=== PATIENT | male | born 1950 | race Caucasian/White ===

== ENCOUNTER 2022-04-13 16:01 | Inpatient (IN) | payer OTHER ==
--- NOTE | 2022-04-13 10:07 | R.PREADM ---
PRE-ADMISSION SCREENING FORM SCREENING DATE AND TIME 04/13/2022 08:30 (CDT) ANTICIPATED REHAB ADMISSION DATE 04/13/2022 REFERRING FACILITY [facility] REFERRAL DATE AND TIME 04/11/2022 16:53 (CDT) REFERRAL OFFICE PHONE REFERRAL ROOM# [id number] ACUTE ADMIT DATE 04/09/2022 Previous Rehabilitation(s): No. 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 Canelo Garcia MR# [id number] NAME JAXON REEVES ADDRESS [address] PHONE [facility] [address] DATE OF 1950 AGE 72 SSN# [id number] GENDER male MARITAL STATUS AD[facility] PRE-HOSPITAL LIVING SETTING 01 - Home (private home/apt. board/care, assisted living, [facility], transitional living) HOME TYPE AND DETAILS Type of home: single family house # of levels in the residence: 1 # of steps within the residence: 0 # of steps to enter the residence: 0 PRE-HOSPITAL LIVING WITH Family/Relatives FAMILY SUPPORT Yes PHONE PRIMARY FAMILY CONTACT ON ADM.? no IS PRIMARY FAMILY CONTACT AUTH. REP.? no PHONE 1ST CONTACT ON ADM. no IS 1ST CONTACT AUTH. REP.? no PHONE 2ND CONTACT ON ADM.? no PATIENT EMPLOYMENT STATUS Retired (for age) PATIENT EMPLOYER No Employer PAYOR INFORMATION: 1ST PAYOR NAME MEDICARE 1ST PAYOR PHONE INJURY/ILLNESS DUE TO ACCIDENT? No ANOTHER CONSTITUTION PARTY RESPONSIBLE? No PRIMARY REHAB/ACUTE DIAGNOSIS: FREQUENT FALLS AND WEAKNESS ONSET DATE 04/09/2022 REHAB IMPAIRMENT CATEGORY (LEONEL): 20 Miscellaneous (Misc) does NOT meet 60% rule PRIMARY DIAGNOSIS-RELATED SURGERIES: N/A COMORBID REHAB/ACUTE DIAGNOSES: - Non-Tiered Unspecified dementia without behavioral disturbance (F03.90) Essential (primary) hypertension (I10) Atherosclerotic heart disease of [place] coronary artery without angina pectoris (I25.10) Hyperlipidemia, unspecified (E78.5) Muscle weakness (generalized) (M62.81) INTERVENTIONS: - Hypertension Blood pressure will be regularly assessed and medications administered as per physician recommendatio ns. - Weakness Daily therapy services to enhance patient's functional strength and abilities. - Hyperlipidemia Administer medications as per MD - CAD Administer Medication as indicated by physician. Vitals will be regularly monitored and symptoms managed. - Dementia Medications administered as indicated by physician. Proper monitoring of patient to ensure safety. RISK FOR COMPLICATIONS: - Falls Patient will be evaluated for Fall Precautions and will be placed on Fall Precautions as indicated pe r protocol. - Cardiac monitoring heart rate/signs and symptoms for cardiac distress. Previous heart attack. medication management by physician - Weakness Nursing and therapy will help to get patient stronger Strengthening exercises to be performed - Skin Breakdown Nursing will assess skin daily using assessment tool and will place on Skin Breakdown Precautions as Indicated per protocol - UTI Monitor for frequency, burning, discomfort, or incontinence - Pain Clinical staff will assess patient's pain level every shift per protocol to monitor for pain manageme nt effectiveness Educate patient on pain management strategies - DVT Administer anti-coagulants as indicated by physician and monitor for effectiveness. Mobility training and regular exercise SUMMARY OF ACUTE HOSPITALIZATION: Pt. is a 72 yo Right-handed male. On 04/09/2022 he was admitted to [facility] with diagnosis FREQUENT FALLS AND WEAKNESS. His impairment category is Debility 16 - Debility (16). Pre-morbidly, Pt. was independent/mod-I in Locomotion, Safety Awareness, Social Cognition, Balance, a nd Transfers Control; and he had good Sphincter Control, Self-Care, Communication, and Endurance. Currently, he has deficits of Locomotion, Safety Awareness, Social Cognition, Balance, Transfers Cont rol, Sphincter Control, Self-Care, and Endurance. Pt. is now referred to [facility] for acute in-patient rehabilitation in order to maximize patient's functional independence in activities of daily living, strength, ROM, and mobi lity. Patient has realistic goal of being discharged at assistance level 7-Ind to reside at Home with Fami ly/Relatives. PAST MEDICAL HISTORY CAD DEMENTIA HTN HLD Repeated falls (R29.6) Muscle weakness (generalized) (M62.81) pulmonary congestion [place] Pacemaker PAST SURGICAL HISTORY: PACEMAKER MEDICATION ALLERGIES: No Known Drug Allergies (NKDA) ENVIRONMENTAL ALLERGIES: - Substance Allergies None Known - Other Allergies None Known CODE STATUS: Full code WEIGHT/HEIGHT/BMI: WEIGHT 220 lbs HEIGHT 6' 0" BMI 29.8 DIET: - Diet Type Regular - Diet - Solid Texture Regular - Diet - Liquid Texture Regular - Tube Feed N/A SKIN DIAGRAM: on Other; extent - small; stage - NS(Not Stageable). Treatment - . REVIEW OF SYSTEMS: - Gen Alert and awake Lying in bed No apparent distress Oriented to: person, time, and place - Vital Signs Temperature: 98.0 F SBP/DBP: 160/96 Pulse: 76 Resp: 19 Vital signs stable, afebrile - CVS RRR VITAL SIGNS Temperature: 98.0 F SBP/DBP: 160/96 Pulse: 76 Resp: 19 Vital signs stable, afebrile MEDICATIONS/TREATMENT: Other- See attached MAR (Medication Administration Record). CURRENT SPHINCTER CONTROL: Pre-hospital bladder status: unspecified # of bladder accidents in the last 7 days prior to screenin Pre-hospital bowel status: unspecified # of bowel accidents in the last 7 days prior to screenin Last Bowel Movement Date: 04/11/2022 CURRENT LOCOMOTION STATUS: distance walked 60 feet DETAILED CURRENT FUNCTIONAL STATUS: - Bladder accident frequency: 7-Ind - No accidents in the past 7 days - Bowel accident frequency: 7-Ind - No accidents in the past 7 days - Walking score based on distance walked: 0(N/A) score based on distance walked: 2(50-149ft) - Wheelchair score based on distance traveled: 0(N/A) QI SCORES: - Self-Care A. Eating 03-Partial/moderate assistance B. Oral hygiene 03-Partial/moderate assistance C. Toileting hygiene 03-Partial/moderate assistance E. Shower/bathe self 03-Partial/moderate assistance F. Upper body dressing 03-Partial/moderate assistance G. Lower body dressing 03-Partial/moderate assistance H. Putting on/taking off footwear 88-Not attempted due to medical condition or safety concerns - Mobility A. Roll left and right 06-Independent B. Sit to lying 03-Partial/moderate assistance C. Lying to sitting on side of bed 03-Partial/moderate assistance D. Sit to stand 03-Partial/moderate assistance E. Chair/zag-af-tcpvr transfer 03-Partial/moderate assistance F. Toilet transfer 03-Partial/moderate assistance G. Car transfer 88-Not attempted due to medical condition or safety concerns I. Walk 10 feet 03-Partial/moderate assistance J. Walk 50 feet with two turns 03-Partial/moderate assistance K. Walk 150 feet 88-Not attempted due to medical condition or safety concerns L. Walking 10 feet on uneven surfaces 88-Not attempted due to medical condition or safety concerns M. 1 step (curb) 88-Not attempted due to medical condition or safety concerns N. 4 steps 88-Not attempted due to medical condition or safety concerns O. 12 steps 88-Not attempted due to medical condition or safety concerns P. Picking up object 88-Not attempted due to medical condition or safety concerns R. Wheel 50 feet with two turns 88-Not attempted due to medical condition or safety concerns S. Wheel 150 feet 88-Not attempted due to medical condition or safety concerns - Bladder and Bowel Bladder continence Bowel continence - Endurance Fair - Balance Fair - Safety Awareness Fair CURRENT FUNC. DEFICITS: Self-Care, Endurance, Balance, Safety Awareness, and Mobility CURRENT / PREVIOUS ASSISTIVE DEVICES: Rolling Walker HISTORY OF FALLS. HAS THE PATIENT HAD TWO OR MORE FALLS IN THE PAST YEAR OR ANY FALL WITH INJURY IN T HE PAST YEAR?: Yes PRIOR SURGERY. DID THE PATIENT HAVE MAJOR SURGERY DURING THE 100 DAYS PRIOR TO ADMISSION?: No THERAPY NOTES FROM ACUTE CARE: Attached. SPECIAL NEEDS: - Safety Concerns Skin breakdown precautions needed due to skin breakdown risk PRECAUTIONS: - Fall Precaution SAFTY AND FALL PATIENT NEEDS ACTIVE AND ONGOING THERAPEUTIC INTERVENTION OF MULTIPLE THERAPY DISCIPLINES, INCLUDING: - Dietary and Nutrition Adequate Nutrition. Nutritional Education. Nutritional Supplements. Evaluate and Treat. - Occupational Therapy Cognitive Retraining. Patient needs Occupational Therapy for a daily minimum of 1.5 hours at least 5 out of 7 days, to improve Activities of Daily Living, including: Eating, Grooming, Bathing, Dressing, Toileting, Toilet Transfers, Community Reintegration, Higher functional activities, Adaptive Equipme nt, Splinting, Household Tasks, and Other activities as determined. Visual Perceptual Training. Evalu ate and Treat. Safety Awareness. Patient/Family Education. Household Tasks. ADL Training. - Speech Therapy Cognitive Training. Expressive Language Skills. Memory Strategies. Patient needs Speech Therapy for a daily minimum of 1.5 hours at least 5 out of 7 days, to improve: Swallowing, Cognition, Language Ski lls, and Compensatory Strategies. Receptive Language Skills. Speech Intelligibility Training. - Physical Therapy Patient needs Physical Therapy for a daily minimum of 1.5 hours at least 5 out of 7 days, to improve: Mobility, Strengthening, Transfers, Stretching, ROM, Endurance, Ability to manage stairs, Gait, and Balance. Balance Training. Gait Training. Safety Awareness. Transfer Training. Evaluate and Treat. Pa tient/Family Education. LE Strengthening. Mobility Training. PATIENT NEEDS CLOSE MEDICAL SUPERVISION BY A REHABILITATION PHYSICIAN FOR: Coordination of Treatment Team Wound Care Medical and Co-Morbidity Management Pain Management DVT Management Bowel and Bladder Management PATIENT REQUIRES 24X7 REHAB NURSING FOR MEDICAL AND FUNCTIONAL MGT. OF THE FOLLOWING DEFICITS: Disease Management Medication Management Patient requires 24x7 Rehabilitation Nursing for: Pain Issues, Identifying and preventing risk factor s, Monitoring and reporting current medical conditions, Assisting with ambulation and transfer, Ernesto ting with all ADL-s, Teaching patients about disease process and medications, Family teaching, Provid ing safe environment, Bowel and Bladder Issues, Skin Integrity, and Medication Management Patient/Family Education Providing Safe Environment Skin Integrity PATIENT REQUIRES INTENSIVE, COORDINATED INTERDISCIPLINARY APPROACH TO REHAB: Arranging Home Equipment/Services Discharge Planning Family Intervention/Training Patient needs Dietary and Nutrition Services for: Adequate Nutrition, Nutritional Supplements, and Nu tritional Education Patient needs Criminal Justice Department Chair and/or Case Management for: Discharge Planning, Arranging Home Equipmen t or Services, and Family Interventions Criminal Justice Department Chair/Case Management PATIENT REHAB POTENTIAL: Jules REEVES is able and expected to receive 3 hours of individualized therapy daily on at least 5 of every 7 days Jules REEVES's prognosis for significant practical improvement within a reasonable period of time tere ears Good Expected level of measurable improvement will be of a practical value to Jules REEVES's functional ca pacity or adaptations to impairments Has a viable Discharge Plan Medically appropriate; condition is sufficiently stable to participate in intensive rehab program DISCHARGE PLAN: - Estimated Length of Stay (days) 13. - Consensus on plan Discharge plan has been discussed with primary caregiver. Patient/Family is in agreement with the amisha n. Primary caregiver is in agreement with the plan. - Patient/Family Goals Return home independently. - Planned Living Setting Upon Discharge Home, to live with Family/Relatives. Transitional Living. RECOMMENDED CARE LEVEL: IRF RECOMMENDATION DETAILS: Recommended Admission to Comprehensive Rehabilitation Program to Increase Functional [place] PHYSICIANS REVIEW AND ADMISSION DETERMINATION Admit - Based on my review of the Pre-Admission Screening results, in my medical judgment and experie nce, I concur with the findings and recommend admission to [facility], as this patient requires an IRF level of care. SIGNATURE PANEL: Electrical Electronics Technician - [electronically] signed by Dennys Robbins on 04/12/2022 at 12:08 (CDT) Electrical Electronics Technician - [electronically] signed by Germán Russo PT on 04/13/2022 at 08:59 (CDT) Physician Reviewer - [electronically] signed by Dr. Canelo Garcia on 04/13/2022 at 10:07 (CDT)
--- OUTSIDE RECORDS SUMMARY | 2022-04-13 17:11 | XMS REPORT | Continuity of Care Document ---
:1950 Author Organization [facility] t Address [address] [place] [address] Care Team Providers Name Role Phone [id number] Attending Clinician Unavailable AHMED Attending Clinician Unavailable TRACIE Attending Clinician Unavailable Radha Attending Clinician Unavailable Jody Carr Attending Clinician Unavailable Rashmi Swann Attending Clinician Unavailable CAMACHO Attending Clinician Unavailable [id number] Admitting Clinician Unavailable AHMED Admitting Clinician Unavailable TRACIE Admitting Clinician Unavailable Physician, Primary or Family Admitting Clinician Unavailabl e UNDEFINED Admitting Clinician Unavailable Jody Carr Admitting Clinician Unavailable Thang Trivedi Admitting Clinician Unavailable Payers Payer Name Policy Type Policy Number Effective Date Expiration Date S nay MEDICARE A B [id number] 2017 00:00:00 CDC REVIEW [id number] 2020 00:00:00 [facility]AP EMERGENCY [id number] 2016 2016 ADMIT 00:00:00 00:00:00 Problems This patient has no known problems. Allergies, Adverse Reactions, Alerts Allergy Allergy Status Severity Reaction(s) Onset Inactive Treating Comm ents Source Name Type Date Date Clinician No Known DA Active U 2020-0 [facility] 6[facility]05 Clear s 00:00: Alexis [address] [place] [address] No Known DA Active U 2020-0 [facility] 5-15 Phillip s 00:00: [address] No Known DA Active U 2020-0 [facility] 5-15 Phillip s 00:00: [address] No Known DA Active U 2018-1 [facility] 0-23 Clear s 00:00: [address] No Known DA Active U 2012-0 [facility]ie 4-18 [place] s 00:00: [address] NO KNOWN Allergy Active [facility] ALLERGIE S Medications This patient has no known medications. Vital Signs Vital Name Observation Time Observation Value Comments Source HEIGHT 2020-05-23 00:00:00 180.3 cm WEIGHT 2020-05-23 00:00:00 92.2 kg HEIGHT 2020-05-03 00:00:00 180.3 cm WEIGHT 2020-05-03 00:00:00 95.573 kg HEIGHT 2020-05-23 00:00:00 180.3 cm WEIGHT 2020-05-23 00:00:00 92.2 kg HEIGHT 2020-05-03 00:00:00 180.3 cm WEIGHT 2020-05-03 00:00:00 95.573 kg Procedures Procedure Date / Time Performed Performing Clinician Tamara march [id number] 2020-01-20 00:00:[address] [facility] [id number] 2020-01-20 00:00:[address] [facility] [id number] 2020-01-20 00:00:[address] [facility] [id number] 2020-01-16 00:00:00 KUMSA.02 [facility] [id number] 2020-01-16 00:00:00 KUMSA.02 [facility] [id number] 2019-12-10 00:00:00 [facility] [id number] 2019-12-10 00:00:00 [facility] [id number] 2019-12-10 00:00:00 [facility] [id number] 2019-12-10 00:00:00 [facility] Encounters Start End Encounter Admission Attending Care Care Encounter Source Date/Time Date/Time Type Type Clinicians Facility Department ID 2021-11-21 Outpatient 3 [id number] ENCPL REF [id number] ENCPL 09:58:04 0609 2021-11-21 Outpatient 3 [id number] ENCSL REF [id number] ENCSL 09:29:15 [id number] 2021-11-21 Outpatient 3 [id number] ENCSL REF [id number] ENCSL 09:28:58 [id number] 2021-07-31 Inpatient ER ZACH HUGHES Cardiology [id number] [facility] 01:26:42 MARIE 2021-07-30 Outpatient TRACIE, [facility] Surgery [id number] [facility] 23:53:12 MOHAMMAD 2020-05-03 Inpatient ER GISSELLE [facility] Internal [id number] [facility] 15:52:00 MARIE Med 2020-03-30 Inpatient HCAPM KRISTINA [id number] [facility] 20:31:00 [facility] 2020-03-09 Inpatient Loyalka, [facility] DAYS [id number] [facility] 11:00:00 Ibrahima [id number] [facility] 2020-01-16 Inpatient UR Bruno, HCAPM INTE [id number] [facility] 08:10:00 Flavio [id number] [facility] [place] 2019-12-08 Inpatient Omer Swannn HCAWU KRISTINA [id number] [facility] 22:48:00 [id number] [facility] 2020-04-04 2020-04-04 Outpatient CAMACHO, NATALEE HCAPM LABO [id number] [facility] 20:28:00 20:28:00 [facility] [place] 2020-04-04 2020-04-04 Outpatient CAMACHO, NATALEE HCAPM LABO [id number] [facility] 20:28:00 20:28:00 [facility] [place] 2020-03-30 2020-03-30 Outpatient Bruno, HCACL OUTD [id number] [facility] 23:24:00 23:24:00 Flavio [facility] 2020-03-08 2020-03-08 Outpatient Loyalka, HCACL OUTD [id number] [facility] 11:55:00 11:55:00 Ibrahima [id number] [facility] 2020-03-08 2020-03-08 Outpatient Loyalka, HCAPM LABO [id number] [facility] 11:18:00 11:18:00 Ibrahima [id number] [facility] [place] 2020-01-17 2020-01-17 Outpatient Carr, [facility]AC[facility] OUTD [id number] [facility] 00:05:00 00:05:00 [facility] [id number] [facility] Results Test Description Test Time Test Comments Results Result Comments Source POCT-GLUCOSE METER 2020-05-30 16:39:00 Test Item Value Reference Range Interpretation Comme nts POC-GLUCOSE METER (BEAKER) 101 mg/dL 70-110 : TESTED AT [facility] [address] [facility] (test code = 1538) [facility] X, [address]: Carousel Attendant/Techni jennifer ID = [id number] for OLU BAUTISTA POCT-GLUCOSE [id number] 11:47:00 Test Item Value Reference Range Interpretation Comments POC-GLUCOSE METER 114 mg/dL 70-110 H : TESTED A T [facility] 6720 (BEAKER) (test code = [facility] Thang [facility], 1538) [address]: Carousel Attendant/Techni jennifer ID = [id number] for DELORES SOTOA POCT-GLUCOSE [id number] 07:21:00 Test Item Value Reference Range Interpretation Comments POC-GLUCOSE METER 126 mg/dL 70-110 H : [facility] (test code = [facility] Thang [facility], 1538) [address]: Carousel Attendant/Techni jennifer ID = [id number] for SERA NTER, HIWITHA CBC W/PLT COUNT & AUTO [id number] 05:44:00 Test Item Value Reference Range Interpretation Comments WHITE BLOOD CELL COUNT (BEAKER) 8.1 K/ L 3.5-10.5 (test code = 775) RED BLOOD CELL COUNT (BEAKER) 3.87 M/ L 4.63-6.08 L (test code = 761) HEMOGLOBIN (BEAKER) (test code = 10.4 GM/DL 13.7-17.5 L 410) HEMATOCRIT (BEAKER) (test code = 32.8 % 40.1-51.0 L 411) MEAN CORPUSCULAR VOLUME (BEAKER) 84.8 fL 79.0-92.2 (test code = 753) MEAN CORPUSCULAR HEMOGLOBIN 26.9 pg 25.7-32.2 (BEAKER) (test code = 751) MEAN CORPUSCULAR HEMOGLOBIN CONC 31.7 GM/DL 32.3-36.5 L (BEAKER) (test code = 752) RED CELL DISTRIBUTION WIDTH 16.4 % 11.6-14.4 H (BEAKER) (test code = 412) PLATELET COUNT (BEAKER) (test 157 K/CU MM 150-450 code = 756) MEAN PLATELET VOLUME (BEAKER) 11.8 fL 9.4-12.4 (test code = 754) NUCLEATED RED BLOOD CELLS 0 /100 WBC 0-0 (BEAKER) (test code = 413) NEUTROPHILS RELATIVE PERCENT 61 % (BEAKER) (test code = 429) LYMPHOCYTES RELATIVE PERCENT 23 % (BEAKER) (test code = 430) MONOCYTES RELATIVE PERCENT 9 % (BEAKER) (test code = 431) EOSINOPHILS RELATIVE PERCENT 6 % (BEAKER) (test code = 432) BASOPHILS RELATIVE PERCENT 1 % (BEAKER) (test code = 437) NEUTROPHILS ABSOLUTE COUNT 4.96 K/ L 1.78-5.38 (BEAKER) (test code = 670) LYMPHOCYTES ABSOLUTE COUNT 1.90 K/ L 1.32-3.57 (BEAKER) (test code = 414) MONOCYTES ABSOLUTE COUNT (BEAKER) 0.71 K/ L 0.30-0.82 (test code = 415) EOSINOPHILS ABSOLUTE COUNT 0.45 K/ L 0.04-0.54 (BEAKER) (test code = 416) BASOPHILS ABSOLUTE COUNT (BEAKER) 0.07 K/ L 0.01-0.08 (test code = 417) IMMATURE GRANULOCYTES-RELATIVE 0 % 0-1 PERCENT (BEAKER) (test code = 2801) POCT-GLUCOSE [id number] 21:31:00 Test Item Value Reference Range Interpretation Comments POC-GLUCOSE METER 125 mg/dL 70-110 H : TESTED A T [facility] 6720 (BEAKER) (test code = [facility], 153) [address]: Carousel Attendant/Techni jennifer ID = [id number] for Nika sandoval Margarita POCT-GLUCOSE [id number] 16:20:00 Test Item Value Reference Range Interpretation Comments POC-GLUCOSE METER 114 mg/dL 70-110 H : TESTED A T [facility] 6720 (BEAKER) (test code = [facility], 153) 00182: Carousel Attendant/Techni jennifer ID = [id number] for TOM COVARRUBIAS JOHANNA POCT-GLUCOSE [id number] 11:59:00 Test Item Value Reference Range Interpretation Comments POC-GLUCOSE METER 117 mg/dL 70-110 H : TESTED A T [facility] 6720 (BEAKER) (test code = [facility]UN[facility] Desir [facility], 1538) 335[address]: Carousel Attendant/Techni jennifer ID = [id number] for TOM COVARRUBIAS POCT-GLUCOSE [id number] 08:03:00 Test Item Value Reference Range Interpretation Comments POC-GLUCOSE METER 122 mg/dL 70-110 H : TESTED A T [facility] 6720 (BEAKER) (test code = [facility] Desir [facility], 1538) [address]: Carousel Attendant/Techni jennifer ID = [id number] for TOM COVARRUBIAS CBC W/PLT COUNT & AUTO [id number] 05:21:00 Test Item Value Reference Range Interpretation Comments WHITE BLOOD CELL COUNT (BEAKER) 8.4 K/ L 3.5-10.5 (test code = 775) RED BLOOD CELL COUNT (BEAKER) 3.75 M/ L 4.63-6.08 L (test code = 761) HEMOGLOBIN (BEAKER) (test code = 10.2 GM/DL 13.7-17.5 L 410) HEMATOCRIT (BEAKER) (test code = 32.1 % 40.1-51.0 L 411) MEAN CORPUSCULAR VOLUME (BEAKER) 85.6 fL 79.0-92.2 (test code = 753) MEAN CORPUSCULAR HEMOGLOBIN 27.2 pg 25.7-32.2 (BEAKER) (test code = 751) MEAN CORPUSCULAR HEMOGLOBIN CONC 31.8 GM/DL 32.3-36.5 L (BEAKER) (test code = 752) RED CELL DISTRIBUTION WIDTH 16.2 % 11.6-14.4 H (BEAKER) (test code = 412) PLATELET COUNT (BEAKER) (test 141 K/CU MM 150-450 L code = 756) MEAN PLATELET VOLUME (BEAKER) 11.6 fL 9.4-12.4 (test code = 754) NUCLEATED RED BLOOD CELLS 0 /100 WBC 0-0 (BEAKER) (test code = 413) NEUTROPHILS RELATIVE PERCENT 61 % (BEAKER) (test code = 429) LYMPHOCYTES RELATIVE PERCENT 23 % (BEAKER) (test code = 430) MONOCYTES RELATIVE PERCENT 9 % (BEAKER) (test code = 431) EOSINOPHILS RELATIVE PERCENT 6 % (BEAKER) (test code = 432) BASOPHILS RELATIVE PERCENT 1 % (BEAKER) (test code = 437) NEUTROPHILS ABSOLUTE COUNT 5.13 K/ L 1.78-5.38 (BEAKER) (test code = 670) LYMPHOCYTES ABSOLUTE COUNT 1.89 K/ L 1.32-3.57 (BEAKER) (test code = 414) MONOCYTES ABSOLUTE COUNT (BEAKER) 0.73 K/ L 0.30-0.82 (test code = 415) EOSINOPHILS ABSOLUTE COUNT 0.52 K/ L 0.04-0.54 (BEAKER) (test code = 416) BASOPHILS ABSOLUTE COUNT (BEAKER) 0.07 K/ L 0.01-0.08 (test code = 417) IMMATURE GRANULOCYTES-RELATIVE 0 % 0-1 PERCENT (BEAKER) (test code = 2801) POCT-GLUCOSE [id number] 21:25:00 Test Item Value Reference Range Interpretation Comments POC-GLUCOSE METER 120 mg/dL 70-110 H : TESTED A T [facility] 6720 (BEAKER) (test code = [facility], 1538) 46[address]: Carousel Attendant/Techni jennifer ID = [id number] for Margarita Chan POCT-GLUCOSE [id number] 16:54:00 Test Item Value Reference Range Interpretation Comments POC-GLUCOSE METER 116 mg/dL 70-110 H : TESTED A T [facility] 6720 (BEAKER) (test code = [facility], 1538) 16520: Carousel Attendant/Techni jennifer ID = [id number] for TOM COVARRUBIAS POCT-GLUCOSE [id number] 12:20:00 Test Item Value Reference Range Interpretation Comments POC-GLUCOSE METER 126 mg/dL 70-110 H : TESTED A T [facility] 6720 (BEAKER) (test code = [facility], 1538) 855[address]: Carousel Attendant/Techni jennifer ID = [id number] for TOM COVARRUBIAS [id number] 08:22:00 Test Item Value Reference Range Interpretation Comments MAGNESIUM (BEAKER) (test code = 1.6 mg/dL 1.6-2.6 627) Carousel Attendant ID - PIAYA LPOCT-GLUCOSE [id number] 08:21:00 Test Item Value Reference Range Interpretation Comments POC-GLUCOSE METER 138 mg/dL 70-110 H : TESTED A T [facility] 6720 (BEAKER) (test code = [place] Desir [place], 1538) 76[address]: Carousel Attendant/Techni jennifer ID = [id number] for TOM COVARRUBIAS CBC W/PLT COUNT & AUTO [id number] 06:58:00 Test Item Value Reference Range Interpretation Comments WHITE BLOOD CELL COUNT (BEAKER) 7.1 K/ L 3.5-10.5 (test code = 775) RED BLOOD CELL COUNT (BEAKER) 3.80 M/ L 4.63-6.08 L (test code = 761) HEMOGLOBIN (BEAKER) (test code = 10.4 GM/DL 13.7-17.5 L 410) HEMATOCRIT (BEAKER) (test code = 31.9 % 40.1-51.0 L 411) MEAN CORPUSCULAR VOLUME (BEAKER) 83.9 fL 79.0-92.2 (test code = 753) MEAN CORPUSCULAR HEMOGLOBIN 27.4 pg 25.7-32.2 (BEAKER) (test code = 751) MEAN CORPUSCULAR HEMOGLOBIN CONC 32.6 GM/DL 32.3-36.5 (BEAKER) (test code = 752) RED CELL DISTRIBUTION WIDTH 16.1 % 11.6-14.4 H (BEAKER) (test code = 412) PLATELET COUNT (BEAKER) (test 139 K/CU MM 150-450 L code = 756) MEAN PLATELET VOLUME (BEAKER) 11.0 fL 9.4-12.4 (test code = 754) NUCLEATED RED BLOOD CELLS 0 /100 WBC 0-0 (BEAKER) (test code = 413) NEUTROPHILS RELATIVE PERCENT 62 % (BEAKER) (test code = 429) LYMPHOCYTES RELATIVE PERCENT 20 % (BEAKER) (test code = 430) MONOCYTES RELATIVE PERCENT 10 % (BEAKER) (test code = 431) EOSINOPHILS RELATIVE PERCENT 7 % (BEAKER) (test code = 432) BASOPHILS RELATIVE PERCENT 1 % (BEAKER) (test code = 437) NEUTROPHILS ABSOLUTE COUNT 4.39 K/ L 1.78-5.38 (BEAKER) (test code = 670) LYMPHOCYTES ABSOLUTE COUNT 1.39 K/ L 1.32-3.57 (BEAKER) (test code = 414) MONOCYTES ABSOLUTE COUNT (BEAKER) 0.72 K/ L 0.30-0.82 (test code = 415) EOSINOPHILS ABSOLUTE COUNT 0.47 K/ L 0.04-0.54 (BEAKER) (test code = 416) BASOPHILS ABSOLUTE COUNT (BEAKER) 0.05 K/ L 0.01-0.08 (test code = 417) IMMATURE GRANULOCYTES-RELATIVE 0 % 0-1 PERCENT (BEAKER) (test code = 2801) POCT-GLUCOSE [id number] 21:38:00 Test Item Value Reference Range Interpretation Comments POC-GLUCOSE METER 126 mg/dL 70-110 H : TESTED A T [facility] 6720 (BEAKER) (test code = [facility], 1538) 94622: Carousel Attendant/Techni jennifer ID = [id number] for JUAREZ DELA CRUZ SE POCT-GLUCOSE [id number] 16:46:00 Test Item Value Reference Range Interpretation Comments POC-GLUCOSE METER 100 mg/dL 70-110 : TESTED A T [facility] 6720 (BEAKER) (test code = [facility], 1538) 25517: Carousel Attendant/Techni jennifer ID = [id number] for JUAN ALBERTO DEL ANGEL POCT-GLUCOSE [id number] 12:05:00 Test Item Value Reference Range Interpretation Comments POC-GLUCOSE METER 139 mg/dL 70-110 H : TESTED A T [facility] 6720 (BEAKER) (test code = [facility], 1538) 66285: Carousel Attendant/Techni jennifer ID = [id number] for JUAN ALBERTO DEL ANGEL POCT-GLUCOSE [id number] 08:11:00 Test Item Value Reference Range Interpretation Comments POC-GLUCOSE METER 122 mg/dL 70-110 H : TESTED A T [facility] 6720 (BEAKER) (test code = [facility], 1538) 97420: Carousel Attendant/Techni jennifer ID = [id number] for JUAN ALBERTO DEL ANGEL CBC W/PLT COUNT & AUTO [id number] 04:44:00 Test Item Value Reference Range Interpretation Comments WHITE BLOOD CELL COUNT (BEAKER) 7.5 K/ L 3.5-10.5 (test code = 775) RED BLOOD CELL COUNT (BEAKER) 3.84 M/ L 4.63-6.08 L (test code = 761) HEMOGLOBIN (BEAKER) (test code = 10.4 GM/DL 13.7-17.5 L 410) HEMATOCRIT (BEAKER) (test code = 32.8 % 40.1-51.0 L 411) MEAN CORPUSCULAR VOLUME (BEAKER) 85.4 fL 79.0-92.2 (test code = 753) MEAN CORPUSCULAR HEMOGLOBIN 27.1 pg 25.7-32.2 (BEAKER) (test code = 751) MEAN CORPUSCULAR HEMOGLOBIN CONC 31.7 GM/DL 32.3-36.5 L (BEAKER) (test code = 752) RED CELL DISTRIBUTION WIDTH 15.9 % 11.6-14.4 H (BEAKER) (test code = 412) PLATELET COUNT (BEAKER) (test 129 K/CU MM 150-450 L code = 756) MEAN PLATELET VOLUME (BEAKER) 11.2 fL 9.4-12.4 (test code = 754) NUCLEATED RED BLOOD CELLS 0 /100 WBC 0-0 (BEAKER) (test code = 413) NEUTROPHILS RELATIVE PERCENT 65 % (BEAKER) (test code = 429) LYMPHOCYTES RELATIVE PERCENT 19 % (BEAKER) (test code = 430) MONOCYTES RELATIVE PERCENT 9 % (BEAKER) (test code = 431) EOSINOPHILS RELATIVE PERCENT 6 % (BEAKER) (test code = 432) BASOPHILS RELATIVE PERCENT 1 % (BEAKER) (test code = 437) NEUTROPHILS ABSOLUTE COUNT 4.85 K/ L 1.78-5.38 (BEAKER) (test code = 670) LYMPHOCYTES ABSOLUTE COUNT 1.39 K/ L 1.32-3.57 (BEAKER) (test code = 414) MONOCYTES ABSOLUTE COUNT (BEAKER) 0.66 K/ L 0.30-0.82 (test code = 415) EOSINOPHILS ABSOLUTE COUNT 0.48 K/ L 0.04-0.54 (BEAKER) (test code = 416) BASOPHILS ABSOLUTE COUNT (BEAKER) 0.05 K/ L 0.01-0.08 (test code = 417) IMMATURE GRANULOCYTES-RELATIVE 0 % 0-1 PERCENT (BEAKER) (test code = 2801) POCT-GLUCOSE [id number] 21:30:00 Test Item Value Reference Range Interpretation Comments POC-GLUCOSE METER 116 mg/dL 70-110 H : TESTED A T [facility] 6720 (BEAKER) (test code = [facility], 1538) 20267: Carousel Attendant/Techni jennifer ID = [id number] for JUAREZ DELA CRUZ SE POCT-GLUCOSE [id number] 16:44:00 Test Item Value Reference Range Interpretation Comments POC-GLUCOSE METER 93 mg/dL 70-110 : TESTED A T [facility] 6720 (BEAKER) (test code = [facility], 1538) 36391: Carousel Attendant/Techni jennifer ID = [id number] for DANUTA JACQUES POCT-GLUCOSE [id number] 11:28:00 Test Item Value Reference Range Interpretation Comments POC-GLUCOSE METER 166 mg/dL 70-110 H : TESTED A T [facility] 6720 (BEAKER) (test code = [facility], 1538) 16011: Carousel Attendant/Techni jennifer ID = [id number] for DANUTA DEL ROSARIO BASIC METABOLIC [id number] 07:30:00 Test Item Value Reference Range Interpretation Comments SODIUM (BEAKER) 136 meq/L 136-145 (test code = 381) POTASSIUM (BEAKER) 4.6 meq/L 3.5-5.1 (test code = 379) CHLORIDE (BEAKER) 109 meq/L 98-107 H (test code = 382) CO2 (BEAKER) (test 23 meq/L 22-29 code = 355) BLOOD UREA NITROGEN 33 mg/dL 7-21 H (BEAKER) (test code = 354) CREATININE (BEAKER) 1.46 mg/dL 0.57-1.25 H (test code = 358) GLUCOSE RANDOM 126 mg/dL 70-105 H (BEAKER) (test code = 652) CALCIUM (BEAKER) 8.2 mg/dL 8.4-10.2 L (test code = 697) EGFR (BEAKER) (test 48 mL/min/1.73 ESTIMA SURI GFR IS code = 1092) sq m NOT ACCURATE CREATININE CLEARANCE IN PREDICTING GLOMERULAR FILTRATION RATE . ESTIMATED GFR I S NOT APPLICABLE FOR DIALYSIS PATIEN TS. Carousel Attendant ID - EDASIPOCT-GLUCOSE [id number] 07:25:00 Test Item Value Reference Range Interpretation Comments POC-GLUCOSE METER 139 mg/dL 70-110 H : TESTED A T [facility] 6720 (BEAKER) (test code = ED[place]UN[place], 1538) 24843: Carousel Attendant/Techni jennifer ID = [id number] for DANUTA DEL ROSARIO CBC W/PLT COUNT & AUTO [id number] 06:43:00 Test Item Value Reference Range Interpretation Comments WHITE BLOOD CELL COUNT (BEAKER) 6.4 K/ L 3.5-10.5 (test code = 775) RED BLOOD CELL COUNT (BEAKER) 3.76 M/ L 4.63-6.08 L (test code = 761) HEMOGLOBIN (BEAKER) (test code = 10.4 GM/DL 13.7-17.5 L 410) HEMATOCRIT (BEAKER) (test code = 32.2 % 40.1-51.0 L 411) MEAN CORPUSCULAR VOLUME (BEAKER) 85.6 fL 79.0-92.2 (test code = 753) MEAN CORPUSCULAR HEMOGLOBIN 27.7 pg 25.7-32.2 (BEAKER) (test code = 751) MEAN CORPUSCULAR HEMOGLOBIN CONC 32.3 GM/DL 32.3-36.5 (BEAKER) (test code = 752) RED CELL DISTRIBUTION WIDTH 15.9 % 11.6-14.4 H (BEAKER) (test code = 412) PLATELET COUNT (BEAKER) (test 128 K/CU MM 150-450 L code = 756) MEAN PLATELET VOLUME (BEAKER) 11.7 fL 9.4-12.4 (test code = 754) NUCLEATED RED BLOOD CELLS 0 /100 WBC 0-0 (BEAKER) (test code = 413) NEUTROPHILS RELATIVE PERCENT 62 % (BEAKER) (test code = 429) LYMPHOCYTES RELATIVE PERCENT 21 % (BEAKER) (test code = 430) MONOCYTES RELATIVE PERCENT 9 % (BEAKER) (test code = 431) EOSINOPHILS RELATIVE PERCENT 7 % (BEAKER) (test code = 432) BASOPHILS RELATIVE PERCENT 1 % (BEAKER) (test code = 437) NEUTROPHILS ABSOLUTE COUNT 3.95 K/ L 1.78-5.38 (BEAKER) (test code = 670) LYMPHOCYTES ABSOLUTE COUNT 1.34 K/ L 1.32-3.57 (BEAKER) (test code = 414) MONOCYTES ABSOLUTE COUNT (BEAKER) 0.56 K/ L 0.30-0.82 (test code = 415) EOSINOPHILS ABSOLUTE COUNT 0.46 K/ L 0.04-0.54 (BEAKER) (test code = 416) BASOPHILS ABSOLUTE COUNT (BEAKER) 0.06 K/ L 0.01-0.08 (test code = 417) IMMATURE GRANULOCYTES-RELATIVE 1 % 0-1 PERCENT (BEAKER) (test code = 2801) POCT-GLUCOSE [id number] 21:30:00 Test Item Value Reference Range Interpretation Comments POC-GLUCOSE METER 142 mg/dL 70-110 H : TESTED A T [facility] 6720 (BEAKER) (test code = [facility] R [facility], 1538) 50642: Carousel Attendant/Techni jennifer ID = [id number] for Dorothy Nugent POCT-GLUCOSE [id number] 17:08:00 Test Item Value Reference Range Interpretation Comments POC-GLUCOSE METER 117 mg/dL 70-110 H : TESTED A T [facility] 6720 (BEAKER) (test code = [facility], 1538) 51621: Carousel Attendant/Techni jennifer ID = [id number] for ASHLEY THOMPSON SARS-COV2/RT-PCR ([facility])2020-05-25 14:48:00 Test Item Value Reference Range Interpretation Comments SARS-COV2/RT-PCR (test Negative Not Detected, Negative, code = 9827562) See external report for linked test SARS-COV-2 PERFORMING LAB [facility] (test code = 9583425) Negative result for this test determines that SARS-CoV-2 RNA was not present in the specimen above the Limit of Detection (LOD). However, Negative results do not preclude SARS-CoV-2 infection and should not be used as the sole basis for treatment or patient management decisions. Negative results mustbe combined with clinical observations, patient history, and epidemiological information. A false negative result may occur if a specimen is improperly collected, transported or handled. A false negative result should be considered if patient's recent exposures or clinical presentation indicate that COVID-19 (SARS-CoV-2) is likely and diagnostic tests for other causes of illness are negative. Re-testing should be considered in cases of suspected false negatives.The limit of detection for this assay is 800 copies/mL.This SARS CoV-2 test is a real-time RT-PCR test intended for the qualitative detection of nucleic acid from SARS-CoV-2 in a nasopharyngeal swab specimen collected from individuals susp ected of COVID-19 by their healthcare provider.This test has not been Food and Drug Administration (FDA) cleared or approved. This is a modified version of an approved Emergency Use Authorization (EUA) and is in the process of review by the FDA. Once authorized by the FDA, the issued EUA will be effective until the declaration that circumstances exist justifying the authorization of the emergency use of in vitro diagnostic tests for detection and/or diagnosis of COVID-19 is terminated under Section 564(b)(2) of the Act or the EUA is revoked under Section 564(g) of the Act.Fact Sheet for Healthcare Providers:https://www.[employer]/sites/default/files/product/documents/Fact_Shee h_ZC_Dgjkhwthl_Zpjb_TJGN-QiS-2.pdfFact Sheet for Healthcare Patients:https://www.[employer]/sites/default/files/product/ documents/Afnm_Ckple_Tllrqzxt_Gdvk_ZLPX-YwQ-8.pdfPerforming Laboratory:[facility] [facility].[place], [place] [id number] METER 2020-05-25 11:55:00 Test Item Value Reference Range Interpretation Comments POC-GLUCOSE METER 147 mg/dL 70-110 H : TESTED A T [facility] 6720 (BEAKER) (test code = [facility], 1538) [id number]: Carousel Attendant/Techni jennifer ID = [id number] for SEBASTIAN SALAZAR THOMASNDJannette POCT-GLUCOSE [id number] 07:59:00 Test Item Value Reference Range Interpretation Comments POC-GLUCOSE METER 149 mg/dL 70-110 H : TESTED A T [facility] 6720 (BEAKER) (test code = [facility], 1538) [id number]: Carousel Attendant/Techni jennifer ID = [id number] for SEBASTIAN MANZOA THOMASNDY BASIC METABOLIC [id number] 04:53:00 Test Item Value Reference Range Interpretation Comments SODIUM (BEAKER) 139 meq/L 136-145 (test code = 381) POTASSIUM (BEAKER) 3.5 meq/L 3.5-5.1 (test code = 379) CHLORIDE (BEAKER) 115 meq/L 98-107 H (test code = 382) CO2 (BEAKER) (test 18 meq/L 22-29 L code = 355) BLOOD UREA NITROGEN 55 mg/dL 7-21 H (BEAKER) (test code = 354) CREATININE (BEAKER) 2.02 mg/dL 0.57-1.25 H (test code = 358) GLUCOSE RANDOM 110 mg/dL 70-105 H (BEAKER) (test code = 652) CALCIUM (BEAKER) 6.4 mg/dL 8.4-10.2 L (test code = 697) EGFR (BEAKER) (test 33 mL/min/1.73 ESTIMA SURI GFR IS code = 1092) sq m NOT ACCURATE CREATININE CLEARANCE IN PREDICTING GLOMERULAR FILTRATION RATE . ESTIMATED GFR I S NOT APPLICABLE FOR DIALYSIS PATIEN TS. Carousel Attendant ID - EDASICBC W/PLT COUNT & AUTO [id number] 04:29:00 Test Item Value Reference Range Interpretation Comments WHITE BLOOD CELL COUNT 7.7 K/ L 3.5-10.5 (BEAKER) (test code = 775) RED BLOOD CELL COUNT 3.09 M/ L 4.63-6.08 L (BEAKER) (test code = 761) HEMOGLOBIN (BEAKER) 8.6 GM/DL 13.7-17.5 L Discorda nt HGB (test code = 410) result com pared to previous result ; clinical correl ation required. HEMATOCRIT (BEAKER) 26.5 % 40.1-51.0 L (test code = 411) MEAN CORPUSCULAR 85.8 fL 79.0-92.2 VOLUME (BEAKER) (test code = 753) MEAN CORPUSCULAR 27.8 pg 25.7-32.2 HEMOGLOBIN (BEAKER) (test code = 751) MEAN CORPUSCULAR 32.5 GM/DL 32.3-36.5 HEMOGLOBIN CONC (BEAKER) (test code = 752) RED CELL DISTRIBUTION 15.8 % 11.6-14.4 H WIDTH (BEAKER) (test code = 412) PLATELET COUNT 104 K/CU MM 150-450 L (BEAKER) (test code = 756) MEAN PLATELET VOLUME 11.4 fL 9.4-12.4 (BEAKER) (test code = 754) NUCLEATED RED BLOOD 0 /100 WBC 0-0 CELLS (BEAKER) (test code = 413) NEUTROPHILS RELATIVE 69 % PERCENT (BEAKER) (test code = 429) LYMPHOCYTES RELATIVE 18 % PERCENT (BEAKER) (test code = 430) MONOCYTES RELATIVE 9 % PERCENT (BEAKER) (test code = 431) EOSINOPHILS RELATIVE 4 % PERCENT (BEAKER) (test code = 432) BASOPHILS RELATIVE 1 % PERCENT (BEAKER) (test code = 437) NEUTROPHILS ABSOLUTE 5.24 K/ L 1.78-5.38 COUNT (BEAKER) (test code = 670) LYMPHOCYTES ABSOLUTE 1.37 K/ L 1.32-3.57 COUNT (BEAKER) (test code = 414) MONOCYTES ABSOLUTE 0.69 K/ L 0.30-0.82 COUNT (BEAKER) (test code = 415) EOSINOPHILS ABSOLUTE 0.28 K/ L 0.04-0.54 COUNT (BEAKER) (test code = 416) BASOPHILS ABSOLUTE 0.04 K/ L 0.01-0.08 COUNT (BEAKER) (test code = 417) IMMATURE 0 % 0-1 GRANULOCYTES-RELATIVE PERCENT (BEAKER) (test code = 2801) POCT-GLUCOSE [id number] 21:17:00 Test Item Value Reference Range Interpretation Comments POC-GLUCOSE METER 137 mg/dL 70-110 H : TESTED A T [facility] 6720 (BEAKER) (test code = [facility], 153) [id number]: Carousel Attendant/Techni jennifer ID = [id number] for ROSALEE FINE POCT-GLUCOSE [id number] 16:47:00 Test Item Value Reference Range Interpretation Comments POC-GLUCOSE METER 174 mg/dL 70-110 H : TESTED A T [facility] 6720 (BEAKER) (test code = [facility], 153) [id number]: Carousel Attendant/Techni jennifer ID = [id number] for TOM COVARRUBIAS CORTISOL,60 [id number] 16:46:00 Test Item Value Reference Range Interpretation Comments CORTISOL BASELINE NETWORKED 19.0 mcg/dL (BEAKER) (test code = 2057) CORTISOL 30 MINUTE NETWORKED 18.6 mcg/dL (BEAKER) (test code = 2308) CORTISOL, 60 MINUTE (BEAKER) 16.7 ug/dL (test code = 1805) ACTH STIMULATION TEST INTERPRETATION GUIDELINES(Synonyms: Cortrosyn Test, Cosyntropin or Corticotropin Stimulation Test)Adenocorticotropic hormone (ACTH)is a tropic hormone, made in the pituitary gland, which travels trhough the bloodstream and stimulates the cortex of the adrenal glands to release cortisol. Cortisol is a primary hormone, which aids the body's metabolism of fats, carbohydrates, and protein as well as sodium and potassium regulation.ACTH Stimulation Test: Exogenous administrationof biologically active ACTH stimulates the secretion of cortisol from the adrenal gland. This test is used to evaluate adrenal function by measuring cortisol levels at baseline and at 30 and 60 minutesafter the administration of 250 micrograms of cosyntropin (Cortrosyn). Patients who have received exogenous corticosteroids immediately prior to performing the ACTH Stimulation Test will often have elevated baseline cortisol levels, which may lead to erroneous interpretation of test results. The notable exception is with dexamethasone.Normal Response: An increase in cortisol after stimulation by ACTHis normal. Post-stimulation cortisol concentration should be greater than 20 mcg/dL or the rate of rise from baseline cortisol should be greater than or equal to 9 mcg/dL.Patients with sepsis or septicshock: According to a study by Radhika et al (BEN 2000,283(8):1038-45), the ACTH Stimulation Test provides important prognostic information. This study defined 3 groups of patients with sepsis or septic shock: 1. Good Survival: Low basal cortisol (<or=34 mcg/dL) and high ACTH response (>9mcg/dL) 2. Intermediate Survival: Low basal cortisol (<34 mcg/dL) and low response to ACTH (&l t;or=9 mcg/dL) OR High basal cortisol (>34 mcg/dL) or high ACTH response (>9 mcg/dL) 3.Poor Survival: High basal cortisol (>34 mcg/dL) and low ACTH response (<or=9 mcg/dL).Treatment of patients with relative adrenal dysfunction may be indicated based on test results and the clinical condition of the patient. Additional information, including treatment recommendations, is available in critically ill patients, approved by the Pharmacy, Nutrition, and Therapeutics Committee on 10/04/2004 and available through the Pharmacy Policy and Procedure Section on The Source.Carousel Attendant ID - NTPDraw baseline cortisol level just prior to cosyntropin administration.Administer cosyntropin 1 mcg/mL via slow IV push over a period of 2 minutes. Flush the line after the dose to ensure the entire dose is delivered.Draw serum cortisol level 30 minutes after cosyntropin administration.Draw serum cortisol level 60 minutes after cosyntropin administration.TROPONIN [id number] 16:14:00 Test Item Value Reference Range Interpretation Comments TROPONIN I (BEAKER) (test code = 0.02 ng/mL 0.00-0.03 397) Troponin I (TnI) levels must be interpreted in the context of the presenting symptoms and the clinical findings. Elevated TnI levels indicate myocardial damage, but are not specific for ischemic heart disease. Elevated TnI levels are seen in patients with other cardiac conditions (including myocarditis and congestive heart failure), and slight TnI elevations occur in patients with other conditions, including sepsis, renal failure, acidosis, acute neurological disease, and persistent tachyarrhythmia.Carousel Attendant ID - NTPCORTISOL,30 MIN 2020-05-24 13:43:00 Test Item Value Reference Range Interpretation Comments CORTISOL BASELINE NETWORKED 19.0 mcg/dL (BEAKER) (test code = 2307) CORTISOL, 30 MINUTE (BEAKER) 18.6 ug/dL (test code = 1804) ACTH STIMULATION TEST INTERPRETATION GUIDELINES(Synonyms: Cortrosyn Test, Cosyntropin or Corticotropin Stimulation Test)Adenocorticotropic hormone (ACTH)is a tropic hormone, made in the pituitary gland, which travels trhough the bloodstream and stimulates the cortex of the adrenal glands to release cortisol. Cortisol is a primary hormone, which aids the body's metabolism of fats, carbohydrates, and protein as well as sodium and potassium regulation.ACTH Stimulation Test: Exogenous administrationof biologically active ACTH stimulates the secretion of cortisol from the adrenal gland. This test is used to evaluate adrenal function by measuring cortisol levels at baseline and at 30 and 60 minutesafter the administration of 250 micrograms of cosyntropin (Cortrosyn). Patients who have received exogenous corticosteroids immediately prior to performing the ACTH Stimulation Test will often have elevated baseline cortisol levels, which may lead to erroneous interpretation of test results. The notable exception is with dexamethasone.Normal Response: An increase in cortisol after stimulation by ACTHis normal. Post-stimulation cortisol concentration should be greater than 20 mcg/dL or the rate of rise from baseline cortisol should be greater than or equal to 9 mcg/dL.Patients with sepsis or septicshock: According to a study by Radhika et al (BEN 2000,283(8):6486-45), the ACTH Stimulation Test provides important prognostic information. This study defined 3 groups of patients with sepsis or septic shock: 1. Good Survival: Low basal cortisol (<or=34 mcg/dL) and high ACTH response (>9mcg/dL) 2. Intermediate Survival: Low basal cortisol (<34 mcg/dL) and low response to ACTH (&l t;or=9 mcg/dL) OR High basal cortisol (>34 mcg/dL) or high ACTH response (>9 mcg/dL) 3.Poor Survival: High basal cortisol (>34 mcg/dL) and low ACTH response (<or=9 mcg/dL).Treatment of patients with relative adrenal dysfunction may be indicated based on test results and the clinical condition of the patient. Additional information, including treatment recommendations, is available in critically ill patients, approved by the Pharmacy, Nutrition, and Therapeutics Committee on 10/04/2004 and available through the Pharmacy Policy and Procedure Section on The Source.Carousel Attendant ID - NTPDraw baseline cortisol level just prior to cosyntropin administration.Administer cosyntropin 1 mcg/mL via slow IV push over a period of 2 minutes. Flush the line after the dose to ensure the entire dose is delivered.Draw serum cortisol level 30 minutes after cosyntropin administration.Draw serum cortisol level 60 minutes after cosyntropin administration.POCT-GLUCOSE [id number] 11:57:00 Test Item Value Reference Range Interpretation Comments POC-GLUCOSE METER 149 mg/dL 70-110 H : TESTED A T [facility] 6720 (BEAKER) (test code = [facility], 1538) [id number]: Carousel Attendant/Techni jennifer ID = [id number] for TOM COVARRUBIAS RAD, CHEST, 1 VIEW, NON [id number] 08:32:00Reason for exam:->ppm failureShould this be performed at the bedside?->YesFINAL REPORT CLINICAL HISTORY: ppm failure TECHNIQUE: 1 view of the chest. CO MPARISON: 05/11/2020 IMPRESSION: There are no focal infiltrates or effusions. The cardiomediastinal silhouette is magnified by technique with sternotomy wires and a pacemaker. Signed: Shelley Cook MDReport Verified Date/Time: 05/24/2020 08:32:38 Reading Location: [facility] Radiology Reading Room POCT- GLUCOSE [id number] 08:12:00 Test Item Value Reference Range Interpretation Comments POC-GLUCOSE METER 158 mg/dL 70-110 H : TESTED A T [facility] 6720 (BEAKER) (test code = EDMUND Desir [facility], 1538) [id number]: Carousel Attendant/Techni jennifer ID = [id number] for TOM COVARRUBIAS CORTISOL,[id number] 07:40:00 Test Item Value Reference Range Interpretation Comments CORTISOL, BASELINE (BEAKER) (test 19.0 ug/dL code = 1803) ACTH STIMULATION TEST INTERPRETATION GUIDELINES(Synonyms: Cortrosyn Test, Cosyntropin or Corticotropin Stimulation Test)Adenocorticotropic hormone (ACTH)is a tropic hormone, made in the pituitary gland, which travels trhough the bloodstream and stimulates the cortex of the adrenal glands to release cortisol. Cortisol is a primary hormone, which aids the body's metabolism of fats, carbohydrates, and protein as well as sodium and potassium regulation.ACTH Stimulation Test: Exogenous administrationof biologically active ACTH stimulates the secretion of cortisol from the adrenal gland. This test is used to evaluate adrenal function by measuring cortisol levels at baseline and at 30 and 60 minutesafter the administration of 250 micrograms of cosyntropin (Cortrosyn). Patients who have received exogenous corticosteroids immediately prior to performing the ACTH Stimulation Test will often have elevated baseline cortisol levels, which may lead to erroneous interpretation of test results. The notable exception is with dexamethasone.Normal Response: An increase in cortisol after stimulation by ACTHis normal. Post-stimulation cortisol concentration should be greater than 20 mcg/dL or the rate of rise from baseline cortisol should be greater than or equal to 9 mcg/dL.Patients with sepsis or septicshock: According to a study by Radhika et al (BEN 2000,283(8):1038-45), the ACTH Stimulation Test provides important prognostic information. This study defined 3 groups of patients with sepsis or septic shock: 1. Good Survival: Low basal cortisol (<or=34 mcg/dL) and high ACTH response (>9mcg/dL) 2. Intermediate Survival: Low basal cortisol (<34 mcg/dL) and low response to ACTH (&l t;or=9 mcg/dL) OR High basal cortisol (>34 mcg/dL) or high ACTH response (>9 mcg/dL) 3.Poor Survival: High basal cortisol (>34 mcg/dL) and low ACTH response (<or=9 mcg/dL).Treatment of patients with relative adrenal dysfunction may be indicated based on test results and the clinical condition of the patient. Additional information, including treatment recommendations, is available in critically ill patients, approved by the Pharmacy, Nutrition, and Therapeutics Committee on 10/04/2004 and available through the Pharmacy Policy and Procedure Section on The Source.Carousel Attendant ID - NTPDraw baseline cortisol level just prior to cosyntropin administration.Administer cosyntropin 1 mcg/mL via slow IV push over a period of 2 minutes. Flush the line after the dose to ensure the entire dose is delivered.Draw serum cortisol level 30 minutes after cosyntropin administration.Draw serum cortisol level 60 minutes after cosyntropin administration.TROPONIN [id number] 07:04:00 Test Item Value Reference Range Interpretation Comments TROPONIN I (BEAKER) (test code = 0.03 ng/mL 0.00-0.03 397) Troponin I (TnI) levels must be interpreted in the context of the presenting symptoms and the clinical findings. Elevated TnI levels indicate myocardial damage, but are not specific for ischemic heart disease. Elevated TnI levels are seen in patients with other cardiac conditions (including myocarditis and congestive heart failure), and slight TnI elevations occur in patients with other conditions, including sepsis, renal failure, acidosis, acute neurological disease, and persistent tachyarrhythmia.Carousel Attendant ID - NTPLACTIC ACID, VENOUS 2020-05-24 06:41:00 Test Item Value Reference Range Interpretation Comments LACTATE BLOOD VENOUS (2) (BEAKER) 0.93 mmol/L 0.50-2.20 (test code = 2872) Carousel Attendant ID - NTPBASIC METABOLIC [id number] 04:46:00 Test Item Value Reference Range Interpretation Comments SODIUM (BEAKER) 134 meq/L 136-145 L (test code = 381) POTASSIUM (BEAKER) 4.6 meq/L 3.5-5.1 (test code = 379) CHLORIDE (BEAKER) 100 meq/L 98-107 (test code = 382) CO2 (BEAKER) (test 26 meq/L 22-29 code = 355) BLOOD UREA NITROGEN 74 mg/dL 7-21 H (BEAKER) (test code = 354) CREATININE (BEAKER) 3.27 mg/dL 0.57-1.25 H (test code = 358) GLUCOSE RANDOM 155 mg/dL 70-105 H (BEAKER) (test code = 652) CALCIUM (BEAKER) 9.2 mg/dL 8.4-10.2 (test code = 697) EGFR (BEAKER) (test 19 mL/min/1.73 ESTIMA SURI GFR IS code = 1092) sq m NOT ACCURATE CREATININE CLEARANCE IN PREDICTING GLOMERULAR FILTRATION RATE . ESTIMATED GFR I S NOT APPLICABLE FOR DIALYSIS PATIEN TS. Carousel Attendant ID - EDASITROPONIN [id number] 04:45:00 Test Item Value Reference Range Interpretation Comments TROPONIN I (BEAKER) (test code = 0.03 ng/mL 0.00-0.03 397) Troponin I (TnI) levels must be interpreted in the context of the presenting symptoms and the clinical findings. Elevated TnI levels indicate myocardial damage, but are not specific for ischemic heart disease. Elevated TnI levels are seen in patients with other cardiac conditions (including myocarditis and congestive heart failure), and slight TnI elevations occur in patients with other conditions, including sepsis, renal failure, acidosis, acute neurological disease, and persistent tachyarrhythmia.Carousel Attendant ID - EDASICBC W/PLT COUNT & AUTO [id number] 04:22:00 Test Item Value Reference Range Interpretation Comments WHITE BLOOD CELL COUNT (BEAKER) 10.2 K/ L 3.5-10.5 (test code = 775) RED BLOOD CELL COUNT (BEAKER) 4.25 M/ L 4.63-6.08 L (test code = 761) HEMOGLOBIN (BEAKER) (test code = 11.8 GM/DL 13.7-17.5 L 410) HEMATOCRIT (BEAKER) (test code = 36.1 % 40.1-51.0 L 411) MEAN CORPUSCULAR VOLUME (BEAKER) 84.9 fL 79.0-92.2 (test code = 753) MEAN CORPUSCULAR HEMOGLOBIN 27.8 pg 25.7-32.2 (BEAKER) (test code = 751) MEAN CORPUSCULAR HEMOGLOBIN CONC 32.7 GM/DL 32.3-36.5 (BEAKER) (test code = 752) RED CELL DISTRIBUTION WIDTH 15.6 % 11.6-14.4 H (BEAKER) (test code = 412) PLATELET COUNT (BEAKER) (test 163 K/CU MM 150-450 code = 756) MEAN PLATELET VOLUME (BEAKER) 11.0 fL 9.4-12.4 (test code = 754) NUCLEATED RED BLOOD CELLS 0 /100 WBC 0-0 (BEAKER) (test code = 413) NEUTROPHILS RELATIVE PERCENT 69 % (BEAKER) (test code = 429) LYMPHOCYTES RELATIVE PERCENT 19 % (BEAKER) (test code = 430) MONOCYTES RELATIVE PERCENT 9 % (BEAKER) (test code = 431) EOSINOPHILS RELATIVE PERCENT 2 % (BEAKER) (test code = 432) BASOPHILS RELATIVE PERCENT 1 % (BEAKER) (test code = 437) NEUTROPHILS ABSOLUTE COUNT 7.05 K/ L 1.78-5.38 H (BEAKER) (test code = 670) LYMPHOCYTES ABSOLUTE COUNT 1.92 K/ L 1.32-3.57 (BEAKER) (test code = 414) MONOCYTES ABSOLUTE COUNT (BEAKER) 0.92 K/ L 0.30-0.82 H (test code = 415) EOSINOPHILS ABSOLUTE COUNT 0.20 K/ L 0.04-0.54 (BEAKER) (test code = 416) BASOPHILS ABSOLUTE COUNT (BEAKER) 0.08 K/ L 0.01-0.08 (test code = 417) IMMATURE GRANULOCYTES-RELATIVE 0 % 0-1 PERCENT (BEAKER) (test code = 2801) TSH/FREE T4 IF [id number] 02:24:00 Test Item Value Reference Range Interpretation Comments THYROID STIMULATING HORMONE 4.138 uIU/mL 0.350-4.940 (BEAKER) (test code = 772) Carousel Attendant ID - BSTROPONIN [id number] 00:52:00 Test Item Value Reference Range Interpretation Comments TROPONIN I (BEAKER) (test code = 0.03 ng/mL 0.00-0.03 397) Troponin I (TnI) levels must be interpreted in the context of the presenting symptoms and the clinical findings. Elevated TnI levels indicate myocardial damage, but are not specific for ischemic heart disease. Elevated TnI levels are seen in patients with other cardiac conditions (including myocarditis and congestive heart failure), and slight TnI elevations occur in patients with other conditions, including sepsis, renal failure, acidosis, acute neurological disease, and persistent tachyarrhythmia.Carousel Attendant ID - BSPOCT-GLUCOSE METER 2020-05-23 21:42:00 Test Item Value Reference Range Interpretation Comments POC-GLUCOSE METER 190 mg/dL 70-110 H : TESTED A T [facility] 6720 (BEAKER) (test code = EDMUND Desir [facility], 1538) [address]: Carousel Attendant/Techni jennifer ID = [id number] for ROSALEE FINE [id number] 20:47:00 Test Item Value Reference Range Interpretation Comments MAGNESIUM (BEAKER) 2.3 mg/dL 1.6-2.6 Specimen markedly (test code = 627) hemolyzed Carousel Attendant ID - BSHEMOGLOBIN [id number] 20:13:00 Test Item Value Reference Range Interpretation Comments HEMOGLOBIN A1C (BEAKER) (test code = 7.8 % 4.3-6.1 H 368) COMPREHENSIVE METABOLIC [id number] 19:48:00 Test Item Value Reference Range Interpretation Comments TOTAL PROTEIN 8.4 gm/dL 6.0-8.3 H Specimen katey dly (BEAKER) (test code = hemoly zed 770) ALBUMIN (BEAKER) 3.8 g/dL 3.5-5.0 Specimen ma rkedly (test code = 1145) hemolyzed ALKALINE PHOSPHATASE 91 U/L 40-150 (BEAKER) (test code = 346) BILIRUBIN TOTAL 0.5 mg/dL 0.2-1.2 Specimen mar kedly (BEAKER) (test code = hemoly zed 377) SODIUM (BEAKER) (test 133 meq/L 136-145 L code = 381) POTASSIUM (BEAKER) 5.8 meq/L 3.5-5.1 H Specimen markedly (test code = 379) hemolyzed CHLORIDE (BEAKER) 101 meq/L 98-107 (test code = 382) CO2 (BEAKER) (test 22 meq/L 22-29 code = 355) BLOOD UREA NITROGEN 63 mg/dL 7-21 H (BEAKER) (test code = 354) CREATININE (BEAKER) 2.32 mg/dL 0.57-1.25 H Specimen markedly (test code = 358) hemolyzed GLUCOSE RANDOM 147 mg/dL 70-105 H (BEAKER) (test code = 652) CALCIUM (BEAKER) 9.0 mg/dL 8.4-10.2 (test code = 697) AST (SGOT) (BEAKER) 25 U/L 5-34 Specimen markedly (test code = 353) hemolyzed ALT (SGPT) (BEAKER) 14 U/L 6-55 Specimen markedly (test code = 347) hemolyzed EGFR (BEAKER) (test 28 mL/min/1.73 ESTIMA SURI GFR IS code = 1092) sq m NOT ACCURATE CREATININE CLEARANCE IN PREDICTING GLOMERULAR FILTRATION RATE . ESTIMATED GFR I S NOT APPLICABLE FOR DIALYSIS PATIEN TS. Carousel Attendant ID - BSCBC W/PLT COUNT & AUTO [id number] 18:29:00 Test Item Value Reference Range Interpretation Comments WHITE BLOOD CELL COUNT (BEAKER) 8.2 K/ L 3.5-10.5 (test code = 775) RED BLOOD CELL COUNT (BEAKER) 4.39 M/ L 4.63-6.08 L (test code = 761) HEMOGLOBIN (BEAKER) (test code = 12.1 GM/DL 13.7-17.5 L 410) HEMATOCRIT (BEAKER) (test code = 37.1 % 40.1-51.0 L 411) MEAN CORPUSCULAR VOLUME (BEAKER) 84.5 fL 79.0-92.2 (test code = 753) MEAN CORPUSCULAR HEMOGLOBIN 27.6 pg 25.7-32.2 (BEAKER) (test code = 751) MEAN CORPUSCULAR HEMOGLOBIN CONC 32.6 GM/DL 32.3-36.5 (BEAKER) (test code = 752) RED CELL DISTRIBUTION WIDTH 15.8 % 11.6-14.4 H (BEAKER) (test code = 412) PLATELET COUNT (BEAKER) (test 158 K/CU MM 150-450 code = 756) MEAN PLATELET VOLUME (BEAKER) 11.6 fL 9.4-12.4 (test code = 754) NUCLEATED RED BLOOD CELLS 0 /100 WBC 0-0 (BEAKER) (test code = 413) NEUTROPHILS RELATIVE PERCENT 71 % (BEAKER) (test code = 429) LYMPHOCYTES RELATIVE PERCENT 19 % (BEAKER) (test code = 430) MONOCYTES RELATIVE PERCENT 8 % (BEAKER) (test code = 431) EOSINOPHILS RELATIVE PERCENT 1 % (BEAKER) (test code = 432) BASOPHILS RELATIVE PERCENT 1 % (BEAKER) (test code = 437) NEUTROPHILS ABSOLUTE COUNT 5.79 K/ L 1.78-5.38 H (BEAKER) (test code = 670) LYMPHOCYTES ABSOLUTE COUNT 1.53 K/ L 1.32-3.57 (BEAKER) (test code = 414) MONOCYTES ABSOLUTE COUNT (BEAKER) 0.64 K/ L 0.30-0.82 (test code = 415) EOSINOPHILS ABSOLUTE COUNT 0.10 K/ L 0.04-0.54 (BEAKER) (test code = 416) BASOPHILS ABSOLUTE COUNT (BEAKER) 0.06 K/ L 0.01-0.08 (test code = 417) IMMATURE GRANULOCYTES-RELATIVE 0 % 0-1 PERCENT (BEAKER) (test code = 2801) CORTISOL,60 [id number] 12:36:00 Test Item Value Reference Range Interpretation Comments CORTISOL BASELINE NETWORKED 18.6 mcg/dL (BEAKER) (test code = 2307) CORTISOL 30 MINUTE NETWORKED 19.7 mcg/dL (BEAKER) (test code = 2308) CORTISOL, 60 MINUTE (BEAKER) 16.6 ug/dL (test code = 1805) ACTH STIMULATION TEST INTERPRETATION GUIDELINES(Synonyms: Cortrosyn Test, Cosyntropin or Corticotropin Stimulation Test)Adenocorticotropic hormone (ACTH)is a tropic hormone, made in the pituitary gland, which travels trhough the bloodstream and stimulates the cortex of the adrenal glands to release cortisol. Cortisol is a primary hormone, which aids the body's metabolism of fats, carbohydrates, and protein as well as sodium and potassium regulation.ACTH Stimulation Test: Exogenous administrationof biologically active ACTH stimulates the secretion of cortisol from the adrenal gland. This test is used to evaluate adrenal function by measuring cortisol levels at baseline and at 30 and 60 minutesafter the administration of 250 micrograms of cosyntropin (Cortrosyn). Patients who have received exogenous corticosteroids immediately prior to performing the ACTH Stimulation Test will often have elevated baseline cortisol levels, which may lead to erroneous interpretation of test results. The notable exception is with dexamethasone.Normal Response: An increase in cortisol after stimulation by ACTHis normal. Post-stimulation cortisol concentration should be greater than 20 mcg/dL or the rate of rise from baseline cortisol should be greater than or equal to 9 mcg/dL.Patients with sepsis or septicshock: According to a study by Radhika et al (BEN 2000,283(8):1038-45), the ACTH Stimulation Test provides important prognostic information. This study defined 3 groups of patients with sepsis or septic shock: 1. Good Survival: Low basal cortisol (<or=34 mcg/dL) and high ACTH response (>9mcg/dL) 2. Intermediate Survival: Low basal cortisol (<34 mcg/dL) and low response to ACTH (&l t;or=9 mcg/dL) OR High basal cortisol (>34 mcg/dL) or high ACTH response (>9 mcg/dL) 3.Poor Survival: High basal cortisol (>34 mcg/dL) and low ACTH response (<or=9 mcg/dL).Treatment of patients with relative adrenal dysfunction may be indicated based on test results and the clinical condition of the patient. Additional information, including treatment recommendations, is available in critically ill patients, approved by the Pharmacy, Nutrition, and Therapeutics Committee on 10/04/2004 and available through the Pharmacy Policy and Procedure Section on [employer].Carousel Attendant ID - CINDI CDraw baseline cortisol level just prior to cosyntropin administration.Administer cosyntropin 1mcg/mL via slow IV push over a period of 2 minutes. Flush the line after the dose to ensure the entire dose is delivered.Draw serum cortisol level 30 minutes after cosyntropin administration.Draw serum cortisol level 60 minutes after cosyntropin administration.CORTISOL,30 [id number] 11:41:00 Test Item Value Reference Range Interpretation Comments CORTISOL BASELINE NETWORKED 18.6 mcg/dL (BEAKER) (test code = 2307) CORTISOL, 30 MINUTE (BEAKER) 19.7 ug/dL (test code = 1804) ACTH STIMULATION TEST INTERPRETATION GUIDELINES(Synonyms: Cortrosyn Test, Cosyntropin or Corticotropin Stimulation Test)Adenocorticotropic hormone (ACTH)is a tropic hormone, made in the pituitary gland, which travels trhough the bloodstream and stimulates the cortex of the adrenal glands to release cortisol. Cortisol is a primary hormone, which aids the body's metabolism of fats, carbohydrates, and protein as well as sodium and potassium regulation.ACTH Stimulation Test: Exogenous administrationof biologically active ACTH stimulates the secretion of cortisol from the adrenal gland. This test is used to evaluate adrenal function by measuring cortisol levels at baseline and at 30 and 60 minutesafter the administration of 250 micrograms of cosyntropin (Cortrosyn). Patients who have received exogenous corticosteroids immediately prior to performing the ACTH Stimulation Test will often have elevated baseline cortisol levels, which may lead to erroneous interpretation of test results. The notable exception is with dexamethasone.Normal Response: An increase in cortisol after stimulation by ACTHis normal. Post-stimulation cortisol concentration should be greater than 20 mcg/dL or the rate of rise from baseline cortisol should be greater than or equal to 9 mcg/dL.Patients with sepsis or septicshock: According to a study by Radhika et al (BEN 2000,283(8):1038-45), the ACTH Stimulation Test provides important prognostic information. This study defined 3 groups of patients with sepsis or septic shock: 1. Good Survival: Low basal cortisol (<or=34 mcg/dL) and high ACTH response (>9mcg/dL) 2. Intermediate Survival: Low basal cortisol (<34 mcg/dL) and low response to ACTH (&l t;or=9 mcg/dL) OR High basal cortisol (>34 mcg/dL) or high ACTH response (>9 mcg/dL) 3.Poor Survival: High basal cortisol (>34 mcg/dL) and low ACTH response (<or=9 mcg/dL).Treatment of patients with relative adrenal dysfunction may be indicated based on test results and the clinical condition of the patient. Additional information, including treatment recommendations, is available in critically ill patients, approved by the Pharmacy, Nutrition, and Therapeutics Committee on 10/04/2004 and available through the Pharmacy Policy and Procedure Section on The Source.Carousel Attendant ID - CINDI CDraw baseline cortisol level just prior to cosyntropin administration.Administer cosyntropin 1mcg/mL via slow IV push over a period of 2 minutes. Flush the line after the dose to ensure the entire dose is delivered.Draw serum cortisol level 30 minutes after cosyntropin administration.Draw serum cortisol level 60 minutes after cosyntropin administration.CORTISOL,[id number] 11:25:00 Test Item Value Reference Range Interpretation Comments CORTISOL, BASELINE (MARGARETH) (test 18.6 ug/dL code = 1803) ACTH STIMULATION TEST INTERPRETATION GUIDELINES(Synonyms: Cortrosyn Test, Cosyntropin or Corticotropin Stimulation Test)Adenocorticotropic hormone (ACTH)is a tropic hormone, made in the pituitary gland, which travels trhough the bloodstream and stimulates the cortex of the adrenal glands to release cortisol. Cortisol is a primary hormone, which aids the body's metabolism of fats, carbohydrates, and protein as well as sodium and potassium regulation.ACTH Stimulation Test: Exogenous administrationof biologically active ACTH stimulates the secretion of cortisol from the adrenal gland. This test is used to evaluate adrenal function by measuring cortisol levels at baseline and at 30 and 60 minutesafter the administration of 250 micrograms of cosyntropin (Cortrosyn). Patients who have received exogenous corticosteroids immediately prior to performing the ACTH Stimulation Test will often have elevated baseline cortisol levels, which may lead to erroneous interpretation of test results. The notable exception is with dexamethasone.Normal Response: An increase in cortisol after stimulation by ACTHis normal. Post-stimulation cortisol concentration should be greater than 20 mcg/dL or the rate of rise from baseline cortisol should be greater than or equal to 9 mcg/dL.Patients with sepsis or septicshock: According to a study by Radhika et al (BEN 2000,283(8):0808-45), the ACTH Stimulation Test provides important prognostic information. This study defined 3 groups of patients with sepsis or septic shock: 1. Good Survival: Low basal cortisol (<or=34 mcg/dL) and high ACTH response (>9mcg/dL) 2. Intermediate Survival: Low basal cortisol (<34 mcg/dL) and low response to ACTH (&l t;or=9 mcg/dL) OR High basal cortisol (>34 mcg/dL) or high ACTH response (>9 mcg/dL) 3.Poor Survival: High basal cortisol (>34 mcg/dL) and low ACTH response (<or=9 mcg/dL).Treatment of patients with relative adrenal dysfunction may be indicated based on test results and the clinical condition of the patient. Additional information, including treatment recommendations, is available in critically ill patients, approved by the Pharmacy, Nutrition, and Therapeutics Committee on 10/04/2004 and available through the Pharmacy Policy and Procedure Section on The Source.Carousel Attendant ID - CINDI CDraw baseline cortisol level just prior to cosyntropin administration.Administer cosyntropin 1mcg/mL via slow IV push over a period of 2 minutes. Flush the line after the dose to ensure the entire dose is delivered.Draw serum cortisol level 30 minutes after cosyntropin administration.Draw serum cortisol level 60 minutes after cosyntropin administration.POCT-GLUCOSE [id number] 08:47:00 Test Item Value Reference Range Interpretation Comments POC-GLUCOSE METER 155 mg/dL 70-110 H : Notified RN/MD: TESTED ([employer]) (test code AT [facility] [address] [facility]) [facility], [address]: Carousel Attendant/Techni jennifer ID = [id number] for RICCO ORDAZ POCT-GLUCOSE [id number] 21:32:00 Test Item Value Reference Range Interpretation Comments POC-GLUCOSE METER 140 mg/dL 70-110 H : [facility] (test code = JAYNAAZ R [facility], 1538) [address]: Carousel Attendant/Techni jennifer ID = [id number] for PH RASHMI HERNANDEZ POCT-GLUCOSE [id number] 16:31:00 Test Item Value Reference Range Interpretation Comments POC-GLUCOSE METER 156 mg/dL 70-110 H : [facility] ([employer]) (test code = [facility] R [facility], 1538) [address]: Carousel Attendant/Techni jennifer ID = [id number] for SURAJ TORRES SARS-COV2/RT-PCR ([facility])2020-05-11 14:26:00 Test Item Value Reference Range Interpretation Comments SARS-COV2/RT-PCR (test code = Negative Not Detected, Negative [id number]) SARS-COV-2 PERFORMING LAB [facility] (test code = 5585739) Negative result for this test determines that SARS-CoV-2 RNA was not present in the specimen above the Limit of Detection (LOD). However, Negative results do not preclude SARS-CoV-2 infection and should not be used as the sole basis for treatment or patient management decisions. Negative results mustbe combined with clinical observations, patient history, and epidemiological information. A false negative result may occur if a specimen is improperly collected, transported or handled. A false negative result should be considered if patient's recent exposures or clinical presentation indicate that COVID-19 (SARS-CoV-2) is likely and diagnostic tests for other causes of illness are negative. Re-testing should be considered in cases of suspected false negatives.The limit of detection for this assay is 800 copies/mL.This SARS CoV-2 test is a real-time RT-PCR test intended for the qualitative detection of nucleic acid from SARS-CoV-2 in a nasopharyngeal swab specimen collected from individuals susp ected of COVID-19 by their healthcare provider.This test has not been Food and Drug Administration (FDA) cleared or approved. This is a modified version of an approved Emergency Use Authorization (EUA) and is in the process of review by the FDA. Once authorized by the FDA, the issued EUA will be effective until the declaration that circumstances exist justifying the authorization of the emergency use of in vitro diagnostic tests for detection and/or diagnosis of COVID-19 is terminated under Section 564(b)(2) of the Act or the EUA is revoked under Section 564(g) of the Act.Fact Sheet for Healthcare Providers:https://www.[employer].MaPS/sites/default/files/product/documents/Fact_Shee b_KN_Pnabnksyi_Dmqh_DAAK-UbV-6.pdfFact Sheet for Healthcare Patients:https://www.[employer].MaPS/sites/default/files/product/ documents/Ccmy_Tlxtn_Fxjqnqjg_Lvzc_MNFD-WlV-0.pdfPerforming Laboratory:[facility], [place] [address]CFSJ-YCVUEGK METER 2020-05-11 11:31:00 Test Item Value Reference Range Interpretation Comments POC-GLUCOSE METER 153 mg/dL 70-110 H : TESTED Shana Santiago [facility] 67[address] (BEJOSEPH) (test code = [place], 1538) [address]: Carousel Attendant/Techni jennifer ID = [id number] for TI NDALL, CRYSTAL RAD, CHEST, 1 VIEW, NON [id number] 07:42:00Reason for exam:->Post device placementShould this be performed at the bedside?->YesFINAL REPORT CLINICAL HISTORY: Post device placement TECHNIQUE: 1 view of the chest. COMPARISON: 05/10/2020 IMPRESSION: There is no pneumothorax. Mild prominence of the pulmonary vasculature and lung markings is unchanged. Subpulmonic pleural effusions cannot be excluded. The cardiomediastinal silhouette is magnified by technique with sternotomy wires and a pacemaker. Signed: Shelley Cook MDReport Verified Date/Time: 05/11/2020 07:42:36 Reading Location: [facility] Radiology Reading Room POCT-GLUCOSE [id number] 07:19:00 Test Item Value Reference Range Interpretation Comments POC-GLUCOSE METER 151 mg/dL 70-110 H : TESTED A T [facility] 6720 (BEAKER) (test code = EDMUND Desir [facility], 1538) [address]: Carousel Attendant/Techni jennifer ID = [id number] for RAÚL HOYT BASIC METABOLIC [id number] 06:56:00 Test Item Value Reference Range Interpretation Comments SODIUM (BEAKER) 134 meq/L 136-145 L (test code = 381) POTASSIUM (BEAKER) 4.4 meq/L 3.5-5.1 (test code = 379) CHLORIDE (BEAKER) 103 meq/L 98-107 (test code = 382) CO2 (BEAKER) (test 22 meq/L 22-29 code = 355) BLOOD UREA NITROGEN 32 mg/dL 7-21 H (BEAKER) (test code = 354) CREATININE (BEAKER) 1.65 mg/dL 0.57-1.25 H (test code = 358) GLUCOSE RANDOM 149 mg/dL 70-105 H (BEAKER) (test code = 652) CALCIUM (BEAKER) 8.8 mg/dL 8.4-10.2 (test code = 697) EGFR (BEAKER) (test 42 mL/min/1.73 ESTIMA SURI GFR IS code = 1092) sq m NOT ACCURATE CREATININE CLEARANCE IN PREDICTING GLOMERULAR FILTRATION RATE . ESTIMATED GFR I S NOT APPLICABLE FOR DIALYSIS PATIEN TS. Carousel Attendant ID - KRISTIE WCBC W/PLT COUNT & AUTO [id number] 06:41:00 Test Item Value Reference Range Interpretation Comments WHITE BLOOD CELL COUNT (BEAKER) 8.5 K/ L 3.5-10.5 (test code = 775) RED BLOOD CELL COUNT (BEAKER) 4.02 M/ L 4.63-6.08 L (test code = 761) HEMOGLOBIN (BEAKER) (test code = 11.1 GM/DL 13.7-17.5 L 410) HEMATOCRIT (BEAKER) (test code = 34.5 % 40.1-51.0 L 411) MEAN CORPUSCULAR VOLUME (BEAKER) 85.8 fL 79.0-92.2 (test code = 753) MEAN CORPUSCULAR HEMOGLOBIN 27.6 pg 25.7-32.2 (BEAKER) (test code = 751) MEAN CORPUSCULAR HEMOGLOBIN CONC 32.2 GM/DL 32.3-36.5 L (BEAKER) (test code = 752) RED CELL DISTRIBUTION WIDTH 15.3 % 11.6-14.4 H (BEAKER) (test code = 412) PLATELET COUNT (BEAKER) (test 179 K/CU MM 150-450 code = 756) MEAN PLATELET VOLUME (BEAKER) 10.2 fL 9.4-12.4 (test code = 754) NUCLEATED RED BLOOD CELLS 0 /100 WBC 0-0 (BEAKER) (test code = 413) NEUTROPHILS RELATIVE PERCENT 66 % (BEAKER) (test code = 429) LYMPHOCYTES RELATIVE PERCENT 17 % (BEAKER) (test code = 430) MONOCYTES RELATIVE PERCENT 10 % (BEAKER) (test code = 431) EOSINOPHILS RELATIVE PERCENT 5 % (BEAKER) (test code = 432) BASOPHILS RELATIVE PERCENT 1 % (BEAKER) (test code = 437) NEUTROPHILS ABSOLUTE COUNT 5.63 K/ L 1.78-5.38 H (BEAKER) (test code = 670) LYMPHOCYTES ABSOLUTE COUNT 1.47 K/ L 1.32-3.57 (BEAKER) (test code = 414) MONOCYTES ABSOLUTE COUNT (BEAKER) 0.84 K/ L 0.30-0.82 H (test code = 415) EOSINOPHILS ABSOLUTE COUNT 0.45 K/ L 0.04-0.54 (BEAKER) (test code = 416) BASOPHILS ABSOLUTE COUNT (BEAKER) 0.06 K/ L 0.01-0.08 (test code = 417) IMMATURE GRANULOCYTES-RELATIVE 1 % 0-1 PERCENT (BEAKER) (test code = 2801) POCT-GLUCOSE [id number] 22:22:00 Test Item Value Reference Range Interpretation Comments POC-GLUCOSE METER 92 mg/dL 70-110 : TESTED A T [facility] 6720 (BEAKER) (test code = [facility], 1538) [address]: Carousel Attendant/Techni jennifer ID = [id number] for KELTON METCALF POCT-GLUCOSE [id number] 16:58:00 Test Item Value Reference Range Interpretation Comments POC-GLUCOSE METER 169 mg/dL 70-110 H : TESTED A T [facility] 6720 (BEAKER) (test code = [facility], 1538) [address]: Carousel Attendant/Techni jennifer ID = [id number] for HAYDEN WADE RAD, CHEST, 1 VIEW, NON [id number] 14:23:00Reason for exam:->post device placementShould this be performed at the bedside?->YesFINAL REPORT CLINICAL HISTORY: post device placement TECHNIQUE: 1 view of the chest. COMPARISON: None IMPRESSION: There is a left chest wall pacemaker. There is no pneumothorax.There is prominence of the pulmonary vasculature. There is blunting of the left costophrenic angle. The cardiomediastinal silhouette is magnified by technique with sternotomy wires. Signed: Shelley Cook MDReport Verified Date/Time: 05/10/2020 14:23:53 Reading Location: [facility] Radiology Reading Room POCT-GLUCOSE [id number] 10:06:00 Test Item Value Reference Range Interpretation Comments POC-GLUCOSE METER 177 mg/dL 70-110 H : TESTED A T [facility] 67[address] (BEAKER) (test code = [facility], 1538) [address]: Carousel Attendant/Techni jennifer ID = [id number] for HAYDEN WADE CBC W/PLT COUNT & AUTO [id number] 07:29:00 Test Item Value Reference Range Interpretation Comments WHITE BLOOD CELL COUNT (BEAKER) 8.4 K/ L 3.5-10.5 (test code = 775) RED BLOOD CELL COUNT (BEAKER) 4.05 M/ L 4.63-6.08 L (test code = 761) HEMOGLOBIN (BEAKER) (test code = 10.8 GM/DL 13.7-17.5 L 410) HEMATOCRIT (BEAKER) (test code = 34.8 % 40.1-51.0 L 411) MEAN CORPUSCULAR VOLUME (BEAKER) 85.9 fL 79.0-92.2 (test code = 753) MEAN CORPUSCULAR HEMOGLOBIN 26.7 pg 25.7-32.2 (BEAKER) (test code = 751) MEAN CORPUSCULAR HEMOGLOBIN CONC 31.0 GM/DL 32.3-36.5 L (BEAKER) (test code = 752) RED CELL DISTRIBUTION WIDTH 15.2 % 11.6-14.4 H (BEAKER) (test code = 412) PLATELET COUNT (BEAKER) (test 172 K/CU MM 150-450 code = 756) MEAN PLATELET VOLUME (BEAKER) 10.6 fL 9.4-12.4 (test code = 754) NEUTROPHILS RELATIVE PERCENT 63 % (BEAKER) (test code = 429) LYMPHOCYTES RELATIVE PERCENT 19 % (BEAKER) (test code = 430) MONOCYTES RELATIVE PERCENT 11 % (BEAKER) (test code = 431) EOSINOPHILS RELATIVE PERCENT 6 % (BEAKER) (test code = 432) BASOPHILS RELATIVE PERCENT 1 % (BEAKER) (test code = 437) NEUTROPHILS ABSOLUTE COUNT 5.32 K/ L 1.78-5.38 (BEAKER) (test code = 670) LYMPHOCYTES ABSOLUTE COUNT 1.63 K/ L 1.32-3.57 (BEAKER) (test code = 414) MONOCYTES ABSOLUTE COUNT (BEAKER) 0.90 K/ L 0.30-0.82 H (test code = 415) EOSINOPHILS ABSOLUTE COUNT 0.46 K/ L 0.04-0.54 (BEAKER) (test code = 416) BASOPHILS ABSOLUTE COUNT (BEAKER) 0.06 K/ L 0.01-0.08 (test code = 417) IMMATURE GRANULOCYTES-RELATIVE 1 % 0-1 PERCENT (BEAKER) (test code = 2801) BASIC METABOLIC [id number] 05:34:00 Test Item Value Reference Range Interpretation Comments SODIUM (BEAKER) 134 meq/L 136-145 L (test code = 381) POTASSIUM (BEAKER) 4.5 meq/L 3.5-5.1 (test code = 379) CHLORIDE (BEAKER) 102 meq/L 98-107 (test code = 382) CO2 (BEAKER) (test 22 meq/L 22-29 code = 355) BLOOD UREA NITROGEN 30 mg/dL 7-21 H (BEAKER) (test code = 354) CREATININE (BEAKER) 1.74 mg/dL 0.57-1.25 H (test code = 358) GLUCOSE RANDOM 136 mg/dL 70-105 H (BEAKER) (test code = 652) CALCIUM (BEAKER) 9.3 mg/dL 8.4-10.2 (test code = 697) EGFR (BEAKER) (test 39 mL/min/1.73 ESTIMA SURI GFR IS code = 1092) sq m NOT ACCURATE CREATININE CLEARANCE IN PREDICTING GLOMERULAR FILTRATION RATE . ESTIMATED GFR I S NOT APPLICABLE FOR DIALYSIS PATIEN TS. Carousel Attendant ID - PIAYA LPROTHROMBIN [id number] 05:26:00 Test Item Value Reference Range Interpretation Comments PROTIME (BEAKER) (test code = 13.0 seconds 11.9-14.2 759) INR (BEAKER) (test code = 370) 1.0 <=5.9 Effective 03/23/2019: PT Reference Range ChangeNew: 11.9-14.2 Previous: 11.7- 14.7RECOMMENDED COUMADIN/WARFARIN INR THERAPY RANGESSTANDARD DOSE: 2.0-3.0 Includes: PROPHYLAXIS for venous thrombosis, systemic embolization; TREATMENT for venous thrombosis and/or pulmonary embolus.HIGH RISK: Target INR is2.5-3.5 for patients wiht mechanical heart valves.Within 24 hours, if on Coumadin SARS-COV2/RT-PCR ([facility])2020-05-09 23:30:00 Test Item Value Reference Range Interpretation Comments SARS-COV2/RT-PCR (test Not Detected Not Detected, Negative code = 6847071) SARS-COV-2 PERFORMING LAB [facility] (test code = 3180915) Negative results do not preclude SARS-CoV-2 infection and should not be used as the sole basis for patient management decisions. Negative results must be combined with clinical observations, patient history, and epidemiological information. A false negative result may occur if a specimen is improperly collected, transported or handled.The limit of detection for this assay is 250 copies/mL.This SARS CoV-2 test is a rapid, real-time RT-PCR test intended for the qualitative detection of nucleic acid from SARS-CoV-2 in a nasopharyngeal swab specimen collected from individuals suspected of COVID-19 by their healthcare provider.This test has not been Food and Drug Administration (FDA) cleared or approved and has been authorized by FDA under an Emergency Use Authorization (EUA). This EUA will be effective until the declaration that circumstances exist justifying the authorization of the emergency use of in vitro diagnostic tests for detection and/or diagnosis of COVID-19 is terminated under Section 564(b)(2) of the Act or the EUA is revoked under Section 564(g) of the Act.Fact Sheet for Healthcare Pro viders:https://www.[employer]/Documents/Xpert%20Xpress%20SARS%20CoV-2/Fact%20Sh eets/3023802%94XTRU-IUL-1%20HEALTHCARE%20PROVIDERS%20FACT%20SHEET.pdfFact Sheet for Healthcare Patients:https://www.[employer]/Documents/Xpert%20Xpress%20SARS%20CoV-2/Fact%20Sheets/3023801%20SARS-COV -2%20PATIENT%20FACT%20SHEET.pdfPerforming Laboratory:[facility], [place] [address]UYNN-BSEWWKS [id number] 22:21:00 Test Item Value Reference Range Interpretation Comments POC-GLUCOSE METER 119 mg/dL 70-110 H : [facility] ([place]) (test code = [place], 1538) [address]: Carousel Attendant/Techni jennifer ID = [id number] for MAICO LIRA POCT-GLUCOSE [id number] 16:25:00 Test Item Value Reference Range Interpretation Comments POC-GLUCOSE METER 99 mg/dL 70-110 : TESTED A T [facility] 6720 (BEAKER) (test code = [facility], 153) [address]: Carousel Attendant/Techni jennifer ID = [id number] for HAYDEN MCCLOUD POCT-GLUCOSE [id number] 11:31:00 Test Item Value Reference Range Interpretation Comments POC-GLUCOSE METER 179 mg/dL 70-110 H : TESTED A T [facility] 6720 (BEAKER) (test code = [facility], 1538) [address]: Carousel Attendant/Techni jennifer ID = [id number] for CR AMY SARKAR BEAN A POCT-GLUCOSE [id number] 07:30:00 Test Item Value Reference Range Interpretation Comments POC-GLUCOSE METER 142 mg/dL 70-110 H : Notified RN/MD: (AKER) (test code = TESTED AT [facility] 67[address] 1538) [facility], [address]: Carousel Attendant/Techni jennifer ID = [id number] for LUIS CARDONA BASIC METABOLIC [id number] 05:39:00 Test Item Value Reference Range Interpretation Comments SODIUM (BEAKER) 135 meq/L 136-145 L (test code = 381) POTASSIUM (BEAKER) 4.7 meq/L 3.5-5.1 (test code = 379) CHLORIDE (BEAKER) 104 meq/L 98-107 (test code = 382) CO2 (BEAKER) (test 24 meq/L 22-29 code = 355) BLOOD UREA NITROGEN 30 mg/dL 7-21 H (BEAKER) (test code = 354) CREATININE (BEAKER) 1.71 mg/dL 0.57-1.25 H (test code = 358) GLUCOSE RANDOM 141 mg/dL 70-105 H (BEAKER) (test code = 652) CALCIUM (BEAKER) 9.2 mg/dL 8.4-10.2 (test code = 697) EGFR (BEAKER) (test 40 mL/min/1.73 ESTIMA SURI GFR IS code = 1092) sq m NOT ACCURATE CREATININE CLEARANCE IN PREDICTING GLOMERULAR FILTRATION RATE . ESTIMATED GFR I S NOT APPLICABLE FOR DIALYSIS PATIEN TS. Carousel Attendant ID - PIAYA LCBC W/PLT COUNT & AUTO [id number] 05:06:00 Test Item Value Reference Range Interpretation Comments WHITE BLOOD CELL COUNT (BEAKER) 7.9 K/ L 3.5-10.5 (test code = 775) RED BLOOD CELL COUNT (BEAKER) 4.28 M/ L 4.63-6.08 L (test code = 761) HEMOGLOBIN (BEAKER) (test code = 11.4 GM/DL 13.7-17.5 L 410) HEMATOCRIT (BEAKER) (test code = 36.9 % 40.1-51.0 L 411) MEAN CORPUSCULAR VOLUME (BEAKER) 86.2 fL 79.0-92.2 (test code = 753) MEAN CORPUSCULAR HEMOGLOBIN 26.6 pg 25.7-32.2 (BEAKER) (test code = 751) MEAN CORPUSCULAR HEMOGLOBIN CONC 30.9 GM/DL 32.3-36.5 L (BEAKER) (test code = 752) RED CELL DISTRIBUTION WIDTH 15.1 % 11.6-14.4 H (BEAKER) (test code = 412) PLATELET COUNT (BEAKER) (test 191 K/CU MM 150-450 code = 756) MEAN PLATELET VOLUME (BEAKER) 10.7 fL 9.4-12.4 (test code = 754) NUCLEATED RED BLOOD CELLS 0 /100 WBC 0-0 (BEAKER) (test code = 413) NEUTROPHILS RELATIVE PERCENT 65 % (BEAKER) (test code = 429) LYMPHOCYTES RELATIVE PERCENT 19 % (BEAKER) (test code = 430) MONOCYTES RELATIVE PERCENT 10 % (BEAKER) (test code = 431) EOSINOPHILS RELATIVE PERCENT 5 % (BEAKER) (test code = 432) BASOPHILS RELATIVE PERCENT 1 % (BEAKER) (test code = 437) NEUTROPHILS ABSOLUTE COUNT 5.15 K/ L 1.78-5.38 (BEAKER) (test code = 670) LYMPHOCYTES ABSOLUTE COUNT 1.53 K/ L 1.32-3.57 (BEAKER) (test code = 414) MONOCYTES ABSOLUTE COUNT (BEAKER) 0.75 K/ L 0.30-0.82 (test code = 415) EOSINOPHILS ABSOLUTE COUNT 0.40 K/ L 0.04-0.54 (BEAKER) (test code = 416) BASOPHILS ABSOLUTE COUNT (BEAKER) 0.06 K/ L 0.01-0.08 (test code = 417) IMMATURE GRANULOCYTES-RELATIVE 1 % 0-1 PERCENT (BEAKER) (test code = 2801) POCT-GLUCOSE [id number] 22:46:00 Test Item Value Reference Range Interpretation Comments POC-GLUCOSE METER 150 mg/dL 70-110 H : TESTED A T [facility] 6720 (BEAKER) (test code = [facility], 1538) [address]: Carousel Attendant/Techni jennifer ID = [id number] for MOHIT DURHAM POCT-GLUCOSE [id number] 17:46:00 Test Item Value Reference Range Interpretation Comments POC-GLUCOSE METER 132 mg/dL 70-110 H : TESTED A T [facility] 6720 (BEAKER) (test code = [facility], 1538) [address]: Carousel Attendant/Techni jennifer ID = [id number] for NATALEE LAM POCT-GLUCOSE [id number] 12:05:00 Test Item Value Reference Range Interpretation Comments POC-GLUCOSE METER 147 mg/dL 70-110 H : TESTED A T [facility] 6720 (BEAKER) (test code [facility], = 1538) [address]: Carousel Attendant/Techni jennifer ID = [id number] for ALTHEA BOWSER POCT-GLUCOSE [id number] 07:41:00 Test Item Value Reference Range Interpretation Comments POC-GLUCOSE METER 171 mg/dL 70-110 H : TESTED A T [facility] 6720 (BEAKER) (test code [facility], = 1538) [address]: Carousel Attendant/Techni jennifer ID = [id number] for ALTHEA BOWSER [id number] 05:58:00 Test Item Value Reference Range Interpretation Comments MAGNESIUM (BEAKER) (test code = 2.1 mg/dL 1.6-2.6 627) Carousel Attendant ID - KRISTIE WBASIC METABOLIC [id number] 05:58:00 Test Item Value Reference Range Interpretation Comments SODIUM (BEAKER) 138 meq/L 136-145 (test code = 381) POTASSIUM (BEAKER) 4.7 meq/L 3.5-5.1 (test code = 379) CHLORIDE (BEAKER) 103 meq/L 98-107 (test code = 382) CO2 (BEAKER) (test 28 meq/L 22-29 code = 355) BLOOD UREA NITROGEN 33 mg/dL 7-21 H (BEAKER) (test code = 354) CREATININE (BEAKER) 1.75 mg/dL 0.57-1.25 H (test code = 358) GLUCOSE RANDOM 158 mg/dL 70-105 H (BEAKER) (test code = 652) CALCIUM (BEAKER) 9.1 mg/dL 8.4-10.2 (test code = 697) EGFR (BEAKER) (test 39 mL/min/1.73 ESTIMA SURI GFR IS code = 1092) sq m NOT ACCURATE CREATININE CLEARANCE IN PREDICTING GLOMERULAR FILTRATION RATE . ESTIMATED GFR I S NOT APPLICABLE FOR DIALYSIS PATIEN TS. Carousel Attendant ID - KRISTIE WCBC W/PLT COUNT & AUTO [id number] 05:38:00 Test Item Value Reference Range Interpretation Comments WHITE BLOOD CELL COUNT (BEAKER) 8.8 K/ L 3.5-10.5 (test code = 775) RED BLOOD CELL COUNT (BEAKER) 4.10 M/ L 4.63-6.08 L (test code = 761) HEMOGLOBIN (BEAKER) (test code = 11.0 GM/DL 13.7-17.5 L 410) HEMATOCRIT (BEAKER) (test code = 35.0 % 40.1-51.0 L 411) MEAN CORPUSCULAR VOLUME (BEAKER) 85.4 fL 79.0-92.2 (test code = 753) MEAN CORPUSCULAR HEMOGLOBIN 26.8 pg 25.7-32.2 (BEAKER) (test code = 751) MEAN CORPUSCULAR HEMOGLOBIN CONC 31.4 GM/DL 32.3-36.5 L (BEAKER) (test code = 752) RED CELL DISTRIBUTION WIDTH 15.2 % 11.6-14.4 H (BEAKER) (test code = 412) PLATELET COUNT (BEAKER) (test 192 K/CU MM 150-450 code = 756) MEAN PLATELET VOLUME (BEAKER) 10.6 fL 9.4-12.4 (test code = 754) NUCLEATED RED BLOOD CELLS 0 /100 WBC 0-0 (BEAKER) (test code = 413) NEUTROPHILS RELATIVE PERCENT 69 % (BEAKER) (test code = 429) LYMPHOCYTES RELATIVE PERCENT 17 % (BEAKER) (test code = 430) MONOCYTES RELATIVE PERCENT 9 % (BEAKER) (test code = 431) EOSINOPHILS RELATIVE PERCENT 5 % (BEAKER) (test code = 432) BASOPHILS RELATIVE PERCENT 1 % (BEAKER) (test code = 437) NEUTROPHILS ABSOLUTE COUNT 6.03 K/ L 1.78-5.38 H (BEAKER) (test code = 670) LYMPHOCYTES ABSOLUTE COUNT 1.46 K/ L 1.32-3.57 (BEAKER) (test code = 414) MONOCYTES ABSOLUTE COUNT (BEAKER) 0.76 K/ L 0.30-0.82 (test code = 415) EOSINOPHILS ABSOLUTE COUNT 0.40 K/ L 0.04-0.54 (BEAKER) (test code = 416) BASOPHILS ABSOLUTE COUNT (BEAKER) 0.05 K/ L 0.01-0.08 (test code = 417) IMMATURE GRANULOCYTES-RELATIVE 1 % 0-1 PERCENT (BEAKER) (test code = 2801) POCT-GLUCOSE [id number] 21:49:00 Test Item Value Reference Range Interpretation Comments POC-GLUCOSE METER 171 mg/dL 70-110 H : TESTED A T [facility] [address] ([place]) (test code = [facility], 153) [address]: Carousel Attendant/Techni jennifer ID = [id number] for ALISON GREER C. DIFFICILE GDH [id number] 18:54:00 Test Item Value Reference Range Interpretation Comments CDT TOXIN (test code Negative Negative = [id number]) CDT GDH ANTIGEN (test Negative Negative No ind ication of code = [id number]) Clostridi um difficile infection and n o colonization. Discontinue ent josette isolation and t herapy. Testing performed by Alere Rapid Cassette Assay. For GDH, published sensitivity of the assay is 98.7% compared to cytotoxicity testing. For Toxin AB, published sensitivity is 87.8% and specificity 99.4% compared to cytotoxicity testing.Verification of kit performance was done by the [facility] Microbiology Lab prior to clinical use.POCT-GLUCOSE [id number] 15:10:00 Test Item Value Reference Range Interpretation Comments POC-GLUCOSE METER 139 mg/dL 70-110 H : [facility] ([place] (test code = [facility], 153) [address]: Carousel Attendant/Techni jennifer ID = [id number] for PO RTILLO, NATALEE [id number] 13:41:00 Test Item Value Reference Range Interpretation Comments ACTIVATED CLOTTING TIME 230 sec : 74 -137 seconds, (BEAKER) (test code = Baseli ne: TESTED AT 441) [facility] [address] [place], [address]: Carousel Attendant/Techni jennifer ID = [id number] for RIAZ MATIAS POCT-GLUCOSE [id number] 07:32:00 Test Item Value Reference Range Interpretation Comments POC-GLUCOSE METER 156 mg/dL 70-110 H : TESTED A T [facility] [address] (BEAKER) (test code = [place]UN[place] R [place], 1538) [address]: Carousel Attendant/Techni jennifer ID = [id number] for OLU SOTO BASIC METABOLIC [id number] 06:47:00 Test Item Value Reference Range Interpretation Comments SODIUM (BEAKER) 133 meq/L 136-145 L (test code = 381) POTASSIUM (BEAKER) 4.4 meq/L 3.5-5.1 (test code = 379) CHLORIDE (BEAKER) 98 meq/L 98-107 (test code = 382) CO2 (BEAKER) (test 26 meq/L 22-29 code = 355) BLOOD UREA NITROGEN 40 mg/dL 7-21 H (BEAKER) (test code = 354) CREATININE (BEAKER) 1.97 mg/dL 0.57-1.25 H (test code = 358) GLUCOSE RANDOM 151 mg/dL 70-105 H (BEAKER) (test code = 652) CALCIUM (BEAKER) 8.9 mg/dL 8.4-10.2 (test code = 697) EGFR (BEAKER) (test 34 mL/min/1.73 ESTIMA SURI GFR IS code = 1092) sq m NOT ACCURATE CREATININE CLEARANCE IN PREDICTING GLOMERULAR FILTRATION RATE . ESTIMATED GFR I S NOT APPLICABLE FOR DIALYSIS PATIEN TS. Carousel Attendant ID - PIAYA LCBC W/PLT COUNT & AUTO [id number] 05:44:00 Test Item Value Reference Range Interpretation Comments WHITE BLOOD CELL COUNT (BEAKER) 10.2 K/ L 3.5-10.5 (test code = 775) RED BLOOD CELL COUNT (BEAKER) 4.44 M/ L 4.63-6.08 L (test code = 761) HEMOGLOBIN (BEAKER) (test code = 11.7 GM/DL 13.7-17.5 L 410) HEMATOCRIT (BEAKER) (test code = 37.2 % 40.1-51.0 L 411) MEAN CORPUSCULAR VOLUME (BEAKER) 83.8 fL 79.0-92.2 (test code = 753) MEAN CORPUSCULAR HEMOGLOBIN 26.4 pg 25.7-32.2 (BEAKER) (test code = 751) MEAN CORPUSCULAR HEMOGLOBIN CONC 31.5 GM/DL 32.3-36.5 L (BEAKER) (test code = 752) RED CELL DISTRIBUTION WIDTH 14.9 % 11.6-14.4 H (BEAKER) (test code = 412) PLATELET COUNT (BEAKER) (test 182 K/CU MM 150-450 code = 756) MEAN PLATELET VOLUME (BEAKER) 10.2 fL 9.4-12.4 (test code = 754) NUCLEATED RED BLOOD CELLS 0 /100 WBC 0-0 (BEAKER) (test code = 413) NEUTROPHILS RELATIVE PERCENT 69 % (BEAKER) (test code = 429) LYMPHOCYTES RELATIVE PERCENT 19 % (BEAKER) (test code = 430) MONOCYTES RELATIVE PERCENT 7 % (BEAKER) (test code = 431) EOSINOPHILS RELATIVE PERCENT 4 % (BEAKER) (test code = 432) BASOPHILS RELATIVE PERCENT 0 % (BEAKER) (test code = 437) NEUTROPHILS ABSOLUTE COUNT 7.05 K/ L 1.78-5.38 H (BEAKER) (test code = 670) LYMPHOCYTES ABSOLUTE COUNT 1.92 K/ L 1.32-3.57 (BEAKER) (test code = 414) MONOCYTES ABSOLUTE COUNT (BEAKER) 0.73 K/ L 0.30-0.82 (test code = 415) EOSINOPHILS ABSOLUTE COUNT 0.40 K/ L 0.04-0.54 (BEAKER) (test code = 416) BASOPHILS ABSOLUTE COUNT (BEAKER) 0.04 K/ L 0.01-0.08 (test code = 417) IMMATURE GRANULOCYTES-RELATIVE 1 % 0-1 PERCENT (BEAKER) (test code = 2801) POCT-GLUCOSE [id number] 21:21:00 Test Item Value Reference Range Interpretation Comments POC-GLUCOSE METER 137 mg/dL 70-110 H : TESTED A T [facility] 67[address] (BEAKER) (test code = [place], 1538) [address]: Carousel Attendant/Techni jennifer ID = [id number] for YECENIA HAINES POCT-GLUCOSE [id number] 17:01:00 Test Item Value Reference Range Interpretation Comments POC-GLUCOSE METER 141 mg/dL 70-110 H : TESTED A T [facility] 6720 (BEAKER) (test code = [facility], 1538) [address]: Carousel Attendant/Techni jennifer ID = [id number] for CHAVEZ OWEN POCT-GLUCOSE [id number] 12:10:00 Test Item Value Reference Range Interpretation Comments POC-GLUCOSE METER 189 mg/dL 70-110 H : TESTED A T [facility] 6720 (BEAKER) (test code = [facility], 1538) [address]: Carousel Attendant/Techni jennifer ID = [id number] for CHAVEZ OWEN POCT-GLUCOSE [id number] 07:47:00 Test Item Value Reference Range Interpretation Comments POC-GLUCOSE METER 159 mg/dL 70-110 H : TESTED A T [facility] 6720 (BEAKER) (test code = [facility], 1538) [address]: Carousel Attendant/Techni jennifer ID = [id number] for [place] CHAVEZ SHINE BASIC METABOLIC [id number] 06:57:00 Test Item Value Reference Range Interpretation Comments SODIUM (BEAKER) 136 meq/L 136-145 (test code = 381) POTASSIUM (BEAKER) 4.1 meq/L 3.5-5.1 (test code = 379) CHLORIDE (BEAKER) 99 meq/L 98-107 (test code = 382) CO2 (BEAKER) (test 26 meq/L 22-29 code = 355) BLOOD UREA NITROGEN 33 mg/dL 7-21 H (BEAKER) (test code = 354) CREATININE (BEAKER) 1.97 mg/dL 0.57-1.25 H (test code = 358) GLUCOSE RANDOM 166 mg/dL 70-105 H (BEAKER) (test code = 652) CALCIUM (BEAKER) 8.7 mg/dL 8.4-10.2 (test code = 697) EGFR (BEAKER) (test 34 mL/min/1.73 ESTIMA SURI GFR IS code = 1092) sq m NOT ACCURATE CREATININE CLEARANCE IN PREDICTING GLOMERULAR FILTRATION RATE . ESTIMATED GFR I S NOT APPLICABLE FOR DIALYSIS PATIEN TS. Carousel Attendant ID - PIAYA LCBC W/PLT COUNT & AUTO [id number] 06:27:00 Test Item Value Reference Range Interpretation Comments WHITE BLOOD CELL COUNT (BEAKER) 10.6 K/ L 3.5-10.5 H (test code = 775) RED BLOOD CELL COUNT (BEAKER) 4.32 M/ L 4.63-6.08 L (test code = 761) HEMOGLOBIN (BEAKER) (test code = 11.5 GM/DL 13.7-17.5 L 410) HEMATOCRIT (BEAKER) (test code = 36.7 % 40.1-51.0 L 411) MEAN CORPUSCULAR VOLUME (BEAKER) 85.0 fL 79.0-92.2 (test code = 753) MEAN CORPUSCULAR HEMOGLOBIN 26.6 pg 25.7-32.2 (BEAKER) (test code = 751) MEAN CORPUSCULAR HEMOGLOBIN CONC 31.3 GM/DL 32.3-36.5 L (BEAKER) (test code = 752) RED CELL DISTRIBUTION WIDTH 14.8 % 11.6-14.4 H (BEAKER) (test code = 412) PLATELET COUNT (BEAKER) (test 182 K/CU MM 150-450 code = 756) MEAN PLATELET VOLUME (BEAKER) 10.8 fL 9.4-12.4 (test code = 754) NUCLEATED RED BLOOD CELLS 0 /100 WBC 0-0 (BEAKER) (test code = 413) NEUTROPHILS RELATIVE PERCENT 67 % (BEAKER) (test code = 429) LYMPHOCYTES RELATIVE PERCENT 20 % (BEAKER) (test code = 430) MONOCYTES RELATIVE PERCENT 8 % (BEAKER) (test code = 431) EOSINOPHILS RELATIVE PERCENT 4 % (BEAKER) (test code = 432) BASOPHILS RELATIVE PERCENT 1 % (BEAKER) (test code = 437) NEUTROPHILS ABSOLUTE COUNT 7.08 K/ L 1.78-5.38 H (BEAKER) (test code = 670) LYMPHOCYTES ABSOLUTE COUNT 2.16 K/ L 1.32-3.57 (BEAKER) (test code = 414) MONOCYTES ABSOLUTE COUNT (BEAKER) 0.88 K/ L 0.30-0.82 H (test code = 415) EOSINOPHILS ABSOLUTE COUNT 0.40 K/ L 0.04-0.54 (BEAKER) (test code = 416) BASOPHILS ABSOLUTE COUNT (BEAKER) 0.05 K/ L 0.01-0.08 (test code = 417) IMMATURE GRANULOCYTES-RELATIVE 0 % 0-1 PERCENT (BEAKER) (test code = 2801) POCT-GLUCOSE [id number] 22:05:00 Test Item Value Reference Range Interpretation Comments POC-GLUCOSE METER 95 mg/dL 70-110 : TESTED A T [facility] 6720 ([employer]ER) (test code = EDMUND Desir [facility], 1538) [address]: Carousel Attendant/Techni jennifer ID = [id number] for YECENIA MCGOVERN POCT-GLUCOSE [id number] 17:09:00 Test Item Value Reference Range Interpretation Comments POC-GLUCOSE METER 204 mg/dL 70-110 H : TESTED A T [facility] [address] ([place]) (test code = EDMUND Desir [facility], 1538) [address]16[address]: Carousel Attendant/Techni jennifer ID = [id number] for ASHLEY THOMPSON PET/CT, CARDIAC PERF REST AND [id number] 13:35:00Reason for exam:->CAD FINAL REPORT PROCEDURE: MYOCARDIAL PERFUSION PET IMAGING (Rest/Stress)CPT CODE: 27233 INDICATION: CAD CARDIOVASCULAR PROFILE:Symptoms: NoneCAD History: CAD, DE, CABG, atrial fibrillationRisk Factors: Diabetes mellitus, hypertension, CVABMI: 29.4Medications: Aspirin, atorvastatin, Coreg, Plavix, lisinopril, nitroglycerin SL STRESS PROTOCOL:Pharmacologic stress was achieved with a 10-second intravenous infusion of regadenoson 0.4 mg. IMAGING PROTOCOL:Limited low-dose CT imaging was performed for attenuation correction. 40 mCi of Rb-82 chloride was injected intravenously at rest, and PET images were obtained. Then, 40 mCi of Rb-82 chloride was injected intravenously at peak stre ss, and PET images were obtained. REST FINDINGS:HR: 55 /minBP: 152/70 mmHgPrelim. EKG: Sinus bradycardia, first-degree AV block.Perfusion: Normal.Wall Motion: Global hypokinesis with paradoxical septalmotion (LVEF 33%).LV Volume: Mildly enlarged.RV Volume: Normal. STRESS FINDINGS:HR: 60 /min (39% of MPHR)BP: 123/60 mmHgPrelim. EKG: No ischemic changes.Symptoms: Dyspnea (treatment not required).Perfusion: Decreased anteroseptal, anterior and inferolateral wall intensity.Wall Motion: Global hypokinesis with paradoxical septal motion (LVEF 37%).LV Volume: Unchanged from rest. IMPRESSION:1. Abnormal study.2. Abnormal myocardial perfusion. There is a there is a moderate size. Moderate intensity, anteroseptal, anterior and inferolateral reversible perfusion defects.3. Abnormal global LV function, which does not deteriorate with stress.4. Normal extracardiac tracer distribution.5. There is no prior study for comparison. Signed: Janet Martinez MDReport Verified Date/Time: 05/05/2020 13:35:13 POCT- GLUCOSE [id number] 11:26:00 Test Item Value Reference Range Interpretation Comments POC-GLUCOSE METER 134 mg/dL 70-110 H : TESTED A T [facility] 6720 (BEAKER) (test code = [facility], 1538) [address]: Carousel Attendant/Techni jennifer ID = [id number] for ASHLEY THOMPSON POCT-GLUCOSE [id number] 08:04:00 Test Item Value Reference Range Interpretation Comments POC-GLUCOSE METER 161 mg/dL 70-110 H : TESTED A T [facility] 6720 (BEAKER) (test code = [facility], 1538) [address]: Carousel Attendant/Techni jennifer ID = [id number] for ASHLEY THOMPSON BASIC METABOLIC [id number] 07:53:00 Test Item Value Reference Range Interpretation Comments SODIUM (BEAKER) 137 meq/L 136-145 (test code = 381) POTASSIUM (BEAKER) 4.0 meq/L 3.5-5.1 (test code = 379) CHLORIDE (BEAKER) 101 meq/L 98-107 (test code = 382) CO2 (BEAKER) (test 27 meq/L 22-29 code = 355) BLOOD UREA NITROGEN 23 mg/dL 7-21 H (BEAKER) (test code = 354) CREATININE (BEAKER) 1.26 mg/dL 0.57-1.25 H (test code = 358) GLUCOSE RANDOM 171 mg/dL 70-105 H (BEAKER) (test code = 652) CALCIUM (BEAKER) 8.6 mg/dL 8.4-10.2 (test code = 697) EGFR (BEAKER) (test 57 mL/min/1.73 ESTIMA SURI GFR IS code = 1092) sq m NOT ACCURATE CREATININE CLEARANCE IN PREDICTING GLOMERULAR FILTRATION RATE . ESTIMATED GFR I S NOT APPLICABLE FOR DIALYSIS PATIEN TS. Carousel Attendant ID - PIAYA LCBC W/PLT COUNT & AUTO [id number] 06:15:00 Test Item Value Reference Range Interpretation Comments WHITE BLOOD CELL COUNT (BEAKER) 7.8 K/ L 3.5-10.5 (test code = 775) RED BLOOD CELL COUNT (BEAKER) 4.49 M/ L 4.63-6.08 L (test code = 761) HEMOGLOBIN (BEAKER) (test code = 11.8 GM/DL 13.7-17.5 L 410) HEMATOCRIT (BEAKER) (test code = 37.9 % 40.1-51.0 L 411) MEAN CORPUSCULAR VOLUME (BEAKER) 84.4 fL 79.0-92.2 (test code = 753) MEAN CORPUSCULAR HEMOGLOBIN 26.3 pg 25.7-32.2 (BEAKER) (test code = 751) MEAN CORPUSCULAR HEMOGLOBIN CONC 31.1 GM/DL 32.3-36.5 L (BEAKER) (test code = 752) RED CELL DISTRIBUTION WIDTH 14.6 % 11.6-14.4 H (BEAKER) (test code = 412) PLATELET COUNT (BEAKER) (test 185 K/CU MM 150-450 code = 756) MEAN PLATELET VOLUME (BEAKER) 10.4 fL 9.4-12.4 (test code = 754) NUCLEATED RED BLOOD CELLS 0 /100 WBC 0-0 (BEAKER) (test code = 413) NEUTROPHILS RELATIVE PERCENT 66 % (BEAKER) (test code = 429) LYMPHOCYTES RELATIVE PERCENT 19 % (BEAKER) (test code = 430) MONOCYTES RELATIVE PERCENT 9 % (BEAKER) (test code = 431) EOSINOPHILS RELATIVE PERCENT 5 % (BEAKER) (test code = 432) BASOPHILS RELATIVE PERCENT 1 % (BEAKER) (test code = 437) NEUTROPHILS ABSOLUTE COUNT 5.11 K/ L 1.78-5.38 (BEAKER) (test code = 670) LYMPHOCYTES ABSOLUTE COUNT 1.50 K/ L 1.32-3.57 (BEAKER) (test code = 414) MONOCYTES ABSOLUTE COUNT (BEAKER) 0.66 K/ L 0.30-0.82 (test code = 415) EOSINOPHILS ABSOLUTE COUNT 0.41 K/ L 0.04-0.54 (BEAKER) (test code = 416) BASOPHILS ABSOLUTE COUNT (BEAKER) 0.04 K/ L 0.01-0.08 (test code = 417) IMMATURE GRANULOCYTES-RELATIVE 0 % 0-1 PERCENT (BEAKER) (test code = 2801) SARS-COV2/RT-PCR ([facility])2020-05-05 00:46:00 Test Item Value Reference Range Interpretation Comments SARS-COV2/RT-PCR (test code = Negative Not Detected, Negative [id number]) SARS-COV-2 PERFORMING LAB [facility] (test code = 3794826) Negative result for this test determines that SARS-CoV-2 RNA was not present in the specimen above the Limit of Detection (LOD). However, Negative results do not preclude SARS-CoV-2 infection and should not be used as the sole basis for treatment or patient management decisions. Negative results mustbe combined with clinical observations, patient history, and epidemiological information. A false negative result may occur if a specimen is improperly collected, transported or handled. A false negative result should be considered if patient's recent exposures or clinical presentation indicate that COVID-19 (SARS-CoV-2) is likely and diagnostic tests for other causes of illness are negative. Re-testing should be considered in cases of suspected false negatives.The limit of detection for this assay is 800 copies/mL.This SARS CoV-2 test is a real-time RT-PCR test intended for the qualitative detection of nucleic acid from SARS-CoV-2 in a nasopharyngeal swab specimen collected from individuals susp ected of COVID-19 by their healthcare provider.This test has not been Food and Drug Administration (FDA) cleared or approved. This is a modified version of an approved Emergency Use Authorization (EUA) and is in the process of review by the FDA. Once authorized by the FDA, the issued EUA will be effective until the declaration that circumstances exist justifying the authorization of the emergency use of in vitro diagnostic tests for detection and/or diagnosis of COVID-19 is terminated under Section 564(b)(2) of the Act or the EUA is revoked under Section 564(g) of the Act.Fact Sheet for Healthcare Providers:https://www.[employer]/sites/default/files/product/documents/Fact_Shee z_CD_Zzusnnwwv_Mlnd_GWAA-AcV-9.pdfFact Sheet for Healthcare Patients:https://www.[employer]/sites/default/files/product/ documents/Jxow_Jinkz_Mrbkbxwc_Otec_YYHO-OdR-5.pdfPerforming Laboratory:[facility] [facility], [place] [address]SWZU-BCMNOAN METER 2020-05-04 21:24:00 Test Item Value Reference Range Interpretation Comments POC-GLUCOSE METER 120 mg/dL 70-110 H : TESTED A T [facility] 6720 (BEAKER) (test code = [facility], 1538) [address]: Carousel Attendant/Techni jennifer ID = [id number] for GO NZALES III, KIARRA POCT-GLUCOSE [id number] 17:16:00 Test Item Value Reference Range Interpretation Comments POC-GLUCOSE METER 124 mg/dL 70-110 H : TESTED A T [facility] 6720 (BEAKER) (test code = [facility], 1538) [address]: Carousel Attendant/Techni jennifer ID = [id number] for Ok ephraim, Ana POCT-GLUCOSE [id number] 12:07:00 Test Item Value Reference Range Interpretation Comments POC-GLUCOSE METER 113 mg/dL 70-110 H : TESTED A T [facility] 6720 (BEAKER) (test code = [facility], 1538) [address]: Carousel Attendant/Techni jennifer ID = [id number] for HU NTER, HIWITHA LIPID [id number] 10:34:00 Test Item Value Reference Range Interpretation Comments TRIGLYCERIDES (BEAKER) 119 mg/dL Speci men slightly (test code = 540) hemolyzed CHOLESTEROL (BEAKER) 104 mg/dL Specime n slightly (test code = 631) hemolyzed HDL CHOLESTEROL (BEAKER) 39 mg/dL (test code = 976) LDL CHOLESTEROL 41 mg/dL CALCULATED ([facility]) (test code = 633) Triglyceride Reference Range: Low Risk <150 Borderline 150-199 High Risk 200-499 Very High Risk >=500Cholesterol Reference Range: Low Risk <200 Borderline 200-239 High Risk >240HDL Cholesterol Reference Range: Low Risk >=60 High Risk <40LDL Cholesterol Reference Range: Optimal <100 Near Optimal 100-129 Borderline 130-159 High 160-189 Very High >=190 Carousel Attendant ID - NTPPOCT-GLUCOSE [id number] 07:28:00 Test Item Value Reference Range Interpretation Comments POC-GLUCOSE METER 183 mg/dL 70-110 H : TESTED A T [facility] [address] ([employer]) (test code = [place], 1538) [address]: Carousel Attendant/Techni jennifer ID = [id number] for OLU SOTO TROPONIN [id number] 07:10:00 Test Item Value Reference Range Interpretation Comments TROPONIN I ([place]) (test code = 0.02 ng/mL 0.00-0.03 397) Troponin I (TnI) levels must be interpreted in the context of the presenting symptoms and the clinical findings. Elevated TnI levels indicate myocardial damage, but are not specific for ischemic heart disease. Elevated TnI levels are seen in patients with other cardiac conditions (including myocarditis and congestive heart failure), and slight TnI elevations occur in patients with other conditions, including sepsis, renal failure, acidosis, acute neurological disease, and persistent tachyarrhythmia.Carousel Attendant ID - [id number] 06:04:00 Test Item Value Reference Range Interpretation Comments MAGNESIUM ([place]) (test code = 1.9 mg/dL 1.6-2.6 627) Carousel Attendant ID - BSTROPONIN [id number] 01:32:00 Test Item Value Reference Range Interpretation Comments TROPONIN I ([place]) (test code = 0.04 ng/mL 0.00-0.03 H 397) Troponin I (TnI) levels must be interpreted in the context of the presenting symptoms and the clinical findings. Elevated TnI levels indicate myocardial damage, but are not specific for ischemic heart disease. Elevated TnI levels are seen in patients with other cardiac conditions (including myocarditis and congestive heart failure), and slight TnI elevations occur in patients with other conditions, including sepsis, renal failure, acidosis, acute neurological disease, and persistent tachyarrhythmia.Carousel Attendant ID - BSBASIC METABOLIC PANEL 2020-05-04 01:30:00 Test Item Value Reference Range Interpretation Comments SODIUM (BEAKER) 137 meq/L 136-145 (test code = 381) POTASSIUM (BEAKER) 3.3 meq/L 3.5-5.1 L (test code = 379) CHLORIDE (BEAKER) 100 meq/L 98-107 (test code = 382) CO2 (BEAKER) (test 29 meq/L 22-29 code = 355) BLOOD UREA NITROGEN 21 mg/dL 7-21 (BEAKER) (test code = 354) CREATININE (BEAKER) 1.20 mg/dL 0.57-1.25 (test code = 358) GLUCOSE RANDOM 161 mg/dL 70-105 H (BEAKER) (test code = 652) CALCIUM (BEAKER) 8.5 mg/dL 8.4-10.2 (test code = 697) EGFR (BEAKER) (test 60 mL/min/1.73 ESTIMA SURI GFR IS code = 1092) sq m NOT ACCURATE CREATININE CLEARANCE IN PREDICTING GLOMERULAR FILTRATION RATE . ESTIMATED GFR I S NOT APPLICABLE FOR DIALYSIS PATIEN TS. Carousel Attendant ID - BSCBC W/PLT COUNT & AUTO [id number] 01:07:00 Test Item Value Reference Range Interpretation Comments WHITE BLOOD CELL COUNT (BEAKER) 7.8 K/ L 3.5-10.5 (test code = 775) RED BLOOD CELL COUNT (BEAKER) 4.03 M/ L 4.63-6.08 L (test code = 761) HEMOGLOBIN (BEAKER) (test code = 11.1 GM/DL 13.7-17.5 L 410) HEMATOCRIT (BEAKER) (test code = 34.3 % 40.1-51.0 L 411) MEAN CORPUSCULAR VOLUME (BEAKER) 85.1 fL 79.0-92.2 (test code = 753) MEAN CORPUSCULAR HEMOGLOBIN 27.5 pg 25.7-32.2 (BEAKER) (test code = 751) MEAN CORPUSCULAR HEMOGLOBIN CONC 32.4 GM/DL 32.3-36.5 (BEAKER) (test code = 752) RED CELL DISTRIBUTION WIDTH 14.6 % 11.6-14.4 H (BEAKER) (test code = 412) PLATELET COUNT (BEAKER) (test 163 K/CU MM 150-450 code = 756) MEAN PLATELET VOLUME (BEAKER) 10.5 fL 9.4-12.4 (test code = 754) NUCLEATED RED BLOOD CELLS 0 /100 WBC 0-0 (BEAKER) (test code = 413) NEUTROPHILS RELATIVE PERCENT 63 % (BEAKER) (test code = 429) LYMPHOCYTES RELATIVE PERCENT 24 % (BEAKER) (test code = 430) MONOCYTES RELATIVE PERCENT 8 % (BEAKER) (test code = 431) EOSINOPHILS RELATIVE PERCENT 5 % (BEAKER) (test code = 432) BASOPHILS RELATIVE PERCENT 1 % (BEAKER) (test code = 437) NEUTROPHILS ABSOLUTE COUNT 4.86 K/ L 1.78-5.38 (BEAKER) (test code = 670) LYMPHOCYTES ABSOLUTE COUNT 1.86 K/ L 1.32-3.57 (BEAKER) (test code = 414) MONOCYTES ABSOLUTE COUNT (BEAKER) 0.61 K/ L 0.30-0.82 (test code = 415) EOSINOPHILS ABSOLUTE COUNT 0.39 K/ L 0.04-0.54 (BEAKER) (test code = 416) BASOPHILS ABSOLUTE COUNT (BEAKER) 0.04 K/ L 0.01-0.08 (test code = 417) IMMATURE GRANULOCYTES-RELATIVE 0 % 0-1 PERCENT (BEAKER) (test code = 2801) POCT-GLUCOSE [id number] 21:21:00 Test Item Value Reference Range Interpretation Comments POC-GLUCOSE METER 190 mg/dL 70-110 H : TESTED A T [facility] 6720 (BEAKER) (test code = [place]UND [place]IP [place], 1538) [id number]: Carousel Attendant/Techni jennifer ID = [id number] for JUAREZ DELA CRUZ SE HEMOGLOBIN [id number] 18:33:00 Test Item Value Reference Range Interpretation Comments HEMOGLOBIN A1C (BEAKER) (test code = 7.8 % 4.3-6.1 H 368) TROPONIN [id number] 18:17:00 Test Item Value Reference Range Interpretation Comments TROPONIN I (BEAKER) (test code = 0.02 ng/mL 0.00-0.03 397) Troponin I (TnI) levels must be interpreted in the context of the presenting symptoms and the clinical findings. Elevated TnI levels indicate myocardial damage, but are not specific for ischemic heart disease. Elevated TnI levels are seen in patients with other cardiac conditions (including myocarditis and congestive heart failure), and slight TnI elevations occur in patients with other conditions, including sepsis, renal failure, acidosis, acute neurological disease, and persistent tachyarrhythmia.Carousel Attendant ID - BSPOCT-GLUCOSE METER 2020-05-03 16:57:00 Test Item Value Reference Range Interpretation Comments POC-GLUCOSE METER 169 mg/dL 70-110 H : TESTED A T [facility] 6720 (BEAKER) (test code = EDMUND [place]ILLIP [place], 1538) [id number]: Carousel Attendant/Techni jennifer ID = [id number] for HU NTER, HIWITHA UA RFLX MICR CULT IF [id number] 20:49:00 Test Item Value Reference Range Interpretation Comments UA COLOR (test code = YELLOW discript YEL/STRAW COLU) UA APPEARANCE (test code CLEAR discript CLEAR = APPU) UA GLUCOSE DIPSTICK (test NEGATIVE mg/dL NEG code = DGLUU) UA BILIRUBIN DIPSTICK NEGATIVE mg/dL NEG (test code = BILU) UA KETONE DIPSTICK (test NEGATIVE mg/dL NEG code = KETU) UA SPECIFIC GRAVITY (test 1.015 SG 1.005-1.030 code = SGU) UA BLOOD DIPSTICK (test NEGATIVE mg/DL NEG code = MARK) UA PH DIPSTICK (test code 6.0 pH UNITS 5.0-7.0 = SABRINA) UA PROTEIN DIPSTICK (test TRACE mg/dL NEG A code = PROU) UA UROBILINIOGEN DIPSTICK 0.2 mg/dL <2.0 (test code = URO) UA NITRITE DIPSTICK (test NEGATIVE SCREEN NEG code = NERI) UA LEUKOCYTE ESTERASE NEGATIVE Leuk/mcL NEGATIVE DIPSTICK (test code = LEUU) UA WBC (test code = WBCU) 0-1 #WBC/HPF 0-3 UA RBC (test code = RBCU) 0-1 #RBC/HPF 0-3 UA BACTERIA (test code = NONE SEEN /HPF NONE-TRACE BACU) UA SQUAMOUS CELLS (test NONE SEEN /HPF NONE code = SQU) UA HYALINE CAST (test 0-2 #/LPF 0-3 code = HYALU) UA MUCUS (test code = TRACE /LPF NONE SEEN MUCU) UA CULTURE NEEDED? (test NO, WBC<10 Criteria Culture CHK code = UACULT) UA RFLX MICR CULT IF [id number] 20:43:00 Test Item Value Reference Range Interpretation Comments UA COLOR (test code = COLU) YELLOW discript YEL/STRAW UA APPEARANCE (test code = CLEAR discript CLEAR APPU) UA GLUCOSE DIPSTICK (test NEGATIVE mg/dL NEG code = DGLUU) UA BILIRUBIN DIPSTICK (test NEGATIVE mg/dL NEG code = BILU) UA KETONE DIPSTICK (test NEGATIVE mg/dL NEG code = KETU) UA SPECIFIC GRAVITY (test 1.015 SG 1.005-1.030 code = SGU) UA BLOOD DIPSTICK (test NEGATIVE mg/DL NEG code = MARK) UA PH DIPSTICK (test code = 6.0 pH UNITS 5.0-7.0 SABRINA) UA PROTEIN DIPSTICK (test TRACE mg/dL NEG A code = PROU) UA UROBILINIOGEN DIPSTICK 0.2 mg/dL <2.0 (test code = URO) UA NITRITE DIPSTICK (test NEGATIVE SCREEN NEG code = NERI) UA LEUKOCYTE ESTERASE NEGATIVE Leuk/mcL NEGATIVE DIPSTICK (test code = LEUU) UA CULTURE NEEDED? (test Criteria Culture CHK code = UACULT) GLUCOSE BEDSIDE [id number] 15:38:00 Test Item Value Reference Range Interpretation Comments GLUCOSE BEDSIDE TESTING (test code 179 mg/dL 70-110 H = GLUBED) GLUCOSE BEDSIDE [id number] 11:23:00 Test Item Value Reference Range Interpretation Comments GLUCOSE BEDSIDE TESTING (test code 186 mg/dL 70-110 H = GLUBED) GLUCOSE BEDSIDE [id number] 07:25:00 Test Item Value Reference Range Interpretation Comments GLUCOSE BEDSIDE TESTING (test code 166 mg/dL 70-110 H = GLUBED) BASIC METABOLIC [id number] 07:20:00 Test Item Value Reference Range Interpretation Comments SODIUM (test code = NA) 135 mmol/L 134-147 N POTASSIUM (test code = 4.0 mmol/L 3.4-5.0 N K) CHLORIDE (test code = 97 mmol/L 100-108 L CL) CARBON DIOXIDE (test 33 mmol/L 21-32 H code = CO2) ANION GAP (test code = 5.0 GAP calc 4.0-15.0 N GAP) GLUCOSE (test code = 182 MG/DL 70-110 H GLU) BLOOD UREA NITROGEN 29 MG/DL 7-18 H (test code = BUN) GLOMERULAR FILTRATION >=60 max estimate >60 RATE (test code = GFR) estGFR CREATININE (test code = 1.2 MG/DL 0.8-1.3 N CREAT) CALCIUM (test code = CA) 8.6 MG/DL 8.5-10.1 N CBC W/AUTO [id number] 07:09:00 Test Item Value Reference Range Interpretation Comments WHITE BLOOD CELL (test code = 9.2 K/mm3 3.5-11.0 N WBC) RED BLOOD CELL (test code = 4.51 M/mm3 4.70-6.10 L RBC) HEMOGLOBIN (test code = HGB) 11.9 G/DL 12.3-15.9 L HEMATOCRIT (test code = HCT) 38.2 % 35.8-46.7 N MEAN CELL VOLUME (test code = 84.7 Fl 86.3-98.9 L MCV) MEAN CELL HGB (test code = MCH) 26.4 pg 28.9-34.4 L MEAN CELL HGB CONCETRATION 31.2 G/DL 32.1-34.5 L (test code = MCHC) RED CELL DISTRIBUTION WIDTH 15.0 SD 11.5-14.5 H (test code = RDW) PLATELET COUNT (test code = 206 K/mm3 150-450 N PLT) MEAN PLATELET VOLUME (test code 10.60 fL 7.0-9.6 H = MPV) NEUTROPHIL % (test code = NT%) 66.8 % 40-76 N LYMPHOCYTE % (test code = LY%) 18.1 % 20.5-51.1 L MONOCYTE % (test code = MO%) 8.5 % 1.7-9.3 N EOSINOPHIL % (test code = EO%) 5.4 % 0.0-6.0 N BASOPHIL % (test code = BA%) 0.8 % 0.0-2.0 N NUCLEATED RBC % (test code = 0.0 /100WBC% 0.0-1.0 N NRBC%) NEUTROPHIL # (test code = NT#) 6.1 K/mm3 1.8-7.6 N IMMATURE GRANULOCYTE # (test 0.04 x10 3/uL 0.00-0.03 H code = IG#) LYMPHOCYTE # (test code = LY#) 1.7 K/mm3 0.6-3.0 N MONOCYTE # (test code = MO#) 0.8 K/mm3 0.2-1.5 N EOSINOPHIL # (test code = EO#) 0.5 K/mm3 0.0-0.4 H BASOPHIL # (test code = BA#) 0.1 K/mm3 0.0-0.2 N NUCLEATED RBC # (test code = 0.0 K/mm3 0.00-0.01 N NRBC#) MANUAL DIFF REQUIRED (test code NO DIFF/SCN CRITERIA = MDIFF) GLUCOSE BEDSIDE [id number] 20:27:00 Test Item Value Reference Range Interpretation Comments GLUCOSE BEDSIDE TESTING (test code 223 mg/dL 70-110 H = GLUBED) GLUCOSE BEDSIDE [id number] 15:30:00 Test Item Value Reference Range Interpretation Comments GLUCOSE BEDSIDE TESTING (test code 215 mg/dL 70-110 H = GLUBED) GLUCOSE BEDSIDE [id number] 11:54:00 Test Item Value Reference Range Interpretation Comments GLUCOSE BEDSIDE TESTING (test code 178 mg/dL 70-110 H = GLUBED) GLUCOSE BEDSIDE [id number] 07:22:00 Test Item Value Reference Range Interpretation Comments GLUCOSE BEDSIDE TESTING (test code 179 mg/dL 70-110 H = GLUBED) BASIC METABOLIC [id number] 04:56:00 Test Item Value Reference Range Interpretation Comments SODIUM (test code = NA) 136 mmol/L 134-147 N POTASSIUM (test code = 3.7 mmol/L 3.4-5.0 N K) CHLORIDE (test code = 101 mmol/L 100-108 N CL) CARBON DIOXIDE (test 30 mmol/L 21-32 N code = CO2) ANION GAP (test code = 5.0 GAP calc 4.0-15.0 N GAP) GLUCOSE (test code = 185 MG/DL 70-110 H GLU) BLOOD UREA NITROGEN 22 MG/DL 7-18 H (test code = BUN) GLOMERULAR FILTRATION >=60 max estimate >60 RATE (test code = GFR) estGFR CREATININE (test code = 1.1 MG/DL 0.8-1.3 N CREAT) CALCIUM (test code = CA) 8.2 MG/DL 8.5-10.1 L CBC W/AUTO [id number] 04:47:00 Test Item Value Reference Range Interpretation Comments WHITE BLOOD CELL (test code = 9.2 K/mm3 3.5-11.0 N WBC) RED BLOOD CELL (test code = 4.17 M/mm3 4.70-6.10 L RBC) HEMOGLOBIN (test code = HGB) 11.4 G/DL 12.3-15.9 L HEMATOCRIT (test code = HCT) 36.5 % 35.8-46.7 N MEAN CELL VOLUME (test code = 87.5 Fl 86.3-98.9 N MCV) MEAN CELL HGB (test code = MCH) 27.3 pg 28.9-34.4 L MEAN CELL HGB CONCETRATION 31.2 G/DL 32.1-34.5 L (test code = MCHC) RED CELL DISTRIBUTION WIDTH 14.9 SD 11.5-14.5 H (test code = RDW) PLATELET COUNT (test code = 187 K/mm3 150-450 N PLT) MEAN PLATELET VOLUME (test code 10.90 fL 7.0-9.6 H = MPV) NEUTROPHIL % (test code = NT%) 68.7 % 40-76 N LYMPHOCYTE % (test code = LY%) 18.0 % 20.5-51.1 L MONOCYTE % (test code = MO%) 7.5 % 1.7-9.3 N EOSINOPHIL % (test code = EO%) 4.8 % 0.0-6.0 N BASOPHIL % (test code = BA%) 0.7 % 0.0-2.0 N NUCLEATED RBC % (test code = 0.0 /100WBC% 0.0-1.0 N NRBC%) NEUTROPHIL # (test code = NT#) 6.3 K/mm3 1.8-7.6 N IMMATURE GRANULOCYTE # (test 0.03 x10 3/uL 0.00-0.03 N code = IG#) LYMPHOCYTE # (test code = LY#) 1.7 K/mm3 0.6-3.0 N MONOCYTE # (test code = MO#) 0.7 K/mm3 0.2-1.5 N EOSINOPHIL # (test code = EO#) 0.4 K/mm3 0.0-0.4 N BASOPHIL # (test code = BA#) 0.1 K/mm3 0.0-0.2 N NUCLEATED RBC # (test code = 0.0 K/mm3 0.00-0.01 N NRBC#) MANUAL DIFF REQUIRED (test code NO DIFF/SCN CRITERIA = MDIFF) GLUCOSE BEDSIDE [id number] 21:16:00 Test Item Value Reference Range Interpretation Comments GLUCOSE BEDSIDE TESTING (test code 206 mg/dL 70-110 H = GLUBED) GLUCOSE BEDSIDE [id number] 17:02:00 Test Item Value Reference Range Interpretation Comments GLUCOSE BEDSIDE TESTING (test code 166 mg/dL 70-110 H = GLUBED) GLUCOSE BEDSIDE [id number] 12:05:00 Test Item Value Reference Range Interpretation Comments GLUCOSE BEDSIDE TESTING (test code 160 mg/dL 70-110 H = GLUBED) GLUCOSE BEDSIDE [id number] 08:09:00 Test Item Value Reference Range Interpretation Comments GLUCOSE BEDSIDE TESTING (test code 182 mg/dL 70-110 H = GLUBED) BASIC METABOLIC [id number] 06:40:00 Test Item Value Reference Range Interpretation Comments SODIUM (test code = NA) 139 mmol/L 134-147 N POTASSIUM (test code = 3.7 mmol/L 3.4-5.0 N K) CHLORIDE (test code = 104 mmol/L 100-108 N CL) CARBON DIOXIDE (test 30 mmol/L 21-32 N code = CO2) ANION GAP (test code = 5.0 GAP calc 4.0-15.0 N GAP) GLUCOSE (test code = 187 MG/DL 70-110 H GLU) BLOOD UREA NITROGEN 22 MG/DL 7-18 H (test code = BUN) GLOMERULAR FILTRATION >=60 max estimate >60 RATE (test code = GFR) estGFR CREATININE (test code = 1.1 MG/DL 0.8-1.3 N CREAT) CALCIUM (test code = CA) 7.7 MG/DL 8.5-10.1 L CBC W/AUTO [id number] 06:24:00 Test Item Value Reference Range Interpretation Comments WHITE BLOOD CELL (test code = 8.3 K/mm3 3.5-11.0 N WBC) RED BLOOD CELL (test code = 3.93 M/mm3 4.70-6.10 L RBC) HEMOGLOBIN (test code = HGB) 10.5 G/DL 12.3-15.9 L HEMATOCRIT (test code = HCT) 33.8 % 35.8-46.7 L MEAN CELL VOLUME (test code = 86.0 Fl 86.3-98.9 L MCV) MEAN CELL HGB (test code = MCH) 26.7 pg 28.9-34.4 L MEAN CELL HGB CONCETRATION 31.1 G/DL 32.1-34.5 L (test code = MCHC) RED CELL DISTRIBUTION WIDTH 15.0 SD 11.5-14.5 H (test code = RDW) PLATELET COUNT (test code = 161 K/mm3 150-450 N PLT) MEAN PLATELET VOLUME (test code 10.40 fL 7.0-9.6 H = MPV) NEUTROPHIL % (test code = NT%) 69.0 % 40-76 N LYMPHOCYTE % (test code = LY%) 16.3 % 20.5-51.1 L MONOCYTE % (test code = MO%) 9.0 % 1.7-9.3 N EOSINOPHIL % (test code = EO%) 4.6 % 0.0-6.0 N BASOPHIL % (test code = BA%) 0.7 % 0.0-2.0 N NUCLEATED RBC % (test code = 0.0 /100WBC% 0.0-1.0 N NRBC%) NEUTROPHIL # (test code = NT#) 5.7 K/mm3 1.8-7.6 N IMMATURE GRANULOCYTE # (test 0.03 x10 3/uL 0.00-0.03 N code = IG#) LYMPHOCYTE # (test code = LY#) 1.4 K/mm3 0.6-3.0 N MONOCYTE # (test code = MO#) 0.8 K/mm3 0.2-1.5 N EOSINOPHIL # (test code = EO#) 0.4 K/mm3 0.0-0.4 N BASOPHIL # (test code = BA#) 0.1 K/mm3 0.0-0.2 N NUCLEATED RBC # (test code = 0.0 K/mm3 0.00-0.01 N NRBC#) MANUAL DIFF REQUIRED (test code NO DIFF/SCN CRITERIA = MDIFF) GLUCOSE BEDSIDE [id number] 20:50:00 Test Item Value Reference Range Interpretation Comments GLUCOSE BEDSIDE TESTING (test code 191 mg/dL 70-110 H = GLUBED) GLUCOSE BEDSIDE [id number] 17:23:00 Test Item Value Reference Range Interpretation Comments GLUCOSE BEDSIDE TESTING (test code 151 mg/dL 70-110 H = GLUBED) GLUCOSE BEDSIDE [id number] 12:02:00 Test Item Value Reference Range Interpretation Comments GLUCOSE BEDSIDE TESTING (test code 160 mg/dL 70-110 H = GLUBED) GLUCOSE BEDSIDE [id number] 08:09:00 Test Item Value Reference Range Interpretation Comments GLUCOSE BEDSIDE TESTING (test code 160 mg/dL 70-110 H = GLUBED) GLYCOSYLATED HEMOGLOBIN [id number] 07:15:00 Test Item Value Reference Range Interpretation Comments GLYCOSYLATED HEMOGLOBIN (HA1C) 7.4 % A1C 0.0-5.7 H (test code = GLYHGB) ESTIMATED AVERAGE GLUCOSE (test 166 MG/DLest code = EAG) COMPREHENSIVE METABOLIC [id number] 07:06:00 Test Item Value Reference Range Interpretation Comments SODIUM (test code = NA) 140 mmol/L 134-147 N POTASSIUM (test code = 3.2 mmol/L 3.4-5.0 L K) CHLORIDE (test code = 103 mmol/L 100-108 N CL) CARBON DIOXIDE (test 31 mmol/L 21-32 N code = CO2) ANION GAP (test code = 6.0 GAP calc 4.0-15.0 N GAP) GLUCOSE (test code = 154 MG/DL 70-110 H GLU) BLOOD UREA NITROGEN 12 MG/DL 7-18 N (test code = BUN) GLOMERULAR FILTRATION >=60 max estimate >60 RATE (test code = GFR) estGFR CREATININE (test code = 1.1 MG/DL 0.8-1.3 N CREAT) TOTAL PROTEIN (test code 6.8 G/DL 6.4-8.2 N = PROT) ALBUMIN (test code = 2.8 G/DL 3.4-5.0 L ALB) GLOBULIN (test code = 4.0 GM/dL GLOB) ALBUMIN/GLOBULIN RATIO 0.7 RATIO 1.2-2.2 L (test code = A/G) CALCIUM (test code = CA) 8.0 MG/DL 8.5-10.1 L BILIRUBIN TOTAL (test 0.60 MG/DL 0.2-1.2 N code = BILT) SGOT/AST (test code = 13 Unit/L 15-37 L AST) SGPT/ALT (test code = 30 Unit/L 12-78 N ALT) ALKALINE PHOSPHATASE 119 Unit/L 50-136 N TOTAL (test code = ALKP) LIPID PROFILE (CORONARY RISK)[id number] 07:06:00 Test Item Value Reference Range Interpretation Comments TRIGLYCERIDES (test code = TRIG) 83 MG/DL 0-150 N CHOLESTEROL (test code = CHOL) 83 MG/DL 133-200 L CHOLESTEROL/HDL RATIO (test code = 2.59 RATIO >0 CHOLHDL) HDL CHOLESTEROL (test code = HDL) 32 MG/DL 40-59 L NON-HDL CHOLESTEROL (test code = 51 mg/dL <130 NHDL) LIPOPROTEIN LDL (test code = LDL) 42 MG/DL 0-129 N LDL/HDL (test code = LDL/HDL) 1.31 Ratio 1.48-3.22 Avg L [id number] 07:06:00 Test Item Value Reference Range Interpretation Comments PHOSPHOROUS (test code = PHOS) 3.2 MG/DL 2.5-4.9 N [id number] 07:06:00 Test Item Value Reference Range Interpretation Comments MAGNESIUM (test code = MAG) 1.9 MG/DL 1.8-2.4 N NT PRO-BRAIN NATRIURETIC [id number] 07:06:00 Test Item Value Reference Range Interpretation Comments NT PRO-BRAIN NATRIURETIC PEPTI 5271 PG/ML 0-100 H (test code = PROBNP) CBC W/AUTO [id number] 07:01:00 Test Item Value Reference Range Interpretation Comments WHITE BLOOD CELL (test code = 8.0 K/mm3 3.5-11.0 N WBC) RED BLOOD CELL (test code = 4.08 M/mm3 4.70-6.10 L RBC) HEMOGLOBIN (test code = HGB) 11.0 G/DL 12.3-15.9 L HEMATOCRIT (test code = HCT) 34.9 % 35.8-46.7 L MEAN CELL VOLUME (test code = 85.5 Fl 86.3-98.9 L MCV) MEAN CELL HGB (test code = MCH) 27.0 pg 28.9-34.4 L MEAN CELL HGB CONCETRATION 31.5 G/DL 32.1-34.5 L (test code = MCHC) RED CELL DISTRIBUTION WIDTH 15.0 SD 11.5-14.5 H (test code = RDW) PLATELET COUNT (test code = 169 K/mm3 150-450 N PLT) MEAN PLATELET VOLUME (test code 10.80 fL 7.0-9.6 H = MPV) NEUTROPHIL % (test code = NT%) 75.0 % 40-76 N LYMPHOCYTE % (test code = LY%) 14.6 % 20.5-51.1 L MONOCYTE % (test code = MO%) 7.0 % 1.7-9.3 N EOSINOPHIL % (test code = EO%) 2.4 % 0.0-6.0 N BASOPHIL % (test code = BA%) 0.6 % 0.0-2.0 N NUCLEATED RBC % (test code = 0.0 /100WBC% 0.0-1.0 N NRBC%) NEUTROPHIL # (test code = NT#) 6.0 K/mm3 1.8-7.6 N IMMATURE GRANULOCYTE # (test 0.03 x10 3/uL 0.00-0.03 N code = IG#) LYMPHOCYTE # (test code = LY#) 1.2 K/mm3 0.6-3.0 N MONOCYTE # (test code = MO#) 0.6 K/mm3 0.2-1.5 N EOSINOPHIL # (test code = EO#) 0.2 K/mm3 0.0-0.4 N BASOPHIL # (test code = BA#) 0.1 K/mm3 0.0-0.2 N NUCLEATED RBC # (test code = 0.0 K/mm3 0.00-0.01 N NRBC#) MANUAL DIFF REQUIRED (test code NO DIFF/SCN CRITERIA = MDIFF) [id number] 02:10:00 Test Item Value Reference Range Interpretation Comments TROPONIN-I (test 0.020 NG/ML 0.000-0.045 N Negative: < /= 0.045 code = TROPI) Positive: >/= 0.046 Correlation wit h serial results, other cardiac markers, and cl inical findings is nec essary to determine the c linical significance of this result. Quantit ative results using d ifferent methodologies s hould not be compared to one another as nume rical results may jatin yby method. Completed by Nursing: [id number] 22:50:00 Test Item Value Reference Range Interpretation Comments TROPONIN-I (test 0.017 NG/ML 0.000-0.045 N Negative: < /= 0.045 code = TROPI) Positive: >/= 0.046 Correlation wit h serial results, other cardiac markers, and cl inical findings is nec essary to determine the c linical significance of this result. Quantit ative results using d ifferent methodologies s hould not be compared to one another as nume rical results may jatin yby method. Completed by Nursing: [id number] 11:26:00 Test Item Value Reference Range Interpretation Comments GLUBED (test code = GLUBED) 191 MG/DL 70-105 H [id number] 08:00:00 Test Item Value Reference Range Interpretation Comments GLUBED (test code = GLUBED) 186 MG/DL 70-105 H BASIC METABOLIC [id number] 07:31:00 Test Item Value Reference Range Interpretation Comments SODIUM (test code 138 MMOL/L 136-143 N = NA) POTASSIUM (test 4.0 MMOL/L 3.5-5.1 N code = K) CHLORIDE (test 100 MMOL/L 98-107 N code = CL) CARBON DIOXIDE 27 mmol/L 24-31 N (test code = CO2) GLUCOSE (test code 179 mg/dL 70-104 H = GLU) BLOOD UREA 16.2 MG/DL 7.0-21.0 N NITROGEN (test code = BUN) GLOMERULAR >=60 max >60 The estimated FILTRATION RATE estimate glomerular (test code = GFR) filtration rate is computed usingpatient ra ce, age (>18), sex, and serum creatinin e. If anyof the neede d data elements a re missing the Laboratory torrey ot compute an estimation of t he glomerular filtration rate . CREATININE (test 0.9 mg/dL 0.8-1.5 N code = CREAT) CALCIUM (test code 8.7 mg/dL 8.8-10.2 L = CA) LIPID PROFILE (CORONARY RISK)2020-03-10 07:31:00 Test Item Value Reference Range Interpretation Comments TRIGLYCERIDES (test 137 mg/dL 35-160 N code = TRIG) CHOLESTEROL (test code 140 mg/dL 0-200 N = CHOL) HDL CHOLESTEROL (test 32 mg/dL 35-55 L code = HDL) LIPOPROTEIN LDL (test 81 MG/DL 0-99 N INTERP RETATIVE code = LDLC) DATA:LDL Choles terol: Reference RangesOptimal: <100 mg/dLNear Optim al: 100 -129 mg/dLBorde rline High: 130 - 15 9 mg/dLHigh: 160 - 189 mg/dLVery High: = or > 190 mg/dL CORONARY RISK FACTOR 4.38 (test code = RISK) CHOL/HDL RISK MALE: 1/2 AVG 3.43 FEMALE: 1/2 AV G 3.27 AVG 4.97 AVG 4.44 2X AVG 9.55 2X AVG 7.05 3X AVG 23.39 3X AVG 11.04~~~~~~~~~~ ~~~~~~~ ~~~~~~~~~~~~~~~ ~~~~~~~ ~~~~~~~~~~~~~~~ ~~~~~~N ational Cholest shaye Education (NCEP ) Guidelines:~~~~ ~~~~~~~ ~~~~~~~~~~~~~~~ ~~~~~~~ ~~~~~~~~~~~~~~~ ~~~~~~~ ~~~~~ HDL Cholesterol<4 0mg/dL: HDL Cholesterol (Major risk factor for CHD)>60mg/dL: H DL Cholesterol (Ne gative risk factor for CHD)40-59mg/dL: Borderline Risk L DL Cholesterol<1 00mg/dL : Desirable LDL -C [id number] 0-159mg /dL: Borderline High Risk LDL-C [id number] 0-189mg /dL: High risk LDL-C concentration H DL-LDL Cholesterol is affected by a n umber of factors such as smoking, age an d sex.~~~~~~~~~~~ ~~~~~~~ ~~~~~~~~~~~~~~~ ~~~~~~~ ~~~~~~~~~~~~~~~ ~~~~~ CBC W/AUTO [id number] 07:03:00 Test Item Value Reference Range Interpretation Comments WHITE BLOOD CELL (test code = 7.0 x10 3/uL 4.8-10.8 N WBC) RED BLOOD CELL (test code = 4.17 x10 6/uL 4.70-6.10 L RBC) HEMOGLOBIN (test code = HGB) 11.2 g/dL 14.5-20 L HEMATOCRIT (test code = HCT) 35.3 % 42.0-52.0 L MEAN CELL VOLUME (test code = 84.7 fL 80.0-94.0 N MCV) MEAN CELL HGB (test code = MCH) 26.9 pg 27-31 L MEAN CELL HGB CONCENTRATION 31.7 G/DL 33-36.5 L (test code = MCHC) RED CELL DISTRIBUTION WIDTH 15.1 % 12.9-16.9 N (test code = RDW) PLATELET COUNT (test code = 163 150-440 N PLT) MEAN PLATELET VOLUME (test code 11.2 fL 8.9-12.4 N = MPV) NEUTROPHIL % (test code = NT%) 66.0 % 42.2-75.2 N LYMPHOCYTE % (test code = LY%) 22.9 % 20.5-51.1 N MONOCYTE % (test code = MO%) 7.4 % 1.7-9.3 N EOSINOPHIL % (test code = EO%) 2.7 % 0.0-7.0 N BASOPHIL % (test code = BA%) 0.6 % 0-2.5 N NEUTROPHIL # (test code = NT#) 4.60 x10 3/uL 1.80-7.70 N LYMPHOCYTE # (test code = LY#) 1.60 x10 3/uL 1.00-4.80 N MONOCYTE # (test code = MO#) 0.52 x10 3/uL 0.00-0.80 N EOSINOPHIL # (test code = EO#) 0.19 x10 3/uL 0.00-0.45 N BASOPHIL # (test code = BA#) 0.04 x10 3/uL 0.0-0.20 N [id number] 20:44:00 Test Item Value Reference Range Interpretation Comments GLUBED (test code = GLUBED) 155 MG/DL 70-105 H COAGULATION TIME [id number] 16:55:00 Test Item Value Reference Range Interpretation Comments COAGULATION TIME ACTIVATED (test 285 SECONDS 74-137 H code = ACT) COAGULATION TIME [id number] 16:41:00 Test Item Value Reference Range Interpretation Comments COAGULATION TIME ACTIVATED (test 268 SECONDS 74-137 H code = ACT) COAGULATION TIME [id number] 16:27:00 Test Item Value Reference Range Interpretation Comments COAGULATION TIME ACTIVATED (test 241 SECONDS 74-137 H code = ACT) [id number] 15:17:00 Test Item Value Reference Range Interpretation Comments GLUBED (test code = GLUBED) 157 MG/DL 70-105 H PROTHROMBIN [id number] 15:14:00 Test Item Value Reference Range Interpretation Comments PROTHROMBIN TIME 11.0 SECONDS 10.3-12.9 N PATIENT (test code = PTP) INTERNATIONAL 0.97 INR UNIT 0.9-1.11 N The INR is us eful only NORMAL RATIO (test for monit oring code = INR) anticoagulant therapy.It may be unreliable in t he initial phase o f antigoagulation and in unstable patien ts. Indication for Anticoagulation Recommend ed INR 1. Prevention o f venous thomboembolism 2.0-3.0in high -risk patients; treat ment of venousthrombosi s and pulmonary embol ism aftera course o f heparin; preven tion of systemicembolis m in a variety of cond itions, including atria l fibrillation an d prothetic tissu e heart valves, 2. Pros thetic mechanical hear t valves; 2.5-3.5recurren t systemic emboli sm. THROMBOPLASTIN TIME [id number] 15:14:00 Test Item Value Reference Range Interpretation Comments THROMBOPLASTIN TIME 29.6 SECONDS 26.0-35.9 N INTERPRE TATIVE PARTIAL (test code = : erapeutic PTT) range: Unfractionated heparin:47 - 71 seconds Argatroban:1.5 to 3 times the basel ine PTT BASIC METABOLIC [id number] 14:52:00 Test Item Value Reference Range Interpretation Comments SODIUM (test code 141 MMOL/L 136-143 N = NA) POTASSIUM (test 4.0 MMOL/L 3.5-5.1 N code = K) CHLORIDE (test 102 MMOL/L 98-107 N code = CL) CARBON DIOXIDE 25 mmol/L 24-31 N (test code = CO2) GLUCOSE (test code 158 mg/dL 70-104 H = GLU) BLOOD UREA 14.9 MG/DL 7.0-21.0 N NITROGEN (test code = BUN) GLOMERULAR >=60 max >60 The estimated FILTRATION RATE estimate glomerular (test code = GFR) filtration rate is computed usingpatient ra ce, age (>18), sex, and serum creatinin e. If anyof the neede d data elements a re missing the Laboratory torrey ot compute an estimation of t he glomerular filtration rate . CREATININE (test 0.7 mg/dL 0.8-1.5 L code = CREAT) CALCIUM (test code 8.7 mg/dL 8.8-10.2 L = CA) [id number] 14:52:00 Test Item Value Reference Range Interpretation Comments MAGNESIUM (test code = MAG) 1.7 mg/dL 1.4-2.6 N CBC W/AUTO [id number] 14:16:00 Test Item Value Reference Range Interpretation Comments WHITE BLOOD CELL (test code = 8.8 x10 3/uL 4.8-10.8 N WBC) RED BLOOD CELL (test code = 4.37 x10 6/uL 4.70-6.10 L RBC) HEMOGLOBIN (test code = HGB) 11.7 g/dL 14.5-20 L HEMATOCRIT (test code = HCT) 36.6 % 42.0-52.0 L MEAN CELL VOLUME (test code = 83.8 fL 80.0-94.0 N MCV) MEAN CELL HGB (test code = MCH) 26.8 pg 27-31 L MEAN CELL HGB CONCENTRATION 32.0 G/DL 33-36.5 L (test code = MCHC) RED CELL DISTRIBUTION WIDTH 15.1 % 12.9-16.9 N (test code = RDW) PLATELET COUNT (test code = 189 150-440 N PLT) MEAN PLATELET VOLUME (test code 10.1 fL 8.9-12.4 N = MPV) NEUTROPHIL % (test code = NT%) 66.4 % 42.2-75.2 N LYMPHOCYTE % (test code = LY%) 22.8 % 20.5-51.1 N MONOCYTE % (test code = MO%) 6.5 % 1.7-9.3 N EOSINOPHIL % (test code = EO%) 3.3 % 0.0-7.0 N BASOPHIL % (test code = BA%) 0.7 % 0-2.5 N NEUTROPHIL # (test code = NT#) 5.84 x10 3/uL 1.80-7.70 N LYMPHOCYTE # (test code = LY#) 2.00 x10 3/uL 1.00-4.80 N MONOCYTE # (test code = MO#) 0.57 x10 3/uL 0.00-0.80 N EOSINOPHIL # (test code = EO#) 0.29 x10 3/uL 0.00-0.45 N BASOPHIL # (test code = BA#) 0.06 x10 3/uL 0.0-0.20 N CLOTTED RECOLLECTCoronavirus 2018 nCoV [id number] 15:52:00 Test Item Value Reference Range Interpretation Comments Coronavirus 2019 nCoV Bedside (test Negative Negative code = COVNONPUIBED) Coronavirus 2019 nCoV [id number] 15:51:00 Test Item Value Reference Range Interpretation Comments Coronavirus 2019 nCoV Bedside (test Negative Negative code = COVNONPUIBED) GLUCOSE BEDSIDE [id number] 16:28:00 Test Item Value Reference Range Interpretation Comments GLUCOSE BEDSIDE TESTING (test code 192 mg/dL 70-110 H = GLUBED) GLYCOSYLATED HEMOGLOBIN [id number] 14:50:00 Test Item Value Reference Range Interpretation Comments GLYCOSYLATED HEMOGLOBIN (HA1C) 9.6 % A1C 0.0-5.7 H (test code = GLYHGB) ESTIMATED AVERAGE GLUCOSE (test 229 MG/DLest code = EAG) GLUCOSE BEDSIDE [id number] 11:23:00 Test Item Value Reference Range Interpretation Comments GLUCOSE BEDSIDE TESTING (test code 240 mg/dL 70-110 H = GLUBED) GLUCOSE BEDSIDE [id number] 09:12:00 Test Item Value Reference Range Interpretation Comments GLUCOSE BEDSIDE TESTING (test code 199 mg/dL 70-110 H = GLUBED) BASIC METABOLIC [id number] 05:14:00 Test Item Value Reference Range Interpretation Comments SODIUM (test code = NA) 137 mmol/L 134-147 N POTASSIUM (test code = K) 3.3 mmol/L 3.4-5.0 L CHLORIDE (test code = CL) 98 mmol/L 100-108 L CARBON DIOXIDE (test code = CO2) 31 mmol/L 21-32 N ANION GAP (test code = GAP) 8.0 GAP calc 4.0-15.0 N GLUCOSE (test code = GLU) 179 MG/DL 70-110 H BLOOD UREA NITROGEN (test code = 52 MG/DL 7-18 H BUN) GLOMERULAR FILTRATION RATE (test 54 estGFR >60 L code = GFR) CREATININE (test code = CREAT) 1.4 MG/DL 0.8-1.3 H CALCIUM (test code = CA) 8.9 MG/DL 8.5-10.1 N GLUCOSE BEDSIDE [id number] 19:44:00 Test Item Value Reference Range Interpretation Comments GLUCOSE BEDSIDE TESTING (test code 190 mg/dL 70-110 H = GLUBED) GLUCOSE BEDSIDE [id number] 16:39:00 Test Item Value Reference Range Interpretation Comments GLUCOSE BEDSIDE TESTING (test code 214 mg/dL 70-110 H = GLUBED) GLUCOSE BEDSIDE [id number] 12:05:00 Test Item Value Reference Range Interpretation Comments GLUCOSE BEDSIDE TESTING (test code 221 mg/dL 70-110 H = GLUBED) GLUCOSE BEDSIDE [id number] 07:26:00 Test Item Value Reference Range Interpretation Comments GLUCOSE BEDSIDE TESTING (test code 199 mg/dL 70-110 H = GLUBED) GLUCOSE BEDSIDE [id number] 19:43:00 Test Item Value Reference Range Interpretation Comments GLUCOSE BEDSIDE TESTING (test code 212 mg/dL 70-110 H = GLUBED) GLUCOSE BEDSIDE [id number] 16:29:00 Test Item Value Reference Range Interpretation Comments GLUCOSE BEDSIDE TESTING (test code 239 mg/dL 70-110 H = GLUBED) GLUCOSE BEDSIDE [id number] 16:19:00 Test Item Value Reference Range Interpretation Comments GLUCOSE BEDSIDE TESTING (test code 247 mg/dL 70-110 H = GLUBED) GLUCOSE BEDSIDE [id number] 08:09:00 Test Item Value Reference Range Interpretation Comments GLUCOSE BEDSIDE TESTING (test code 195 mg/dL 70-110 H = GLUBED) GLUCOSE BEDSIDE [id number] 21:29:00 Test Item Value Reference Range Interpretation Comments GLUCOSE BEDSIDE TESTING (test code 176 mg/dL 70-110 H = GLUBED) - XR CHEST 1 [id number] 04:43:00 Name: JAXON REEVES [facility] : 1950 Age/S: 69 / M [address] Unit #: [id number] Loc: [place] [id number] Phys: Maikel Cadena MD Acct: [id number] Dis Date: Status: ADM IN PHONE #: [phone] Exam Date: 01/22/2020454 FAX #: Reason: pulm edema EXAMS: CPT: [id number] XR CHEST 1 V 25191 Fluoro Time: DAP (Gy m2): Air Kerma (mGy): EXAMINATION: - XR CHEST 1 V LOCATION: 1 INDICATION/CLINICAL HISTORY: pulm edema COMPARISON: 01/19/2020 TECHNIQUE: Frontal view of the chest. FINDINGS: Stable enlargement of cardiac silhouette. Coronary stents are noted. Mild pulmonary venous congestion appearsdecreased. Pulmonary edema appears decreased. Unchanged left basilar pleural parenchymal opacity. No appreciable pneumothorax. No worsening pleural effusion. IMPRESSION: 1. Decreased pulmonary vascular congestion and pulmonary edema. 2. Persistent left basilar pleural-parenchymal opacity. at 0443 Reported and signed by: Mera Lucas M.D. CC: Flavio Carr MD; Maikel Cadena MD PAGE 1 Signed Report Name: JAXON REEVES [place] : 1950 Age/S: 69 / M [address] [address] Unit #: [id number] Loc: [place] [address] Phys: Maikel Cadena MD Acct: [id number] Dis Date: Status: ADM IN PHONE #: [phone] Exam Date: 01/22/20208 FAX #: Reason: pulm edema EXAMS: CPT: [id number] XR CHEST 1 V 15934 Fluoro Time: DAP (Gy m2): Air Kerma (mGy): <Continued> Technologist: Shanna Hurd, RT(R)(CT) Trnscb Date/Time: 01/22/2020 (0443) [email or web address] Orig Print D/T: S: 01/22/2020 (0456) PAGE 2 Signed ReportBASIC METABOLIC [id number] 05:20:00 Test Item Value Reference Range Interpretation Comments SODIUM (test code = NA) 140 mmol/L 134-147 N POTASSIUM (test code = K) 3.1 mmol/L 3.4-5.0 L CHLORIDE (test code = CL) 98 mmol/L 100-108 L CARBON DIOXIDE (test code = CO2) 37 mmol/L 21-32 H ANION GAP (test code = GAP) 5.0 GAP calc 4.0-15.0 N GLUCOSE (test code = GLU) 153 MG/DL 70-110 H BLOOD UREA NITROGEN (test code = 24 MG/DL 7-18 H BUN) GLOMERULAR FILTRATION RATE (test 59 estGFR >60 L code = GFR) CREATININE (test code = CREAT) 1.3 MG/DL 0.8-1.3 N CALCIUM (test code = CA) 8.9 MG/DL 8.5-10.1 N CBC W/AUTO [id number] 05:10:00 Test Item Value Reference Range Interpretation Comments WHITE BLOOD CELL (test code = 6.7 K/mm3 3.5-11.0 N WBC) RED BLOOD CELL (test code = RBC) 4.57 M/mm3 4.70-6.10 L HEMOGLOBIN (test code = HGB) 11.7 G/DL 12.3-15.9 L HEMATOCRIT (test code = HCT) 39.2 % 35.8-46.7 N MEAN CELL VOLUME (test code = 85.8 Fl 86.3-98.9 L MCV) MEAN CELL HGB (test code = MCH) 25.6 pg 28.9-34.4 L MEAN CELL HGB CONCETRATION (test 29.8 G/DL 32.1-34.5 L code = MCHC) RED CELL DISTRIBUTION WIDTH (test 15.8 SD 11.5-14.5 H code = RDW) PLATELET COUNT (test code = PLT) 215.0 K/mm3 150-450 N MEAN PLATELET VOLUME (test code = 9.80 fL 7.0-9.6 H MPV) NEUTROPHIL % (test code = NT%) 61.7 % 40-76 N LYMPHOCYTE % (test code = LY%) 22.2 % 20.5-51.1 N MONOCYTE % (test code = MO%) 9.4 % 1.7-9.3 H EOSINOPHIL % (test code = EO%) 6.1 % 0.0-6.0 H BASOPHIL % (test code = BA%) 0.6 % 0.0-2.0 N NEUTROPHIL # (test code = NT#) 4.15 K/mm3 1.8-7.6 N LYMPHOCYTE # (test code = LY#) 1.5 K/mm3 0.6-3.0 N MONOCYTE # (test code = MO#) 0.6 K/mm3 0.2-1.5 N EOSINOPHIL # (test code = EO#) 0.4 K/mm3 0.0-0.4 N BASOPHIL # (test code = BA#) 0.0 K/mm3 0.0-0.2 N MANUAL DIFF REQUIRED (test code = NO DIFF/SCN CRITERIA MDIFF) BASIC METABOLIC [id number] 23:05:00 Test Item Value Reference Range Interpretation Comments SODIUM (test code = NA) 139 mmol/L 134-147 N POTASSIUM (test code = 3.4 mmol/L 3.4-5.0 N K) CHLORIDE (test code = 97 mmol/L 100-108 L CL) CARBON DIOXIDE (test 36 mmol/L 21-32 H code = CO2) ANION GAP (test code = 6.0 GAP calc 4.0-15.0 N GAP) GLUCOSE (test code = 166 MG/DL 70-110 H GLU) BLOOD UREA NITROGEN 23 MG/DL 7-18 H (test code = BUN) GLOMERULAR FILTRATION >=60 max estimate >60 RATE (test code = GFR) estGFR CREATININE (test code = 1.2 MG/DL 0.8-1.3 N CREAT) CALCIUM (test code = CA) 9.0 MG/DL 8.5-10.1 N [id number] 23:05:00 Test Item Value Reference Range Interpretation Comments PHOSPHOROUS (test code = PHOS) 3.5 MG/DL 2.5-4.9 N [id number] 23:05:00 Test Item Value Reference Range Interpretation Comments MAGNESIUM (test code = MAG) 2.1 MG/DL 1.8-2.4 N CBC W/AUTO [id number] 13:37:00 Test Item Value Reference Range Interpretation Comments WHITE BLOOD CELL (test code = 8.1 K/mm3 3.5-11.0 N WBC) RED BLOOD CELL (test code = RBC) 4.35 M/mm3 4.70-6.10 L HEMOGLOBIN (test code = HGB) 11.3 G/DL 12.3-15.9 L HEMATOCRIT (test code = HCT) 37.0 % 35.8-46.7 N MEAN CELL VOLUME (test code = 85.1 Fl 86.3-98.9 L MCV) MEAN CELL HGB (test code = MCH) 26.0 pg 28.9-34.4 L MEAN CELL HGB CONCETRATION (test 30.5 G/DL 32.1-34.5 L code = MCHC) RED CELL DISTRIBUTION WIDTH (test 15.8 SD 11.5-14.5 H code = RDW) PLATELET COUNT (test code = PLT) 205.0 K/mm3 150-450 N MEAN PLATELET VOLUME (test code = 10.00 fL 7.0-9.6 H MPV) NEUTROPHIL % (test code = NT%) 66.6 % 40-76 LYMPHOCYTE % (test code = LY%) 19.8 % 20.5-51.1 L MONOCYTE % (test code = MO%) 7.5 % 1.7-9.3 N EOSINOPHIL % (test code = EO%) 5.7 % 0.0-6.0 N BASOPHIL % (test code = BA%) 0.4 % 0.0-2.0 N NEUTROPHIL # (test code = NT#) 5.37 K/mm3 1.8-7.6 N LYMPHOCYTE # (test code = LY#) 1.6 K/mm3 0.6-3.0 N MONOCYTE # (test code = MO#) 0.6 K/mm3 0.2-1.5 N EOSINOPHIL # (test code = EO#) 0.5 K/mm3 0.0-0.4 H BASOPHIL # (test code = BA#) 0.0 K/mm3 0.0-0.2 N MANUAL DIFF REQUIRED (test code = NO DIFF/SCN CRITERIA MDIFF) BASIC METABOLIC [id number] 13:14:00 Test Item Value Reference Range Interpretation Comments SODIUM (test code = NA) 139 mmol/L 134-147 N POTASSIUM (test code = 3.4 mmol/L 3.4-5.0 N K) CHLORIDE (test code = 100 mmol/L 100-108 N CL) CARBON DIOXIDE (test 36 mmol/L 21-32 H code = CO2) ANION GAP (test code = 3.0 GAP calc 4.0-15.0 L GAP) GLUCOSE (test code = 174 MG/DL 70-110 H GLU) BLOOD UREA NITROGEN 23 MG/DL 7-18 H (test code = BUN) GLOMERULAR FILTRATION >=60 max estimate >60 RATE (test code = GFR) estGFR CREATININE (test code = 1.0 MG/DL 0.8-1.3 N CREAT) CALCIUM (test code = CA) 8.8 MG/DL 8.5-10.1 N THROMBOPLASTIN TIME [id number] 15:20:00 Test Item Value Reference Range Interpretation Comments THROMBOPLASTIN TIME PARTIAL 55.6 SECONDS 26-35 H (test code = PTT) THROMBOPLASTIN TIME [id number] 09:36:00 Test Item Value Reference Range Interpretation Comments THROMBOPLASTIN TIME PARTIAL 44.1 SECONDS 26-35 H (test code = PTT) - XR CHEST 1 [id number] 06:40:00 Name: JAXON REEVES [place] : 1950 Age/S: 69 / M [address] [address] Unit #: [id number] Loc: [place] [address] Phys: Heather Carvalho MD Acct: [id number] Dis Date: Status: ADM IN PHONE #: [phone] Exam Date: 01/19/2020622 FAX #: Reason: chf, intubated EXAMS: CPT: [id number] XR CHEST 1 V 29419 Fluoro Time: DAP (Gy m2): Air Kerma (mGy): Exam: Chest portable erect Location: H 12 History: chf, intubated Comparison: 01/18/2020 Findings: Endotracheal and nasogastric tubes have since been removed. No change has occurred in the aeration of the lungs, when allowing for differences in technique or patient positioning. The heart size is unchanged. The mediastinal silhouette is unremarkable. The bony thorax is intact. Impression: Stable chest/no change. Opal ctronically Signed by Evaristo Wilcox on 01/19/2020 at 0640 Reported and signed by: Margarito Wilcox M.D. CC: Heather Carvalho MD; Flavio Carr MD PAGE 1 Signed Report Name: JAXON REEVES [place] : 1950 Age/S: 69 / M [address] [address] Unit #: [id number] Loc: [place] [address] Phys: Heather Carvalho MD Acct: [id number] Dis Date: Status: ADM IN PHONE #: [phone] Exam Date: 01/19/2020 06 FAX #:Reason: chf, intubated EXAMS: CPT: [id number] XR CHEST 1 V 13235 Fluoro Time: DAP (Gy m2): Air Kerma (mGy): <Continued> Technologist: Brian Dick RT(R) Trnscb Date/Time: 01/19/2020 (639) [email or web address] Orig Print D/T: S: 01/19/2020 (642) PAGE 2 Signed ReportBASIC METABOLIC [id number] 03:38:00 Test Item Value Reference Range Interpretation Comments SODIUM (test code = NA) 139 mmol/L 134-147 N POTASSIUM (test code = 3.2 mmol/L 3.4-5.0 L K) CHLORIDE (test code = 102 mmol/L 100-108 N CL) CARBON DIOXIDE (test 30 mmol/L 21-32 N code = CO2) ANION GAP (test code = 7.0 GAP calc 4.0-15.0 N GAP) GLUCOSE (test code = 194 MG/DL 70-110 H GLU) BLOOD UREA NITROGEN 19 MG/DL 7-18 H (test code = BUN) GLOMERULAR FILTRATION >=60 max estimate >60 RATE (test code = GFR) estGFR CREATININE (test code = 1.1 MG/DL 0.8-1.3 N CREAT) CALCIUM (test code = CA) 8.3 MG/DL 8.5-10.1 L CBC W/AUTO [id number] 03:33:00 Test Item Value Reference Range Interpretation Comments WHITE BLOOD CELL (test code = 10.4 K/mm3 3.5-11.0 N WBC) RED BLOOD CELL (test code = RBC) 4.23 M/mm3 4.70-6.10 L HEMOGLOBIN (test code = HGB) 11.2 G/DL 12.3-15.9 L HEMATOCRIT (test code = HCT) 35.6 % 35.8-46.7 L MEAN CELL VOLUME (test code = 84.2 Fl 86.3-98.9 L MCV) MEAN CELL HGB (test code = MCH) 26.5 pg 28.9-34.4 L MEAN CELL HGB CONCETRATION (test 31.5 G/DL 32.1-34.5 L code = MCHC) RED CELL DISTRIBUTION WIDTH (test 16.5 SD 11.5-14.5 H code = RDW) PLATELET COUNT (test code = PLT) 182.0 K/mm3 150-450 N MEAN PLATELET VOLUME (test code = 10.80 fL 7.0-9.6 H MPV) NEUTROPHIL % (test code = NT%) 75.4 % 40-76 N LYMPHOCYTE % (test code = LY%) 14.9 % 20.5-51.1 L MONOCYTE % (test code = MO%) 6.3 % 1.7-9.3 N EOSINOPHIL % (test code = EO%) 3.0 % 0.0-6.0 N BASOPHIL % (test code = BA%) 0.4 % 0.0-2.0 N NEUTROPHIL # (test code = NT#) 7.87 K/mm3 1.8-7.6 H LYMPHOCYTE # (test code = LY#) 1.6 K/mm3 0.6-3.0 N MONOCYTE # (test code = MO#) 0.7 K/mm3 0.2-1.5 N EOSINOPHIL # (test code = EO#) 0.3 K/mm3 0.0-0.4 N BASOPHIL # (test code = BA#) 0.0 K/mm3 0.0-0.2 N MANUAL DIFF REQUIRED (test code = NO DIFF/SCN CRITERIA MDIFF) THROMBOPLASTIN TIME [id number] 03:33:00 Test Item Value Reference Range Interpretation Comments THROMBOPLASTIN TIME PARTIAL 48.0 SECONDS 26-35 H (test code = PTT) BASIC METABOLIC [id number] 23:13:00 Test Item Value Reference Range Interpretation Comments SODIUM (test code = NA) 140 mmol/L 134-147 N POTASSIUM (test code = 3.2 mmol/L 3.4-5.0 L K) CHLORIDE (test code = 102 mmol/L 100-108 N CL) CARBON DIOXIDE (test 28 mmol/L 21-32 N code = CO2) ANION GAP (test code = 10.0 GAP calc 4.0-15.0 N GAP) GLUCOSE (test code = 158 MG/DL 70-110 H GLU) BLOOD UREA NITROGEN 20 MG/DL 7-18 H (test code = BUN) GLOMERULAR FILTRATION >=60 max estimate >60 RATE (test code = GFR) estGFR CREATININE (test code = 1.2 MG/DL 0.8-1.3 N CREAT) CALCIUM (test code = CA) 8.4 MG/DL 8.5-10.1 L [id number] 23:13:00 Test Item Value Reference Range Interpretation Comments MAGNESIUM (test code = MAG) 1.8 MG/DL 1.8-2.4 N THROMBOPLASTIN TIME [id number] 21:21:00 Test Item Value Reference Range Interpretation Comments THROMBOPLASTIN TIME PARTIAL 54.8 SECONDS 26-35 H (test code = PTT) ARTERIAL BLOOD [id number] 16:04:00 Test Item Value Reference Range Interpretation Comments ARTERIAL BLOOD GAS PH 7.52 pH units 7.35-7.45 H (test code = PHA) ARTERIAL BLOOD GAS PCO2 39 mmHg 35-45 N (test code = PCO2A) ARTERIAL BLOOD GAS PO2 150 mmHg 80-100 H (test code = PO2A) BICARBONATE TOTAL HCO3 31.1 mmol/L 22.0-26.0 H (test code = HCO3) BASE EXCESS (test code = 7.8 mmol/L -3.0-3.0 H FRIDA) ABG O2 SATURATION (test 99 % 90-100 N code = SATA) FIO2 (test code = FIO2A) 60 % e 21-100 N ABG VENT MODE (test code = BiPAP Descript Vent Mode MODEA) ABG PEEP (test code = 5.0 cm H20 0.0-99.9 PEEPA) ABG SITE (test code = Left Radial ARTKIT DESCRIPTION SITEA) THROMBOPLASTIN TIME [id number] 14:24:00 Test Item Value Reference Range Interpretation Comments THROMBOPLASTIN TIME PARTIAL 65.6 SECONDS 26-35 H (test code = PTT) ARTERIAL BLOOD [id number] 12:40:00 Test Item Value Reference Range Interpretation Comments ARTERIAL BLOOD GAS PH 7.54 pH units 7.35-7.45 H (test code = PHA) ARTERIAL BLOOD GAS PCO2 31 mmHg 35-45 L (test code = PCO2A) ARTERIAL BLOOD GAS PO2 112 mmHg 80-100 H (test code = PO2A) BICARBONATE TOTAL HCO3 25.5 mmol/L 22.0-26.0 N (test code = HCO3) BASE EXCESS (test code = 3.8 mmol/L -3.0-3.0 H FRIDA) ABG O2 SATURATION (test 99 % 90-100 N code = SATA) FIO2 (test code = FIO2A) 40 % e 21-100 N ABG VENT MODE (test code = A/C Descript Vent Mode MODEA) ABG TIDAL VOLUME (test 500 ML code = TVA) ABG PEEP (test code = 5.0 cm H20 0.0-99.9 PEEPA) ABG SITE (test code = Left Radial ARTKIT DESCRIPTION SITEA) MODIFIED MARIA M'S (test Yes Circ.CHK POSITIVE code = MODALL) - XR CHEST 1 [id number] 12:34:00 Name: JAXON REEVES [facility] : 1950 Age/S: 69 / M [address] [address] Unit #: [id number] Loc: [place] [address] Phys: Heather Carvalho MD Acct: [id number] Dis Date: Status: ADM IN PHONE #: [phone] Exam Date: 01/18/2020 1230 FAX #: Reason: intubated EXAMS: CPT: [id number] XR CHEST 1 V 02352 Fluoro Time: DAP (Gy m2): Air Kerma (mGy): Location: C3 EXAM: XR CHEST 1 VIEW DATE: 01/18/2020 11:09 AM INDICATION: Intubated patient COMPARISON: Chest radiograph dated 01/17/2020 TECHNIQUE: AP chest FINDINGS: Lines, tubes and hardware: Multiple lines and tubes overlie the chest. Median sternotomy wires overlie the chest. There is an endotracheal tube in place approximately 2.8 cm above the bruno. There is an enteric tube in place with tip passing inferiorly beyond the field of view into the abdomen. Surgical clips overlie the left upper quadrant. Postsurgical changesoverlie the right aspect of the neck. Lungs and pleura: There is prominence of the pulmonary vasculature. There is blunting of the bilateral costophrenic sulci, with bilaterallower lobe airspace and retrocardiac airspace opacities. No pneumothorax. Heart and mediastinum: The cardiomediastinal silhouette is similar compared to the prior exam. Bones: No acute bony abnormality is identified. IMPRESSION: Similarappearance of blunting of bilateral costophrenic sulci, with poorly defined airspace opacities within the lower lobes/retrocardiac region, suggestive of small layering pleural effusionswith subjacent atelectasis and/or consolidation. Stable cardiomegaly and pulmonary va scular congestion. Lines and tubes as above. at 1234 Reported and signed by: James Marshall M.D. CC: Heather Carvalho MD; Flavio Carr MD PAGE1 Signed Report Name: JAXON REEVES [place] : 1950 Age/S: 69 / M [address] [address] Unit #: [id number] Loc: [place] [address] Phys: Heather Carvalho MD Acct: [id number] Dis Date: Status: ADM IN PHONE #: [phone] Exam Date: 01/18/2020 1230 FAX #: Reason: intubated EXAMS: CPT: [id number] XR CHEST 1 V 60858 Fluoro Time: DAP (Gy m2): Air Kerma (mGy): <Continued> Technologist: Angelina Novoa RT(R)(MR) Trnscb Date/Time: 01/18/2020 (1234) [email or web address] Orig Print D/T: S: 01/18/2020 (1985) PAGE 2 Signed ReportTHROMBOPLASTIN TIME [id number] 08:31:00 Test Item Value Reference Range Interpretation Comments THROMBOPLASTIN TIME PARTIAL 40.8 SECONDS 26-35 H (test code = PTT) THROMBOPLASTIN TIME [id number] 04:08:00 Test Item Value Reference Range Interpretation Comments THROMBOPLASTIN TIME PARTIAL 58.0 SECONDS 26-35 H (test code = PTT) BASIC METABOLIC [id number] 03:10:00 Test Item Value Reference Range Interpretation Comments SODIUM (test code = NA) 139 mmol/L 134-147 N POTASSIUM (test code = K) 3.0 mmol/L 3.4-5.0 L CHLORIDE (test code = CL) 103 mmol/L 100-108 N CARBON DIOXIDE (test code = CO2) 29 mmol/L 21-32 N ANION GAP (test code = GAP) 7.0 GAP calc 4.0-15.0 N GLUCOSE (test code = GLU) 186 MG/DL 70-110 H BLOOD UREA NITROGEN (test code = 23 MG/DL 7-18 H BUN) GLOMERULAR FILTRATION RATE (test 54 estGFR >60 L code = GFR) CREATININE (test code = CREAT) 1.4 MG/DL 0.8-1.3 H CALCIUM (test code = CA) 7.9 MG/DL 8.5-10.1 L CBC W/AUTO [id number] 02:59:00 Test Item Value Reference Range Interpretation Comments WHITE BLOOD CELL (test code = 10.7 K/mm3 3.5-11.0 N WBC) RED BLOOD CELL (test code = RBC) 4.10 M/mm3 4.70-6.10 L HEMOGLOBIN (test code = HGB) 10.7 G/DL 12.3-15.9 L HEMATOCRIT (test code = HCT) 34.7 % 35.8-46.7 L MEAN CELL VOLUME (test code = 84.6 Fl 86.3-98.9 L MCV) MEAN CELL HGB (test code = MCH) 26.1 pg 28.9-34.4 L MEAN CELL HGB CONCETRATION (test 30.8 G/DL 32.1-34.5 L code = MCHC) RED CELL DISTRIBUTION WIDTH (test 16.8 SD 11.5-14.5 H code = RDW) PLATELET COUNT (test code = PLT) 169.0 K/mm3 150-450 N MEAN PLATELET VOLUME (test code = 10.70 fL 7.0-9.6 H MPV) NEUTROPHIL % (test code = NT%) 71.8 % 40-76 N LYMPHOCYTE % (test code = LY%) 18.7 % 20.5-51.1 L MONOCYTE % (test code = MO%) 6.6 % 1.7-9.3 N EOSINOPHIL % (test code = EO%) 2.4 % 0.0-6.0 N BASOPHIL % (test code = BA%) 0.5 % 0.0-2.0 N NEUTROPHIL # (test code = NT#) 7.69 K/mm3 1.8-7.6 H LYMPHOCYTE # (test code = LY#) 2.0 K/mm3 0.6-3.0 N MONOCYTE # (test code = MO#) 0.7 K/mm3 0.2-1.5 N EOSINOPHIL # (test code = EO#) 0.3 K/mm3 0.0-0.4 N BASOPHIL # (test code = BA#) 0.1 K/mm3 0.0-0.2 N MANUAL DIFF REQUIRED (test code = NO DIFF/SCN CRITERIA MDIFF) THROMBOPLASTIN TIME [id number] 19:50:00 Test Item Value Reference Range Interpretation Comments THROMBOPLASTIN TIME PARTIAL 40.1 SECONDS 26-35 H (test code = PTT) ARTERIAL BLOOD [id number] 16:15:00 Test Item Value Reference Range Interpretation Comments ARTERIAL BLOOD GAS PH 7.48 pH units 7.35-7.45 H (test code = PHA) ARTERIAL BLOOD GAS PCO2 33 mmHg 35-45 L (test code = PCO2A) ARTERIAL BLOOD GAS PO2 85 mmHg 80-100 N (test code = PO2A) BICARBONATE TOTAL HCO3 23.6 mmol/L 22.0-26.0 N (test code = HCO3) BASE EXCESS (test code = 0.8 mmol/L -3.0-3.0 N FRIDA) ABG O2 SATURATION (test 97 % 90-100 N code = SATA) FIO2 (test code = FIO2A) 40 % e 21-100 N ABG VENT MODE (test code = A/C Descript Vent Mode MODEA) ABG TIDAL VOLUME (test 500 ML code = TVA) ABG PEEP (test code = 8.0 cm H20 0.0-99.9 PEEPA) ABG SITE (test code = Left Radial ARTKIT DESCRIPTION SITEA) MODIFIED MARIA M'S (test Yes Circ.CHK POSITIVE code = MODALL) ARTERIAL BLOOD [id number] 16:11:00 Test Item Value Reference Range Interpretation Comments ARTERIAL BLOOD GAS PH 7.47 pH units 7.35-7.45 H (test code = PHA) ARTERIAL BLOOD GAS PCO2 32 mmHg 35-45 L (test code = PCO2A) ARTERIAL BLOOD GAS PO2 79 mmHg 80-100 L (test code = PO2A) BICARBONATE TOTAL HCO3 23.0 mmol/L 22.0-26.0 N (test code = HCO3) BASE EXCESS (test code = 0.3 mmol/L -3.0-3.0 N FRIDA) ABG O2 SATURATION (test 96 % 90-100 N code = SATA) FIO2 (test code = FIO2A) 40 % e 21-100 N ABG VENT MODE (test code = A/C Descript Vent Mode MODEA) ABG TIDAL VOLUME (test 500 ML code = TVA) ABG PEEP (test code = 8.0 cm H20 0.0-99.9 PEEPA) ABG SITE (test code = Left Radial ARTKIT DESCRIPTION SITEA) MODIFIED MARIA M'S (test Yes Circ.CHK POSITIVE code = MODALL) THROMBOPLASTIN TIME [id number] 13:09:00 Test Item Value Reference Range Interpretation Comments THROMBOPLASTIN TIME PARTIAL 71.4 SECONDS 26-35 H (test code = PTT) - XR CHEST 1 [id number] 09:54:00 Name: JAXON REEVES [facility] : 1950 Age/S: 69 / M [address] Unit #: [id number] Loc: [place] [address] Phys: Heather Carvalho MD Acct: [id number] Dis Date: Status: ADM IN PHONE #: [phone] Exam Date: 01/17/2020 0984 FAX #: Reason: intubated EXAMS: CPT: [id number] XR CHEST 1 V 88080 Fluoro Time: DAP (Gy m2): Air Kerma (mGy): EXAMINATION: - XR CHEST 1 V. LOCATION: B2. HISTORY: intubated. COMPARISON: Radiograph dated 01/16/2020. TECHNIQUE: Single AP view of the chest was obtained. FINDINGS: Endo tracheal tube is unchanged in position. Esophogastric tube extends below the left hemidiaphragm. The heart is enlarged in size. Small to moderate bilateral pleural effusionsand bibasilar opacities are unchanged. No acute osseous abnormality is identified. IMPRESSION: Small to moderate bilateral pleural effusions with bibasilar opacities, unchanged. Cardiomegaly. at 0954 Reported and signed by: Samantha Herbert M.D. CC: Heather Carvalho MD; Flavio Carr MD PAGE 1 Signed Report Name: JAXON REEVES : 1950 Age/S: 69 / M [address] Unit #: [id number] Loc: [place] [address] Phys: Heather Carvalho MD Acct: [id number] Dis Date: Status: ADM IN PHONE #: [phone] Exam Date: 01/17/2020944 FAX #: Reason: intubated EXAMS: CPT: [id number] XR CHEST 1 V [id number] Fluoro Time: DAP (Gy m2): Air Kerma (mGy): <Continued> Technologist: Nagi Moon RT(R)(CT) Trnscb Date/Time: 01/17/2020 (953) [email or web address] Orig Print D/T: S: 01/17/2020 (956) PAGE 2 Signed ReportTHROMBOPLASTIN TIME [id number] 06:07:00 Test Item Value Reference Range Interpretation Comments THROMBOPLASTIN TIME PARTIAL 45.1 SECONDS 26-35 H (test code = PTT) COMPREHENSIVE METABOLIC [id number] 06:07:00 Test Item Value Reference Range Interpretation Comments SODIUM (test code = NA) 139 mmol/L 134-147 N POTASSIUM (test code = K) 3.6 mmol/L 3.4-5.0 N CHLORIDE (test code = CL) 107 mmol/L 100-108 N CARBON DIOXIDE (test code = CO2) 27 mmol/L 21-32 N ANION GAP (test code = GAP) 5.0 GAP calc 4.0-15.0 N GLUCOSE (test code = GLU) 206 MG/DL 70-110 H BLOOD UREA NITROGEN (test code = 29 MG/DL 7-18 H BUN) GLOMERULAR FILTRATION RATE (test 54 estGFR >60 L code = GFR) CREATININE (test code = CREAT) 1.4 MG/DL 0.8-1.3 H TOTAL PROTEIN (test code = PROT) 6.2 G/DL 6.4-8.2 L ALBUMIN (test code = ALB) 2.5 G/DL 3.4-5.0 L GLOBULIN (test code = GLOB) 3.7 GM/dL ALBUMIN/GLOBULIN RATIO (test 0.7 RATIO 1.2-2.2 L code = A/G) CALCIUM (test code = CA) 7.8 MG/DL 8.5-10.1 L BILIRUBIN TOTAL (test code = 0.30 MG/DL 0.2-1.2 N BILT) SGOT/AST (test code = AST) 96 Unit/L 15-37 H SGPT/ALT (test code = ALT) 76 Unit/L 12-78 N ALKALINE PHOSPHATASE TOTAL (test 80 Unit/L 50-136 N code = ALKP) CBC W/AUTO [id number] 05:52:00 Test Item Value Reference Range Interpretation Comments WHITE BLOOD CELL (test code = 11.1 K/mm3 3.5-11.0 H WBC) RED BLOOD CELL (test code = RBC) 4.13 M/mm3 4.70-6.10 L HEMOGLOBIN (test code = HGB) 10.6 G/DL 12.3-15.9 L HEMATOCRIT (test code = HCT) 35.0 % 35.8-46.7 L MEAN CELL VOLUME (test code = 84.7 Fl 86.3-98.9 L MCV) MEAN CELL HGB (test code = MCH) 25.7 pg 28.9-34.4 L MEAN CELL HGB CONCETRATION (test 30.3 G/DL 32.1-34.5 L code = MCHC) RED CELL DISTRIBUTION WIDTH (test 16.7 SD 11.5-14.5 H code = RDW) PLATELET COUNT (test code = PLT) 159.0 K/mm3 150-450 N MEAN PLATELET VOLUME (test code = 10.70 fL 7.0-9.6 H MPV) NEUTROPHIL % (test code = NT%) 76.9 % 40-76 H LYMPHOCYTE % (test code = LY%) 14.4 % 20.5-51.1 L MONOCYTE % (test code = MO%) 6.9 % 1.7-9.3 N EOSINOPHIL % (test code = EO%) 1.5 % 0.0-6.0 N BASOPHIL % (test code = BA%) 0.3 % 0.0-2.0 N NEUTROPHIL # (test code = NT#) 8.54 K/mm3 1.8-7.6 H LYMPHOCYTE # (test code = LY#) 1.6 K/mm3 0.6-3.0 N MONOCYTE # (test code = MO#) 0.8 K/mm3 0.2-1.5 N EOSINOPHIL # (test code = EO#) 0.2 K/mm3 0.0-0.4 N BASOPHIL # (test code = BA#) 0.0 K/mm3 0.0-0.2 N MANUAL DIFF REQUIRED (test code = NO DIFF/SCN CRITERIA MDIFF) GLUCOSE BEDSIDE [id number] 05:44:00 Test Item Value Reference Range Interpretation Comments GLUCOSE BEDSIDE TESTING (test code 185 mg/dL 70-110 H = GLUBED) GLUCOSE BEDSIDE [id number] 00:54:00 Test Item Value Reference Range Interpretation Comments GLUCOSE BEDSIDE TESTING (test code 180 mg/dL 70-110 H = GLUBED) THROMBOPLASTIN TIME [id number] 00:06:00 Test Item Value Reference Range Interpretation Comments THROMBOPLASTIN TIME PARTIAL 45.5 SECONDS 26-35 H (test code = PTT) RULE OUT DE [id number] 00:04:00 Test Item Value Reference Range Interpretation Comments CREATINE KINASE 606 Unit/L 26-192 H (CK) (test code = CK) TROPONIN-I (test 24.400 NG/ML 0.000-0.045 HH Negative: < /= 0.045 code = TROPI) Positive: >/= 0.046 Correlation wit h serial results, other cardiac markers, and cl inical findings is nec essary to determine th e clinical signi ficance of this result. Quantitative re sults using different methodologies s hould not be compared to one another as nume rical results may jatin yby method. LACTIC [id number] 00:01:00 Test Item Value Reference Range Interpretation Comments LACTIC ACID (test code = LACT) 1.9 mmol/L 0.4-2.0 N LACTIC [id number] 19:57:00 Test Item Value Reference Range Interpretation Comments LACTIC ACID (test code = LACT) 2.3 mmol/L 0.4-2.0 H RULE OUT DE [id number] 19:56:00 Test Item Value Reference Range Interpretation Comments CREATINE KINASE 661 Unit/L 26-192 H (CK) (test code = CK) TROPONIN-I (test 26.800 NG/ML 0.000-0.045 HH Negative: < /= 0.045 code = TROPI) Positive: >/= 0.046 Correlation wit h serial results, other cardiac markers, and cl inical findings is nec essary to determine th e clinical signi ficance of this result. Quantitative re sults using different methodologies s hould not be compared to one another as nume rical results may jatin yby method. THROMBOPLASTIN TIME [id number] 15:41:00 Test Item Value Reference Range Interpretation Comments THROMBOPLASTIN TIME PARTIAL 28.9 SECONDS 26-35 N (test code = PTT) ARTERIAL BLOOD [id number] 14:57:00 Test Item Value Reference Range Interpretation Comments ARTERIAL BLOOD GAS PH 7.41 pH units 7.35-7.45 N (test code = PHA) ARTERIAL BLOOD GAS PCO2 39 mmHg 35-45 N (test code = PCO2A) ARTERIAL BLOOD GAS PO2 98 mmHg 80-100 N (test code = PO2A) BICARBONATE TOTAL HCO3 24.1 mmol/L 22.0-26.0 N (test code = HCO3) BASE EXCESS (test code = -0.2 mmol/L -3.0-3.0 N FRIDA) ABG O2 SATURATION (test 98 % 90-100 N code = SATA) FIO2 (test code = FIO2A) 50 % e 21-100 N ABG VENT MODE (test code = A/C Descript Vent Mode MODEA) ABG TIDAL VOLUME (test 500 ML code = TVA) ABG PEEP (test code = 8.0 cm H20 0.0-99.9 PEEPA) ABG SITE (test code = Left Radial ARTKIT DESCRIPTION SITEA) MODIFIED MARIA M'S (test Yes Circ.CHK POSITIVE code = MODALL) COMPREHENSIVE METABOLIC [id number] 14:12:00 Test Item Value Reference Range Interpretation Comments SODIUM (test code = NA) 138 mmol/L 134-147 N POTASSIUM (test code = K) 4.2 mmol/L 3.4-5.0 N CHLORIDE (test code = CL) 104 mmol/L 100-108 N CARBON DIOXIDE (test code = CO2) 27 mmol/L 21-32 N ANION GAP (test code = GAP) 7.0 GAP calc 4.0-15.0 N GLUCOSE (test code = GLU) 268 MG/DL 70-110 H BLOOD UREA NITROGEN (test code = 25 MG/DL 7-18 H BUN) GLOMERULAR FILTRATION RATE (test 50 estGFR >60 L code = GFR) CREATININE (test code = CREAT) 1.5 MG/DL 0.8-1.3 H TOTAL PROTEIN (test code = PROT) 6.5 G/DL 6.4-8.2 N ALBUMIN (test code = ALB) 2.7 G/DL 3.4-5.0 L GLOBULIN (test code = GLOB) 3.8 GM/dL ALBUMIN/GLOBULIN RATIO (test 0.7 RATIO 1.2-2.2 L code = A/G) CALCIUM (test code = CA) 8.0 MG/DL 8.5-10.1 L BILIRUBIN TOTAL (test code = 0.30 MG/DL 0.2-1.2 N BILT) SGOT/AST (test code = AST) 163 Unit/L 15-37 H SGPT/ALT (test code = ALT) 100 Unit/L 12-78 H ALKALINE PHOSPHATASE TOTAL (test 89 Unit/L 50-136 N code = ALKP) LIPID PROFILE (CORONARY RISK)[id number] 14:12:00 Test Item Value Reference Range Interpretation Comments TRIGLYCERIDES (test code = TRIG) 175 MG/DL 0-150 H CHOLESTEROL (test code = CHOL) 154 MG/DL 133-200 N CHOLESTEROL/HDL RATIO (test code = 4.05 RATIO >0 CHOLHDL) HDL CHOLESTEROL (test code = HDL) 38 MG/DL 40-59 L NON-HDL CHOLESTEROL (test code = 116 mg/dL <130 NHDL) LIPOPROTEIN LDL (test code = LDL) 105 MG/DL 0-129 N LDL/HDL (test code = LDL/HDL) 2.76 Ratio 1.48-3.22 Avg N [id number] 14:12:00 Test Item Value Reference Range Interpretation Comments PHOSPHOROUS (test code = PHOS) 2.5 MG/DL 2.5-4.9 N RULE OUT DE [id number] 14:12:00 Test Item Value Reference Range Interpretation Comments CREATINE KINASE 683 Unit/L 26-192 H (CK) (test code = CK) TROPONIN-I (test 20.500 NG/ML 0.000-0.045 HH Negative: < /= 0.045 code = TROPI) Positive: >/= 0.046 Correlation wit h serial results, other cardiac markers, and cl inical findings is nec essary to determine th e clinical signi ficance of this result. Quantitative re sults using different methodologies s hould not be compared to one another as nume rical results may jatin yby method. [id number] 14:12:00 Test Item Value Reference Range Interpretation Comments MAGNESIUM (test code = MAG) 1.7 MG/DL 1.8-2.4 L NT PRO-BRAIN NATRIURETIC [id number] 14:12:00 Test Item Value Reference Range Interpretation Comments NT PRO-BRAIN NATRIURETIC PEPTI 3856 PG/ML 0-100 H (test code = PROBNP) LACTIC [id number] 14:10:00 Test Item Value Reference Range Interpretation Comments LACTIC ACID (test code = LACT) 3.4 mmol/L 0.4-2.0 H CBC W/AUTO [id number] 14:00:00 Test Item Value Reference Range Interpretation Comments WHITE BLOOD CELL (test code = 15.1 K/mm3 3.5-11.0 H WBC) RED BLOOD CELL (test code = RBC) 4.51 M/mm3 4.70-6.10 L HEMOGLOBIN (test code = HGB) 11.7 G/DL 12.3-15.9 L HEMATOCRIT (test code = HCT) 38.3 % 35.8-46.7 N MEAN CELL VOLUME (test code = 84.9 Fl 86.3-98.9 L MCV) MEAN CELL HGB (test code = MCH) 25.9 pg 28.9-34.4 L MEAN CELL HGB CONCETRATION (test 30.5 G/DL 32.1-34.5 L code = MCHC) RED CELL DISTRIBUTION WIDTH (test 16.3 SD 11.5-14.5 H code = RDW) PLATELET COUNT (test code = PLT) 177.0 K/mm3 150-450 N MEAN PLATELET VOLUME (test code = 10.80 fL 7.0-9.6 H MPV) NEUTROPHIL % (test code = NT%) 85.7 % 40-76 H LYMPHOCYTE % (test code = LY%) 8.0 % 20.5-51.1 L MONOCYTE % (test code = MO%) 6.0 % 1.7-9.3 N EOSINOPHIL % (test code = EO%) 0.1 % 0.0-6.0 N BASOPHIL % (test code = BA%) 0.2 % 0.0-2.0 N NEUTROPHIL # (test code = NT#) 12.92 K/mm3 1.8-7.6 H LYMPHOCYTE # (test code = LY#) 1.2 K/mm3 0.6-3.0 N MONOCYTE # (test code = MO#) 0.9 K/mm3 0.2-1.5 N EOSINOPHIL # (test code = EO#) 0.0 K/mm3 0.0-0.4 N BASOPHIL # (test code = BA#) 0.0 K/mm3 0.0-0.2 N MANUAL DIFF REQUIRED (test code = NO DIFF/SCN CRITERIA MDIFF) PROTHROMBIN [id number] 13:51:00 Test Item Value Reference Range Interpretation Comments PT PATIENT (test code = PTP) 14.4 SECONDS 9.3-12.9 H INTERNATIONAL NORMAL RATIO 1.27 INR Unit 0.8-1.2 H (test code = INR) - XR CHEST 1 [id number] 13:25:00 Name: [place]ON [place]EE[place] : 1950 Age/S: 69 / M [address] [address] Unit #: [id number] Loc: [place] [address] Phys: Heather Carvalho MD Acct: [id number] Dis Date: Status: ADM IN PHONE #: [phone] Exam Date: 01/16/2020 1220 FAX #: Reason: intubated EXAMS: CPT: [id number] XR CHEST 1 V 04371 Fluoro Time: DAP (Gy m2): Air Kerma (mGy): - XR CHEST 1 V CLINICAL INFORMATION: intubated COMPARISONS: August 16, 2019 FINDINGS: The tip of the endotracheal tube terminates 4.2 cm from the bruno. The nasogastric tube terminates in the stomach. Median sternotomy wires are present. Surgical clips and a peripheral IV project over the neck. The lungs are slightly underexpanded. Hazy perihilar and bibasilar opacities remain. The lateral costophrenic angles are blunted. Small effusions may be present. The bones appear unchanged. IMPRESSION: 1. The tip of the endotracheal tube terminates 4.2 cm from the bruno. 2. Pulmonary edema pattern. Superimposed pneumonia should be excluded clinically. Location: R16 at 1325 Reported and signed by: Compa Evans M.D. CC: Heather Carvalho MD; Flavio Carr MD PAGE 1 Signed Report Name: JAXON REEVES [place] : 1950 Age/S: 69 / M [address] [address] Unit #: [id number] Loc: [place] [address] Phy s: Heather Carvalho MD Acct: [id number] Dis Date: Status: ADM IN PHONE #: [phone] Exam Date: 01/16/2020 1220 FAX #: Reason: intubated EXAMS: CPT: [id number] XR CHEST 1 V [id number] Fluoro Time: DAP (Gy m2):Air Kerma (mGy): <Continued> Technologist: Corine Gates, RT(R) Trnscb Date/Time: 01/16/2020 (1325) t.[email or web address] [email or web address] Orig Print D/T: S: 01/16/2020 (2257) PAGE 2 Signed [id number] 13:23:00 Test Item Value Reference Range Interpretation Comments ACT-ISTAT (test code = ACTI) 224 SEC 74-137 H GLUCOSE BEDSIDE [id number] 11:52:00 Test Item Value Reference Range Interpretation Comments GLUCOSE BEDSIDE TESTING (test code 253 MG/DL 60-99 H = GLUBED) GLUCOSE BEDSIDE [id number] 09:52:00 Test Item Value Reference Range Interpretation Comments GLUCOSE BEDSIDE TESTING (test code 334 MG/DL 60-99 HH = GLUBED) GLUCOSE BEDSIDE [id number] 08:13:00 Test Item Value Reference Range Interpretation Comments GLUCOSE BEDSIDE TESTING (test code 193 MG/DL 60-99 H = GLUBED) GLUCOSE BEDSIDE [id number] 20:25:00 Test Item Value Reference Range Interpretation Comments GLUCOSE BEDSIDE TESTING (test code 211 MG/DL 60-99 H = GLUBED) GLUCOSE BEDSIDE [id number] 16:26:00 Test Item Value Reference Range Interpretation Comments GLUCOSE BEDSIDE TESTING (test code 261 MG/DL 60-99 H = GLUBED) GLUCOSE BEDSIDE [id number] 12:08:00 Test Item Value Reference Range Interpretation Comments GLUCOSE BEDSIDE TESTING (test code 262 MG/DL 60-99 H = GLUBED) GLUCOSE BEDSIDE [id number] 08:40:00 Test Item Value Reference Range Interpretation Comments GLUCOSE BEDSIDE TESTING (test code 202 MG/DL 60-99 H = GLUBED) BASIC METABOLIC [id number] 06:39:00 Test Item Value Reference Range Interpretation Comments SODIUM (test code = 134 MMOL/L 137-145 L NA) POTASSIUM (test code = 3.6 MMOL/L 3.5-5.1 N K) CHLORIDE (test code = 96 MMOL/L 98-107 L CL) CARBON DIOXIDE (test 29 MMOL/L 22-30 N code = CO2) ANION GAP (test code = 13 MMOL/L 14-24 L GAP) GLUCOSE (test code = 241 MG/DL 74-106 H GLU) BLOOD UREA NITROGEN 22 MG/DL 9-20 H (test code = BUN) GLOMERULAR FILTRATION > 60 Report ing units: RATE (test code = GFR) ml/mi n/1.73 m2 (Modified MDRD Formula)Referen ce Range: > or = 6 0 ml/min/1.73 m2 CREATININE (test code 0.80 MG/DL 0.66-1.25 = CREAT) CALCIUM (test code = 8.3 MG/DL 8.4-10.2 L CA) BASIC METABOLIC [id number] 06:37:00 Test Item Value Reference Range Interpretation Comments SODIUM (test code = 134 MMOL/L 137-145 L NA) POTASSIUM (test code = 3.6 MMOL/L 3.5-5.1 N K) CHLORIDE (test code = 96 MMOL/L 98-107 L CL) CARBON DIOXIDE (test 29 MMOL/L 22-30 N code = CO2) ANION GAP (test code = 13 MMOL/L 14-24 L GAP) GLUCOSE (test code = MG/DL 74-106 GLU) BLOOD UREA NITROGEN MG/DL 9-20 (test code = BUN) GLOMERULAR FILTRATION > 60 Report ing units: RATE (test code = GFR) ml/mi n/1.73 m2 (Modified MDRD Formula)Referen ce Range: > or = 6 0 ml/min/1.73 m2 CREATININE (test code 0.80 MG/DL 0.66-1.25 = CREAT) CALCIUM (test code = MG/DL 8.7-9.7 CA) BASIC METABOLIC [id number] 06:37:00 Test Item Value Reference Range Interpretation Comments SODIUM (test code = 134 MMOL/L 137-145 L NA) POTASSIUM (test code = 3.6 MMOL/L 3.5-5.1 N K) CHLORIDE (test code = 96 MMOL/L 98-107 L CL) CARBON DIOXIDE (test 29 MMOL/L 22-30 N code = CO2) ANION GAP (test code = 13 MMOL/L 14-24 L GAP) GLUCOSE (test code = MG/DL 74-106 GLU) BLOOD UREA NITROGEN 22 MG/DL 9-20 H (test code = BUN) GLOMERULAR FILTRATION > 60 Report ing units: RATE (test code = GFR) ml/mi n/1.73 m2 (Modified MDRD Formula)Referen ce Range: > or = 6 0 ml/min/1.73 m2 CREATININE (test code 0.80 MG/DL 0.66-1.25 = CREAT) CALCIUM (test code = MG/DL 8.7-9.7 CA) BASIC METABOLIC [id number] 06:34:00 Test Item Value Reference Range Interpretation Comments SODIUM (test code = NA) 134 MMOL/L 137-145 L POTASSIUM (test code = K) 3.6 MMOL/L 3.5-5.1 N CHLORIDE (test code = CL) 96 MMOL/L 98-107 L CARBON DIOXIDE (test code = CO2) MMOL/L 22-30 GLUCOSE (test code = GLU) MG/DL 74-106 BLOOD UREA NITROGEN (test code = MG/DL 9-20 BUN) GLOMERULAR FILTRATION RATE (test code = GFR) CREATININE (test code = CREAT) MG/DL 0.66-1.25 CALCIUM (test code = CA) MG/DL 8.7-9.7 CBC W/AUTO [id number] 06:12:00 Test Item Value Reference Range Interpretation Comments WHITE BLOOD CELL (test code = 9.0 K/MM3 3.8-9.8 N WBC) RED BLOOD CELL (test code = 4.61 M/MM3 3.95-5.67 N RBC) HEMOGLOBIN (test code = HGB) 11.9 G/DL 12.4-16.7 L HEMATOCRIT (test code = HCT) 38.3 % 35.9-49.5 N MEAN CELL VOLUME (test code = 83 fL 81.7-96.1 N MCV) MEAN CELL HGB (test code = MCH) 25.8 pg 27.6-33.2 L MEAN CELL HGB CONCETRATION 31.1 % 32.9-35.5 L (test code = MCHC) RED CELL DISTRIBUTION WIDTH 15.1 % 12.1-15.2 N (test code = RDW) PLATELET COUNT (test code = 177 K/MM3 129-368 N PLT) MEAN PLATELET VOLUME (test code 11.4 fl 7.4-10.4 H = MPV) NEUTROPHIL % (test code = NT%) 69.0 % 43-75 N IMMATURE GRANULOCYTE % (test 0.2 % 0.0-2.0 N code = IG%) LYMPHOCYTE % (test code = LY%) 20.1 % 14-44 N MONOCYTE % (test code = MO%) 7.3 % 4-13 N EOSINOPHIL % (test code = EO%) 3.0 % 0-6 N BASOPHIL % (test code = BA%) 0.4 % 0-2 N NUCLEATED RBC % (test code = 0.0 % 0-1.0 N NRBC%) NEUTROPHIL # (test code = NT#) 6.21 K/mm3 2.0-7.6 N IMMATURE GRANULOCYTE # (test 0.02 x10 3/uL 0-0.03 N code = IG#) LYMPHOCYTE # (test code = LY#) 1.81 K/mm3 1.0-3.8 N MONOCYTE # (test code = MO#) 0.66 K/mm3 0.1-0.8 N EOSINOPHIL # (test code = EO#) 0.27 K/mm3 0.0-0.2 H BASOPHIL # (test code = BA#) 0.04 K/mm3 0.0-0.2 N NUCLEATED RBC # (test code = 0.00 K/mm3 0.0-0.1 N NRBC#) GLUCOSE BEDSIDE [id number] 04:47:00 Test Item Value Reference Range Interpretation Comments GLUCOSE BEDSIDE TESTING 218 MG/DL 60-99 H Noti fied Nurse~ (test code = GLUBED) GLUCOSE BEDSIDE [id number] 20:27:00 Test Item Value Reference Range Interpretation Comments GLUCOSE BEDSIDE TESTING (test code 218 MG/DL 60-99 H = GLUBED) GLUCOSE BEDSIDE [id number] 17:44:00 Test Item Value Reference Range Interpretation Comments GLUCOSE BEDSIDE TESTING (test code 217 MG/DL 60-99 H = GLUBED) GLUCOSE BEDSIDE [id number] 15:00:00 Test Item Value Reference Range Interpretation Comments GLUCOSE BEDSIDE TESTING (test code 202 MG/DL 60-99 H = GLUBED) [id number] 10:26:00 Test Item Value Reference Range Interpretation Comments MAGNESIUM (test code = MAG) 1.6 MG/DL 1.6-2.3 N GLYCOSYLATED HEMOGLOBIN [id number] 07:27:00 Test Item Value Reference Range Interpretation Comments GLYCOSYLATED 10.4 % 4.8-5.9 H Any condition t hat HEMOGLOBIN (HA1C) shortens e rythocyte (test code = survival or dec reasesmean GLYHGB) erythrocyte age (e.g., recovery from a cute blood loss,hemolytic anemia) will falsely lo wer HGBA1c resultsregardle ss of the method used. H GBA1c results from [facility] HbSS, HbCC, and HbSc must be interpreted with cautiongiven th e pathological pr ocesses, including anemia,increase d red cell turnover, trans fusion requirements, thatadversely i mpact HGBA1c as a mar ker of long-term glycemiccontrol . Alternative for ms of testing such as fructosaminesho uld be considered for these patients. MEAN BLOOD GLUCOSE 252 MG/DL 70-110 H (test code = MBG) GLUCOSE BEDSIDE [id number] 07:19:00 Test Item Value Reference Range Interpretation Comments GLUCOSE BEDSIDE TESTING (test code 270 MG/DL 60-99 H = GLUBED) BASIC METABOLIC [id number] 07:10:00 Test Item Value Reference Range Interpretation Comments SODIUM (test code = 135 MMOL/L 137-145 L NA) POTASSIUM (test code = 3.1 MMOL/L 3.5-5.1 L K) CHLORIDE (test code = 95 MMOL/L 98-107 L CL) CARBON DIOXIDE (test 30 MMOL/L 22-30 N code = CO2) ANION GAP (test code = 13 MMOL/L 14-24 L GAP) GLUCOSE (test code = 268 MG/DL 74-106 H GLU) BLOOD UREA NITROGEN 25 MG/DL 9-20 H (test code = BUN) GLOMERULAR FILTRATION > 60 Report ing units: RATE (test code = GFR) ml/mi n/1.73 m2 (Modified MDRD Formula)Referen ce Range: > or = 6 0 ml/min/1.73 m2 CREATININE (test code 1.00 MG/DL 0.66-1.25 N = CREAT) CALCIUM (test code = 8.4 MG/DL 8.4-10.2 N CA) LIPID PROFILE (CORONARY RISK)[id number] 07:10:00 Test Item Value Reference Range Interpretation Comments TRIGLYCERIDES (test 170 MG/DL TRIGLYCE RIDES code = TRIG) REFERENCE RANGE:Normal: < 150 mg/dLBorderline High: 150-199 mg/dLHi gh: 200-499 mg/dLVe ry High: >=500 mg/ dL CHOLESTEROL (test code 156 MG/DL <200 = CHOL) HDL CHOLESTEROL (test 25 MG/DL 40-59 L code = HDL) LIPOPROTEIN LDL (test 115 MG/DL 0-99 H code = LDL) OPTIMAL........ .<100 mg/dLNEAR OPTIMAL/ABOVE OPTIMAL........ .100-12 9 mg/dL BORDERLINE HIGH.........13 0-159 mg/dL HIGH.........16 0-189 mg/dL VERY HIGH...... ...>/= 190 mg/dL T3,T4 [id number] 07:10:00 Test Item Value Reference Range Interpretation Comments T3 UPTAKE (test code = T3UP) 37.6 % UP 23.5-40.5 N T4 (THYROXINE) (test code = T4) 7.83 UG/DL 5.53-11.0 N T7 (FREE THYROXINE INDEX) (test 2.9 1.2-4.3 N code = T7) THYROID STIMULATING [id number] 07:10:00 Test Item Value Reference Range Interpretation Comments THYROID STIMULATING 3.720 MIU/L 0.465-4.68 N Please b e aware that HORMONE (test code = bias re sults for TSH TSH) may occur forpa tient who are taking Biotin suppleme nts. BASIC METABOLIC [id number] 07:08:00 Test Item Value Reference Range Interpretation Comments SODIUM (test code = 135 MMOL/L 137-145 L NA) POTASSIUM (test code = 3.1 MMOL/L 3.5-5.1 L K) CHLORIDE (test code = 95 MMOL/L 98-107 L CL) CARBON DIOXIDE (test 30 MMOL/L 22-30 N code = CO2) ANION GAP (test code = 13 MMOL/L 14-24 L GAP) GLUCOSE (test code = 268 MG/DL 74-106 H GLU) BLOOD UREA NITROGEN 25 MG/DL 9-20 H (test code = BUN) GLOMERULAR FILTRATION > 60 Report ing units: RATE (test code = GFR) ml/mi n/1.73 m2 (Modified MDRD Formula)Referen ce Range: > or = 6 0 ml/min/1.73 m2 CREATININE (test code 1.00 MG/DL 0.66-1.25 N = CREAT) CALCIUM (test code = 8.4 MG/DL 8.4-10.2 N CA) LIPID PROFILE (CORONARY RISK)2019-12-10 07:08:00 Test Item Value Reference Range Interpretation Comments TRIGLYCERIDES (test 170 MG/DL TRIGLYCE RIDES code = TRIG) REFERENCE RANGE:Normal: < 150 mg/dLBorderline High: 150-199 mg/dLHi gh: 200-499 mg/dLVe ry High: >=500 mg/ dL CHOLESTEROL (test code 156 MG/DL <200 = CHOL) HDL CHOLESTEROL (test 25 MG/DL 40-59 L code = HDL) LIPOPROTEIN LDL (test 115 MG/DL 0-99 H code = LDL) OPTIMAL........ .<100 mg/dLNEAR OPTIMAL/ABOVE OPTIMAL........ .100-12 9 mg/dL BORDERLINE HIGH.........13 0-159 mg/dL HIGH.........16 0-189 mg/dL VERY HIGH...... ...>/= 190 mg/dL T3,T4 [id number] 07:08:00 Test Item Value Reference Range Interpretation Comments T3 UPTAKE (test code = T3UP) 37.6 % UP 23.5-40.5 N T4 (THYROXINE) (test code = T4) 7.83 UG/DL 5.53-11.0 N T7 (FREE THYROXINE INDEX) (test 2.9 1.2-4.3 N code = T7) THYROID STIMULATING [id number] 07:08:00 Test Item Value Reference Range Interpretation Comments THYROID STIMULATING HORMONE (test code MIU/L 0.465-4.68 = TSH) BASIC METABOLIC [id number] 06:56:00 Test Item Value Reference Range Interpretation Comments SODIUM (test code = 135 MMOL/L 137-145 L NA) POTASSIUM (test code = 3.1 MMOL/L 3.5-5.1 L K) CHLORIDE (test code = 95 MMOL/L 98-107 L CL) CARBON DIOXIDE (test 30 MMOL/L 22-30 N code = CO2) ANION GAP (test code = 13 MMOL/L 14-24 L GAP) GLUCOSE (test code = 268 MG/DL 74-106 H GLU) BLOOD UREA NITROGEN 25 MG/DL 9-20 H (test code = BUN) GLOMERULAR FILTRATION > 60 Report ing units: RATE (test code = GFR) ml/mi n/1.73 m2 (Modified MDRD Formula)Referen ce Range: > or = 6 0 ml/min/1.73 m2 CREATININE (test code 1.00 MG/DL 0.66-1.25 N = CREAT) CALCIUM (test code = 8.4 MG/DL 8.4-10.2 N CA) LIPID PROFILE (CORONARY RISK)2019-12-10 06:56:00 Test Item Value Reference Range Interpretation Comments TRIGLYCERIDES (test 170 MG/DL TRIGLYCE RIDES code = TRIG) REFERENCE RANGE:Normal: < 150 mg/dLBorderline High: 150-199 mg/dLHi gh: 200-499 mg/dLVe ry High: >=500 mg/ dL CHOLESTEROL (test code 156 MG/DL <200 = CHOL) HDL CHOLESTEROL (test 25 MG/DL 40-59 L code = HDL) LIPOPROTEIN LDL (test MG/DL 0-99 code = LDL) T3,T4 [id number] 06:56:00 Test Item Value Reference Range Interpretation Comments T3 UPTAKE (test code = T3UP) 37.6 % UP 23.5-40.5 N T4 (THYROXINE) (test code = T4) 7.83 UG/DL 5.53-11.0 N T7 (FREE THYROXINE INDEX) (test 2.9 1.2-4.3 N code = T7) THYROID STIMULATING [id number] 06:56:00 Test Item Value Reference Range Interpretation Comments THYROID STIMULATING HORMONE (test code MIU/L 0.465-4.68 = TSH) BASIC METABOLIC [id number] 06:55:00 Test Item Value Reference Range Interpretation Comments SODIUM (test code = 135 MMOL/L 137-145 L NA) POTASSIUM (test code = 3.1 MMOL/L 3.5-5.1 L K) CHLORIDE (test code = 95 MMOL/L 98-107 L CL) CARBON DIOXIDE (test 30 MMOL/L 22-30 N code = CO2) ANION GAP (test code = 13 MMOL/L 14-24 L GAP) GLUCOSE (test code = 268 MG/DL 74-106 H GLU) BLOOD UREA NITROGEN 25 MG/DL 9-20 H (test code = BUN) GLOMERULAR FILTRATION > 60 Report ing units: RATE (test code = GFR) ml/mi n/1.73 m2 (Modified MDRD Formula)Referen ce Range: > or = 6 0 ml/min/1.73 m2 CREATININE (test code 1.00 MG/DL 0.66-1.25 N = CREAT) CALCIUM (test code = 8.4 MG/DL 8.4-10.2 N CA) LIPID PROFILE (CORONARY RISK)2019-12-10 06:55:00 Test Item Value Reference Range Interpretation Comments TRIGLYCERIDES (test 170 MG/DL TRIGLYCE RIDES code = TRIG) REFERENCE RANGE:Normal: < 150 mg/dLBorderline High: 150-199 mg/dLHi gh: 200-499 mg/dLVe ry High: >=500 mg/ dL CHOLESTEROL (test code 156 MG/DL <200 = CHOL) HDL CHOLESTEROL (test 25 MG/DL 40-59 L code = HDL) LIPOPROTEIN LDL (test MG/DL 0-99 code = LDL) T3,T4 [id number] 06:55:00 Test Item Value Reference Range Interpretation Comments T3 UPTAKE (test code = T3UP) 37.6 % UP 23.5-40.5 N T4 (THYROXINE) (test code = T4) UG/DL 5.53-11.0 T7 (FREE THYROXINE INDEX) (test 1.2-4.3 code = T7) THYROID STIMULATING [id number] 06:55:00 Test Item Value Reference Range Interpretation Comments THYROID STIMULATING HORMONE (test code MIU/L 0.465-4.68 = TSH) BASIC METABOLIC [id number] 06:42:00 Test Item Value Reference Range Interpretation Comments SODIUM (test code = 135 MMOL/L 137-145 L NA) POTASSIUM (test code = 3.1 MMOL/L 3.5-5.1 L K) CHLORIDE (test code = 95 MMOL/L 98-107 L CL) CARBON DIOXIDE (test 30 MMOL/L 22-30 N code = CO2) ANION GAP (test code = 13 MMOL/L 14-24 L GAP) GLUCOSE (test code = 268 MG/DL 74-106 H GLU) BLOOD UREA NITROGEN 25 MG/DL 9-20 H (test code = BUN) GLOMERULAR FILTRATION > 60 Report ing units: RATE (test code = GFR) ml/mi n/1.73 m2 (Modified MDRD Formula)Referen ce Range: > or = 6 0 ml/min/1.73 m2 CREATININE (test code 1.00 MG/DL 0.66-1.25 N = CREAT) CALCIUM (test code = 8.4 MG/DL 8.4-10.2 N CA) LIPID PROFILE (CORONARY RISK)2019-12-10 06:42:00 Test Item Value Reference Range Interpretation Comments TRIGLYCERIDES (test 170 MG/DL TRIGLYCE RIDES code = TRIG) REFERENCE RANGE:Normal: < 150 mg/dLBorderline High: 150-199 mg/dLHi gh: 200-499 mg/dLVe ry High: >=500 mg/ dL CHOLESTEROL (test code 156 MG/DL <200 = CHOL) HDL CHOLESTEROL (test 25 MG/DL 40-59 L code = HDL) LIPOPROTEIN LDL (test MG/DL 0-99 code = LDL) T3,T4 [id number] 06:42:00 Test Item Value Reference Range Interpretation Comments T3 UPTAKE (test code = T3UP) % UP 23.5-40.5 T4 (THYROXINE) (test code = T4) UG/DL 5.53-11.0 T7 (FREE THYROXINE INDEX) (test code = 1.2-4.3 T7) THYROID STIMULATING [id number] 06:42:00 Test Item Value Reference Range Interpretation Comments THYROID STIMULATING HORMONE (test code MIU/L 0.465-4.68 = TSH) BASIC METABOLIC [id number] 06:41:00 Test Item Value Reference Range Interpretation Comments SODIUM (test code = NA) 135 MMOL/L 137-145 L POTASSIUM (test code = K) 3.1 MMOL/L 3.5-5.1 L CHLORIDE (test code = CL) 95 MMOL/L 98-107 L CARBON DIOXIDE (test code = CO2) MMOL/L 22-30 GLUCOSE (test code = GLU) MG/DL 74-106 BLOOD UREA NITROGEN (test code = MG/DL 9-20 BUN) GLOMERULAR FILTRATION RATE (test code = GFR) CREATININE (test code = CREAT) MG/DL 0.66-1.25 CALCIUM (test code = CA) MG/DL 8.7-9.7 LIPID PROFILE (CORONARY RISK)2019-12-10 06:41:00 Test Item Value Reference Range Interpretation Comments TRIGLYCERIDES (test code = TRIG) MG/DL CHOLESTEROL (test code = CHOL) 156 MG/DL <200 HDL CHOLESTEROL (test code = HDL) MG/DL 40-59 LIPOPROTEIN LDL (test code = LDL) MG/DL 0-99 T3,T4 [id number] 06:41:00 Test Item Value Reference Range Interpretation Comments T3 UPTAKE (test code = T3UP) % UP 23.5-40.5 T4 (THYROXINE) (test code = T4) UG/DL 5.53-11.0 T7 (FREE THYROXINE INDEX) (test code = 1.2-4.3 T7) THYROID STIMULATING [id number] 06:41:00 Test Item Value Reference Range Interpretation Comments THYROID STIMULATING HORMONE (test code MIU/L 0.465-4.68 = TSH) BASIC METABOLIC [id number] 06:39:00 Test Item Value Reference Range Interpretation Comments SODIUM (test code = NA) MMOL/L 137-145 POTASSIUM (test code = K) MMOL/L 3.5-5.1 CHLORIDE (test code = CL) 95 MMOL/L 98-107 L CARBON DIOXIDE (test code = CO2) MMOL/L 22-30 GLUCOSE (test code = GLU) MG/DL 74-106 BLOOD UREA NITROGEN (test code = MG/DL 9-20 BUN) GLOMERULAR FILTRATION RATE (test code = GFR) CREATININE (test code = CREAT) MG/DL 0.66-1.25 CALCIUM (test code = CA) MG/DL 8.7-9.7 LIPID PROFILE (CORONARY RISK)2019-12-10 06:39:00 Test Item Value Reference Range Interpretation Comments TRIGLYCERIDES (test code = TRIG) MG/DL CHOLESTEROL (test code = CHOL) MG/DL <200 HDL CHOLESTEROL (test code = HDL) MG/DL 40-59 LIPOPROTEIN LDL (test code = LDL) MG/DL 0-99 T3,T4 [id number] 06:39:00 Test Item Value Reference Range Interpretation Comments T3 UPTAKE (test code = T3UP) % UP 23.5-40.5 T4 (THYROXINE) (test code = T4) UG/DL 5.53-11.0 T7 (FREE THYROXINE INDEX) (test code = 1.2-4.3 T7) THYROID STIMULATING [id number] 06:39:00 Test Item Value Reference Range Interpretation Comments THYROID STIMULATING HORMONE (test code MIU/L 0.465-4.68 = TSH) BASIC METABOLIC [id number] 06:39:00 Test Item Value Reference Range Interpretation Comments SODIUM (test code = NA) 135 MMOL/L 137-145 L POTASSIUM (test code = K) 3.1 MMOL/L 3.5-5.1 L CHLORIDE (test code = CL) 95 MMOL/L 98-107 L CARBON DIOXIDE (test code = CO2) MMOL/L 22-30 GLUCOSE (test code = GLU) MG/DL 74-106 BLOOD UREA NITROGEN (test code = MG/DL 9-20 BUN) GLOMERULAR FILTRATION RATE (test code = GFR) CREATININE (test code = CREAT) MG/DL 0.66-1.25 CALCIUM (test code = CA) MG/DL 8.7-9.7 LIPID PROFILE (CORONARY RISK)2019-12-10 06:39:00 Test Item Value Reference Range Interpretation Comments TRIGLYCERIDES (test code = TRIG) MG/DL CHOLESTEROL (test code = CHOL) MG/DL <200 HDL CHOLESTEROL (test code = HDL) MG/DL 40-59 LIPOPROTEIN LDL (test code = LDL) MG/DL 0-99 T3,T4 06:39:00 Test Item Value Reference Range Interpretation Comments T3 UPTAKE (test code = T3UP) % UP 23.5-40.5 T4 (THYROXINE) (test code = T4) UG/DL 5.53-11.0 T7 (FREE THYROXINE INDEX) (test code = 1.2-4.3 T7) THYROID STIMULATING [id number] 06:39:00 Test Item Value Reference Range Interpretation Comments THYROID STIMULATING HORMONE (test code MIU/L 0.465-4.68 = TSH) CBC W/AUTO [id number] 06:28:00 Test Item Value Reference Range Interpretation Comments WHITE BLOOD CELL (test code = 8.5 K/MM3 3.8-9.8 N WBC) RED BLOOD CELL (test code = 4.65 M/MM3 3.95-5.67 N RBC) HEMOGLOBIN (test code = HGB) 11.9 G/DL 12.4-16.7 L HEMATOCRIT (test code = HCT) 38.4 % 35.9-49.5 N MEAN CELL VOLUME (test code = 83 fL 81.7-96.1 N MCV) MEAN CELL HGB (test code = MCH) 25.6 pg 27.6-33.2 L MEAN CELL HGB CONCETRATION 31.0 % 32.9-35.5 L (test code = MCHC) RED CELL DISTRIBUTION WIDTH 15.0 % 12.1-15.2 N (test code = RDW) PLATELET COUNT (test code = 166 K/MM3 129-368 N PLT) MEAN PLATELET VOLUME (test code 10.9 fl 7.4-10.4 H = MPV) NEUTROPHIL % (test code = NT%) 60.8 % 43-75 N IMMATURE GRANULOCYTE % (test 0.2 % 0.0-2.0 N code = IG%) LYMPHOCYTE % (test code = LY%) 26.1 % 14-44 N MONOCYTE % (test code = MO%) 8.3 % 4-13 N EOSINOPHIL % (test code = EO%) 3.9 % 0-6 N BASOPHIL % (test code = BA%) 0.7 % 0-2 N NUCLEATED RBC % (test code = 0.0 % 0-1.0 N NRBC%) NEUTROPHIL # (test code = NT#) 5.18 K/mm3 2.0-7.6 N IMMATURE GRANULOCYTE # (test 0.02 x10 3/uL 0-0.03 N code = IG#) LYMPHOCYTE # (test code = LY#) 2.22 K/mm3 1.0-3.8 N MONOCYTE # (test code = MO#) 0.71 K/mm3 0.1-0.8 N EOSINOPHIL # (test code = EO#) 0.33 K/mm3 0.0-0.2 H BASOPHIL # (test code = BA#) 0.06 K/mm3 0.0-0.2 N NUCLEATED RBC # (test code = 0.00 K/mm3 0.0-0.1 N NRBC#) GLUCOSE BEDSIDE [id number] 20:23:00 Test Item Value Reference Range Interpretation Comments GLUCOSE BEDSIDE TESTING (test code 292 MG/DL 60-99 H = GLUBED) GLUCOSE BEDSIDE [id number] 17:09:00 Test Item Value Reference Range Interpretation Comments GLUCOSE BEDSIDE TESTING 347 MG/DL 60-99 HH Noti fied Nurse~ (test code = GLUBED) GLUCOSE BEDSIDE [id number] 11:25:00 Test Item Value Reference Range Interpretation Comments GLUCOSE BEDSIDE TESTING 319 MG/DL 60-99 HH Noti fied Nurse~ (test code = GLUBED) B-TYPE NATRIURETIC [id number] 08:43:00 Test Item Value Reference Range Interpretation Comments B-TYPE NATRIURETIC PEPTIDE (test 673.0 PG/ML 0-100 H code = BNP) PTT [id number] 06:50:00 Test Item Value Reference Range Interpretation Comments PTT ACTIVATED (test code = APTT) 37.1 SECONDS 25.1-36.5 H CBC W/AUTO [id number] 06:30:00 Test Item Value Reference Range Interpretation Comments WHITE BLOOD CELL (test code = 11.5 K/MM3 3.8-9.8 H WBC) RED BLOOD CELL (test code = 4.82 M/MM3 3.95-5.67 N RBC) HEMOGLOBIN (test code = HGB) 12.7 G/DL 12.4-16.7 N HEMATOCRIT (test code = HCT) 39.8 % 35.9-49.5 N MEAN CELL VOLUME (test code = 83 fL 81.7-96.1 N MCV) MEAN CELL HGB (test code = MCH) 26.3 pg 27.6-33.2 L MEAN CELL HGB CONCETRATION 31.9 % 32.9-35.5 L (test code = MCHC) RED CELL DISTRIBUTION WIDTH 15.0 % 12.1-15.2 N (test code = RDW) PLATELET COUNT (test code = 193 K/MM3 129-368 N PLT) MEAN PLATELET VOLUME (test code 11.2 fl 7.4-10.4 H = MPV) NEUTROPHIL % (test code = NT%) 74.1 % 43-75 N IMMATURE GRANULOCYTE % (test 0.2 % 0.0-2.0 N code = IG%) LYMPHOCYTE % (test code = LY%) 17.2 % 14-44 N MONOCYTE % (test code = MO%) 6.8 % 4-13 N EOSINOPHIL % (test code = EO%) 1.1 % 0-6 N BASOPHIL % (test code = BA%) 0.6 % 0-2 N NUCLEATED RBC % (test code = 0.0 % 0-1.0 N NRBC%) NEUTROPHIL # (test code = NT#) 8.52 K/mm3 2.0-7.6 H IMMATURE GRANULOCYTE # (test 0.02 x10 3/uL 0-0.03 N code = IG#) LYMPHOCYTE # (test code = LY#) 1.98 K/mm3 1.0-3.8 N MONOCYTE # (test code = MO#) 0.78 K/mm3 0.1-0.8 N EOSINOPHIL # (test code = EO#) 0.13 K/mm3 0.0-0.2 N BASOPHIL # (test code = BA#) 0.07 K/mm3 0.0-0.2 N NUCLEATED RBC # (test code = 0.00 K/mm3 0.0-0.1 N NRBC#) [id number] 06:13:00 Test Item Value Reference Range Interpretation Comments TROPONIN-I (test 9.070 NG/ML 0.012-0.033 HH CALLED TO Shana Alaniz& code = TROPI) READBACK ON AT 0613 BY Naun Aldana [id number] 02:02:00 Test Item Value Reference Range Interpretation Comments TROPONIN-I (test 5.310 NG/ML 0.012-0.033 HH CALLED TO Katty MOYA& code = TROPI) READBACK ON AT 0202 BY Naun Aldana LIPOPROTEIN LDL [id number] 01:16:00 Test Item Value Reference Range Interpretation Comments LIPOPROTEIN LDL DIRECT 115 mg/dL 100-129 N ===== (test code = LDLDIR) ======= ====R eference Interv al: mg/dL mmol/L-------- ----- ----- ----- ------Optimal < 100 <2.6Near/above optimal 100-129 2.6-3.3Borderli ne High 130-159 3.4-4.1High 160-189 4.1-4.9Very Hig h >=190 >=4.9========= This LDL result is a direct measurement.=== ===== = [id number] 01:16:00 Test Item Value Reference Range Interpretation Comments TROPONIN-I (test 2.370 NG/ML 0.012-0.033 CALLED TO NoahJOSEF HJose Juan& code = TROPI) READBACK ON AT 0052 BY Naun Aldana LIPOPROTEIN LDL [id number] 00:52:00 Test Item Value Reference Range Interpretation Comments LIPOPROTEIN LDL DIRECT (test code = mg/dL 100-129 LDLDIR) [id number] 00:52:00 Test Item Value Reference Range Interpretation Comments TROPONIN-I (test 2.370 NG/ML 0.012-0.033 HH CALLED TO NoahJOSEF HJose Juan& code = TROPI) READBACK ON AT 0052 BY Naun Aldana GLUCOSE BEDSIDE [id number] 06:12:00 Test Item Value Reference Range Interpretation Comments GLUCOSE BEDSIDE TESTING (test code 106 MG/DL 60-99 H = GLUBED) GLUCOSE BEDSIDE [id number] 06:12:00 Test Item Value Reference Range Interpretation Comments GLUCOSE BEDSIDE TESTING (test code 133 MG/DL 60-99 H = GLUBED) GLUCOSE BEDSIDE [id number] 07:12:00 Test Item Value Reference Range Interpretation Comments GLUCOSE BEDSIDE TESTING (test code 132 MG/DL 60-99 H = GLUBED) GLUCOSE BEDSIDE [id number] 16:33:00 Test Item Value Reference Range Interpretation Comments GLUCOSE BEDSIDE TESTING 108 MG/DL 60-99 H Noti fied Nurse~ (test code = GLUBED) GLUCOSE BEDSIDE [id number] 12:04:00 Test Item Value Reference Range Interpretation Comments GLUCOSE BEDSIDE TESTING (test code 107 MG/DL 60-99 H = GLUBED) GLUCOSE BEDSIDE [id number] 11:22:00 Test Item Value Reference Range Interpretation Comments GLUCOSE BEDSIDE TESTING (test code 142 MG/DL 60-99 H = GLUBED) GLUCOSE BEDSIDE [id number] 11:22:00 Test Item Value Reference Range Interpretation Comments GLUCOSE BEDSIDE TESTING (test code 126 MG/DL 60-99 H = GLUBED) GLUCOSE BEDSIDE [id number] 19:45:00 Test Item Value Reference Range Interpretation Comments GLUCOSE BEDSIDE TESTING 119 MG/DL 60-99 H Noti fied Nurse~ (test code = GLUBED) GLUCOSE BEDSIDE [id number] 16:16:00 Test Item Value Reference Range Interpretation Comments GLUCOSE BEDSIDE TESTING 111 MG/DL 60-99 H Noti fied Nurse~ (test code = GLUBED) GLUCOSE BEDSIDE [id number] 08:32:00 Test Item Value Reference Range Interpretation Comments GLUCOSE BEDSIDE TESTING (test code 131 MG/DL 60-99 H = GLUBED) GLUCOSE BEDSIDE [id number] 07:17:00 Test Item Value Reference Range Interpretation Comments GLUCOSE BEDSIDE TESTING (test code 125 MG/DL 60-99 H = GLUBED) GLUCOSE BEDSIDE [id number] 20:24:00 Test Item Value Reference Range Interpretation Comments GLUCOSE BEDSIDE TESTING (test code 140 MG/DL 60-99 H = GLUBED) GLUCOSE BEDSIDE [id number] 16:05:00 Test Item Value Reference Range Interpretation Comments GLUCOSE BEDSIDE TESTING 168 MG/DL 60-99 H Noti fied Nurse~ (test code = GLUBED) GLUCOSE BEDSIDE [id number] 12:18:00 Test Item Value Reference Range Interpretation Comments GLUCOSE BEDSIDE TESTING (test code 104 MG/DL 60-99 H = GLUBED) GLUCOSE BEDSIDE [id number] 07:45:00 Test Item Value Reference Range Interpretation Comments GLUCOSE BEDSIDE TESTING (test code 148 MG/DL 60-99 H = GLUBED) CREATININE W ESTIMATED [id number] 06:50:00 Test Item Value Reference Range Interpretation Comments GLOMERULAR FILTRATION > 60 Report ing units: RATE (test code = GFR) ml/mi n/1.73 m2 (Modified MDRD Formula)Referen ce Range: > or = 6 0 ml/min/1.73 m2 CREATININE (test code 0.90 MG/DL 0.66-1.25 N = CREAT) Comments to Supervisor Hand Workers: NAENTER RACE; OtherGLUCOSE BEDSIDE [id number] 20:01:00 Test Item Value Reference Range Interpretation Comments GLUCOSE BEDSIDE TESTING (test code 136 MG/DL 60-99 H = GLUBED) GLUCOSE BEDSIDE [id number] 11:46:00 Test Item Value Reference Range Interpretation Comments GLUCOSE BEDSIDE TESTING (test code 118 MG/DL 60-99 H = GLUBED) GLUCOSE BEDSIDE [id number] 08:19:00 Test Item Value Reference Range Interpretation Comments GLUCOSE BEDSIDE TESTING (test code 125 MG/DL 60-99 H = GLUBED) GLUCOSE BEDSIDE [id number] 07:55:00 Test Item Value Reference Range Interpretation Comments GLUCOSE BEDSIDE TESTING (test code 195 MG/DL 60-99 H = GLUBED) GLUCOSE BEDSIDE [id number] 19:44:00 Test Item Value Reference Range Interpretation Comments GLUCOSE BEDSIDE TESTING 130 MG/DL 60-99 H Noti fied Nurse~ (test code = GLUBED) GLUCOSE BEDSIDE [id number] 16:38:00 Test Item Value Reference Range Interpretation Comments GLUCOSE BEDSIDE TESTING 111 MG/DL 60-99 H Noti fied Nurse~ (test code = GLUBED) GLUCOSE BEDSIDE [id number] 12:05:00 Test Item Value Reference Range Interpretation Comments GLUCOSE BEDSIDE TESTING (test code 125 MG/DL 60-99 H = GLUBED) GLUCOSE BEDSIDE [id number] 07:37:00 Test Item Value Reference Range Interpretation Comments GLUCOSE BEDSIDE TESTING (test code 139 MG/DL 60-99 H = GLUBED) GLUCOSE BEDSIDE [id number] 20:09:00 Test Item Value Reference Range Interpretation Comments GLUCOSE BEDSIDE TESTING (test code 113 MG/DL 60-99 H = GLUBED) GLUCOSE BEDSIDE [id number] 16:04:00 Test Item Value Reference Range Interpretation Comments GLUCOSE BEDSIDE TESTING (test code 155 MG/DL 60-99 H = GLUBED) GLUCOSE BEDSIDE [id number] 11:53:00 Test Item Value Reference Range Interpretation Comments GLUCOSE BEDSIDE TESTING (test code 119 MG/DL 60-99 H = GLUBED) GLUCOSE BEDSIDE [id number] 07:37:00 Test Item Value Reference Range Interpretation Comments GLUCOSE BEDSIDE TESTING (test code 152 MG/DL 60-99 H = GLUBED) GLUCOSE BEDSIDE [id number] 20:24:00 Test Item Value Reference Range Interpretation Comments GLUCOSE BEDSIDE TESTING (test code 141 MG/DL 60-99 H = GLUBED) GLUCOSE BEDSIDE [id number] 16:23:00 Test Item Value Reference Range Interpretation Comments GLUCOSE BEDSIDE TESTING (test code 114 MG/DL 60-99 H = GLUBED) GLUCOSE BEDSIDE [id number] 11:06:00 Test Item Value Reference Range Interpretation Comments GLUCOSE BEDSIDE TESTING (test code = 97 MG/DL 60-99 N GLUBED) GLUCOSE BEDSIDE [id number] 07:00:00 Test Item Value Reference Range Interpretation Comments GLUCOSE BEDSIDE TESTING (test code 158 MG/DL 60-99 H = GLUBED) GLUCOSE BEDSIDE [id number] 20:21:00 Test Item Value Reference Range Interpretation Comments GLUCOSE BEDSIDE TESTING (test code 133 MG/DL 60-99 H = GLUBED) GLUCOSE BEDSIDE [id number] 12:00:00 Test Item Value Reference Range Interpretation Comments GLUCOSE BEDSIDE TESTING (test code 127 MG/DL 60-99 H = GLUBED) GLUCOSE BEDSIDE [id number] 07:21:00 Test Item Value Reference Range Interpretation Comments GLUCOSE BEDSIDE TESTING (test code 161 MG/DL 60-99 H = GLUBED) GLUCOSE BEDSIDE [id number] 19:55:00 Test Item Value Reference Range Interpretation Comments GLUCOSE BEDSIDE TESTING (test code 132 MG/DL 60-99 H = GLUBED) GLUCOSE BEDSIDE [id number] 17:00:00 Test Item Value Reference Range Interpretation Comments GLUCOSE BEDSIDE TESTING 119 MG/DL 60-99 H Noti fied Nurse~ (test code = GLUBED) GLUCOSE BEDSIDE [id number] 12:11:00 Test Item Value Reference Range Interpretation Comments GLUCOSE BEDSIDE TESTING (test code 148 MG/DL 60-99 H = GLUBED) GLUCOSE BEDSIDE [id number] 07:33:00 Test Item Value Reference Range Interpretation Comments GLUCOSE BEDSIDE TESTING (test code 145 MG/DL 60-99 H = GLUBED) GLUCOSE BEDSIDE [id number] 21:03:00 Test Item Value Reference Range Interpretation Comments GLUCOSE BEDSIDE TESTING (test code 116 MG/DL 60-99 H = GLUBED) GLUCOSE BEDSIDE [id number] 16:19:00 Test Item Value Reference Range Interpretation Comments GLUCOSE BEDSIDE TESTING (test code 140 MG/DL 60-99 H = GLUBED) GLUCOSE BEDSIDE [id number] 11:59:00 Test Item Value Reference Range Interpretation Comments GLUCOSE BEDSIDE TESTING (test code 147 MG/DL 60-99 H = GLUBED) GLUCOSE BEDSIDE [id number] 11:39:00 Test Item Value Reference Range Interpretation Comments GLUCOSE BEDSIDE TESTING (test code 153 MG/DL 60-99 H = GLUBED) GLUCOSE BEDSIDE [id number] 07:03:00 Test Item Value Reference Range Interpretation Comments GLUCOSE BEDSIDE TESTING (test code 143 MG/DL 60-99 H = GLUBED) CBC W/AUTO [id number] 18:10:00 Test Item Value Reference Range Interpretation Comments WHITE BLOOD CELL (test code = 10.2 K/MM3 3.8-9.8 H WBC) RED BLOOD CELL (test code = 3.19 M/MM3 3.95-5.67 L RBC) HEMOGLOBIN (test code = HGB) 8.9 G/DL 12.4-16.7 L HEMATOCRIT (test code = HCT) 27.5 % 35.9-49.5 L MEAN CELL VOLUME (test code = 86 fL 81.7-96.1 N MCV) MEAN CELL HGB (test code = MCH) 27.9 pg 27.6-33.2 N MEAN CELL HGB CONCETRATION 32.4 % 32.9-35.5 L (test code = MCHC) RED CELL DISTRIBUTION WIDTH 13.5 % 12.1-15.2 N (test code = RDW) PLATELET COUNT (test code = 316 K/MM3 129-368 N PLT) MEAN PLATELET VOLUME (test code 10.2 fl 7.4-10.4 N = MPV) NEUTROPHIL % (test code = NT%) 68.7 % 43-75 N IMMATURE GRANULOCYTE % (test 0.6 % 0.0-2.0 N code = IG%) LYMPHOCYTE % (test code = LY%) 18.6 % 14-44 N MONOCYTE % (test code = MO%) 8.8 % 4-13 N EOSINOPHIL % (test code = EO%) 3.0 % 0-6 N BASOPHIL % (test code = BA%) 0.3 % 0-2 N NUCLEATED RBC % (test code = 0.0 % 0-1.0 N NRBC%) NEUTROPHIL # (test code = NT#) 7.03 K/mm3 2.0-7.6 N IMMATURE GRANULOCYTE # (test 0.06 x10 3/uL 0-0.03 H code = IG#) LYMPHOCYTE # (test code = LY#) 1.90 K/mm3 1.0-3.8 N MONOCYTE # (test code = MO#) 0.90 K/mm3 0.1-0.8 H EOSINOPHIL # (test code = EO#) 0.31 K/mm3 0.0-0.2 H BASOPHIL # (test code = BA#) 0.03 K/mm3 0.0-0.2 N NUCLEATED RBC # (test code = 0.00 K/mm3 0.0-0.1 N NRBC#) GLUCOSE BEDSIDE [id number] 16:10:00 Test Item Value Reference Range Interpretation Comments GLUCOSE BEDSIDE TESTING (test code 150 MG/DL 60-99 H = GLUBED) - XR CHEST [id number] 07:57:00 Patient Name: JAXON REEVES Unit No: [id number] EXAMS: CPT CODE: [id number] XR CHEST 1V [id number] Chest Radiograph History: post CAB Comparison: Jul Location: R16 A single frontal view of the chest is submitted. The heart appears unchanged in size. Pulmonary vasculature is unremarkable. There is a small left pleural effusion. There is a minimal patchy opacity in the leftlung base. The bones appear unchanged. The vascular catheter appears unchanged. IMPRESSION: There is a small left pleural effusion. Minimal patchy opacity left lung base. This could be due to atelectasis or pneumonia. Compared to the prior exam, there has been little change. at 0757 Reported and signed by: Chuck Hurd MD CC: Pita Hughes; Hilary Trivedi; Ailin Lai NP Technologist: Mee Sanders RT(R) Transcrpt Date/Tm/Trnsp: 08/16/2019 (0757) AndrewPMT Orig Print D/T: S: 08/16/2019 (0800) [facility] [place] NAME: JAXON REEVES [id number] PHYS: Ailin Bae [employer] [place] [address] : 1950 AGE: 69 SEX: M LOC: [id number].363 A PHONE #: [phone] EXAM DATE: 08/16/2019 STATUS: ADM IN FAX #: [phone] RADIOLOGY NO: PAGE 1 Signed ReportGLUCOSE BEDSIDE [id number] 07:56:00 Test Item Value Reference Range Interpretation Comments GLUCOSE BEDSIDE TESTING (test code 135 MG/DL 60-99 H = GLUBED) BASIC METABOLIC [id number] 07:44:00 Test Item Value Reference Range Interpretation Comments SODIUM (test code = 134 MMOL/L 137-145 L NA) POTASSIUM (test code = 4.3 MMOL/L 3.5-5.1 N K) CHLORIDE (test code = 99 MMOL/L 98-107 N CL) CARBON DIOXIDE (test 29 MMOL/L 22-30 N code = CO2) GLUCOSE (test code = 139 MG/DL 74-106 H GLU) BLOOD UREA NITROGEN 17 MG/DL 9-20 N (test code = BUN) GLOMERULAR FILTRATION > 60 Report ing units: RATE (test code = GFR) ml/mi n/1.73 m2 (Modified MDRD Formula)Referen ce Range: > or = 6 0 ml/min/1.73 m2 CREATININE (test code 0.80 MG/DL 0.66-1.25 N = CREAT) CALCIUM (test code = 8.4 MG/DL 8.4-10.2 N CA) BASIC METABOLIC [id number] 07:43:00 Test Item Value Reference Range Interpretation Comments SODIUM (test code = 134 MMOL/L 137-145 L NA) POTASSIUM (test code = 4.3 MMOL/L 3.5-5.1 N K) CHLORIDE (test code = 99 MMOL/L 98-107 N CL) CARBON DIOXIDE (test 29 MMOL/L 22-30 N code = CO2) GLUCOSE (test code = MG/DL 74-106 GLU) BLOOD UREA NITROGEN MG/DL 9-20 (test code = BUN) GLOMERULAR FILTRATION > 60 Report ing units: RATE (test code = GFR) ml/mi n/1.73 m2 (Modified MDRD Formula)Referen ce Range: > or = 6 0 ml/min/1.73 m2 CREATININE (test code 0.80 MG/DL 0.66-1.25 N = CREAT) CALCIUM (test code = MG/DL 8.7-9.7 CA) BASIC METABOLIC [id number] 07:41:00 Test Item Value Reference Range Interpretation Comments SODIUM (test code = NA) 134 MMOL/L 137-145 L POTASSIUM (test code = K) 4.3 MMOL/L 3.5-5.1 N CHLORIDE (test code = CL) 99 MMOL/L 98-107 N CARBON DIOXIDE (test code = CO2) MMOL/L 22-30 GLUCOSE (test code = GLU) MG/DL 74-106 BLOOD UREA NITROGEN (test code = MG/DL 9-20 BUN) GLOMERULAR FILTRATION RATE (test code = GFR) CREATININE (test code = CREAT) MG/DL 0.66-1.25 CALCIUM (test code = CA) MG/DL 8.7-9.7 BASIC METABOLIC [id number] 07:40:00 Test Item Value Reference Range Interpretation Comments SODIUM (test code = NA) 134 MMOL/L 137-145 L POTASSIUM (test code = K) MMOL/L 3.5-5.1 CHLORIDE (test code = CL) 99 MMOL/L 98-107 N CARBON DIOXIDE (test code = CO2) MMOL/L 22-30 GLUCOSE (test code = GLU) MG/DL 74-106 BLOOD UREA NITROGEN (test code = MG/DL 9-20 BUN) GLOMERULAR FILTRATION RATE (test code = GFR) CREATININE (test code = CREAT) MG/DL 0.66-1.25 CALCIUM (test code = CA) MG/DL 8.7-9.7 GLUCOSE BEDSIDE [id number] 20:20:00 Test Item Value Reference Range Interpretation Comments GLUCOSE BEDSIDE TESTING (test code 128 MG/DL 60-99 H = GLUBED) GLUCOSE BEDSIDE [id number] 16:44:00 Test Item Value Reference Range Interpretation Comments GLUCOSE BEDSIDE TESTING (test code 147 MG/DL 60-99 H = GLUBED) GLUCOSE BEDSIDE [id number] 11:24:00 Test Item Value Reference Range Interpretation Comments GLUCOSE BEDSIDE TESTING (test code 159 MG/DL 60-99 H = GLUBED) GLUCOSE BEDSIDE [id number] 10:53:00 Test Item Value Reference Range Interpretation Comments GLUCOSE BEDSIDE TESTING (test code 130 MG/DL 60-99 H = GLUBED) GLUCOSE BEDSIDE [id number] 10:53:00 Test Item Value Reference Range Interpretation Comments GLUCOSE BEDSIDE TESTING (test code 156 MG/DL 60-99 H = GLUBED) GLUCOSE BEDSIDE [id number] 10:53:00 Test Item Value Reference Range Interpretation Comments GLUCOSE BEDSIDE TESTING (test code 163 MG/DL 60-99 H = GLUBED) GLUCOSE BEDSIDE [id number] 08:15:00 Test Item Value Reference Range Interpretation Comments GLUCOSE BEDSIDE TESTING (test code 152 MG/DL 60-99 H = GLUBED) GLUCOSE BEDSIDE [id number] 21:14:00 Test Item Value Reference Range Interpretation Comments GLUCOSE BEDSIDE TESTING (test code 160 MG/DL 60-99 H = GLUBED) GLUCOSE BEDSIDE [id number] 20:14:00 Test Item Value Reference Range Interpretation Comments GLUCOSE BEDSIDE TESTING (test code 157 MG/DL 60-99 H = GLUBED) GLUCOSE BEDSIDE [id number] 16:10:00 Test Item Value Reference Range Interpretation Comments GLUCOSE BEDSIDE TESTING (test code 147 MG/DL 60-99 H = GLUBED) GLUCOSE BEDSIDE [id number] 10:48:00 Test Item Value Reference Range Interpretation Comments GLUCOSE BEDSIDE TESTING (test code 159 MG/DL 60-99 H = GLUBED) GLUCOSE BEDSIDE [id number] 20:52:00 Test Item Value Reference Range Interpretation Comments GLUCOSE BEDSIDE TESTING (test code 196 MG/DL 60-99 H = GLUBED) - XR CHEST [id number] 11:36:00 Patient Name: JAXON REEVES Unit No: [id number] EXAMS: CPT CODE: [id number] XR CHEST 1V 16936 B2 EXAM: - XR CHEST 1V HISTORY: S/P CHEST TUBE REMOVAL COMPARISON: 08/13/2019 at 544 FINDINGS: Left subclavian central line in unchanged position. Median sternotomy wires are present. Patchy bilateral airspace opacities. Small left pleural effusion. No pneumothorax. The cardiac silhouette is within normal limits. No acute osseous abnormalities. IMPRESSION: Bilateralpulmonary edema with small residual left pleural effusion. at 1136 Reported and signed by: Samuel Boyd MD CC: Pita Hughes; Hilary Trivedi Technologist: Jayro Hayden (RT)(R) Transcrpt Date/Tm/Trnsp: 08/13/2019 (1136) [email or web address] Orig Print D/T: S: 08/13/2019 (1140) [facility] NAME: JAXON REEVES [id number] PHYS: [place] [address] : 1950 AGE: 69 SEX: M LOC: [id number].SI06 A PHONE #: [phone] EXAM DATE: 08/13/2019 STATUS: ADM IN FAX #: [phone] RADIOLOGY NO:PAGE 1 Signed Report- XR CHEST [id number] 08:24:00 Patient Name: JAXON REEVES Unit No: [id number] EXAMS: CPT CODE: [id number] XR CHEST 1V 89732 C3 EXAM: - XR CHEST 1V HISTORY: S/P CABG COMPARISON: 08/12/2019 FINDINGS: Left subclavian central line in unchangedposition. Median sternotomy wires again noted. Confluent retrocardiac and perihilar airspace opacities. Small left pleural effusion. No pneumothorax. The cardiac silhouette is within normal limits. No acute osseous abnormalities. IMPRESSION: Unchanged pulmonary edema with small left pleural effusion. at 0824 Reported and signed by: Samuel Boyd MD CC: Will Trivedi Technologist: Miguel Oviedo, RT(R) Transcrpt Date/Tm/Trnsp: 08/13/2019 (0824) [email or web address] Orig Print D/T: S: 08/13/2019 (0827) [facility] NAME:JAXON REEVES PHYS: [place] [address] : 1950 AGE: 69 SEX: M [facility] NO: [id number] LOC: ZJose JuanSIPolina Saldana PHONE #: [phone] EXAM DATE: 08/13/2019 STATUS: ADM IN FAX #: [phone] RADIOLOGY NO: PAGE 1 Signed ReportPROTHROMBIN [id number] 07:52:00 Test Item Value Reference Range Interpretation Comments PROTHROMBIN TIME 10.6 SECONDS 9.6-11.6 N PATIENT (test code = PTP) INTERNATIONAL NORMAL 1.0 0.8-1.1 N The INR is to be RATIO (test code = used only for INR) monitoring oral anticoagulantth erap y. INDICATION I NR VALUE ---- ---- ---- -------1. Prophylaxis, de ep venous thrombos is, including hig h risk surgery. 2.0 - 3.0 2. Prophylaxis, de ep venous thrombos is, hip surgery, treatment for d eep venous thrombosis or pulmonary prevention of systemic emboli sm in patients wit h valvular heart disease, atrial fibrillation, tissue heart va lve, or acute myocar dial infarction. 2.0 - 3 .0 3. Mechanical prosthesis hear t valves, recurrent syste petey embolism. 3.0 - 4.5 PTT [id number] 07:52:00 Test Item Value Reference Range Interpretation Comments PTT ACTIVATED (test code = APTT) 33.0 SECONDS 22.0-33.0 N BASIC METABOLIC [id number] 07:44:00 Test Item Value Reference Range Interpretation Comments SODIUM (test code = 135 MMOL/L 137-145 L NA) POTASSIUM (test code = 3.9 MMOL/L 3.5-5.1 N K) CHLORIDE (test code = 100 MMOL/L 98-107 N CL) CARBON DIOXIDE (test 28 MMOL/L 22-30 N code = CO2) GLUCOSE (test code = 138 MG/DL 74-106 H GLU) BLOOD UREA NITROGEN 16 MG/DL 9-20 N (test code = BUN) GLOMERULAR FILTRATION > 60 Report ing units: RATE (test code = GFR) ml/mi n/1.73 m2 (Modified MDRD Formula)Referen ce Range: > or = 6 0 ml/min/1.73 m2 CREATININE (test code 0.80 MG/DL 0.66-1.25 N = CREAT) CALCIUM (test code = 8.2 MG/DL 8.4-10.2 L CA) [id number] 07:44:00 Test Item Value Reference Range Interpretation Comments MAGNESIUM (test code = MAG) 1.8 MG/DL 1.6-2.3 N BASIC METABOLIC [id number] 07:43:00 Test Item Value Reference Range Interpretation Comments SODIUM (test code = 135 MMOL/L 137-145 L NA) POTASSIUM (test code = 3.9 MMOL/L 3.5-5.1 N K) CHLORIDE (test code = 100 MMOL/L 98-107 N CL) CARBON DIOXIDE (test 28 MMOL/L 22-30 N code = CO2) GLUCOSE (test code = MG/DL 74-106 GLU) BLOOD UREA NITROGEN MG/DL 9-20 (test code = BUN) GLOMERULAR FILTRATION > 60 Report ing units: RATE (test code = GFR) ml/mi n/1.73 m2 (Modified MDRD Formula)Referen ce Range: > or = 6 0 ml/min/1.73 m2 CREATININE (test code 0.80 MG/DL 0.66-1.25 N = CREAT) CALCIUM (test code = MG/DL 8.7-9.7 CA) [id number] 07:43:00 Test Item Value Reference Range Interpretation Comments MAGNESIUM (test code = MAG) MG/DL 1.6-2.3 BASIC METABOLIC [id number] 07:40:00 Test Item Value Reference Range Interpretation Comments SODIUM (test code = NA) 135 MMOL/L 137-145 L POTASSIUM (test code = K) 3.9 MMOL/L 3.5-5.1 N CHLORIDE (test code = CL) 100 MMOL/L 98-107 N CARBON DIOXIDE (test code = CO2) MMOL/L 22-30 GLUCOSE (test code = GLU) MG/DL 74-106 BLOOD UREA NITROGEN (test code = MG/DL 9-20 BUN) GLOMERULAR FILTRATION RATE (test code = GFR) CREATININE (test code = CREAT) MG/DL 0.66-1.25 CALCIUM (test code = CA) MG/DL 8.7-9.7 [id number] 07:40:00 Test Item Value Reference Range Interpretation Comments MAGNESIUM (test code = MAG) MG/DL 1.6-2.3 CBC W/AUTO [id number] 07:04:00 Test Item Value Reference Range Interpretation Comments WHITE BLOOD CELL (test code = 10.1 K/MM3 3.8-9.8 H WBC) RED BLOOD CELL (test code = 2.77 M/MM3 3.95-5.67 L RBC) HEMOGLOBIN (test code = HGB) 7.8 G/DL 12.4-16.7 L HEMATOCRIT (test code = HCT) 25.0 % 35.9-49.5 L MEAN CELL VOLUME (test code = 90 fL 81.7-96.1 N MCV) MEAN CELL HGB (test code = MCH) 28.2 pg 27.6-33.2 N MEAN CELL HGB CONCETRATION 31.2 % 32.9-35.5 L (test code = MCHC) RED CELL DISTRIBUTION WIDTH 13.5 % 12.1-15.2 N (test code = RDW) PLATELET COUNT (test code = 165 K/MM3 129-368 N PLT) MEAN PLATELET VOLUME (test code 10.9 fl 7.4-10.4 H = MPV) NEUTROPHIL % (test code = NT%) 70.0 % 43-75 N IMMATURE GRANULOCYTE % (test 0.4 % 0.0-2.0 N code = IG%) LYMPHOCYTE % (test code = LY%) 17.2 % 14-44 N MONOCYTE % (test code = MO%) 7.9 % 4-13 N EOSINOPHIL % (test code = EO%) 4.1 % 0-6 N BASOPHIL % (test code = BA%) 0.4 % 0-2 N NUCLEATED RBC % (test code = 0.0 % 0-1.0 N NRBC%) NEUTROPHIL # (test code = NT#) 7.05 K/mm3 2.0-7.6 N IMMATURE GRANULOCYTE # (test 0.04 x10 3/uL 0-0.03 H code = IG#) LYMPHOCYTE # (test code = LY#) 1.73 K/mm3 1.0-3.8 N MONOCYTE # (test code = MO#) 0.79 K/mm3 0.1-0.8 N EOSINOPHIL # (test code = EO#) 0.41 K/mm3 0.0-0.2 H BASOPHIL # (test code = BA#) 0.04 K/mm3 0.0-0.2 N NUCLEATED RBC # (test code = 0.00 K/mm3 0.0-0.1 N NRBC#) GLUCOSE BEDSIDE [id number] 06:28:00 Test Item Value Reference Range Interpretation Comments GLUCOSE BEDSIDE TESTING (test code 143 MG/DL 60-99 H = GLUBED) GLUCOSE BEDSIDE [id number] 16:51:00 Test Item Value Reference Range Interpretation Comments GLUCOSE BEDSIDE TESTING (test code 164 MG/DL 60-99 H = GLUBED) GLUCOSE BEDSIDE [id number] 11:47:00 Test Item Value Reference Range Interpretation Comments GLUCOSE BEDSIDE TESTING (test code 167 MG/DL 60-99 H = GLUBED) GLUCOSE BEDSIDE [id number] 11:16:00 Test Item Value Reference Range Interpretation Comments GLUCOSE BEDSIDE TESTING (test code 173 MG/DL 60-99 H = GLUBED) GLUCOSE BEDSIDE [id number] 11:16:00 Test Item Value Reference Range Interpretation Comments GLUCOSE BEDSIDE TESTING (test code 197 MG/DL 60-99 H = GLUBED) - XR CHEST [id number] 08:18:00 Patient Name: JAXON REEVES Unit No: [id number] EXAMS: CPT CODE: [id number] XR CHEST 1V 91876 Site ID: [id number] EXAMINATION: - XR CHEST 1V. HISTORY: S/P CABG. COMPARISON: August 11, 2019. FINDINGS: The heart is moderately enlarged. There is a small to moderate pleural effusion on the left side with left basilar infiltrate or atelectasis. There is mild vascular congestion suggested. The findings are similar to the previous exam no pneumothorax. There is a left subclavian central line with the tip terminating at the brachial cephalic catheter veins confluence. Sternotomy wires and surgical clips in the mediastinum and right side of the neck seen. IMPRESSION: Cardiomegaly with minimal vascular congestion. Left basilar infiltrate or atelectasiswith a small effusion.. at 0818 Reported and signed by: Jf Stratton MD CC: Will Root; Hilary Trivedi Technologist: Elo Restrepo, RT(R) Transcrpt Date/Tm/Trnsp: 08/12/2019 (817) Pili Orig Print D/T: S: 08/12/2019 (820) [facility] NAME: JAXON REEVES [id number] PHYS: [place] [address] : 1950 AGE: 69 SEX: M ACCT NO: [id number] LOC: [id number].SI06 A PHONE #: [phone] EXAM DATE: 08/12/2019 STATUS: ADM IN FAX #: [phone] RADIOLOGY NO: PAGE 1 Signed ReportPROTHROMBIN [id number] 07:39:00 Test Item Value Reference Range Interpretation Comments PROTHROMBIN TIME 10.7 SECONDS 9.6-11.6 N PATIENT (test code = PTP) INTERNATIONAL NORMAL 1.0 0.8-1.1 N The INR is to be RATIO (test code = used only for INR) monitoring oral anticoagulantth erap y. INDICATION I NR VALUE ---- ---- ---- -------1. Prophylaxis, de ep venous thrombos is, including hig h risk surgery. 2.0 - 3.0 2. Prophylaxis, de ep venous thrombos is, hip surgery, treatment for d eep venous thrombosis or pulmonary prevention of systemic emboli sm in patients wit h valvular heart disease, atrial fibrillation, tissue heart va lve, or acute myocar dial infarction. 2.0 - 3 .0 3. Mechanical prosthesis hear t valves, recurrent syste petey embolism. 3.0 - 4.5 PTT [id number] 07:39:00 Test Item Value Reference Range Interpretation Comments PTT ACTIVATED (test code = APTT) 31.0 SECONDS 22.0-33.0 CBC W/AUTO [id number] 07:16:00 Test Item Value Reference Range Interpretation Comments WHITE BLOOD CELL (test code = 12.8 K/MM3 3.8-9.8 H WBC) RED BLOOD CELL (test code = 2.93 M/MM3 3.95-5.67 L RBC) HEMOGLOBIN (test code = HGB) 8.2 G/DL 12.4-16.7 L HEMATOCRIT (test code = HCT) 26.2 % 35.9-49.5 L MEAN CELL VOLUME (test code = 89 fL 81.7-96.1 N MCV) MEAN CELL HGB (test code = MCH) 28.0 pg 27.6-33.2 N MEAN CELL HGB CONCETRATION 31.3 % 32.9-35.5 L (test code = MCHC) RED CELL DISTRIBUTION WIDTH 13.7 % 12.1-15.2 N (test code = RDW) PLATELET COUNT (test code = 145 K/MM3 129-368 N PLT) MEAN PLATELET VOLUME (test code 11.1 fl 7.4-10.4 H = MPV) NEUTROPHIL % (test code = NT%) 72.1 % 43-75 N IMMATURE GRANULOCYTE % (test 0.5 % 0.0-2.0 N code = IG%) LYMPHOCYTE % (test code = LY%) 16.0 % 14-44 N MONOCYTE % (test code = MO%) 7.6 % 4-13 N EOSINOPHIL % (test code = EO%) 3.4 % 0-6 N BASOPHIL % (test code = BA%) 0.4 % 0-2 N NUCLEATED RBC % (test code = 0.0 % 0-1.0 N NRBC%) NEUTROPHIL # (test code = NT#) 9.24 K/mm3 2.0-7.6 H IMMATURE GRANULOCYTE # (test 0.07 x10 3/uL 0-0.03 H code = IG#) LYMPHOCYTE # (test code = LY#) 2.05 K/mm3 1.0-3.8 N MONOCYTE # (test code = MO#) 0.98 K/mm3 0.1-0.8 H EOSINOPHIL # (test code = EO#) 0.43 K/mm3 0.0-0.2 H BASOPHIL # (test code = BA#) 0.05 K/mm3 0.0-0.2 N NUCLEATED RBC # (test code = 0.00 K/mm3 0.0-0.1 N NRBC#) BASIC METABOLIC [id number] 07:09:00 Test Item Value Reference Range Interpretation Comments SODIUM (test code = 134 MMOL/L 137-145 L NA) POTASSIUM (test code = 4.1 MMOL/L 3.5-5.1 N K) CHLORIDE (test code = 100 MMOL/L 98-107 N CL) CARBON DIOXIDE (test 29 MMOL/L 22-30 N code = CO2) ANION GAP (test code = 9 MMOL/L 14-24 L GAP) GLUCOSE (test code = 141 MG/DL 74-106 H GLU) BLOOD UREA NITROGEN 15 MG/DL 9-20 N (test code = BUN) GLOMERULAR FILTRATION > 60 Report ing units: RATE (test code = GFR) ml/mi n/1.73 m2 (Modified MDRD Formula)Referen ce Range: > or = 6 0 ml/min/1.73 m2 CREATININE (test code 0.70 MG/DL 0.66-1.25 = CREAT) CALCIUM (test code = 8.1 MG/DL 8.4-10.2 L CA) [id number] 07:09:00 Test Item Value Reference Range Interpretation Comments MAGNESIUM (test code = MAG) 1.8 MG/DL 1.6-2.3 N BASIC METABOLIC [id number] 06:57:00 Test Item Value Reference Range Interpretation Comments SODIUM (test code = NA) 134 MMOL/L 137-145 L POTASSIUM (test code = K) 4.1 MMOL/L 3.5-5.1 N CHLORIDE (test code = CL) 100 MMOL/L 98-107 N CARBON DIOXIDE (test code = CO2) MMOL/L 22-30 GLUCOSE (test code = GLU) MG/DL 74-106 BLOOD UREA NITROGEN (test code = MG/DL 9-20 BUN) GLOMERULAR FILTRATION RATE (test code = GFR) CREATININE (test code = CREAT) MG/DL 0.66-1.25 CALCIUM (test code = CA) MG/DL 8.7-9.7 [id number] 06:57:00 Test Item Value Reference Range Interpretation Comments MAGNESIUM (test code = MAG) MG/DL 1.6-2.3 BASIC METABOLIC [id number] 06:56:00 Test Item Value Reference Range Interpretation Comments SODIUM (test code = NA) MMOL/L 137-145 POTASSIUM (test code = K) MMOL/L 3.5-5.1 CHLORIDE (test code = CL) 100 MMOL/L 98-107 N CARBON DIOXIDE (test code = CO2) MMOL/L 22-30 GLUCOSE (test code = GLU) MG/DL 74-106 BLOOD UREA NITROGEN (test code = MG/DL 9-20 BUN) GLOMERULAR FILTRATION RATE (test code = GFR) CREATININE (test code = CREAT) MG/DL 0.66-1.25 CALCIUM (test code = CA) MG/DL 8.7-9.7 [id number] 06:56:00 Test Item Value Reference Range Interpretation Comments MAGNESIUM (test code = MAG) MG/DL 1.6-2.3 GLUCOSE BEDSIDE [id number] 06:01:00 Test Item Value Reference Range Interpretation Comments GLUCOSE BEDSIDE TESTING (test code 182 MG/DL 60-99 H = GLUBED) GLUCOSE BEDSIDE [id number] 11:32:00 Test Item Value Reference Range Interpretation Comments GLUCOSE BEDSIDE TESTING (test code 142 MG/DL 60-99 H = GLUBED) GLUCOSE BEDSIDE [id number] 11:32:00 Test Item Value Reference Range Interpretation Comments GLUCOSE BEDSIDE TESTING (test code 100 MG/DL 60-99 H = GLUBED) GLUCOSE BEDSIDE [id number] 11:28:00 Test Item Value Reference Range Interpretation Comments GLUCOSE BEDSIDE TESTING (test code 192 MG/DL 60-99 H = GLUBED) GLUCOSE BEDSIDE [id number] 11:22:00 Test Item Value Reference Range Interpretation Comments GLUCOSE BEDSIDE TESTING (test code 182 MG/DL 60-99 H = GLUBED) B-TYPE NATRIURETIC [id number] 09:01:00 Test Item Value Reference Range Interpretation Comments B-TYPE NATRIURETIC PEPTIDE (test 468.0 PG/ML 0-100 H code = BNP) GLUCOSE BEDSIDE [id number] 08:08:00 Test Item Value Reference Range Interpretation Comments GLUCOSE BEDSIDE TESTING (test code 146 MG/DL 60-99 H = GLUBED) GLUCOSE BEDSIDE [id number] 08:08:00 Test Item Value Reference Range Interpretation Comments GLUCOSE BEDSIDE TESTING (test code 133 MG/DL 60-99 H = GLUBED) GLUCOSE BEDSIDE [id number] 08:08:00 Test Item Value Reference Range Interpretation Comments GLUCOSE BEDSIDE TESTING (test code 139 MG/DL 60-99 H = GLUBED) GLUCOSE BEDSIDE [id number] 07:10:00 Test Item Value Reference Range Interpretation Comments GLUCOSE BEDSIDE TESTING (test code 181 MG/DL 60-99 H = GLUBED) BASIC METABOLIC [id number] 07:02:00 Test Item Value Reference Range Interpretation Comments SODIUM (test code = 133 MMOL/L 137-145 L NA) POTASSIUM (test code = 4.4 MMOL/L 3.5-5.1 N K) CHLORIDE (test code = 102 MMOL/L 98-107 N CL) CARBON DIOXIDE (test 25 MMOL/L 22-30 N code = CO2) GLUCOSE (test code = 175 MG/DL 74-106 H GLU) BLOOD UREA NITROGEN 16 MG/DL 9-20 N (test code = BUN) GLOMERULAR FILTRATION > 60 Report ing units: RATE (test code = GFR) ml/mi n/1.73 m2 (Modified MDRD Formula)Referen ce Range: > or = 6 0 ml/min/1.73 m2 CREATININE (test code 0.90 MG/DL 0.66-1.25 N = CREAT) CALCIUM (test code = 7.6 MG/DL 8.4-10.2 L CA) [id number] 07:02:00 Test Item Value Reference Range Interpretation Comments MAGNESIUM (test code = MAG) 2.0 MG/DL 1.6-2.3 N BASIC METABOLIC [id number] 07:01:00 Test Item Value Reference Range Interpretation Comments SODIUM (test code = 133 MMOL/L 137-145 L NA) POTASSIUM (test code = 4.4 MMOL/L 3.5-5.1 N K) CHLORIDE (test code = 102 MMOL/L 98-107 N CL) CARBON DIOXIDE (test 25 MMOL/L 22-30 N code = CO2) GLUCOSE (test code = 175 MG/DL 74-106 H GLU) BLOOD UREA NITROGEN 16 MG/DL 9-20 N (test code = BUN) GLOMERULAR FILTRATION > 60 Report ing units: RATE (test code = GFR) ml/mi n/1.73 m2 (Modified MDRD Formula)Referen ce Range: > or = 6 0 ml/min/1.73 m2 CREATININE (test code 0.90 MG/DL 0.66-1.25 N = CREAT) CALCIUM (test code = MG/DL 8.7-9.7 CA) [id number] 07:01:00 Test Item Value Reference Range Interpretation Comments MAGNESIUM (test code = MAG) MG/DL 1.6-2.3 BASIC METABOLIC [id number] 06:58:00 Test Item Value Reference Range Interpretation Comments SODIUM (test code = NA) 133 MMOL/L 137-145 L POTASSIUM (test code = K) 4.4 MMOL/L 3.5-5.1 N CHLORIDE (test code = CL) 102 MMOL/L 98-107 N CARBON DIOXIDE (test code = CO2) MMOL/L 22-30 GLUCOSE (test code = GLU) MG/DL 74-106 BLOOD UREA NITROGEN (test code = MG/DL 9-20 BUN) GLOMERULAR FILTRATION RATE (test code = GFR) CREATININE (test code = CREAT) MG/DL 0.66-1.25 CALCIUM (test code = CA) MG/DL 8.7-9.7 [id number] 06:58:00 Test Item Value Reference Range Interpretation Comments MAGNESIUM (test code = MAG) MG/DL 1.6-2.3 PROTHROMBIN [id number] 06:48:00 Test Item Value Reference Range Interpretation Comments PROTHROMBIN TIME 10.3 SECONDS 9.6-11.6 N PATIENT (test code = PTP) INTERNATIONAL NORMAL 1.0 0.8-1.1 N The INR is to be RATIO (test code = used only for INR) monitoring oral anticoagulantth erap y. INDICATION I NR VALUE ---- ---- ---- -------1. Prophylaxis, de ep venous thrombos is, including hig h risk surgery. 2.0 - 3.0 2. Prophylaxis, de ep venous thrombos is, hip surgery, treatment for d eep venous thrombosis or pulmonary prevention of systemic emboli sm in patients wit h valvular heart disease, atrial fibrillation, tissue heart va lve, or acute myocar dial infarction. 2.0 - 3 .0 3. Mechanical prosthesis hear t valves, recurrent syste petey embolism. 3.0 - 4.5 PTT [id number] 06:48:00 Test Item Value Reference Range Interpretation Comments PTT ACTIVATED (test code = APTT) 34.8 SECONDS 22.0-33.0 H - XR CHEST [id number] 06:40:00 Patient Name: JAXON REEVES Unit No: [id number] EXAMS: CPT CODE: [id number] XR CHEST 1V 22758 Exam: Chest portable erect Location: H 12 History: S/P CABG Comparison: 08/10/2019. Findings: No change has occurredin the aeration of the lungs. The heart size is enlarged. Postoperative changes of CABG are present. The mediastinal silhouette is unremarkable. The bony thorax is intact. The left subclavian line remains in place. Impression: Stable chest/no change. at 0640 Reported and signed by: Margarito Wilcox M.D. CC: Will Root; Hilary Trivedi Technologist: Elo Restrepo RT(R) Transcrpt Date/Tm/Trnsp: 08/11/2019 (0640) AndrewFC Orig Print D/T: S: 08/11/2019 (0643) [facility] NAME: JAXON REEVES [address] PHYS: [place] [address] : 1950 AGE: 69 SEX: M LOC: [id number].SI06 A PHONE #: [phone] EXAM DATE: 08/11/2019 STATUS: ADM IN FAX #: [phone] RADIOLOGY NO: PAGE 1 Signed ReportCBC W/AUTO [id number] 06:27:00 Test Item Value Reference Range Interpretation Comments WHITE BLOOD CELL (test code = 15.1 K/MM3 3.8-9.8 H WBC) RED BLOOD CELL (test code = 2.67 M/MM3 3.95-5.67 L RBC) HEMOGLOBIN (test code = HGB) 7.6 G/DL 12.4-16.7 L HEMATOCRIT (test code = HCT) 23.5 % 35.9-49.5 L MEAN CELL VOLUME (test code = 88 fL 81.7-96.1 N MCV) MEAN CELL HGB (test code = MCH) 28.5 pg 27.6-33.2 N MEAN CELL HGB CONCETRATION 32.3 % 32.9-35.5 L (test code = MCHC) RED CELL DISTRIBUTION WIDTH 13.8 % 12.1-15.2 N (test code = RDW) PLATELET COUNT (test code = 124 K/MM3 129-368 L PLT) MEAN PLATELET VOLUME (test code 10.7 fl 7.4-10.4 H = MPV) NEUTROPHIL % (test code = NT%) 77.9 % 43-75 H IMMATURE GRANULOCYTE % (test 0.5 % 0.0-2.0 N code = IG%) LYMPHOCYTE % (test code = LY%) 12.0 % 14-44 L MONOCYTE % (test code = MO%) 8.4 % 4-13 N EOSINOPHIL % (test code = EO%) 0.9 % 0-6 N BASOPHIL % (test code = BA%) 0.3 % 0-2 N NUCLEATED RBC % (test code = 0.0 % 0-1.0 N NRBC%) NEUTROPHIL # (test code = NT#) 11.73 K/mm3 2.0-7.6 H IMMATURE GRANULOCYTE # (test 0.08 x10 3/uL 0-0.03 H code = IG#) LYMPHOCYTE # (test code = LY#) 1.81 K/mm3 1.0-3.8 N MONOCYTE # (test code = MO#) 1.26 K/mm3 0.1-0.8 H EOSINOPHIL # (test code = EO#) 0.13 K/mm3 0.0-0.2 N BASOPHIL # (test code = BA#) 0.04 K/mm3 0.0-0.2 N NUCLEATED RBC # (test code = 0.00 K/mm3 0.0-0.1 N NRBC#) GLUCOSE BEDSIDE [id number] 08:46:00 Test Item Value Reference Range Interpretation Comments GLUCOSE BEDSIDE TESTING (test code 156 MG/DL 60-99 H = GLUBED) GLUCOSE BEDSIDE [id number] 08:46:00 Test Item Value Reference Range Interpretation Comments GLUCOSE BEDSIDE TESTING (test code 161 MG/DL 60-99 H = GLUBED) GLUCOSE BEDSIDE [id number] 08:46:00 Test Item Value Reference Range Interpretation Comments GLUCOSE BEDSIDE TESTING (test code 173 MG/DL 60-99 H = GLUBED) GLUCOSE BEDSIDE [id number] 08:36:00 Test Item Value Reference Range Interpretation Comments GLUCOSE BEDSIDE TESTING (test code 122 MG/DL 60-99 H = GLUBED) GLUCOSE BEDSIDE [id number] 07:49:00 Test Item Value Reference Range Interpretation Comments GLUCOSE BEDSIDE TESTING (test code 102 MG/DL 60-99 H = GLUBED) - XR CHEST [id number] 07:28:00 Patient Name: JAXON REEVES Unit No: [id number] EXAMS: CPT CODE: [id number] XR CHEST 1V 23817 C3 EXAM: - XR CHEST 1V HISTORY: S/P CABG COMPARISON: 08/09/2019 FINDINGS: Left subclavian central line in unchangedposition. Interval removal of endotracheal tube and nasogastric tube. Sternotomy wires again noted. Patchy bilateral airspace opacities are decreased compared to the prior exam. Small left pleural effusion. No pneumothorax. The cardiac silhouette is within normal limits. No acute osseous abnormalities. IMPRESSION: Improved aeration with decreased atelectasis and/or pulmonary edema. Persistent small left pleural effusion is also decreased. at 0728 Reported and signed by: Samuel Boyd MD CC: Will Root; Hilary Trivedi Technologist: RT Joaquim(R) Transcrpt Date/Tm/Trnsp: 08/10/2019 (0728) [email or web address] Orig Print D/T: S: 08/10/2019 (0731) [facility] NAME: JAXON REEVES [id number] [address] PHYS: [place] [address] : 1950 AGE: 69 SEX: M LOC: [id number] PHONE #: [phone] EXAM DATE: 08/10/2019 STATUS: ADM IN FAX #: [phone] RADIOLOGY NO: PAGE 1 Signed ReportGLUCOSE BEDSIDE TESTING 2019-08-10 06:01:00 Test Item Value Reference Range Interpretation Comments GLUCOSE BEDSIDE TESTING (test code 141 MG/DL 60-99 H = GLUBED) GLUCOSE BEDSIDE [id number] 06:01:00 Test Item Value Reference Range Interpretation Comments GLUCOSE BEDSIDE TESTING (test code 151 MG/DL 60-99 H = GLUBED) GLUCOSE BEDSIDE [id number] 06:01:00 Test Item Value Reference Range Interpretation Comments GLUCOSE BEDSIDE TESTING (test code 161 MG/DL 60-99 H = GLUBED) GLUCOSE BEDSIDE [id number] 06:01:00 Test Item Value Reference Range Interpretation Comments GLUCOSE BEDSIDE TESTING (test code 167 MG/DL 60-99 H = GLUBED) GLUCOSE BEDSIDE [id number] 06:01:00 Test Item Value Reference Range Interpretation Comments GLUCOSE BEDSIDE TESTING (test code 176 MG/DL 60-99 H = GLUBED) GLUCOSE BEDSIDE [id number] 06:01:00 Test Item Value Reference Range Interpretation Comments GLUCOSE BEDSIDE TESTING (test code 201 MG/DL 60-99 H = GLUBED) GLUCOSE BEDSIDE [id number] 06:01:00 Test Item Value Reference Range Interpretation Comments GLUCOSE BEDSIDE TESTING (test code 214 MG/DL 60-99 H = GLUBED) GLUCOSE BEDSIDE [id number] 06:01:00 Test Item Value Reference Range Interpretation Comments GLUCOSE BEDSIDE TESTING (test code 102 MG/DL 60-99 H = GLUBED) PROTHROMBIN [id number] 04:36:00 Test Item Value Reference Range Interpretation Comments PROTHROMBIN TIME 10.6 SECONDS 9.6-11.6 PATIENT (test code = PTP) INTERNATIONAL NORMAL 1.0 0.8-1.1 N The INR is to be RATIO (test code = used only for INR) monitoring oral anticoagulantth erap y. INDICATION I NR VALUE ---- ---- ---- -------1. Prophylaxis, de ep venous thrombos is, including hig h risk surgery. 2.0 - 3.0 2. Prophylaxis, de ep venous thrombos is, hip surgery, treatment for d eep venous thrombosis or pulmonary prevention of systemic emboli sm in patients wit h valvular heart disease, atrial fibrillation, tissue heart va lve, or acute myocar dial infarction. 2.0 - 3 .0 3. Mechanical prosthesis hear t valves, recurrent syste petey embolism. 3.0 - 4.5 PTT [id number] 04:36:00 Test Item Value Reference Range Interpretation Comments PTT ACTIVATED (test code = APTT) 31.3 SECONDS 22.0-33.0 BASIC METABOLIC [id number] 04:29:00 Test Item Value Reference Range Interpretation Comments SODIUM (test code = 137 MMOL/L 137-145 N NA) POTASSIUM (test code = 4.5 MMOL/L 3.5-5.1 N K) CHLORIDE (test code = 103 MMOL/L 98-107 N CL) CARBON DIOXIDE (test 27 MMOL/L 22-30 N code = CO2) ANION GAP (test code = 12 MMOL/L 14-24 L GAP) GLUCOSE (test code = 160 MG/DL 74-106 H GLU) BLOOD UREA NITROGEN 17 MG/DL 9-20 N (test code = BUN) GLOMERULAR FILTRATION > 60 Report ing units: RATE (test code = GFR) ml/mi n/1.73 m2 (Modified MDRD Formula)Referen ce Range: > or = 6 0 ml/min/1.73 m2 CREATININE (test code 0.90 MG/DL 0.66-1.25 N = CREAT) CALCIUM (test code = 7.5 MG/DL 8.4-10.2 L CA) [id number] 04:29:00 Test Item Value Reference Range Interpretation Comments MAGNESIUM (test code = MAG) 2.5 MG/DL 1.6-2.3 H CBC W/AUTO [id number] 04:06:00 Test Item Value Reference Range Interpretation Comments WHITE BLOOD CELL (test code = 13.4 K/MM3 3.8-9.8 H WBC) RED BLOOD CELL (test code = 2.94 M/MM3 3.95-5.67 L RBC) HEMOGLOBIN (test code = HGB) 8.2 G/DL 12.4-16.7 L HEMATOCRIT (test code = HCT) 26.3 % 35.9-49.5 L MEAN CELL VOLUME (test code = 90 fL 81.7-96.1 N MCV) MEAN CELL HGB (test code = MCH) 27.9 pg 27.6-33.2 N MEAN CELL HGB CONCETRATION 31.2 % 32.9-35.5 L (test code = MCHC) RED CELL DISTRIBUTION WIDTH 13.6 % 12.1-15.2 N (test code = RDW) PLATELET COUNT (test code = 151 K/MM3 129-368 N PLT) MEAN PLATELET VOLUME (test code 10.7 fl 7.4-10.4 H = MPV) NEUTROPHIL % (test code = NT%) 89.9 % 43-75 H IMMATURE GRANULOCYTE % (test 0.4 % 0.0-2.0 N code = IG%) LYMPHOCYTE % (test code = LY%) 4.7 % 14-44 L MONOCYTE % (test code = MO%) 4.9 % 4-13 N EOSINOPHIL % (test code = EO%) 0.0 % 0-6 N BASOPHIL % (test code = BA%) 0.1 % 0-2 N NUCLEATED RBC % (test code = 0.0 % 0-1.0 N NRBC%) NEUTROPHIL # (test code = NT#) 12.06 K/mm3 2.0-7.6 H IMMATURE GRANULOCYTE # (test 0.06 x10 3/uL 0-0.03 H code = IG#) LYMPHOCYTE # (test code = LY#) 0.63 K/mm3 1.0-3.8 L MONOCYTE # (test code = MO#) 0.66 K/mm3 0.1-0.8 N EOSINOPHIL # (test code = EO#) 0.00 K/mm3 0.0-0.2 N BASOPHIL # (test code = BA#) 0.01 K/mm3 0.0-0.2 N NUCLEATED RBC # (test code = 0.00 K/mm3 0.0-0.1 N NRBC#) BASIC METABOLIC [id number] 16:33:00 Test Item Value Reference Range Interpretation Comments SODIUM (test code = 135 MMOL/L 137-145 L NA) POTASSIUM (test code = 5.3 MMOL/L 3.5-5.1 H K) CHLORIDE (test code = 108 MMOL/L 98-107 H CL) CARBON DIOXIDE (test 22 MMOL/L 22-30 N code = CO2) GLUCOSE (test code = 217 MG/DL 74-106 H GLU) BLOOD UREA NITROGEN 19 MG/DL 9-20 N (test code = BUN) GLOMERULAR FILTRATION > 60 Report ing units: RATE (test code = GFR) ml/mi n/1.73 m2 (Modified MDRD Formula)Referen ce Range: > or = 6 0 ml/min/1.73 m2 CREATININE (test code 0.90 MG/DL 0.66-1.25 N = CREAT) CALCIUM (test code = 7.6 MG/DL 8.4-10.2 L CA) [id number] 16:33:00 Test Item Value Reference Range Interpretation Comments MAGNESIUM (test code = MAG) 3.9 MG/DL 1.6-2.3 H BASIC METABOLIC [id number] 16:17:00 Test Item Value Reference Range Interpretation Comments SODIUM (test code = 135 MMOL/L 137-145 L NA) POTASSIUM (test code = 5.3 MMOL/L 3.5-5.1 H K) CHLORIDE (test code = 108 MMOL/L 98-107 H CL) CARBON DIOXIDE (test 22 MMOL/L 22-30 N code = CO2) GLUCOSE (test code = MG/DL 74-106 GLU) BLOOD UREA NITROGEN MG/DL 9-20 (test code = BUN) GLOMERULAR FILTRATION > 60 Report ing units: RATE (test code = GFR) ml/mi n/1.73 m2 (Modified MDRD Formula)Referen ce Range: > or = 6 0 ml/min/1.73 m2 CREATININE (test code 0.90 MG/DL 0.66-1.25 N = CREAT) CALCIUM (test code = MG/DL 8.7-9.7 CA) [id number] 16:17:00 Test Item Value Reference Range Interpretation Comments MAGNESIUM (test code = MAG) MG/DL 1.6-2.3 BASIC METABOLIC [id number] 16:14:00 Test Item Value Reference Range Interpretation Comments SODIUM (test code = NA) 135 MMOL/L 137-145 L POTASSIUM (test code = K) 5.3 MMOL/L 3.5-5.1 H CHLORIDE (test code = CL) 108 MMOL/L 98-107 H CARBON DIOXIDE (test code = CO2) MMOL/L 22-30 GLUCOSE (test code = GLU) MG/DL 74-106 BLOOD UREA NITROGEN (test code = MG/DL 9-20 BUN) GLOMERULAR FILTRATION RATE (test code = GFR) CREATININE (test code = CREAT) MG/DL 0.66-1.25 CALCIUM (test code = CA) MG/DL 8.7-9.7 [id number] 16:14:00 Test Item Value Reference Range Interpretation Comments MAGNESIUM (test code = MAG) MG/DL 1.6-2.3 PROTHROMBIN [id number] 16:02:00 Test Item Value Reference Range Interpretation Comments PROTHROMBIN TIME 11.8 SECONDS 9.6-11.6 H PATIENT (test code = PTP) INTERNATIONAL NORMAL 1.1 0.8-1.1 N The INR is to be RATIO (test code = used only for INR) monitoring oral anticoagulantth erap y. INDICATION I NR VALUE ---- ---- ---- -------1. Prophylaxis, de ep venous thrombos is, including hig h risk surgery. 2.0 - 3.0 2. Prophylaxis, de ep venous thrombos is, hip surgery, treatment for d eep venous thrombosis or pulmonary prevention of systemic emboli sm in patients wit h valvular heart disease, atrial fibrillation, tissue heart va lve, or acute myocar dial infarction. 2.0 - 3 .0 3. Mechanical prosthesis hear t valves, recurrent syste petey embolism. 3.0 - 4.5 PTT [id number] 16:02:00 Test Item Value Reference Range Interpretation Comments PTT ACTIVATED (test code = APTT) 25.8 SECONDS 22.0-33.0 N CBC W/AUTO [id number] 15:58:00 Test Item Value Reference Range Interpretation Comments WHITE BLOOD CELL (test code = 19.8 K/MM3 3.8-9.8 H WBC) RED BLOOD CELL (test code = 3.08 M/MM3 3.95-5.67 L RBC) HEMOGLOBIN (test code = HGB) 8.7 G/DL 12.4-16.7 L HEMATOCRIT (test code = HCT) 27.5 % 35.9-49.5 L MEAN CELL VOLUME (test code = 89 fL 81.7-96.1 N MCV) MEAN CELL HGB (test code = MCH) 28.2 pg 27.6-33.2 N MEAN CELL HGB CONCETRATION 31.6 % 32.9-35.5 L (test code = MCHC) RED CELL DISTRIBUTION WIDTH 13.5 % 12.1-15.2 N (test code = RDW) PLATELET COUNT (test code = 162 K/MM3 129-368 PLT) MEAN PLATELET VOLUME (test code 10.5 fl 7.4-10.4 H = MPV) NEUTROPHIL % (test code = NT%) 78.0 % 43-75 H IMMATURE GRANULOCYTE % (test 1.2 % 0.0-2.0 N code = IG%) LYMPHOCYTE % (test code = LY%) 13.6 % 14-44 L MONOCYTE % (test code = MO%) 5.0 % 4-13 N EOSINOPHIL % (test code = EO%) 1.9 % 0-6 N BASOPHIL % (test code = BA%) 0.3 % 0-2 N NUCLEATED RBC % (test code = 0.0 % 0-1.0 N NRBC%) NEUTROPHIL # (test code = NT#) 15.45 K/mm3 2.0-7.6 H IMMATURE GRANULOCYTE # (test 0.24 x10 3/uL 0-0.03 H code = IG#) LYMPHOCYTE # (test code = LY#) 2.70 K/mm3 1.0-3.8 N MONOCYTE # (test code = MO#) 1.00 K/mm3 0.1-0.8 H EOSINOPHIL # (test code = EO#) 0.38 K/mm3 0.0-0.2 H BASOPHIL # (test code = BA#) 0.05 K/mm3 0.0-0.2 N NUCLEATED RBC # (test code = 0.00 K/mm3 0.0-0.1 N NRBC#) - XR CHEST [id number] 15:51:00 Patient Name: JAXON REEVES Unit No: [id number] EXAMS: CPT CODE: [id number] XR CHEST 1V [id number] EXAM: Portable chest x-ray Dictation location: [id number]: Chest x-ray performed earlier today INDICATION: S/P CABG DISCUSSION: There has been interval median sternotomy for CABG. An endotracheal tube is in place, with tip over the appropriate position 4.9 cm above the bruno. A left IJ Donald-Saúl catheter is in place, with tip over the distal right main pulmonary artery or interlobar right pulmonary artery. A left subclavian central venous catheter is in place, with tip over the distal left brachiocephalic vein. The visualized portion of the upper enteric tube courses over the expected location of the esophagus and upper stomach, with distal tip projecting past the inferior edge of the film. A mediastinal drain is noted. There is bibasilar partial con solidation, likely due to atelectasis or discoid atelectasis projects over the left mid lung.Central and peripheral vascular congestion and mild cardiac silhouette enlargement are noted. No acute bony abnormalities are seen. IMPRESSION: 1. Interval CABG. The endotracheal tube, visualized portion of the upper enteric tube, left IJ Donald-Saúl catheter, left subclavian central venous catheter, and mediastinal drain overlie the appropriate position. 2. Partial bibasilar consolidation, likely due to atelectasis. There is mild central and peripheral vascular congestion. at 1551 Reported and signed by: Wade Mares MD CC: Will Root; Hilary Trivedi Technologist: Adalgisa Matos (RT) Transcrpt Date/Tm/Trnsp: 08/09/2019 (1551) [email or web address] Orig Print D/T: S: 08/09/2019 (0105) [facility] NAME: JAXON REEVES [id number] PHYS: [place] [address] : 1950 AGE: 69 SEX: M LOC: [id number].[id number] A PHONE #: [phone] EXAM DATE: 08/09/2019 STATUS: ADM IN FAX #: [phone] RADIOLOGY NO: PAGE 1 Signed ReportARTERIAL BLOOD [id number] 15:42:00 Test Item Value Reference Range Interpretation Comments ARTERIAL BLOOD GAS PH 7.37 mmHg 7.35-7.45 N (test code = PHA) ARTERIAL BLOOD GAS 38.2 mmHg 35.0-45.0 N PCO2 (test code = PCO2A) ARTERIAL BLOOD GAS PO2 234.4 mmol/L 80.0-100.0 H (test code = PO2A) BICARBONATE TOTAL HCO3 21.6 mmol/L 20.0-26.0 N (test code = HCO3) BASE EXCESS (test code -3.2 mmol/L -3.0-3.0 L = FRIDA) ABG O2 SATURATION 99.5 % 95.0-100.0 N All critic al values (test code = SATA) report to and readback by DR. GALLEGO by SHERRIE at 08/09/2019 3:17 :39 PM ABG DELIVERY (test VENT code = ELO) ABG VENT MODE (test A/C code = MODEA) ABG VENT RESP RATE 12.0 /MIN (test code = RRA) ABG TIDAL VOLUME (test 500 ml code = TVA) ABG PEEP (test code = 5.0 cmH2O PEEPA) ABG TEMPERATURE (test 37.0 C >37 code = TEMPA) ABG SITE (test code = AL SITEA) ALLENS TEST (test code NA CHECK = ALLENS) FIO2 (test code = 100 % [id number]) POC ARTERIAL BLOOD [id number] 14:43:00 Test Item Value Reference Range Interpretation Comments POC ARTERIAL BLOOD GAS PH (test 7.419 7.35-7.45 N code = POCPHA) POC ARTERIAL BLOOD GAS PCO2 (test 39.4 mmHg 35.0-45.0 N code = [id number]) POC ARTERIAL BLOOD GAS PO2 (test 374 75.0-100.0 HH code = HJBCY2L) POC HCO3 ARTERIAL (test code = 25.4 MMOL/L 20.0-26.0 N [id number]) POC BASE EXCESS (test code = 1.0 MMOL/L -3.0-3.0 N POCBEA) POC O2 SATURATION (test code = 100 % 92.0-98.5 H POCO2S) FIO2 (test code = FIO2A) 100 % 21-100 ABG DELIVERY (test code = ELO) Anesth ABG SITE (test code = SITEA) Art Line ALLENS TEST (test code = ALLENS) N/A CHECK ~ POC LACTIC ACID (test code = 1.48 MMOL/L 0.4-2.0 N POCLAC) POC ARTERIAL BLOOD [id number] 14:43:00 Test Item Value Reference Range Interpretation Comments POC ARTERIAL BLOOD GAS PH (test 7.417 7.35-7.45 N code = POCPHA) POC ARTERIAL BLOOD GAS PCO2 (test 38.1 mmHg 35.0-45.0 N code = [id number]) POC ARTERIAL BLOOD GAS PO2 (test 448 75.0-100.0 HH code = EQTHQ0T) POC HCO3 ARTERIAL (test code = 24.6 MMOL/L 20.0-26.0 N [id number]) POC BASE EXCESS (test code = 0.0 MMOL/L -3.0-3.0 N POCBEA) POC O2 SATURATION (test code = 100 % 92.0-98.5 H POCO2S) FIO2 (test code = FIO2A) 90 % 21-100 ABG DELIVERY (test code = ELO) Anesth ABG SITE (test code = SITEA) Art Line ALLENS TEST (test code = ALLENS) N/A CHECK ~ POC LACTIC ACID (test code = 1.33 MMOL/L 0.4-2.0 N POCLAC) POC ARTERIAL BLOOD [id number] 14:43:00 Test Item Value Reference Range Interpretation Comments POC ARTERIAL BLOOD GAS PH (test 7.440 7.35-7.45 N code = POCPHA) POC ARTERIAL BLOOD GAS PCO2 (test 38.4 mmHg 35.0-45.0 N code = [id number]) POC ARTERIAL BLOOD GAS PO2 (test 300 75.0-100.0 HH code = JJZKG9Q) POC HCO3 ARTERIAL (test code = 26.1 MMOL/L 20.0-26.0 H [id number]) POC BASE EXCESS (test code = 2.0 MMOL/L -3.0-3.0 N POCBEA) POC O2 SATURATION (test code = 100 % 92.0-98.5 H POCO2S) FIO2 (test code = FIO2A) 70 % 21-100 ABG DELIVERY (test code = ELO) Anesth ABG SITE (test code = SITEA) Art Line ALLENS TEST (test code = ALLENS) N/A CHECK ~ POC LACTIC ACID (test code = 1.44 MMOL/L 0.4-2.0 N POCLAC) POC ARTERIAL BLOOD [id number] 14:43:00 Test Item Value Reference Range Interpretation Comments POC ARTERIAL BLOOD GAS PH (test 7.393 7.35-7.45 N code = POCPHA) POC ARTERIAL BLOOD GAS PCO2 (test 42.6 mmHg 35.0-45.0 N code = VOTYUX8A) POC ARTERIAL BLOOD GAS PO2 (test 424 75.0-100.0 HH code = MVZDL9P) POC HCO3 ARTERIAL (test code = 26.0 MMOL/L 20.0-26.0 N [id number]) POC BASE EXCESS (test code = 1.0 MMOL/L -3.0-3.0 N POCBEA) POC O2 SATURATION (test code = 100 % 92.0-98.5 H POCO2S) FIO2 (test code = FIO2A) 100 % 21-100 N ABG DELIVERY (test code = ELO) Anesth ABG SITE (test code = SITEA) Art Line ALLENS TEST (test code = ALLENS) N/A CHECK ~ POC LACTIC ACID (test code = 1.38 MMOL/L 0.4-2.0 N POCLAC) POC ARTERIAL BLOOD [id number] 14:43:00 Test Item Value Reference Range Interpretation Comments POC ARTERIAL BLOOD GAS PH (test 7.412 7.35-7.45 N code = POCPHA) POC ARTERIAL BLOOD GAS PCO2 (test 40.4 mmHg 35.0-45.0 N code = GQVYRC2F) POC ARTERIAL BLOOD GAS PO2 (test 292 75.0-100.0 HH code = OAMZJ1X) POC HCO3 ARTERIAL (test code = 25.7 MMOL/L 20.0-26.0 N [id number]) POC BASE EXCESS (test code = 1.0 MMOL/L -3.0-3.0 N POCBEA) POC O2 SATURATION (test code = 100 % 92.0-98.5 H POCO2S) FIO2 (test code = FIO2A) 100 % 21-100 N ABG DELIVERY (test code = ELO) Vent ABG VENT MODE (test code = MODEA) CMV ABG VENT RESP RATE (test code = 10 /MIN RRA) ABG TIDAL VOLUME (test code = 500 ml TVA) ABG PEEP (test code = PEEPA) 5 cmH2O ABG SITE (test code = SITEA) Art Line ALLENS TEST (test code = ALLENS) N/A CHECK ~ POC LACTIC ACID (test code = 1.60 MMOL/L 0.4-2.0 N POCLAC) CHEMISTRY 8 [id number] 14:34:00 Test Item Value Reference Range Interpretation Comments IONIZED CALCIUM (test MMOL/L 1.12-1.24 code = CAIABG) ISTAT-TCO2 VENOUS (test MMOL/L 23-32 N code = TCO2VP) ISTAT-SODIUM (test code MMOL/L 137-144 = NAP) ISTAT-POTASSIUM (test MMOL/L 3.1-4.8 code = KP) ISTAT-CHLORIDE (test MMOL/L 97-108 code = CLP) ISTAT-GLUCOSE (test code MG/DL 60-99 H = GLUP) ISTAT-BUN (test code = MG/DL 9-21 N BUNP) BEDSIDE CREATININE (test MG/DL 0.6-1.4 N code = CREATBED) GLOMERULAR FILTRATION 84 49-113 N Report ing units: RATE POC (test code = ml/min /1.73 m2 GFRBED) (Modified MDRD Formula)Referen ce Range: > or = 6 0 ml/min/1.73 m2 CHEMISTRY 8 [id number] 14:34:00 Test Item Value Reference Range Interpretation Comments IONIZED CALCIUM (test 1.16 MMOL/L 1.12-1.24 N code = CAIABG) ISTAT-TCO2 VENOUS 26 MMOL/L 23-32 N (test code = TCO2VP) ISTAT-HEMOGLOBIN 8.8 G/DL 12.4-16.7 L HGB result is (test code = HBP) calculated from the HCT ISTAT-HEMATOCRIT 26 % 35.9-49.5 L (test code = HCTP) ISTAT-SODIUM (test 138 MMOL/L 137-144 N code = NAP) ISTAT-POTASSIUM (test 5.3 MMOL/L 3.1-4.8 H code = KP) ISTAT-CHLORIDE (test 105 MMOL/L 97-108 N code = CLP) ISTAT-GLUCOSE (test 172 MG/DL 60-99 H code = GLUP) ISTAT-BUN (test code 18 MG/DL 9-21 N = BUNP) BEDSIDE CREATININE 0.9 MG/DL 0.6-1.4 N (test code = CREATBED) GLOMERULAR FILTRATION 84 49-113 N Report ing units: RATE POC (test code = ml/min /1.73 m2 GFRBED) (Modified MDRD Formula)Referen ce Range: > or = 6 0 ml/min/1.73 m2 PT AND INR WHOLE [id number] 14:34:00 Test Item Value Reference Range Interpretation Comments PROTHROMBIN TIME WHOLE BLOOD 16.5 10.8-13.7 H (test code = PTWB) INR-WHOLE BLOOD (test code = 1.40 INR Unit 0.8-1.2 H INRWB) CHEMISTRY 8 [id number] 13:34:00 Test Item Value Reference Range Interpretation Comments IONIZED CALCIUM (test MMOL/L 1.12-1.24 code = CAIABG) ISTAT-TCO2 VENOUS (test MMOL/L 23-32 N code = TCO2VP) ISTAT-SODIUM (test code MMOL/L 137-144 = NAP) ISTAT-POTASSIUM (test MMOL/L 3.1-4.8 code = KP) ISTAT-CHLORIDE (test MMOL/L 97-108 code = CLP) ISTAT-GLUCOSE (test code MG/DL 60-99 H = GLUP) ISTAT-BUN (test code = MG/DL 9-21 N BUNP) BEDSIDE CREATININE (test MG/DL 0.6-1.4 N code = CREATBED) GLOMERULAR FILTRATION 84 49-113 N Report ing units: RATE POC (test code = ml/min /1.73 m2 GFRBED) (Modified MDRD Formula)Referen ce Range: > or = 6 0 ml/min/1.73 m2 CHEMISTRY 8 [id number] 13:34:00 Test Item Value Reference Range Interpretation Comments IONIZED CALCIUM (test 1.06 MMOL/L 1.12-1.24 L code = CAIABG) ISTAT-TCO2 VENOUS 25 MMOL/L 23-32 N (test code = TCO2VP) ISTAT-HEMOGLOBIN 7.8 G/DL 12.4-16.7 L HGB result is (test code = HBP) calculated from the HCT ISTAT-HEMATOCRIT 23 % 35.9-49.5 L (test code = HCTP) ISTAT-SODIUM (test 134 MMOL/L 137-144 L code = NAP) ISTAT-POTASSIUM (test 6.1 MMOL/L 3.1-4.8 HH code = KP) ISTAT-CHLORIDE (test 105 MMOL/L 97-108 N code = CLP) ISTAT-GLUCOSE (test 136 MG/DL 60-99 H code = GLUP) ISTAT-BUN (test code 17 MG/DL 9-21 N = BUNP) BEDSIDE CREATININE 0.9 MG/DL 0.6-1.4 N (test code = CREATBED) GLOMERULAR FILTRATION 84 49-113 N Report ing units: RATE POC (test code = ml/min /1.73 m2 GFRBED) (Modified MDRD Formula)Referen ce Range: > or = 6 0 ml/min/1.73 m2 CHEMISTRY 8 [id number] 12:55:00 Test Item Value Reference Range Interpretation Comments IONIZED CALCIUM (test MMOL/L 1.12-1.24 code = CAIABG) ISTAT-TCO2 VENOUS (test MMOL/L 23-32 N code = TCO2VP) ISTAT-SODIUM (test code MMOL/L 137-144 = NAP) ISTAT-POTASSIUM (test MMOL/L 3.1-4.8 code = KP) ISTAT-CHLORIDE (test MMOL/L 97-108 code = CLP) ISTAT-GLUCOSE (test code MG/DL 60-99 H = GLUP) ISTAT-BUN (test code = MG/DL 9-21 N BUNP) BEDSIDE CREATININE (test MG/DL 0.6-1.4 N code = CREATBED) GLOMERULAR FILTRATION 84 49-113 N Report ing units: RATE POC (test code = ml/min /1.73 m2 GFRBED) (Modified MDRD Formula)Referen ce Range: > or = 6 0 ml/min/1.73 m2 CHEMISTRY 8 [id number] 12:55:00 Test Item Value Reference Range Interpretation Comments IONIZED CALCIUM (test 1.04 MMOL/L 1.12-1.24 L code = CAIABG) ISTAT-TCO2 VENOUS 27 MMOL/L 23-32 N (test code = TCO2VP) ISTAT-HEMOGLOBIN 8.8 G/DL 12.4-16.7 L HGB result is (test code = HBP) calculated from the HCT ISTAT-HEMATOCRIT 26 % 35.9-49.5 L (test code = HCTP) ISTAT-SODIUM (test 137 MMOL/L 137-144 N code = NAP) ISTAT-POTASSIUM (test 4.8 MMOL/L 3.1-4.8 N code = KP) ISTAT-CHLORIDE (test 102 MMOL/L 97-108 N code = CLP) ISTAT-GLUCOSE (test 152 MG/DL 60-99 H code = GLUP) ISTAT-BUN (test code 20 MG/DL 9-21 N = BUNP) BEDSIDE CREATININE 0.9 MG/DL 0.6-1.4 N (test code = CREATBED) GLOMERULAR FILTRATION 84 49-113 N Report ing units: RATE POC (test code = ml/min /1.73 m2 GFRBED) (Modified MDRD Formula)Referen ce Range: > or = 6 0 ml/min/1.73 m2 ARTERIAL BLOOD [id number] 07:40:00 Test Item Value Reference Range Interpretation Comments ARTERIAL BLOOD GAS PH 7.43 mmHg 7.35-7.45 N (test code = PHA) ARTERIAL BLOOD GAS PCO2 39.2 mmHg 35.0-45.0 N (test code = PCO2A) ARTERIAL BLOOD GAS PO2 70.0 mmol/L 80.0-100.0 L (test code = PO2A) BICARBONATE TOTAL HCO3 25.3 mmol/L 20.0-26.0 N (test code = HCO3) BASE EXCESS (test code 1.0 mmol/L -3.0-3.0 N = FRIDA) ABG O2 SATURATION (test 94.5 % 95.0-100.0 L All critical values code = SATA) report to and readback by GREGORY HARRELL by SHERRIE at 08/09/2019 7:39 :58 AM ABG DELIVERY (test code RM AIR = ELO) ABG TEMPERATURE (test 37.0 C >37 code = TEMPA) ABG SITE (test code = AL SITEA) ALLENS TEST (test code NA CHECK = ALLENS) FIO2 (test code = 21 % COHBGFFIO2) - XR CHEST [id number] 07:07:00 Patient Name: JAXON REEVES Unit No: [id number] EXAMS: CPT CODE: [id number] XR CHEST 1V [id number] HISTORY: Follow-up Location: C3 COMPARISON:08/07/2019 FINDINGS: Heart size is mildly prominent. Vascularity is upper normal. The lungs are clear of focal consolidation. No effusion, pneumothorax, or acute osseous abnormality. IMPRESSION: 1. Stable chest with mild cardiomegaly. at 0707 Reported and signed by: Jemal gAudelo MD CC: Will Root; Hilary Trivedi; Ailin Lai NP Technologist: Mee Sanders RT(R) Transcrpt Date/Tm/Trnsp: 08/09/2019 (0707) [id number] Orig Print D/T: S: 08/09/2019 (0710) [facility] NAME: JAXON REEVES [id number] PHYS: [place] [address] : 1950 AGE: 69 SEX: M LOC: Z.362 A PHONE #: [phone] EXAM DATE: 08/09/2019 STATUS: ADM IN FAX #: [phone] RADIOLOGY NO: PAGE 1 Signed Report GLUCOSE BEDSIDE [id number] 05:50:00 Test Item Value Reference Range Interpretation Comments GLUCOSE BEDSIDE TESTING (test code 147 MG/DL 60-99 H = GLUBED) GLUCOSE BEDSIDE [id number] 05:44:00 Test Item Value Reference Range Interpretation Comments GLUCOSE BEDSIDE TESTING (test code 102 MG/DL 60-99 H = GLUBED) GLUCOSE BEDSIDE [id number] 05:44:00 Test Item Value Reference Range Interpretation Comments GLUCOSE BEDSIDE TESTING (test code 137 MG/DL 60-99 H = GLUBED) COMPREHENSIVE METABOLIC [id number] 05:13:00 Test Item Value Reference Range Interpretation Comments SODIUM (test code = NA) 137 MMOL/L 137-145 N POTASSIUM (test code = 3.9 MMOL/L 3.5-5.1 N K) CHLORIDE (test code = 101 MMOL/L 98-107 N CL) CARBON DIOXIDE (test 30 MMOL/L 22-30 N code = CO2) ANION GAP (test code = 10 MMOL/L 14-24 L GAP) GLUCOSE (test code = 128 MG/DL 74-106 H GLU) BLOOD UREA NITROGEN 21 MG/DL 9-20 H (test code = BUN) GLOMERULAR FILTRATION > 60 Report ing units: RATE (test code = GFR) ml/mi n/1.73 m2 (Modified MDRD Formula)Referen ce Range: > or = 6 0 ml/min/1.73 m2 CREATININE (test code = 1.00 MG/DL 0.66-1.25 N CREAT) TOTAL PROTEIN (test 7.0 G/DL 6.2-7.6 N code = PROT) ALBUMIN (test code = 3.5 G/DL 3.5-5.0 N ALB) CALCIUM (test code = 8.8 MG/DL 8.4-10.2 N CA) BILIRUBIN TOTAL (test 0.3 MG/DL 0.2-1.3 N code = BILT) SGOT/AST (test code = 18 UNITS/L 17-59 N AST) SGPT/ALT (test code = 11 UNITS/L 21-72 L ALT) ALKALINE PHOSPHATASE 86 UNITS/L 38-126 N (test code = ALKP) Specimen comments: if not done in the last 72 hoursCOMPREHENSIVE METABOLIC [id number] 05:10:00 Test Item Value Reference Range Interpretation Comments SODIUM (test code = NA) 137 MMOL/L 137-145 N POTASSIUM (test code = 3.9 MMOL/L 3.5-5.1 N K) CHLORIDE (test code = 101 MMOL/L 98-107 N CL) CARBON DIOXIDE (test MMOL/L 22-30 code = CO2) GLUCOSE (test code = MG/DL 74-106 GLU) BLOOD UREA NITROGEN MG/DL 9-20 (test code = BUN) GLOMERULAR FILTRATION > 60 Report ing units: RATE (test code = GFR) ml/mi n/1.73 m2 (Modified MDRD Formula)Referen ce Range: > or = 6 0 ml/min/1.73 m2 CREATININE (test code = 1.00 MG/DL 0.66-1.25 N CREAT) TOTAL PROTEIN (test G/DL 6.2-7.6 code = PROT) ALBUMIN (test code = 3.5 G/DL 3.5-5.0 N ALB) CALCIUM (test code = MG/DL 8.7-9.7 CA) BILIRUBIN TOTAL (test MG/DL 0.2-1.3 code = BILT) SGOT/AST (test code = UNITS/L 15-37 AST) SGPT/ALT (test code = UNITS/L 21-72 ALT) ALKALINE PHOSPHATASE UNITS/L 38-126 (test code = ALKP) Specimen comments: if not done in the last 72 hoursCOMPREHENSIVE METABOLIC [id number] 05:08:00 Test Item Value Reference Range Interpretation Comments SODIUM (test code = NA) 137 MMOL/L 137-145 N POTASSIUM (test code = K) 3.9 MMOL/L 3.5-5.1 N CHLORIDE (test code = CL) 101 MMOL/L 98-107 N CARBON DIOXIDE (test code = CO2) MMOL/L 22-30 GLUCOSE (test code = GLU) MG/DL 74-106 BLOOD UREA NITROGEN (test code = MG/DL 9-20 BUN) GLOMERULAR FILTRATION RATE (test code = GFR) CREATININE (test code = CREAT) MG/DL 0.66-1.25 TOTAL PROTEIN (test code = PROT) G/DL 6.2-7.6 ALBUMIN (test code = ALB) 3.5 G/DL 3.5-5.0 N CALCIUM (test code = CA) MG/DL 8.7-9.7 BILIRUBIN TOTAL (test code = BILT) MG/DL 0.2-1.3 SGOT/AST (test code = AST) UNITS/L 15-37 SGPT/ALT (test code = ALT) UNITS/L 21-72 ALKALINE PHOSPHATASE (test code = UNITS/L 38-126 ALKP) Specimen comments: if not done in the last 72 hoursCBC W/AUTO [id number] 04:52:00 Test Item Value Reference Range Interpretation Comments WHITE BLOOD CELL (test code = 10.4 K/MM3 3.8-9.8 H WBC) RED BLOOD CELL (test code = 3.93 M/MM3 3.95-5.67 L RBC) HEMOGLOBIN (test code = HGB) 11.3 G/DL 12.4-16.7 L HEMATOCRIT (test code = HCT) 33.9 % 35.9-49.5 L MEAN CELL VOLUME (test code = 86 fL 81.7-96.1 N MCV) MEAN CELL HGB (test code = MCH) 28.8 pg 27.6-33.2 N MEAN CELL HGB CONCETRATION 33.3 % 32.9-35.5 N (test code = MCHC) RED CELL DISTRIBUTION WIDTH 13.4 % 12.1-15.2 N (test code = RDW) PLATELET COUNT (test code = 207 K/MM3 129-368 N PLT) MEAN PLATELET VOLUME (test code 10.4 fl 7.4-10.4 N = MPV) NEUTROPHIL % (test code = NT%) 64.1 % 43-75 N IMMATURE GRANULOCYTE % (test 0.4 % 0.0-2.0 N code = IG%) LYMPHOCYTE % (test code = LY%) 23.5 % 14-44 N MONOCYTE % (test code = MO%) 7.4 % 4-13 N EOSINOPHIL % (test code = EO%) 4.0 % 0-6 N BASOPHIL % (test code = BA%) 0.6 % 0-2 N NUCLEATED RBC % (test code = 0.0 % 0-1.0 N NRBC%) NEUTROPHIL # (test code = NT#) 6.66 K/mm3 2.0-7.6 N IMMATURE GRANULOCYTE # (test 0.04 x10 3/uL 0-0.03 H code = IG#) LYMPHOCYTE # (test code = LY#) 2.44 K/mm3 1.0-3.8 N MONOCYTE # (test code = MO#) 0.77 K/mm3 0.1-0.8 N EOSINOPHIL # (test code = EO#) 0.42 K/mm3 0.0-0.2 H BASOPHIL # (test code = BA#) 0.06 K/mm3 0.0-0.2 N NUCLEATED RBC # (test code = 0.00 K/mm3 0.0-0.1 N NRBC#) Specimen comments: if not done in the last 72 hoursGLUCOSE BEDSIDE TESTING 2019-08-08 19:25:00 Test Item Value Reference Range Interpretation Comments GLUCOSE BEDSIDE TESTING (test code 165 MG/DL 60-99 H = GLUBED) GLYCOSYLATED HEMOGLOBIN [id number] 12:51:00 Test Item Value Reference Range Interpretation Comments GLYCOSYLATED 7.8 % 4.8-5.9 H Any condition t hat HEMOGLOBIN (HA1C) shortens e rythocyte (test code = survival or dec reasesmean GLYHGB) erythrocyte age (e.g., recovery from a cute blood loss,hemolytic anemia) will falsely lo wer HGBA1c resultsregardle ss of the method used. H GBA1c results from [facility] HbSS, HbCC, and HbSc must be interpreted with cautiongiven th e pathological pr ocesses, including anemia,increase d red cell turnover, trans fusion requirements, thatadversely i mpact HGBA1c as a mar ker of long-term glycemiccontrol . Alternative for ms of testing such as fructosaminesho uld be considered for these patients. MEAN BLOOD GLUCOSE 177 MG/DL 70-110 H (test code = MBG) HIV 12 AB [id number] 11:18:00 Test Item Value Reference Range Interpretation Comments HIV 1 2 COMBO AG/AB SCREEN AB/AG NON REACTIVE NONREACTIVE (test code = [id number]) LIPID PROFILE (CORONARY RISK)2019-08-08 10:46:00 Test Item Value Reference Range Interpretation Comments TRIGLYCERIDES (test 112 MG/DL TRIGLYCE RIDES code = TRIG) REFERENCE RANGE:Normal: < 150 mg/dLBorderline High: 150-199 mg/dLHi gh: 200-499 mg/dLVe ry High: >=500 mg/ dL CHOLESTEROL (test code 110 MG/DL <200 = CHOL) HDL CHOLESTEROL (test 27 MG/DL 40-59 L code = HDL) LIPOPROTEIN LDL (test 65 MG/DL 0-99 N code = LDL) OPTIMAL........ .<100 mg/dLNEAR OPTIMAL/ABOVE OPTIMAL........ .100-12 9 mg/dL BORDERLINE HIGH.........13 0-159 mg/dL HIGH.........16 0-189 mg/dL VERY HIGH...... ...>/= 190 mg/dL PLT RESPONSE TO [id number] 10:41:00 Test Item Value Reference Range Interpretation Comments PLT RESPONSE TO 380 PRU 194-418 N P2Y12 Result s PLAVIX (test code = Interpre tation: Test PLAVRES) results are in P2Y12 Reaction Units (PRU). Pre-Drug Refe rence Range is 194-41 8. Pre-drug platel et function estima gato the total possible platelet aggregation independent of P2Y12 inhibitor drugs . Values <194 cou ld be due to low HCT, low platelet count, or p resence of IIb/IIIa inhibi tors. Post-Drug Resu lts: Lower PRU levels are associated with expec suri antiplatelet ef fect. Values may be b elow the stated refe rence range. Studies show that patients wi th <230 PRU had fewer a dverse events. LIPID PROFILE (CORONARY RISK)2019-08-08 10:35:00 Test Item Value Reference Range Interpretation Comments TRIGLYCERIDES (test 112 MG/DL TRIGLYCE RIDES code = TRIG) REFERENCE RANGE:Normal: < 150 mg/dLBorderline High: 150-199 mg/dLHi gh: 200-499 mg/dLVe ry High: >=500 mg/ dL CHOLESTEROL (test code 110 MG/DL <200 = CHOL) HDL CHOLESTEROL (test MG/DL 40-59 code = HDL) LIPOPROTEIN LDL (test MG/DL 0-99 code = LDL) LIPID PROFILE (CORONARY RISK)2019-08-08 10:35:00 Test Item Value Reference Range Interpretation Comments TRIGLYCERIDES (test 112 MG/DL TRIGLYCE RIDES code = TRIG) REFERENCE RANGE:Normal: < 150 mg/dLBorderline High: 150-199 mg/dLHi gh: 200-499 mg/dLVe ry High: >=500 mg/ dL CHOLESTEROL (test code 110 MG/DL <200 = CHOL) HDL CHOLESTEROL (test 27 MG/DL 40-59 L code = HDL) LIPOPROTEIN LDL (test MG/DL 0-99 code = LDL) LIPID PROFILE (CORONARY RISK)2019-08-08 10:34:00 Test Item Value Reference Range Interpretation Comments TRIGLYCERIDES (test code = TRIG) MG/DL CHOLESTEROL (test code = CHOL) 110 MG/DL <200 HDL CHOLESTEROL (test code = HDL) MG/DL 40-59 LIPOPROTEIN LDL (test code = LDL) MG/DL 0-99 URINALYSIS [id number] 10:30:00 Test Item Value Reference Range Interpretation Comments UA COLOR (test code = YELLOW YELLOW COLU) UA APPEARANCE (test code CLEAR CLEAR = APPU) UA GLUCOSE DIPSTICK (test NORMAL MG/DL NORMAL code = DGLUU) UA BILIRUBIN DIPSTICK NEGATIVE MG/DL NEGATIVE (test code = BILU) UA KETONE DIPSTICK (test NEGATIVE MG/DL NEGATIVE code = KETU) UA SPECIFIC GRAVITY (test 1.010 1.003-1.030 N code = SGU) UA BLOOD DIPSTICK (test NEGATIVE Sage/mm3 NEGATIVE code = MARK) UA PH DIPSTICK (test code 6.5 5.0-9.0 N = SABRINA) UA PROTEIN DIPSTICK (test NEGATIVE MG/DL NEGATIVE code = PROU) UA UROBILINIOGEN DIPSTICK NORMAL MG/DL NORMAL (test code = URO) UA NITRITE DIPSTICK (test NEGATIVE NEGATIVE code = NERI) UA LEUKOCYTE ESTERASE NEGATIVE /mm3 NEGATIVE DIPSTICK (test code = LEUU) UA CULTURE NEEDED? (test NO, WBC<10 Criteria Culture Chk code = UACULT) SOURCE OF URINE: CLEAN CATCHPROTHROMBIN [id number] 10:19:00 Test Item Value Reference Range Interpretation Comments PROTHROMBIN TIME 10.1 SECONDS 9.6-11.6 N PATIENT (test code = PTP) INTERNATIONAL NORMAL 1.0 0.8-1.1 N The INR is to be RATIO (test code = used only for INR) monitoring oral anticoagulantth erap y. INDICATION I NR VALUE ---- ---- ---- -------1. Prophylaxis, de ep venous thrombos is, including hig h risk surgery. 2.0 - 3.0 2. Prophylaxis, de ep venous thrombos is, hip surgery, treatment for d eep venous thrombosis or pulmonary prevention of systemic emboli sm in patients wit h valvular heart disease, atrial fibrillation, tissue heart va lve, or acute myocar dial infarction. 2.0 - 3 .0 3. Mechanical prosthesis hear t valves, recurrent syste petey embolism. 3.0 - 4.5 PTT [id number] 10:19:00 Test Item Value Reference Range Interpretation Comments PTT ACTIVATED (test code = APTT) 25.8 SECONDS 22.0-33.0 N URINALYSIS [id number] 10:16:00 Test Item Value Reference Range Interpretation Comments UA COLOR (test code = COLU) YELLOW YELLOW UA APPEARANCE (test code = CLEAR CLEAR APPU) UA GLUCOSE DIPSTICK (test NORMAL MG/DL NORMAL code = DGLUU) UA BILIRUBIN DIPSTICK (test NEGATIVE MG/DL NEGATIVE code = BILU) UA KETONE DIPSTICK (test NEGATIVE MG/DL NEGATIVE code = KETU) UA SPECIFIC GRAVITY (test 1.010 1.003-1.030 N code = SGU) UA BLOOD DIPSTICK (test code NEGATIVE Sage/mm3 NEGATIVE = MARK) UA PH DIPSTICK (test code = 6.5 5.0-9.0 N SABRINA) UA PROTEIN DIPSTICK (test NEGATIVE MG/DL NEGATIVE code = PROU) UA UROBILINIOGEN DIPSTICK NORMAL MG/DL NORMAL (test code = URO) UA NITRITE DIPSTICK (test NEGATIVE NEGATIVE code = NERI) UA LEUKOCYTE ESTERASE NEGATIVE /mm3 NEGATIVE DIPSTICK (test code = LEUU) UA CULTURE NEEDED? (test Criteria Culture Chk code = UACULT) SOURCE OF URINE: CLEAN CATCHGLUCOSE BEDSIDE [id number] 07:49:00 Test Item Value Reference Range Interpretation Comments GLUCOSE BEDSIDE TESTING (test code 147 MG/DL 60-99 H = GLUBED) GLUCOSE BEDSIDE [id number] 19:31:00 Test Item Value Reference Range Interpretation Comments GLUCOSE BEDSIDE TESTING (test code 159 MG/DL 60-99 H = GLUBED) GLUCOSE BEDSIDE [id number] 16:09:00 Test Item Value Reference Range Interpretation Comments GLUCOSE BEDSIDE TESTING (test code 112 MG/DL 60-99 H = GLUBED) GLUCOSE BEDSIDE [id number] 11:04:00 Test Item Value Reference Range Interpretation Comments GLUCOSE BEDSIDE TESTING (test code 154 MG/DL 60-99 H = GLUBED) CBC W/AUTO [id number] 09:33:00 Test Item Value Reference Range Interpretation Comments WHITE BLOOD CELL (test code = 11.7 K/MM3 3.8-9.8 H WBC) RED BLOOD CELL (test code = 3.71 M/MM3 3.95-5.67 L RBC) HEMOGLOBIN (test code = HGB) 10.4 G/DL 12.4-16.7 L HEMATOCRIT (test code = HCT) 32.9 % 35.9-49.5 L MEAN CELL VOLUME (test code = 89 fL 81.7-96.1 N MCV) MEAN CELL HGB (test code = MCH) 28.0 pg 27.6-33.2 N MEAN CELL HGB CONCETRATION 31.6 % 32.9-35.5 L (test code = MCHC) RED CELL DISTRIBUTION WIDTH 13.6 % 12.1-15.2 N (test code = RDW) PLATELET COUNT (test code = 190 K/MM3 129-368 N PLT) MEAN PLATELET VOLUME (test code 11.1 fl 7.4-10.4 H = MPV) NEUTROPHIL % (test code = NT%) 68.1 % 43-75 N IMMATURE GRANULOCYTE % (test 0.3 % 0.0-2.0 N code = IG%) LYMPHOCYTE % (test code = LY%) 19.8 % 14-44 N MONOCYTE % (test code = MO%) 7.6 % 4-13 N EOSINOPHIL % (test code = EO%) 3.6 % 0-6 N BASOPHIL % (test code = BA%) 0.6 % 0-2 N NUCLEATED RBC % (test code = 0.0 % 0-1.0 N NRBC%) NEUTROPHIL # (test code = NT#) 7.95 K/mm3 2.0-7.6 H IMMATURE GRANULOCYTE # (test 0.04 x10 3/uL 0-0.03 H code = IG#) LYMPHOCYTE # (test code = LY#) 2.31 K/mm3 1.0-3.8 N MONOCYTE # (test code = MO#) 0.89 K/mm3 0.1-0.8 H EOSINOPHIL # (test code = EO#) 0.42 K/mm3 0.0-0.2 H BASOPHIL # (test code = BA#) 0.07 K/mm3 0.0-0.2 N NUCLEATED RBC # (test code = 0.00 K/mm3 0.0-0.1 N NRBC#) CREATININE W ESTIMATED [id number] 07:23:00 Test Item Value Reference Range Interpretation Comments GLOMERULAR FILTRATION > 60 Report ing units: RATE (test code = GFR) ml/mi n/1.73 m2 (Modified MDRD Formula)Referen ce Range: > or = 6 0 ml/min/1.73 m2 CREATININE (test code 1.00 MG/DL 0.66-1.25 N = CREAT) ENTER RACE; WGLUCOSE BEDSIDE [id number] 07:18:00 Test Item Value Reference Range Interpretation Comments GLUCOSE BEDSIDE TESTING (test code 169 MG/DL 60-99 H = GLUBED) URINALYSIS [id number] 06:57:00 Test Item Value Reference Range Interpretation Comments UA COLOR (test code = YELLOW YELLOW COLU) UA APPEARANCE (test code CLEAR CLEAR = APPU) UA GLUCOSE DIPSTICK (test NORMAL MG/DL NORMAL code = DGLUU) UA BILIRUBIN DIPSTICK NEGATIVE MG/DL NEGATIVE (test code = BILU) UA KETONE DIPSTICK (test NEGATIVE MG/DL NEGATIVE code = KETU) UA SPECIFIC GRAVITY (test 1.005 1.003-1.030 N code = SGU) UA BLOOD DIPSTICK (test 50 Sage/mm3 NEGATIVE A code = MARK) UA PH DIPSTICK (test code 7.0 5.0-9.0 N = SABRINA) UA PROTEIN DIPSTICK (test 15 MG/DL NEGATIVE code = PROU) UA UROBILINIOGEN DIPSTICK 1 MG/DL NORMAL A (test code = URO) UA NITRITE DIPSTICK (test NEGATIVE NEGATIVE code = NERI) UA LEUKOCYTE ESTERASE NEGATIVE /mm3 NEGATIVE DIPSTICK (test code = LEUU) UA CULTURE NEEDED? (test NO, WBC<10 Criteria Culture Chk code = UACULT) SOURCE OF URINE: MCCURDY CATHETERUA [id number] 06:57:00 Test Item Value Reference Range Interpretation Comments UA RBC (test code = RBCU) 3-5 RBC/HPF 0-3 A UA WBC (test code = XWBCU) 0-3 WBC/HPF 0-5 UA EPITHELIAL CELLS (test code = NONE EPI/HPF FEW EPIU) UA BACTERIA (test code = XBACU) RARE NONE SOURCE OF URINE: MCCURDY CATHETERURINALYSIS [id number] 06:51:00 Test Item Value Reference Range Interpretation Comments UA COLOR (test code = COLU) YELLOW YELLOW UA APPEARANCE (test code = CLEAR CLEAR APPU) UA GLUCOSE DIPSTICK (test code NORMAL MG/DL NORMAL = DGLUU) UA BILIRUBIN DIPSTICK (test NEGATIVE MG/DL NEGATIVE code = BILU) UA KETONE DIPSTICK (test code NEGATIVE MG/DL NEGATIVE = KETU) UA SPECIFIC GRAVITY (test code 1.005 1.003-1.030 N = SGU) UA BLOOD DIPSTICK (test code = 50 Sage/mm3 NEGATIVE A MARK) UA PH DIPSTICK (test code = 7.0 5.0-9.0 N SABRINA) UA PROTEIN DIPSTICK (test code 15 MG/DL NEGATIVE = PROU) UA UROBILINIOGEN DIPSTICK 1 MG/DL NORMAL A (test code = URO) UA NITRITE DIPSTICK (test code NEGATIVE NEGATIVE = NERI) UA LEUKOCYTE ESTERASE DIPSTICK NEGATIVE /mm3 NEGATIVE (test code = LEUU) UA CULTURE NEEDED? (test code Criteria Culture Chk = UACULT) SOURCE OF URINE: MCCURDY CATHETERUA [id number] 06:51:00 Test Item Value Reference Range Interpretation Comments UA RBC (test code = RBCU) RBC/HPF 0-3 UA WBC (test code = XWBCU) WBC/HPF 0-5 UA EPITHELIAL CELLS (test code = EPI/HPF FEW EPIU) UA BACTERIA (test code = XBACU) NONE SOURCE OF URINE: MCCURDY CATHETERURINALYSIS [id number] 06:51:00 Test Item Value Reference Range Interpretation Comments UA COLOR (test code = COLU) YELLOW YELLOW UA APPEARANCE (test code = CLEAR CLEAR APPU) UA GLUCOSE DIPSTICK (test code NORMAL MG/DL NORMAL = DGLUU) UA BILIRUBIN DIPSTICK (test NEGATIVE MG/DL NEGATIVE code = BILU) UA KETONE DIPSTICK (test code NEGATIVE MG/DL NEGATIVE = KETU) UA SPECIFIC GRAVITY (test code 1.005 1.003-1.030 N = SGU) UA BLOOD DIPSTICK (test code = 50 Sage/mm3 NEGATIVE A MARK) UA PH DIPSTICK (test code = 7.0 5.0-9.0 N SABRINA) UA PROTEIN DIPSTICK (test code 15 MG/DL NEGATIVE = PROU) UA UROBILINIOGEN DIPSTICK 1 MG/DL NORMAL A (test code = URO) UA NITRITE DIPSTICK (test code NEGATIVE NEGATIVE = NERI) UA LEUKOCYTE ESTERASE DIPSTICK NEGATIVE /mm3 NEGATIVE (test code = LEUU) UA CULTURE NEEDED? (test code Criteria Culture Chk = UACULT) SOURCE OF URINE: MCCURDY CATHETERUA [id number] 06:51:00 Test Item Value Reference Range Interpretation Comments UA RBC (test code = RBCU) RBC/HPF 0-3 UA WBC (test code = XWBCU) WBC/HPF 0-5 UA EPITHELIAL CELLS (test code = EPI/HPF FEW EPIU) UA BACTERIA (test code = XBACU) NONE SOURCE OF URINE: MCCURDY CATHETER- XR CHEST [id number] 05:54:00 Patient Name: JAXON REEVES Unit No: [id number] EXAMS: CPT CODE: [id number] XR CHEST 1V 53049 DICTATION LOCATION: H48 HISTORY: Male, 69 years of age with CAD, preop EXAM: CHEST X-RAY, ONE VIEW COMPARISON: 08/06/2019 COMMENT: Frontal view of the chest is provided. No focal infiltrate, consolidation, mass lesion, or effusion is seen. Cardiac silhouette is enlarged. No acute bony abnormalities. IMPRESSION: Cardiomegaly. No acute infiltrate or effusion and no significant change since prior study. at 0554 Reported and signed by: Elva Evans MD CC: Will Root; Hilary Trivedi; Elisa Brown SITE OPERATIONS MANAGER Technologist: Miguel Oviedo, RT(R) Transcrpt Date/Tm/Trnsp: 08/07/2019 (0554) AndrewCLW Orig Print D/T: S: 08/07/2019 (0557) [facility] NAME: JAXON REEVES [address] PHYS: ALEXANDER.Alfonso [place] [address] : 1950 AGE: 69 SEX: M LOC: Z.362 A PHONE #: [phone] EXAM DATE: 08/07/2019 STATUS: ADM IN FAX #: [phone] RADIOLOGY NO: PAGE 1 Signed ReportGLUCOSE BEDSIDE [id number] 20:09:00 Test Item Value Reference Range Interpretation Comments GLUCOSE BEDSIDE TESTING (test code 198 MG/DL 60-99 H = GLUBED) - XR CHEST [id number] 18:33:00 Patient Name: JAXON REEVES Unit No: [id number] EXAMS: CPT CODE: [id number] XR CHEST 1V 33294 Dictation location: B2. CHEST, FRONTAL VIEW HIS TORY: cough FINDINGS: Since 08/02/19, the left subclavian line has been removed. The lungs are otherwise clear. The heart is mildly enlarged. Aorta is partially calcified. Mild thoracic spondylosis. Several wires overlie the chest. IMPRESSION: Removal of the left subclavian line. Otherwise, no evidence of acute cardiopulmonary disease. at 1833 Reported and signedby: Karlee Cruz MD CC: Will Root; Hilary Trivedi; Elisa Brown SITE OPERATIONS MANAGER Technologist: Jayro Hayden (RT) (R) Transcrpt Date/Tm/Trnsp: 08/06/2019 (183) [id number] Orig Print D/T: S: 08/06/2019 (1835) [facility] NAME: JAXON REEVES [address] PHYS: ALEXANDER.Alfonso - Stephanie,[place] [address] : 1950 AGE: 69 SEX: M LOC: Z.362 A PHONE#: [phone] EXAM DATE: 08/06/2019 STATUS: ADM IN FAX #: [phone] RADIOLOGY NO: PAGE 1 Signed ReportGLUCOSE BEDSIDE [id number] 15:25:00 Test Item Value Reference Range Interpretation Comments GLUCOSE BEDSIDE TESTING (test code 136 MG/DL 60-99 H = GLUBED) BASIC METABOLIC [id number] 13:37:00 Test Item Value Reference Range Interpretation Comments SODIUM (test code = 137 MMOL/L 137-145 N NA) POTASSIUM (test code = 4.0 MMOL/L 3.5-5.1 N K) CHLORIDE (test code = 100 MMOL/L 98-107 N CL) CARBON DIOXIDE (test 29 MMOL/L 22-30 N code = CO2) GLUCOSE (test code = 132 MG/DL 74-106 H GLU) BLOOD UREA NITROGEN 25 MG/DL 9-20 H (test code = BUN) GLOMERULAR FILTRATION > 60 Report ing units: RATE (test code = GFR) ml/mi n/1.73 m2 (Modified MDRD Formula)Referen ce Range: > or = 6 0 ml/min/1.73 m2 CREATININE (test code 1.10 MG/DL 0.66-1.25 N = CREAT) CALCIUM (test code = 8.8 MG/DL 8.4-10.2 N CA) BASIC METABOLIC [id number] 13:36:00 Test Item Value Reference Range Interpretation Comments SODIUM (test code = 137 MMOL/L 137-145 N NA) POTASSIUM (test code = 4.0 MMOL/L 3.5-5.1 N K) CHLORIDE (test code = 100 MMOL/L 98-107 N CL) CARBON DIOXIDE (test MMOL/L 22-30 code = CO2) GLUCOSE (test code = MG/DL 74-106 GLU) BLOOD UREA NITROGEN MG/DL 9-20 (test code = BUN) GLOMERULAR FILTRATION > 60 Report ing units: RATE (test code = GFR) ml/mi n/1.73 m2 (Modified MDRD Formula)Referen ce Range: > or = 6 0 ml/min/1.73 m2 CREATININE (test code 1.10 MG/DL 0.66-1.25 N = CREAT) CALCIUM (test code = MG/DL 8.7-9.7 CA) BASIC METABOLIC [id number] 13:34:00 Test Item Value Reference Range Interpretation Comments SODIUM (test code = NA) 137 MMOL/L 137-145 N POTASSIUM (test code = K) 4.0 MMOL/L 3.5-5.1 N CHLORIDE (test code = CL) 100 MMOL/L 98-107 N CARBON DIOXIDE (test code = CO2) MMOL/L 22-30 GLUCOSE (test code = GLU) MG/DL 74-106 BLOOD UREA NITROGEN (test code = MG/DL 9-20 BUN) GLOMERULAR FILTRATION RATE (test code = GFR) CREATININE (test code = CREAT) MG/DL 0.66-1.25 CALCIUM (test code = CA) MG/DL 8.7-9.7 BASIC METABOLIC [id number] 13:33:00 Test Item Value Reference Range Interpretation Comments SODIUM (test code = NA) MMOL/L 137-145 POTASSIUM (test code = K) MMOL/L 3.5-5.1 CHLORIDE (test code = CL) 100 MMOL/L 98-107 N CARBON DIOXIDE (test code = CO2) MMOL/L 22-30 GLUCOSE (test code = GLU) MG/DL 74-106 BLOOD UREA NITROGEN (test code = MG/DL 9-20 BUN) GLOMERULAR FILTRATION RATE (test code = GFR) CREATININE (test code = CREAT) MG/DL 0.66-1.25 CALCIUM (test code = CA) MG/DL 8.7-9.7 CBC W/AUTO [id number] 13:27:00 Test Item Value Reference Range Interpretation Comments WHITE BLOOD CELL (test code = 12.3 K/MM3 3.8-9.8 H WBC) RED BLOOD CELL (test code = 3.97 M/MM3 3.95-5.67 N RBC) HEMOGLOBIN (test code = HGB) 11.4 G/DL 12.4-16.7 L HEMATOCRIT (test code = HCT) 34.5 % 35.9-49.5 L MEAN CELL VOLUME (test code = 87 fL 81.7-96.1 N MCV) MEAN CELL HGB (test code = MCH) 28.7 pg 27.6-33.2 N MEAN CELL HGB CONCETRATION 33.0 % 32.9-35.5 N (test code = MCHC) RED CELL DISTRIBUTION WIDTH 13.6 % 12.1-15.2 N (test code = RDW) PLATELET COUNT (test code = 178 K/MM3 129-368 N PLT) MEAN PLATELET VOLUME (test code 10.6 fl 7.4-10.4 H = MPV) NEUTROPHIL % (test code = NT%) 69.6 % 43-75 N IMMATURE GRANULOCYTE % (test 0.5 % 0.0-2.0 N code = IG%) LYMPHOCYTE % (test code = LY%) 18.3 % 14-44 N MONOCYTE % (test code = MO%) 7.2 % 4-13 N EOSINOPHIL % (test code = EO%) 3.7 % 0-6 N BASOPHIL % (test code = BA%) 0.7 % 0-2 N NUCLEATED RBC % (test code = 0.0 % 0-1.0 N NRBC%) NEUTROPHIL # (test code = NT#) 8.54 K/mm3 2.0-7.6 H IMMATURE GRANULOCYTE # (test 0.06 x10 3/uL 0-0.03 H code = IG#) LYMPHOCYTE # (test code = LY#) 2.24 K/mm3 1.0-3.8 N MONOCYTE # (test code = MO#) 0.88 K/mm3 0.1-0.8 H EOSINOPHIL # (test code = EO#) 0.45 K/mm3 0.0-0.2 H BASOPHIL # (test code = BA#) 0.08 K/mm3 0.0-0.2 N NUCLEATED RBC # (test code = 0.00 K/mm3 0.0-0.1 N NRBC#) GLUCOSE BEDSIDE [id number] 11:35:00 Test Item Value Reference Range Interpretation Comments GLUCOSE BEDSIDE TESTING (test code 153 MG/DL 60-99 H = GLUBED) GLUCOSE BEDSIDE [id number] 07:34:00 Test Item Value Reference Range Interpretation Comments GLUCOSE BEDSIDE TESTING (test code 184 MG/DL 60-99 H = GLUBED) GLUCOSE BEDSIDE [id number] 20:08:00 Test Item Value Reference Range Interpretation Comments GLUCOSE BEDSIDE TESTING (test code 158 MG/DL 60-99 H = GLUBED) GLUCOSE BEDSIDE [id number] 17:21:00 Test Item Value Reference Range Interpretation Comments GLUCOSE BEDSIDE TESTING (test code 142 MG/DL 60-99 H = GLUBED) GLUCOSE BEDSIDE [id number] 11:29:00 Test Item Value Reference Range Interpretation Comments GLUCOSE BEDSIDE TESTING (test code 166 MG/DL 60-99 H = GLUBED) GLUCOSE BEDSIDE [id number] 07:45:00 Test Item Value Reference Range Interpretation Comments GLUCOSE BEDSIDE TESTING (test code 229 MG/DL 60-99 H = GLUBED) GLUCOSE BEDSIDE [id number] 19:52:00 Test Item Value Reference Range Interpretation Comments GLUCOSE BEDSIDE TESTING (test code 165 MG/DL 60-99 H = GLUBED) GLUCOSE BEDSIDE [id number] 16:23:00 Test Item Value Reference Range Interpretation Comments GLUCOSE BEDSIDE TESTING (test code 130 MG/DL 60-99 H = GLUBED) GLUCOSE BEDSIDE [id number] 11:33:00 Test Item Value Reference Range Interpretation Comments GLUCOSE BEDSIDE TESTING (test code 161 MG/DL 60-99 H = GLUBED) ARTERY,[id number] 11:20:00 RUN DATE: 08/04/19 [place] - LAB PAGE 1 RUN TIME: 1120 Specimen Inquiry RUN USER: INTERFACE PATIENT: JAXON REEVES LOC: IRIS U #: [id number] AGE/SX: 69/M ROOM: [facility] RE07/30/19REG DR: Will Root MD : 54 BED: A DIS: STATUS: ADM IN TLOC: SPEC #: [id number] RECD: 08/02/19 STATUS: CHRISTEL REQ #: [id number] PAOLA: 08/01/19-[address]: Will Root MD ENTERED: 08/02/19 SP TYPE: ARTERY, PL OTHR DR: Niles Stephens MD, Nioti R MD Jemal Olivares MDORDERED: SURG PATH LVL 5, DECAL, IMNO, SURG PATH LVL 3, IMMUNO EA ADD'L/5 CODES: [id number] - PLAQUE, NOS [id number] - ARTERY, NOS [id number] - CAROTID ARTERY ATHEROSCLEROSIS [id number] - CERVIX SECONDARY HYPER [id number] - CERVIX NEOPLASM, MALIG [id number] - LYMPH NODE, NOS [id number] - LYMPH, NOS COPIES TO: Niles Stephens MD [address] [place] [address] [address] [place] [address] [email or web address] [address] [place] [address] [place] [address] [place] [address] [place] [address] [facility] [address] [place] [address] ICD CODES: 440 - PROCEDURES: SURG PATH LVL 5 (08/03/19-1015) DECAL (08/02/19-1308) IMNO (08/03/19) SURG PATH LVL 3 (08/02/19) IMMUNO EA ADD'L (08/03/19) CONTINUED ON NEXT PAGE RUN DATE: 08/04/19 [facility] PAGE 2 RUN TIME: 1120 Specimen Inquiry RUN USER: INTERFACE --- ---------SPEC #: [id number] PATIENT: LEANDROJAXON #[id number] (Continued) TISSUES: A. ARTERY, NOS - RIGHT CAROTID PLAQUE B. LYMPH, NOS - RIGHT CERVICAL LYMPH NODE CHAIN CLINICALHISTORY VTACH, SYNCOPE CPT CODES CPT CODE(S): 43062 , 06232 , 91405 ,70903 , 42080Q7 , , FINAL DIAGNOSIS A. Plaque, right carotid artery, endarterectomy: SEVERE ATHEROSCLEROSIS B. Lymph nodes, left cervical chain, dissection: REACTIVE HYPERPLASIA NO ATYPIA, MALIGNANCY, OR MONOCLONAL POPULATION OF LYMPHOCYTES DETECTED GROSS DESCRIPTION A. Right carotid plaque. Received in formalin is a cylindrical segment of yellow-brown tissue, grossly consistent with plaque, 3.0 x 1.2 x 0.9 cm. The cut surface shows occluded lumen with focal gritty areas. Professor [employer] section submitted following brief decalcification labeled A. B. Left cervical lymph node chain. Received in formalin are three pink-van rubbery nodules, grossly consistent with lymph nodes, 0.7 - 1.7 cm in greatest dimension. The cut surfaces are pink-van and solid. The entire specimen is submitted as follows: B1-B2 Largest lymph node B3-B4 2nd lymph node B5 Smallest lymph node /ba/cm MICROSCOPIC DESCRIPTION A. Right carotid plaque. Ovoid sclerotic nodule with patchy, dense, nodular ca lcifications, luminal recanalization with interstitial hemorrhage and cholesterol clefts. No atypical features. B. Left cervical lymph node chain. Lymph nodes with a histologic paracortical expansion. Professor [employer] Family [employer] tissue block B2 is studied with the following panel of immunohistochemical stains, each with adequate controls, with the following results: CONTINUED ON NEXT PAGE RUN DATE: 08/04/19 [facility] PAGE 3 RUN TIME: 1120 Specimen Inquiry RUN USER: INTERFACE SPEC #: [id number] PATIENT: JAXON REEVES #[id number] (Continued) MICROSCOPIC DESCRIPTION (Continued) CD3: Highlights a polymorphous population of T-lymphocytes. CD20: Highlights a polymorphous distribution of B-cells. No monoclonal infiltrate detected. Ki-67: Minimal uptake and similar distribution as the CD10 study. No neoplastic infiltrate detected. Bcl-2: Appropriate uptake in the paracortical regions with overall similar distribution as the CD3 study. CD23: Balanced uptake present confined to the B-cell regions of lymph node. No neoplastic infiltrate detected. CD10: Minimal uptake present confined to the central aspects of the follicular center areas. /aman/cm Signed SIGNATURE ON FILE Saravanan Houser 08/04/19 1120 END OF REPORT GLUCOSE BEDSIDE TESTING 2019-08-04 07:39:00 Test Item Value Reference Range Interpretation Comments GLUCOSE BEDSIDE TESTING (test code 162 MG/DL 60-99 H = GLUBED) CBC W/AUTO [id number] 06:25:00 Test Item Value Reference Range Interpretation Comments WHITE BLOOD CELL (test code = 9.9 K/MM3 3.8-9.8 H WBC) RED BLOOD CELL (test code = 3.76 M/MM3 3.95-5.67 L RBC) HEMOGLOBIN (test code = HGB) 10.7 G/DL 12.4-16.7 L HEMATOCRIT (test code = HCT) 32.7 % 35.9-49.5 L MEAN CELL VOLUME (test code = 87 fL 81.7-96.1 N MCV) MEAN CELL HGB (test code = MCH) 28.5 pg 27.6-33.2 N MEAN CELL HGB CONCETRATION 32.7 % 32.9-35.5 L (test code = MCHC) RED CELL DISTRIBUTION WIDTH 13.8 % 12.1-15.2 N (test code = RDW) PLATELET COUNT (test code = 162 K/MM3 129-368 N PLT) MEAN PLATELET VOLUME (test code 10.8 fl 7.4-10.4 H = MPV) NEUTROPHIL % (test code = NT%) 59.3 % 43-75 N IMMATURE GRANULOCYTE % (test 0.2 % 0.0-2.0 N code = IG%) LYMPHOCYTE % (test code = LY%) 27.2 % 14-44 N MONOCYTE % (test code = MO%) 10.4 % 4-13 N EOSINOPHIL % (test code = EO%) 2.3 % 0-6 N BASOPHIL % (test code = BA%) 0.6 % 0-2 N NUCLEATED RBC % (test code = 0.0 % 0-1.0 N NRBC%) NEUTROPHIL # (test code = NT#) 5.84 K/mm3 2.0-7.6 N IMMATURE GRANULOCYTE # (test 0.02 x10 3/uL 0-0.03 N code = IG#) LYMPHOCYTE # (test code = LY#) 2.68 K/mm3 1.0-3.8 N MONOCYTE # (test code = MO#) 1.02 K/mm3 0.1-0.8 H EOSINOPHIL # (test code = EO#) 0.23 K/mm3 0.0-0.2 H BASOPHIL # (test code = BA#) 0.06 K/mm3 0.0-0.2 N NUCLEATED RBC # (test code = 0.00 K/mm3 0.0-0.1 N NRBC#) GLUCOSE BEDSIDE [id number] 20:27:00 Test Item Value Reference Range Interpretation Comments GLUCOSE BEDSIDE TESTING (test code 170 MG/DL 60-99 H = GLUBED) GLUCOSE BEDSIDE [id number] 18:58:00 Test Item Value Reference Range Interpretation Comments GLUCOSE BEDSIDE TESTING (test code 149 MG/DL 60-99 H = GLUBED) GLUCOSE BEDSIDE [id number] 17:21:00 Test Item Value Reference Range Interpretation Comments GLUCOSE BEDSIDE TESTING (test code 208 MG/DL 60-99 H = GLUBED) GLUCOSE BEDSIDE [id number] 10:50:00 Test Item Value Reference Range Interpretation Comments GLUCOSE BEDSIDE TESTING (test code 170 MG/DL 60-99 H = GLUBED) GLUCOSE BEDSIDE [id number] 10:50:00 Test Item Value Reference Range Interpretation Comments GLUCOSE BEDSIDE TESTING (test code 235 MG/DL 60-99 H = GLUBED) GLUCOSE BEDSIDE [id number] 06:49:00 Test Item Value Reference Range Interpretation Comments GLUCOSE BEDSIDE TESTING (test code 159 MG/DL 60-99 H = GLUBED) BASIC METABOLIC [id number] 05:05:00 Test Item Value Reference Range Interpretation Comments SODIUM (test code = 135 MMOL/L 137-145 L NA) POTASSIUM (test code = 4.2 MMOL/L 3.5-5.1 N K) CHLORIDE (test code = 101 MMOL/L 98-107 N CL) CARBON DIOXIDE (test 27 MMOL/L 22-30 N code = CO2) ANION GAP (test code = 11 MMOL/L 14-24 L GAP) GLUCOSE (test code = 217 MG/DL 74-106 H GLU) BLOOD UREA NITROGEN 22 MG/DL 9-20 H (test code = BUN) GLOMERULAR FILTRATION > 60 Report ing units: RATE (test code = GFR) ml/mi n/1.73 m2 (Modified MDRD Formula)Referen ce Range: > or = 6 0 ml/min/1.73 m2 CREATININE (test code 1.10 MG/DL 0.66-1.25 = CREAT) CALCIUM (test code = 8.6 MG/DL 8.4-10.2 N CA) BASIC METABOLIC [id number] 05:01:00 Test Item Value Reference Range Interpretation Comments SODIUM (test code = NA) 135 MMOL/L 137-145 L POTASSIUM (test code = K) 4.2 MMOL/L 3.5-5.1 N CHLORIDE (test code = CL) 101 MMOL/L 98-107 N CARBON DIOXIDE (test code = CO2) MMOL/L 22-30 GLUCOSE (test code = GLU) MG/DL 74-106 BLOOD UREA NITROGEN (test code = MG/DL 9-20 BUN) GLOMERULAR FILTRATION RATE (test code = GFR) CREATININE (test code = CREAT) MG/DL 0.66-1.25 CALCIUM (test code = CA) MG/DL 8.7-9.7 BASIC METABOLIC [id number] 05:00:00 Test Item Value Reference Range Interpretation Comments SODIUM (test code = NA) 135 MMOL/L 137-145 L POTASSIUM (test code = K) MMOL/L 3.5-5.1 CHLORIDE (test code = CL) 101 MMOL/L 98-107 N CARBON DIOXIDE (test code = CO2) MMOL/L 22-30 GLUCOSE (test code = GLU) MG/DL 74-106 BLOOD UREA NITROGEN (test code = MG/DL 9-20 BUN) GLOMERULAR FILTRATION RATE (test code = GFR) CREATININE (test code = CREAT) MG/DL 0.66-1.25 CALCIUM (test code = CA) MG/DL 8.7-9.7 CBC W/AUTO [id number] 04:38:00 Test Item Value Reference Range Interpretation Comments WHITE BLOOD CELL (test code = 15.0 K/MM3 3.8-9.8 H WBC) RED BLOOD CELL (test code = 3.78 M/MM3 3.95-5.67 L RBC) HEMOGLOBIN (test code = HGB) 10.6 G/DL 12.4-16.7 L HEMATOCRIT (test code = HCT) 33.3 % 35.9-49.5 L MEAN CELL VOLUME (test code = 88 fL 81.7-96.1 N MCV) MEAN CELL HGB (test code = MCH) 28.0 pg 27.6-33.2 N MEAN CELL HGB CONCETRATION 31.8 % 32.9-35.5 L (test code = MCHC) RED CELL DISTRIBUTION WIDTH 13.7 % 12.1-15.2 N (test code = RDW) PLATELET COUNT (test code = 185 K/MM3 129-368 N PLT) MEAN PLATELET VOLUME (test code 10.7 fl 7.4-10.4 H = MPV) NEUTROPHIL % (test code = NT%) 80.4 % 43-75 H IMMATURE GRANULOCYTE % (test 0.5 % 0.0-2.0 N code = IG%) LYMPHOCYTE % (test code = LY%) 12.5 % 14-44 L MONOCYTE % (test code = MO%) 6.3 % 4-13 N EOSINOPHIL % (test code = EO%) 0.1 % 0-6 N BASOPHIL % (test code = BA%) 0.2 % 0-2 N NUCLEATED RBC % (test code = 0.0 % 0-1.0 N NRBC%) NEUTROPHIL # (test code = NT#) 12.06 K/mm3 2.0-7.6 H IMMATURE GRANULOCYTE # (test 0.07 x10 3/uL 0-0.03 H code = IG#) LYMPHOCYTE # (test code = LY#) 1.87 K/mm3 1.0-3.8 N MONOCYTE # (test code = MO#) 0.95 K/mm3 0.1-0.8 H EOSINOPHIL # (test code = EO#) 0.02 K/mm3 0.0-0.2 N BASOPHIL # (test code = BA#) 0.03 K/mm3 0.0-0.2 N NUCLEATED RBC # (test code = 0.00 K/mm3 0.0-0.1 N NRBC#) GLUCOSE BEDSIDE [id number] 11:22:00 Test Item Value Reference Range Interpretation Comments GLUCOSE BEDSIDE TESTING (test code 238 MG/DL 60-99 H = GLUBED) GLUCOSE BEDSIDE [id number] 11:20:00 Test Item Value Reference Range Interpretation Comments GLUCOSE BEDSIDE TESTING (test code 228 MG/DL 60-99 H = GLUBED) - XR CHEST [id number] 07:48:00 Patient Name: JAXON REEVES Unit No: [id number] EXAMS: CPT CODE: [id number] XR CHEST 1V 37378 Chest Radiograph History: post op Comparison: 2018 Location: R16 A single frontal view of the chest is submitted. The heart appears unchanged in size. Pulmonary vasculature is unremarkable. The visualized lung abdul appear to be free of disease. The bones appear unchanged. The vascular catheters appear unchanged. IMPRESSION: There is no radiographic evidence of acute cardiopulmonary disease. at 0748 Reported and signed by: Chuck Hurd MD CC: Hilary Trivedi; Theresa Macario MD Technologist: Mee Sanders RT(R) Transcrpt Date/Tm/Trnsp: 08/02/2019 (0748) [email or web address] Orig Print D/T: S: 08/02/2019 (0753) [facility] NAME: JAXON REEVES [id number] PHYS: [place] [address] : 1950 AGE: 69SEX: M LOC: [id number].[id number] A PHONE #: [phone] EXAM DATE: 08/02/2019 STATUS: ADM IN FAX #: [phone] RADIOLOGY NO: PAGE 1 Signed ReportBASIC METABOLIC [id number] 06:15:00 Test Item Value Reference Range Interpretation Comments SODIUM (test code = 134 MMOL/L 137-145 L NA) POTASSIUM (test code = 4.4 MMOL/L 3.5-5.1 N K) CHLORIDE (test code = 103 MMOL/L 98-107 N CL) CARBON DIOXIDE (test 23 MMOL/L 22-30 N code = CO2) GLUCOSE (test code = 222 MG/DL 74-106 H GLU) BLOOD UREA NITROGEN 19 MG/DL 9-20 N (test code = BUN) GLOMERULAR FILTRATION > 60 Report ing units: RATE (test code = GFR) ml/mi n/1.73 m2 (Modified MDRD Formula)Referen ce Range: > or = 6 0 ml/min/1.73 m2 CREATININE (test code 0.80 MG/DL 0.66-1.25 N = CREAT) CALCIUM (test code = 8.2 MG/DL 8.4-10.2 L CA) [id number] 06:15:00 Test Item Value Reference Range Interpretation Comments MAGNESIUM (test code = MAG) 1.6 MG/DL 1.6-2.3 N BASIC METABOLIC [id number] 06:12:00 Test Item Value Reference Range Interpretation Comments SODIUM (test code = 134 MMOL/L 137-145 L NA) POTASSIUM (test code = 4.4 MMOL/L 3.5-5.1 N K) CHLORIDE (test code = 103 MMOL/L 98-107 N CL) CARBON DIOXIDE (test 23 MMOL/L 22-30 N code = CO2) GLUCOSE (test code = MG/DL 74-106 GLU) BLOOD UREA NITROGEN 19 MG/DL 9-20 N (test code = BUN) GLOMERULAR FILTRATION > 60 Report ing units: RATE (test code = GFR) ml/mi n/1.73 m2 (Modified MDRD Formula)Referen ce Range: > or = 6 0 ml/min/1.73 m2 CREATININE (test code 0.80 MG/DL 0.66-1.25 N = CREAT) CALCIUM (test code = MG/DL 8.7-9.7 CA) [id number] 06:12:00 Test Item Value Reference Range Interpretation Comments MAGNESIUM (test code = MAG) MG/DL 1.6-2.3 BASIC METABOLIC [id number] 06:09:00 Test Item Value Reference Range Interpretation Comments SODIUM (test code = NA) 134 MMOL/L 137-145 L POTASSIUM (test code = K) 4.4 MMOL/L 3.5-5.1 N CHLORIDE (test code = CL) 103 MMOL/L 98-107 N CARBON DIOXIDE (test code = CO2) MMOL/L 22-30 GLUCOSE (test code = GLU) MG/DL 74-106 BLOOD UREA NITROGEN (test code = MG/DL 9-20 BUN) GLOMERULAR FILTRATION RATE (test code = GFR) CREATININE (test code = CREAT) MG/DL 0.66-1.25 CALCIUM (test code = CA) MG/DL 8.7-9.7 [id number] 06:09:00 Test Item Value Reference Range Interpretation Comments MAGNESIUM (test code = MAG) MG/DL 1.6-2.3 CBC W/AUTO [id number] 05:58:00 Test Item Value Reference Range Interpretation Comments WHITE BLOOD CELL (test code = 11.1 K/MM3 3.8-9.8 H WBC) RED BLOOD CELL (test code = 4.08 M/MM3 3.95-5.67 N RBC) HEMOGLOBIN (test code = HGB) 11.5 G/DL 12.4-16.7 L HEMATOCRIT (test code = HCT) 35.9 % 35.9-49.5 N MEAN CELL VOLUME (test code = 88 fL 81.7-96.1 N MCV) MEAN CELL HGB (test code = MCH) 28.2 pg 27.6-33.2 N MEAN CELL HGB CONCETRATION 32.0 % 32.9-35.5 L (test code = MCHC) RED CELL DISTRIBUTION WIDTH 13.3 % 12.1-15.2 N (test code = RDW) PLATELET COUNT (test code = 163 K/MM3 129-368 N PLT) MEAN PLATELET VOLUME (test code 10.6 fl 7.4-10.4 H = MPV) NEUTROPHIL % (test code = NT%) 89.9 % 43-75 H IMMATURE GRANULOCYTE % (test 0.5 % 0.0-2.0 N code = IG%) LYMPHOCYTE % (test code = LY%) 6.7 % 14-44 L MONOCYTE % (test code = MO%) 2.8 % 4-13 L EOSINOPHIL % (test code = EO%) 0.0 % 0-6 N BASOPHIL % (test code = BA%) 0.1 % 0-2 N NUCLEATED RBC % (test code = 0.0 % 0-1.0 N NRBC%) NEUTROPHIL # (test code = NT#) 9.95 K/mm3 2.0-7.6 H IMMATURE GRANULOCYTE # (test 0.05 x10 3/uL 0-0.03 H code = IG#) LYMPHOCYTE # (test code = LY#) 0.74 K/mm3 1.0-3.8 L MONOCYTE # (test code = MO#) 0.31 K/mm3 0.1-0.8 N EOSINOPHIL # (test code = EO#) 0.00 K/mm3 0.0-0.2 N BASOPHIL # (test code = BA#) 0.01 K/mm3 0.0-0.2 N NUCLEATED RBC # (test code = 0.00 K/mm3 0.0-0.1 N NRBC#) ARTERIAL BLOOD [id number] 05:32:00 Test Item Value Reference Range Interpretation Comments ARTERIAL BLOOD GAS PH (test code 7.37 mmHg 7.35-7.45 N = PHA) ARTERIAL BLOOD GAS PCO2 (test 39.2 mmHg 35.0-45.0 N code = PCO2A) ARTERIAL BLOOD GAS PO2 (test code 94.9 mmol/L 80.0-100.0 N = PO2A) BICARBONATE TOTAL HCO3 (test code 22.2 mmol/L 20.0-26.0 N = HCO3) BASE EXCESS (test code = FRIDA) -2.7 mmol/L -3.0-3.0 N ABG O2 SATURATION (test code = 97.1 % 95.0-100.0 N SATA) ABG DELIVERY (test code = ELO) N/C ABG TEMPERATURE (test code = 37.0 C >37 TEMPA) ABG SITE (test code = SITEA) AL ALLENS TEST (test code = ALLENS) NA CHECK FIO2 (test code = COHBGFFIO2) 40 % - XR CHEST [id number] 21:41:00 Patient Name: JAXON REEVES Unit No: [id number] EXAMS: CPT CODE: [id number] XR CHEST 1V 52771 EXAM: - XR CHEST 1V LOCATION: H57 HISTORY: 69 yea rs-old Male with post op COMPARISON: 08/01/2019 FINDINGS: Single view of the chest was obtained. Left subclavian central venous catheter terminates in the distal subclavian vein. Linear opacity overlying the right neck may representa surgical drain. A rounded opacity overlying the left cardiac silhouette may be external to the patient. The cardiomediastinal silhouette is unchanged. There is prominence of the pulmonary vasculature. The lungs are well aerated. No large pneumothorax or pleural effusion. Osseous structures and soft tissues are unchanged with no acute findings. The visualized upper abdomen is unremarkable. IMPRESSION: Pulmonary vascular congestion. Rounded opacity overlying the left cardiac silhouette is indeterminate and may be external to the patient. at 2141 Reported and signed by: Vladimir Garrett [facility]: Hilary Trivedi; Theresa Macario MD Technologist: RT Sara(R) Transcrpt Date/Tm/Trnsp: 08/01/2019 (2140) Chris Orig Print D/T: S: 08/01/2019 (485) [facility] NAME: JAXON REEVES [id number] PHYS: [place] [address] : 1950 AGE: 69 SEX: M LOC: ZJose [id number] Shana PHONE #: [phone] EXAM DATE: 08/01/2019 STATUS: ADM IN FAX #: [phone] RADIOLOGY NO: PAGE 1 Signed ReportBASIC METABOLIC [id number] 21:16:00 Test Item Value Reference Range Interpretation Comments SODIUM (test code = 136 MMOL/L 137-145 L NA) POTASSIUM (test code = 4.2 MMOL/L 3.5-5.1 N K) CHLORIDE (test code = 108 MMOL/L 98-107 H CL) CARBON DIOXIDE (test 21 MMOL/L 22-30 L code = CO2) ANION GAP (test code = 11 MMOL/L 14-24 L GAP) GLUCOSE (test code = 174 MG/DL 74-106 H GLU) BLOOD UREA NITROGEN 18 MG/DL 9-20 N (test code = BUN) GLOMERULAR FILTRATION > 60 Report ing units: RATE (test code = GFR) ml/mi n/1.73 m2 (Modified MDRD Formula)Referen ce Range: > or = 6 0 ml/min/1.73 m2 CREATININE (test code 0.90 MG/DL 0.66-1.25 = CREAT) CALCIUM (test code = 8.6 MG/DL 8.4-10.2 N CA) [id number] 21:16:00 Test Item Value Reference Range Interpretation Comments MAGNESIUM (test code = MAG) 1.7 MG/DL 1.6-2.3 N BASIC METABOLIC [id number] 21:12:00 Test Item Value Reference Range Interpretation Comments SODIUM (test code = NA) 136 MMOL/L 137-145 L POTASSIUM (test code = K) 4.2 MMOL/L 3.5-5.1 N CHLORIDE (test code = CL) 108 MMOL/L 98-107 H CARBON DIOXIDE (test code = CO2) MMOL/L 22-30 GLUCOSE (test code = GLU) MG/DL 74-106 BLOOD UREA NITROGEN (test code = MG/DL 9-20 BUN) GLOMERULAR FILTRATION RATE (test code = GFR) CREATININE (test code = CREAT) MG/DL 0.66-1.25 CALCIUM (test code = CA) MG/DL 8.7-9.7 [id number] 21:12:00 Test Item Value Reference Range Interpretation Comments MAGNESIUM (test code = MAG) MG/DL 1.6-2.3 BASIC METABOLIC [id number] 21:11:00 Test Item Value Reference Range Interpretation Comments SODIUM (test code = NA) 136 MMOL/L 137-145 L POTASSIUM (test code = K) MMOL/L 3.5-5.1 CHLORIDE (test code = CL) 108 MMOL/L 98-107 H CARBON DIOXIDE (test code = CO2) MMOL/L 22-30 GLUCOSE (test code = GLU) MG/DL 74-106 BLOOD UREA NITROGEN (test code = MG/DL 9-20 BUN) GLOMERULAR FILTRATION RATE (test code = GFR) CREATININE (test code = CREAT) MG/DL 0.66-1.25 CALCIUM (test code = CA) MG/DL 8.7-9.7 [id number] 21:11:00 Test Item Value Reference Range Interpretation Comments MAGNESIUM (test code = MAG) MG/DL 1.6-2.3 CBC W/AUTO [id number] 21:09:00 Test Item Value Reference Range Interpretation Comments WHITE BLOOD CELL (test code = 12.9 K/MM3 3.8-9.8 H WBC) RED BLOOD CELL (test code = 4.02 M/MM3 3.95-5.67 N RBC) HEMOGLOBIN (test code = HGB) 11.1 G/DL 12.4-16.7 L HEMATOCRIT (test code = HCT) 35.9 % 35.9-49.5 N MEAN CELL VOLUME (test code = 89 fL 81.7-96.1 N MCV) MEAN CELL HGB (test code = MCH) 27.6 pg 27.6-33.2 N MEAN CELL HGB CONCETRATION 30.9 % 32.9-35.5 L (test code = MCHC) RED CELL DISTRIBUTION WIDTH 13.7 % 12.1-15.2 N (test code = RDW) PLATELET COUNT (test code = 169 K/MM3 129-368 N PLT) MEAN PLATELET VOLUME (test code 10.8 fl 7.4-10.4 H = MPV) NEUTROPHIL % (test code = NT%) 81.3 % 43-75 H IMMATURE GRANULOCYTE % (test 1.3 % 0.0-2.0 N code = IG%) LYMPHOCYTE % (test code = LY%) 11.3 % 14-44 L MONOCYTE % (test code = MO%) 3.2 % 4-13 L EOSINOPHIL % (test code = EO%) 2.4 % 0-6 N BASOPHIL % (test code = BA%) 0.5 % 0-2 N NUCLEATED RBC % (test code = 0.0 % 0-1.0 N NRBC%) NEUTROPHIL # (test code = NT#) 10.45 K/mm3 2.0-7.6 H IMMATURE GRANULOCYTE # (test 0.17 x10 3/uL 0-0.03 H code = IG#) LYMPHOCYTE # (test code = LY#) 1.45 K/mm3 1.0-3.8 N MONOCYTE # (test code = MO#) 0.41 K/mm3 0.1-0.8 N EOSINOPHIL # (test code = EO#) 0.31 K/mm3 0.0-0.2 H BASOPHIL # (test code = BA#) 0.06 K/mm3 0.0-0.2 N NUCLEATED RBC # (test code = 0.00 K/mm3 0.0-0.1 N NRBC#) ARTERIAL BLOOD [id number] 21:06:00 Test Item Value Reference Range Interpretation Comments ARTERIAL BLOOD GAS PH (test code 7.30 mmHg 7.35-7.45 L = PHA) ARTERIAL BLOOD GAS PCO2 (test 49.8 mmHg 35.0-45.0 H code = PCO2A) ARTERIAL BLOOD GAS PO2 (test code 80.9 mmol/L 80.0-100.0 N = PO2A) BICARBONATE TOTAL HCO3 (test code 24.0 mmol/L 20.0-26.0 N = HCO3) BASE EXCESS (test code = FRIDA) -3.0 mmol/L -3.0-3.0 N ABG O2 SATURATION (test code = 94.7 % 95.0-100.0 L SATA) ABG DELIVERY (test code = ELO) SMASK ABG TEMPERATURE (test code = 37.0 C >37 TEMPA) ABG SITE (test code = SITEA) AL ALLENS TEST (test code = ALLENS) NA CHECK FIO2 (test code = COHBGFFIO2) 40 % GLUCOSE BEDSIDE [id number] 17:12:00 Test Item Value Reference Range Interpretation Comments GLUCOSE BEDSIDE TESTING (test code 119 MG/DL 60-99 H = GLUBED) GLUCOSE BEDSIDE [id number] 16:52:00 Test Item Value Reference Range Interpretation Comments GLUCOSE BEDSIDE TESTING (test code 124 MG/DL 60-99 H = GLUBED) GLUCOSE BEDSIDE [id number] 11:35:00 Test Item Value Reference Range Interpretation Comments GLUCOSE BEDSIDE TESTING (test code 143 MG/DL 60-99 H = GLUBED) GLUCOSE BEDSIDE [id number] 07:49:00 Test Item Value Reference Range Interpretation Comments GLUCOSE BEDSIDE TESTING (test code 159 MG/DL 60-99 H = GLUBED) - XR CHEST [id number] 07:37:00 Patient Name: JAXON REEVES Unit No: [id number] EXAMS: CPT CODE: [id number] XR CHEST 1V 48670 Chest Radiograph History: Vascular Bypass Preop Co mparison: July 31, 2019 Location: R16 Two frontal views of the chest are submitted. The heart appears unchanged in size. Pulmonary vasculature is unremarkable. The visualized lung abdul appear to be free of disease. The bones appear unchanged. IMPRESSION: There is no radiographic evidence of acute cardiopulmonary disease. at 0737 Reported and signed by: Chuck Hurd MD CC: Hilary Trivedi; Ailin Lai NP; Theresa Macario MD Technologist: Mee Sanders RT(R) Transcrpt Date/Tm/Trnsp: 08/01/2019 (0737) [email or web address] Orig Print D/T: S: 08/01/2019 (0740) [facility] NAME: JAXON REEVES [id number] PHYS: [place] [address] : 1950 AGE: 69 SEX: M LOC: Z.[id number] A PHONE #: [phone] EXAM DATE: 08/01/2019 STATUS: ADM IN FAX #: [phone] RADIOLOGY NO: PAGE 1 Signed ReportCOMPREHENSIVE METABOLIC [id number] 06:27:00 Test Item Value Reference Range Interpretation Comments SODIUM (test code = NA) 136 MMOL/L 137-145 L POTASSIUM (test code = 4.0 MMOL/L 3.5-5.1 N K) CHLORIDE (test code = 101 MMOL/L 98-107 N CL) CARBON DIOXIDE (test 28 MMOL/L 22-30 N code = CO2) GLUCOSE (test code = 160 MG/DL 74-106 H GLU) BLOOD UREA NITROGEN 19 MG/DL 9-20 N (test code = BUN) GLOMERULAR FILTRATION 60 Report ing units: RATE (test code = GFR) ml/mi n/1.73 m2 (Modified MDRD Formula)Referen ce Range: > or = 6 0 ml/min/1.73 m2 CREATININE (test code = 1.20 MG/DL 0.66-1.25 N CREAT) TOTAL PROTEIN (test 7.2 G/DL 6.2-7.6 N code = PROT) ALBUMIN (test code = 3.7 G/DL 3.5-5.0 N ALB) CALCIUM (test code = 8.6 MG/DL 8.4-10.2 N CA) BILIRUBIN TOTAL (test 0.4 MG/DL 0.2-1.3 N code = BILT) SGOT/AST (test code = 18 UNITS/L 17-59 N AST) SGPT/ALT (test code = 11 UNITS/L 21-72 L ALT) ALKALINE PHOSPHATASE 75 UNITS/L 38-126 N (test code = ALKP) COMPREHENSIVE METABOLIC [id number] 06:26:00 Test Item Value Reference Range Interpretation Comments SODIUM (test code = NA) 136 MMOL/L 137-145 L POTASSIUM (test code = 4.0 MMOL/L 3.5-5.1 N K) CHLORIDE (test code = 101 MMOL/L 98-107 N CL) CARBON DIOXIDE (test 28 MMOL/L 22-30 N code = CO2) GLUCOSE (test code = MG/DL 74-106 GLU) BLOOD UREA NITROGEN 19 MG/DL 9-20 N (test code = BUN) GLOMERULAR FILTRATION 60 Report ing units: RATE (test code = GFR) ml/mi n/1.73 m2 (Modified MDRD Formula)Referen ce Range: > or = 6 0 ml/min/1.73 m2 CREATININE (test code = 1.20 MG/DL 0.66-1.25 N CREAT) TOTAL PROTEIN (test 7.2 G/DL 6.2-7.6 N code = PROT) ALBUMIN (test code = 3.7 G/DL 3.5-5.0 N ALB) CALCIUM (test code = MG/DL 8.7-9.7 CA) BILIRUBIN TOTAL (test 0.4 MG/DL 0.2-1.3 N code = BILT) SGOT/AST (test code = 18 UNITS/L 17-59 N AST) SGPT/ALT (test code = 11 UNITS/L 21-72 L ALT) ALKALINE PHOSPHATASE 75 UNITS/L 38-126 N (test code = ALKP) COMPREHENSIVE METABOLIC [id number] 06:24:00 Test Item Value Reference Range Interpretation Comments SODIUM (test code = NA) 136 MMOL/L 137-145 L POTASSIUM (test code = K) 4.0 MMOL/L 3.5-5.1 N CHLORIDE (test code = CL) 101 MMOL/L 98-107 N CARBON DIOXIDE (test code = CO2) MMOL/L 22-30 GLUCOSE (test code = GLU) MG/DL 74-106 BLOOD UREA NITROGEN (test code = MG/DL 9-20 BUN) GLOMERULAR FILTRATION RATE (test code = GFR) CREATININE (test code = CREAT) MG/DL 0.66-1.25 TOTAL PROTEIN (test code = PROT) G/DL 6.2-7.6 ALBUMIN (test code = ALB) 3.7 G/DL 3.5-5.0 N CALCIUM (test code = CA) MG/DL 8.7-9.7 BILIRUBIN TOTAL (test code = BILT) MG/DL 0.2-1.3 SGOT/AST (test code = AST) UNITS/L 15-37 SGPT/ALT (test code = ALT) UNITS/L 21-72 ALKALINE PHOSPHATASE (test code = UNITS/L 38-126 ALKP) COMPREHENSIVE METABOLIC [id number] 06:23:00 Test Item Value Reference Range Interpretation Comments SODIUM (test code = NA) MMOL/L 137-145 POTASSIUM (test code = K) MMOL/L 3.5-5.1 CHLORIDE (test code = CL) 101 MMOL/L 98-107 N CARBON DIOXIDE (test code = CO2) MMOL/L 22-30 GLUCOSE (test code = GLU) MG/DL 74-106 BLOOD UREA NITROGEN (test code = MG/DL 9-20 BUN) GLOMERULAR FILTRATION RATE (test code = GFR) CREATININE (test code = CREAT) MG/DL 0.66-1.25 TOTAL PROTEIN (test code = PROT) G/DL 6.2-7.6 ALBUMIN (test code = ALB) 3.7 G/DL 3.5-5.0 N CALCIUM (test code = CA) MG/DL 8.7-9.7 BILIRUBIN TOTAL (test code = BILT) MG/DL 0.2-1.3 SGOT/AST (test code = AST) UNITS/L 15-37 SGPT/ALT (test code = ALT) UNITS/L 21-72 ALKALINE PHOSPHATASE (test code = UNITS/L 38-126 ALKP) CBC W/AUTO [id number] 06:09:00 Test Item Value Reference Range Interpretation Comments WHITE BLOOD CELL (test code = 10.3 K/MM3 3.8-9.8 H WBC) RED BLOOD CELL (test code = 4.20 M/MM3 3.95-5.67 N RBC) HEMOGLOBIN (test code = HGB) 11.6 G/DL 12.4-16.7 L HEMATOCRIT (test code = HCT) 36.9 % 35.9-49.5 N MEAN CELL VOLUME (test code = 88 fL 81.7-96.1 N MCV) MEAN CELL HGB (test code = MCH) 27.6 pg 27.6-33.2 N MEAN CELL HGB CONCETRATION 31.4 % 32.9-35.5 L (test code = MCHC) RED CELL DISTRIBUTION WIDTH 13.8 % 12.1-15.2 N (test code = RDW) PLATELET COUNT (test code = 188 K/MM3 129-368 N PLT) MEAN PLATELET VOLUME (test code 10.4 fl 7.4-10.4 N = MPV) NEUTROPHIL % (test code = NT%) 63.0 % 43-75 N IMMATURE GRANULOCYTE % (test 0.3 % 0.0-2.0 N code = IG%) LYMPHOCYTE % (test code = LY%) 23.5 % 14-44 N MONOCYTE % (test code = MO%) 8.9 % 4-13 N EOSINOPHIL % (test code = EO%) 3.7 % 0-6 N BASOPHIL % (test code = BA%) 0.6 % 0-2 N NUCLEATED RBC % (test code = 0.0 % 0-1.0 N NRBC%) NEUTROPHIL # (test code = NT#) 6.48 K/mm3 2.0-7.6 N IMMATURE GRANULOCYTE # (test 0.03 x10 3/uL 0-0.03 N code = IG#) LYMPHOCYTE # (test code = LY#) 2.41 K/mm3 1.0-3.8 N MONOCYTE # (test code = MO#) 0.91 K/mm3 0.1-0.8 H EOSINOPHIL # (test code = EO#) 0.38 K/mm3 0.0-0.2 H BASOPHIL # (test code = BA#) 0.06 K/mm3 0.0-0.2 N NUCLEATED RBC # (test code = 0.00 K/mm3 0.0-0.1 N NRBC#) GLUCOSE BEDSIDE [id number] 20:37:00 Test Item Value Reference Range Interpretation Comments GLUCOSE BEDSIDE TESTING (test code 102 MG/DL 60-99 H = GLUBED) URINALYSIS [id number] 17:15:00 Test Item Value Reference Range Interpretation Comments UA COLOR (test code = YELLOW YELLOW COLU) UA APPEARANCE (test code CLEAR CLEAR = APPU) UA GLUCOSE DIPSTICK (test NORMAL MG/DL NORMAL code = DGLUU) UA BILIRUBIN DIPSTICK NEGATIVE MG/DL NEGATIVE (test code = BILU) UA KETONE DIPSTICK (test NEGATIVE MG/DL NEGATIVE code = KETU) UA SPECIFIC GRAVITY (test 1.015 1.003-1.030 N code = SGU) UA BLOOD DIPSTICK (test NEGATIVE Sage/mm3 NEGATIVE code = MARK) UA PH DIPSTICK (test code 6.0 5.0-9.0 N = SABRINA) UA PROTEIN DIPSTICK (test NEGATIVE MG/DL NEGATIVE code = PROU) UA UROBILINIOGEN DIPSTICK NORMAL MG/DL NORMAL (test code = URO) UA NITRITE DIPSTICK (test NEGATIVE NEGATIVE code = NERI) UA LEUKOCYTE ESTERASE NEGATIVE /mm3 NEGATIVE DIPSTICK (test code = LEUU) UA CULTURE NEEDED? (test NEGATIVE, NO CULTURE Culture Chk code = UACULT) Criteria SOURCE OF URINE: CLEAN CATCHURINALYSIS [id number] 17:14:00 Test Item Value Reference Range Interpretation Comments UA COLOR (test code = COLU) YELLOW YELLOW UA APPEARANCE (test code = CLEAR CLEAR APPU) UA GLUCOSE DIPSTICK (test NORMAL MG/DL NORMAL code = DGLUU) UA BILIRUBIN DIPSTICK (test NEGATIVE MG/DL NEGATIVE code = BILU) UA KETONE DIPSTICK (test NEGATIVE MG/DL NEGATIVE code = KETU) UA SPECIFIC GRAVITY (test 1.015 1.003-1.030 N code = SGU) UA BLOOD DIPSTICK (test code NEGATIVE Saeg/mm3 NEGATIVE = MARK) UA PH DIPSTICK (test code = 6.0 5.0-9.0 N SABRINA) UA PROTEIN DIPSTICK (test NEGATIVE MG/DL NEGATIVE code = PROU) UA UROBILINIOGEN DIPSTICK NORMAL MG/DL NORMAL (test code = URO) UA NITRITE DIPSTICK (test NEGATIVE NEGATIVE code = NERI) UA LEUKOCYTE ESTERASE NEGATIVE /mm3 NEGATIVE DIPSTICK (test code = LEUU) UA CULTURE NEEDED? (test Criteria Culture Chk code = UACULT) SOURCE OF URINE: CLEAN CATCHGLUCOSE BEDSIDE [id number] 15:37:00 Test Item Value Reference Range Interpretation Comments GLUCOSE BEDSIDE TESTING (test code 100 MG/DL 60-99 H = GLUBED) PROTHROMBIN [id number] 12:51:00 Test Item Value Reference Range Interpretation Comments PROTHROMBIN TIME 10.4 SECONDS 9.6-11.6 N PATIENT (test code = PTP) INTERNATIONAL NORMAL 1.0 0.8-1.1 N The INR is to be RATIO (test code = used only for INR) monitoring oral anticoagulantth erap y. INDICATION I NR VALUE ---- ---- ---- -------1. Prophylaxis, de ep venous thrombos is, including hig h risk surgery. 2.0 - 3.0 2. Prophylaxis, de ep venous thrombos is, hip surgery, treatment for d eep venous thrombosis or pulmonary prevention of systemic emboli sm in patients wit h valvular heart disease, atrial fibrillation, tissue heart va lve, or acute myocar dial infarction. 2.0 - 3 .0 3. Mechanical prosthesis hear t valves, recurrent syste petey embolism. 3.0 - 4.5 PTT [id number] 12:51:00 Test Item Value Reference Range Interpretation Comments PTT ACTIVATED (test code = APTT) 32.8 SECONDS 22.0-33.0 N GLUCOSE BEDSIDE [id number] 11:06:00 Test Item Value Reference Range Interpretation Comments GLUCOSE BEDSIDE TESTING (test code 169 MG/DL 60-99 H = GLUBED) - XR CHEST [id number] 08:01:00 Patient Name: JAXON REEVES Unit No: [id number] EXAMS: CPT CODE: [id number] XR CHEST 1V [id number] LOCATION: [id number] EXAM: CHEST 1 VIEW INDICATION: preop COMPARISON: Chest x-ray February 11, 2013 TECHNIQUE: AP chest radiograph. FINDINGS: Central vascular congestion. The heart is mildly enlarged. No pleural effusion. Bones are unchanged. IMPRESSION: Mild cardiomegaly with central vascular congestion. at 0801 Reported and signed by: Jay Tenorio MD CC: Hilary Santacruz; Ailin Lai SITE OPERATIONS MANAGER; Theresa Macario MD Technologist: Miguel Oviedo, RT(R) Transcrpt Date/Tm/Trnsp: 07/31/2019 (08) [id number] Orig Print D/T: S: 07/31/2019 (04) [facility] NAME: JAXON REEVES [id number] PHYS: [place] [address] : 1950 AGE: 69 SEX: M LOC: Z.365 A PHONE #: [phone] EXAM DATE: 07/31/2019 STATUS: ADM IN FAX #: [phone] RADIOLOGY NO: PAGE 1 Signed ReportGLUCOSE BEDSIDE [id number] 07:53:00 Test Item Value Reference Range Interpretation Comments GLUCOSE BEDSIDE TESTING (test code 160 MG/DL 60-99 H = GLUBED) GLYCOSYLATED HEMOGLOBIN [id number] 06:40:00 Test Item Value Reference Range Interpretation Comments GLYCOSYLATED 7.9 % 4.8-5.9 H Any condition t hat HEMOGLOBIN (HA1C) shortens e rythocyte (test code = survival or dec reasesmean GLYHGB) erythrocyte age (e.g., recovery from a cute blood loss,hemolytic anemia) will falsely lo wer HGBA1c resultsregardle ss of the method used. H GBA1c results from [facility] HbSS, HbCC, and HbSc must be interpreted with cautiongiven th e pathological pr ocesses, including anemia,increase d red cell turnover, trans fusion requirements, thatadversely i mpact HGBA1c as a mar ker of long-term glycemiccontrol . Alternative for ms of testing such as fructosaminesho uld be considered for these patients. MEAN BLOOD GLUCOSE 180 MG/DL 70-110 H (test code = MBG) [id number] 06:26:00 Test Item Value Reference Range Interpretation Comments MAGNESIUM (test code = MAG) 1.9 MG/DL 1.6-2.3 N PLT RESPONSE TO [id number] 06:13:00 Test Item Value Reference Range Interpretation Comments PLT RESPONSE TO 277 PRU 194-418 N P2Y12 Result s PLAVIX (test code = Interpre tation: Test PLAVRES) results are in P2Y12 Reaction Units (PRU). Pre-Drug Refe rence Range is 194-41 8. Pre-drug platel et function estima gato the total possible platelet aggregation independent of P2Y12 inhibitor drugs . Values <194 cou ld be due to low HCT, low platelet count, or p resence of IIb/IIIa inhibi tors. Post-Drug Resu lts: Lower PRU levels are associated with expec suri antiplatelet ef fect. Values may be b elow the stated refe rence range. Studies show that patients wi th <230 PRU had fewer a dverse events. BASIC METABOLIC [id number] 05:22:00 Test Item Value Reference Range Interpretation Comments SODIUM (test code = 137 MMOL/L 137-145 N NA) POTASSIUM (test code = 3.9 MMOL/L 3.5-5.1 N K) CHLORIDE (test code = 100 MMOL/L 98-107 N CL) CARBON DIOXIDE (test 29 MMOL/L 22-30 N code = CO2) GLUCOSE (test code = 164 MG/DL 74-106 H GLU) BLOOD UREA NITROGEN 17 MG/DL 9-20 N (test code = BUN) GLOMERULAR FILTRATION > 60 Report ing units: RATE (test code = GFR) ml/mi n/1.73 m2 (Modified MDRD Formula)Referen ce Range: > or = 6 0 ml/min/1.73 m2 CREATININE (test code 1.00 MG/DL 0.66-1.25 N = CREAT) CALCIUM (test code = 8.4 MG/DL 8.4-10.2 N CA) BASIC METABOLIC [id number] 05:21:00 Test Item Value Reference Range Interpretation Comments SODIUM (test code = 137 MMOL/L 137-145 N NA) POTASSIUM (test code = 3.9 MMOL/L 3.5-5.1 N K) CHLORIDE (test code = 100 MMOL/L 98-107 N CL) CARBON DIOXIDE (test MMOL/L 22-30 code = CO2) GLUCOSE (test code = MG/DL 74-106 GLU) BLOOD UREA NITROGEN MG/DL 9-20 (test code = BUN) GLOMERULAR FILTRATION > 60 Report ing units: RATE (test code = GFR) ml/mi n/1.73 m2 (Modified MDRD Formula)Referen ce Range: > or = 6 0 ml/min/1.73 m2 CREATININE (test code 1.00 MG/DL 0.66-1.25 N = CREAT) CALCIUM (test code = MG/DL 8.7-9.7 CA) BASIC METABOLIC [id number] 05:19:00 Test Item Value Reference Range Interpretation Comments SODIUM (test code = NA) 137 MMOL/L 137-145 N POTASSIUM (test code = K) 3.9 MMOL/L 3.5-5.1 N CHLORIDE (test code = CL) 100 MMOL/L 98-107 N CARBON DIOXIDE (test code = CO2) MMOL/L 22-30 GLUCOSE (test code = GLU) MG/DL 74-106 BLOOD UREA NITROGEN (test code = MG/DL 9-20 BUN) GLOMERULAR FILTRATION RATE (test code = GFR) CREATININE (test code = CREAT) MG/DL 0.66-1.25 CALCIUM (test code = CA) MG/DL 8.7-9.7 CBC W/AUTO [id number] 05:09:00 Test Item Value Reference Range Interpretation Comments WHITE BLOOD CELL (test code = 9.6 K/MM3 3.8-9.8 N WBC) RED BLOOD CELL (test code = 4.09 M/MM3 3.95-5.67 N RBC) HEMOGLOBIN (test code = HGB) 11.9 G/DL 12.4-16.7 L HEMATOCRIT (test code = HCT) 35.6 % 35.9-49.5 L MEAN CELL VOLUME (test code = 87 fL 81.7-96.1 N MCV) MEAN CELL HGB (test code = MCH) 29.1 pg 27.6-33.2 N MEAN CELL HGB CONCETRATION 33.4 % 32.9-35.5 N (test code = MCHC) RED CELL DISTRIBUTION WIDTH 13.7 % 12.1-15.2 N (test code = RDW) PLATELET COUNT (test code = 179 K/MM3 129-368 N PLT) MEAN PLATELET VOLUME (test code 10.4 fl 7.4-10.4 N = MPV) NEUTROPHIL % (test code = NT%) 63.0 % 43-75 N IMMATURE GRANULOCYTE % (test 0.3 % 0.0-2.0 N code = IG%) LYMPHOCYTE % (test code = LY%) 23.2 % 14-44 N MONOCYTE % (test code = MO%) 8.0 % 4-13 N EOSINOPHIL % (test code = EO%) 4.9 % 0-6 N BASOPHIL % (test code = BA%) 0.6 % 0-2 N NUCLEATED RBC % (test code = 0.0 % 0-1.0 N NRBC%) NEUTROPHIL # (test code = NT#) 6.02 K/mm3 2.0-7.6 N IMMATURE GRANULOCYTE # (test 0.03 x10 3/uL 0-0.03 N code = IG#) LYMPHOCYTE # (test code = LY#) 2.22 K/mm3 1.0-3.8 N MONOCYTE # (test code = MO#) 0.77 K/mm3 0.1-0.8 N EOSINOPHIL # (test code = EO#) 0.47 K/mm3 0.0-0.2 H BASOPHIL # (test code = BA#) 0.06 K/mm3 0.0-0.2 N NUCLEATED RBC # (test code = 0.00 K/mm3 0.0-0.1 N NRBC#) GLUCOSE BEDSIDE [id number] 20:22:00 Test Item Value Reference Range Interpretation Comments GLUCOSE BEDSIDE TESTING (test code = 93 MG/DL 60-99 N GLUBED) GLUCOSE BEDSIDE [id number] 15:53:00 Test Item Value Reference Range Interpretation Comments GLUCOSE BEDSIDE TESTING (test code 159 MG/DL 60-99 H = GLUBED) GLUCOSE BEDSIDE [id number] 13:26:00 Test Item Value Reference Range Interpretation Comments GLUCOSE BEDSIDE TESTING (test code 104 MG/DL 60-99 H = GLUBED) BASIC METABOLIC [id number] 08:16:00 Test Item Value Reference Range Interpretation Comments SODIUM (test code = 139 MMOL/L 137-145 N NA) POTASSIUM (test code = 4.0 MMOL/L 3.5-5.1 N K) CHLORIDE (test code = 100 MMOL/L 98-107 N CL) CARBON DIOXIDE (test 30 MMOL/L 22-30 N code = CO2) GLUCOSE (test code = 163 MG/DL 74-106 H GLU) BLOOD UREA NITROGEN 19 MG/DL 9-20 N (test code = BUN) GLOMERULAR FILTRATION > 60 Report ing units: RATE (test code = GFR) ml/mi n/1.73 m2 (Modified MDRD Formula)Referen ce Range: > or = 6 0 ml/min/1.73 m2 CREATININE (test code 1.00 MG/DL 0.66-1.25 N = CREAT) CALCIUM (test code = 9.0 MG/DL 8.4-10.2 N CA) LIPID PROFILE (CORONARY RISK)2019-07-30 08:16:00 Test Item Value Reference Range Interpretation Comments TRIGLYCERIDES (test 74 MG/DL TRIGLYCE RIDES code = TRIG) REFERENCE RANGE:Normal: < 150 mg/dLBorderline High: 150-199 mg/dLHi gh: 200-499 mg/dLVe ry High: >=500 mg/ dL CHOLESTEROL (test code 104 MG/DL <200 = CHOL) HDL CHOLESTEROL (test 32 MG/DL 40-59 L code = HDL) LIPOPROTEIN LDL (test 58 MG/DL 0-99 N code = LDL) OPTIMAL........ .<100 mg/dLNEAR OPTIMAL/ABOVE OPTIMAL........ .100-12 9 mg/dL BORDERLINE HIGH.........13 0-159 mg/dL HIGH.........16 0-189 mg/dL VERY HIGH...... ...>/= 190 mg/dL [id number] 08:16:00 Test Item Value Reference Range Interpretation Comments MAGNESIUM (test code = MAG) 1.8 MG/DL 1.6-2.3 N BASIC METABOLIC [id number] 08:05:00 Test Item Value Reference Range Interpretation Comments SODIUM (test code = 139 MMOL/L 137-145 N NA) POTASSIUM (test code = 4.0 MMOL/L 3.5-5.1 N K) CHLORIDE (test code = 100 MMOL/L 98-107 N CL) CARBON DIOXIDE (test 30 MMOL/L 22-30 N code = CO2) GLUCOSE (test code = 163 MG/DL 74-106 H GLU) BLOOD UREA NITROGEN 19 MG/DL 9-20 N (test code = BUN) GLOMERULAR FILTRATION > 60 Report ing units: RATE (test code = GFR) ml/mi n/1.73 m2 (Modified MDRD Formula)Referen ce Range: > or = 6 0 ml/min/1.73 m2 CREATININE (test code 1.00 MG/DL 0.66-1.25 N = CREAT) CALCIUM (test code = 9.0 MG/DL 8.4-10.2 N CA) LIPID PROFILE (CORONARY RISK)2019-07-30 08:05:00 Test Item Value Reference Range Interpretation Comments TRIGLYCERIDES (test 74 MG/DL TRIGLYCE RIDES code = TRIG) REFERENCE RANGE:Normal: < 150 mg/dLBorderline High: 150-199 mg/dLHi gh: 200-499 mg/dLVe ry High: >=500 mg/ dL CHOLESTEROL (test code 104 MG/DL <200 = CHOL) HDL CHOLESTEROL (test 32 MG/DL 40-59 L code = HDL) LIPOPROTEIN LDL (test MG/DL 0-99 code = LDL) [id number] 08:05:00 Test Item Value Reference Range Interpretation Comments MAGNESIUM (test code = MAG) 1.8 MG/DL 1.6-2.3 N PROTHROMBIN [id number] 08:04:00 Test Item Value Reference Range Interpretation Comments PROTHROMBIN TIME 10.4 SECONDS 9.6-11.6 N PATIENT (test code = PTP) INTERNATIONAL NORMAL 1.0 0.8-1.1 N The INR is to be RATIO (test code = used only for INR) monitoring oral anticoagulantth erap y. INDICATION I NR VALUE ---- ---- ---- -------1. Prophylaxis, de ep venous thrombos is, including hig h risk surgery. 2.0 - 3.0 2. Prophylaxis, de ep venous thrombos is, hip surgery, treatment for d eep venous thrombosis or pulmonary prevention of systemic emboli sm in patients wit h valvular heart disease, atrial fibrillation, tissue heart va lve, or acute myocar dial infarction. 2.0 - 3 .0 3. Mechanical prosthesis hear t valves, recurrent syste petey embolism. 3.0 - 4.5 Comments to Supervisor Hand Workers: NEED ANGELA PRIOR TO PROCEDUREComments to Supervisor Hand Workers: NEED ANGELA PLEASEPTT [id number] 08:04:00 Test Item Value Reference Range Interpretation Comments PTT ACTIVATED (test code = APTT) 28.9 SECONDS 22.0-33.0 N Comments to Supervisor Hand Workers: NEED ANGELA PRIOR TO PROCEDUREComments to Supervisor Hand Workers: NEED ANGELA PLEASEBASIC METABOLIC [id number] 08:04:00 Test Item Value Reference Range Interpretation Comments SODIUM (test code = 139 MMOL/L 137-145 N NA) POTASSIUM (test code = 4.0 MMOL/L 3.5-5.1 N K) CHLORIDE (test code = 100 MMOL/L 98-107 N CL) CARBON DIOXIDE (test 30 MMOL/L 22-30 N code = CO2) GLUCOSE (test code = MG/DL 74-106 GLU) BLOOD UREA NITROGEN 19 MG/DL 9-20 N (test code = BUN) GLOMERULAR FILTRATION > 60 Report ing units: RATE (test code = GFR) ml/mi n/1.73 m2 (Modified MDRD Formula)Referen ce Range: > or = 6 0 ml/min/1.73 m2 CREATININE (test code 1.00 MG/DL 0.66-1.25 N = CREAT) CALCIUM (test code = MG/DL 8.7-9.7 CA) LIPID PROFILE (CORONARY RISK)2019-07-30 08:04:00 Test Item Value Reference Range Interpretation Comments TRIGLYCERIDES (test code = TRIG) MG/DL CHOLESTEROL (test code = CHOL) 104 MG/DL <200 HDL CHOLESTEROL (test code = HDL) MG/DL 40-59 LIPOPROTEIN LDL (test code = LDL) MG/DL 0-99 [id number] 08:04:00 Test Item Value Reference Range Interpretation Comments MAGNESIUM (test code = MAG) MG/DL 1.6-2.3 CBC W/AUTO [id number] 07:50:00 Test Item Value Reference Range Interpretation Comments WHITE BLOOD CELL (test code = 8.4 K/MM3 3.8-9.8 N WBC) RED BLOOD CELL (test code = 4.59 M/MM3 3.95-5.67 N RBC) HEMOGLOBIN (test code = HGB) 12.9 G/DL 12.4-16.7 N HEMATOCRIT (test code = HCT) 40.2 % 35.9-49.5 N MEAN CELL VOLUME (test code = 88 fL 81.7-96.1 N MCV) MEAN CELL HGB (test code = MCH) 28.1 pg 27.6-33.2 N MEAN CELL HGB CONCETRATION 32.1 % 32.9-35.5 L (test code = MCHC) RED CELL DISTRIBUTION WIDTH 13.8 % 12.1-15.2 N (test code = RDW) PLATELET COUNT (test code = 218 K/MM3 129-368 N PLT) MEAN PLATELET VOLUME (test code 10.2 fl 7.4-10.4 N = MPV) NEUTROPHIL % (test code = NT%) 61.9 % 43-75 N IMMATURE GRANULOCYTE % (test 0.4 % 0.0-2.0 N code = IG%) LYMPHOCYTE % (test code = LY%) 24.0 % 14-44 N MONOCYTE % (test code = MO%) 7.9 % 4-13 N EOSINOPHIL % (test code = EO%) 5.1 % 0-6 N BASOPHIL % (test code = BA%) 0.7 % 0-2 N NUCLEATED RBC % (test code = 0.0 % 0-1.0 N NRBC%) NEUTROPHIL # (test code = NT#) 5.22 K/mm3 2.0-7.6 N IMMATURE GRANULOCYTE # (test 0.03 x10 3/uL 0-0.03 N code = IG#) LYMPHOCYTE # (test code = LY#) 2.02 K/mm3 1.0-3.8 N MONOCYTE # (test code = MO#) 0.67 K/mm3 0.1-0.8 N EOSINOPHIL # (test code = EO#) 0.43 K/mm3 0.0-0.2 H BASOPHIL # (test code = BA#) 0.06 K/mm3 0.0-0.2 N NUCLEATED RBC # (test code = 0.00 K/mm3 0.0-0.1 N NRBC#) GLUCOSE BEDSIDE [id number] 07:40:00 Test Item Value Reference Range Interpretation Comments GLUCOSE BEDSIDE TESTING (test code 155 MG/DL 60-99 H = GLUBED)
[2022-04-13] MEDS ORDERED: D50W 25 GM/50 ML SYRINGE IV PRN (18:10)
[2022-04-13] MEDS ORDERED: GLUCAGON 1 MG/VIAL IM PRN (18:10)
[2022-04-13] MEDS ORDERED: ACETAMINOPHEN 500 MG TAB PO PRN (18:49)
[2022-04-13] MEDS ORDERED: ALBUTEROL 2.5 MG/3 ML NEB SOL NEB PRN (18:50)
[2022-04-13] MEDS ORDERED: IPRATROPIUM BROM 0.5MG/2.5ML NEB PRN (18:50)
[2022-04-13] MEDS ORDERED: ONDANSETRON 4 MG (ODT) TAB PO PRN (18:51)
[2022-04-13] MEDS ORDERED: D10W 125 ML IV SCH (19:00)
[2022-04-13 19:23] LABS: Urine Appearance CLEAR (Clear); Urine Bacteria <20 /HPF (NONE SEEN); Urine Bilirubin NEGATIVE (Negative); Urine Blood NEGATIVE (Negative); Urine Color YELLOW (Yellow); Urine Glucose Trace (Negative); Urine Protein 2+ (Negative); Urine RBC NONE SEEN /HPF (NONE SEEN); Urine Urobilinogen 0.2 mg/dL (0.2-1.0); Urine pH 5.5 (5.0-7.0)
[2022-04-13] MEDS ORDERED: SACUBITRIL/VALSARTAN 24/26 MG TAB PO SCH (20:00)
[2022-04-13] MEDS ORDERED: INSULIN GLARGINE 100 UNIT/ML SQ ONE (20:43)
[2022-04-13] MEDS: FLUOXETINE 20 MG CAP PO SCH (20:43)
[2022-04-13] MEDS: DOCUSATE NA 100 MG CAP PO SCH (20:43)
[2022-04-13] MEDS: INSULIN -REGULAR HUMAN 50 UNIT/0.5 ML ML SQ SCH (20:44)
[2022-04-13] MEDS ORDERED: INSULIN -REGULAR HUMAN 50 UNIT/0.5 ML ML ONE (20:44)
[2022-04-13] MEDS: ATORVASTATIN 10 MG TAB PO SCH (20:44)
[2022-04-13] MEDS: carvediloL 6.25 MG TAB PO SCH (20:44)
[2022-04-13] MEDS: INSULIN GLARGINE 100 UNIT/ML SQ SCH (20:44)
[2022-04-14 04:40] LABS: Absolute Lymphocytes (CBC) 1.1 K/uL (0.7-4.9); Lymphocytes % 12.7 % (15.3-44.8); MCV 82.7 fL (80-100); MPV 8.9 fL (7.6-11.3)
[2022-04-14 05:12] LABS: Albumin 2.5 g/dL (3.4-5.0); Magnesium 1.9 mg/dL (1.8-2.4); Potassium 3.7 mmol/L (3.5-5.1); Prealbumin 13.5 mg/dL (20-40)
[2022-04-14] MEDS: INSULIN -REGULAR HUMAN 50 UNIT/0.5 ML ML SQ SCH ×4 (07:30→20:56)
[2022-04-14] MEDS: ISOSORBIDE MONO SR 30 MG TAB PO SCH (08:00)
[2022-04-14] MEDS ORDERED: METFORMIN HCL 500 MG TAB PO SCH ×2 (08:00)
[2022-04-14] MEDS: SPIRONOLACTONE 25 MG TABLET PO SCH (08:22)
[2022-04-14] MEDS: DOCUSATE NA 100 MG CAP PO SCH ×2 (08:22→20:56)
[2022-04-14] MEDS: EZETIMIBE 10 MG TAB PO SCH (08:22)
[2022-04-14] MEDS: carvediloL 6.25 MG TAB PO SCH ×2 (08:23→20:56)
[2022-04-14] MEDS: CLOPIDOGREL 75 MG TABLET PO SCH (08:23)
[2022-04-14] MEDS: APIXABAN 5 MG TABLET PO SCH (08:23)
[2022-04-14] MEDS: FUROSEMIDE 40 MG TABLET PO SCH ×2 (08:23→17:13)
[2022-04-14] MEDS: FLUOXETINE 20 MG CAP PO SCH ×2 (08:23→20:57)
[2022-04-14] MEDS: levoFLOXacin 500 MG TAB PO SCH (08:24)
[2022-04-14] MEDS: FERROUS SULFATE 325 MG TAB PO SCH (08:24)
[2022-04-14] MEDS: SACUBITRIL/VALSARTAN 24/26 MG TAB PO SCH ×2 (08:26→20:57)
[2022-04-14] MEDS ORDERED: MELATONIN 3 MG TABLET PO PRN (14:01)
--- NOTE | 2022-04-14 18:00 | R.HP ---
HISTORY AND PHYSICAL FACILITY: [facility] ENCOUNTER DATE AND TIME: 04/14/2022 17:52 (CDT) MR#: [id number] NAME JAXON REEVES ADDRESS: [address] [place] [address]: [place] [id number] PHONE: DATE OF : 1950 AGE: 72 SSN# [id number] GENDER: Male MARITAL STATUS PRE-HOSPITAL LIVING SETTING 01 - Home (private home/apt. board/care, assisted living, long term, transitional living) PRE-HOSPITAL LIVING WITH Family/Relatives ENCOUNTER PHYSICIAN: Dr. Aubrey Kapadia M.D. 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 is a 72 yo Right-handed male. On 04/09/2022 he was admitted to [facility] with diagnosis FREQUENT FALLS AND WEAKNESS. His impairment category is Debility 16 - Debility (16). Pre-morbidly, Pt. was independent/mod-I in Locomotion, Safety Awareness, Social Cognition, Balance, a nd Transfers Control; and he had good Sphincter Control, Self-Care, Communication, and Endurance. Currently, he has deficits of Locomotion, Safety Awareness, Social Cognition, Balance, Transfers Cont rol, Sphincter Control, Self-Care, and Endurance. Pt. is now referred to [facility] for acute in-patient rehabilitation in order to maximize patient's functional independence in activities of daily living, strength, ROM, and mobi lity. Patient has realistic goal of being discharged at assistance level 7-Ind to reside at Home with Fami ly/Relatives. MEDICATION ALLERGIES: No Known Drug Allergies (NKDA) ENVIRONMENTAL ALLERGIES: - Substance Allergies None Known - Other Allergies None Known PAST MEDICAL HISTORY: CAD DEMENTIA HTN HLD Repeated falls (R29.6) Muscle weakness (generalized) (M62.81) pulmonary congestion [place] Pacemaker PAST SURGICAL HISTORY: PACEMAKER SOCIAL HISTORY: - Home Living Family/Relatives REVIEW OF SYSTEMS: - Gen No Chills Fatigue No Fever - Eyes No Double Vision No itchiness - ENMT No Difficulty Swallowing - CVS No Chest Discomfort No Chest Pain Fatigue No Weight Gain - Resp No Cough No Shortness of Breath - GI Continent No Abdominal Pain No Constipation No Diarrhea - Continent No Kidney Pain No Painful Urination No Urinary Urgency - MSK Joint Pain Muscle Cramps Stiffness - Skin No Itching No Rash No Suspicious Lesions - Neuro Coordination Difficulty No Difficulty with Concentration No Memory Loss No Seizures Weakness - Psych No Anxiety No Depression No HIV Exposure No Persistent Infections No Seasonal Allergies - Endo No Cold/Heat Intolerance No Excessive Hunger No Excessive Thirst No Excessive Urination PHYSICAL EXAM - Gen Alert and awake Lying in bed No apparent distress Oriented to: person, time, and place - Skin No skin breakdown. Normacephalic - Eyes No abnormalities - ENMT No abnormalities - Neck No abnormalities - CVS RRR - Chest No abnormalities - Resp Clear to auscultation - Abd Soft - GI + bowel sounds Deferred - No abnormalities - Ext Left femur surgical site has good hemostasis. - MSK 4+/5 weakness in left lower extremity - Neuro 4/5 strength left lower extremity. - Psych No abnormalities VITAL SIGNS Temperature: 97.4 F SBP/DBP: 137/75 Pulse: 67 Resp: 16 NURSING: - Shower allowing shower PRECAUTIONS: - Fall Precaution SAFTY AND FALL ACTIVITIES OOB only with supervision QI SCORES: - Self-Care A. Eating 03-Partial/moderate assistance B. Oral hygiene 03-Partial/moderate assistance C. Toileting hygiene 03-Partial/moderate assistance E. Shower/bathe self 03-Partial/moderate assistance F. Upper body dressing 03-Partial/moderate assistance G. Lower body dressing 03-Partial/moderate assistance H. Putting on/taking off footwear 88-Not attempted due to medical condition or safety concerns - Mobility A. Roll left and right 06-Independent B. Sit to lying 03-Partial/moderate assistance C. Lying to sitting on side of bed 03-Partial/moderate assistance D. Sit to stand 03-Partial/moderate assistance E. Chair/ein-qm-hikyr transfer 03-Partial/moderate assistance F. Toilet transfer 03-Partial/moderate assistance G. Car transfer 88-Not attempted due to medical condition or safety concerns I. Walk 10 feet 03-Partial/moderate assistance J. Walk 50 feet with two turns 03-Partial/moderate assistance K. Walk 150 feet 88-Not attempted due to medical condition or safety concerns L. Walking 10 feet on uneven surfaces 88-Not attempted due to medical condition or safety concerns M. 1 step (curb) 88-Not attempted due to medical condition or safety concerns N. 4 steps 88-Not attempted due to medical condition or safety concerns O. 12 steps 88-Not attempted due to medical condition or safety concerns P. Picking up object 88-Not attempted due to medical condition or safety concerns R. Wheel 50 feet with two turns 88-Not attempted due to medical condition or safety concerns S. Wheel 150 feet 88-Not attempted due to medical condition or safety concerns - Bladder and Bowel Bladder continence Bowel continence - Endurance Fair - Balance Fair - Safety Awareness Fair CURRENT FUNC. DEFICITS: Self-Care, Endurance, Balance, Safety Awareness, and Mobility MEDICATIONS: - Other See attached MAR (Medication Administration Record) ASSESSMENT: Pt. is a 72 yo Right-handed male.On 04/09/2022 he was admitted to [facility] with diagnosis F REQUENT FALLS AND WEAKNESS.His impairment category is Debility 16 - Debility (16).Pre-morbidly, Pt. was independent/mod-I in Locomotion, Safety Awareness, Social Cognition, Balance, and Transfers Contr ol; and he had good Sphincter Control, Self-Care, Communication, and Endurance.Currently, he has defi cits of Locomotion, Safety Awareness, Social Cognition, Balance, Transfers Control, Sphincter Control , Self-Care, and Endurance.Pt. is now referred to [facility] for acute in-shannon ent rehabilitation in order to maximize patient's functional independence in activities of daily jewels ng, strength, ROM, and mobility.- Rehab Goal Patient has realistic goal of being discharged at assistance level 7-Ind to reside at Home with Fami ly/Relatives. - Physical Therapy Gait dysfunction - to improve, our physical therapists will perform initial evaluation of pt's status upon admission and devise an individualized program for Gait Training, and Wheel Chair mobility Inability to transfer - to improve, our physical therapists will perform initial evaluation of pt's s tatus upon admission and devise an individualized program for Bed mobility Need for home safety evaluation - to improve, our physical therapists will perform initial evaluation of pt's status upon admission and devise an individualized program for Home Evaluation Need in caregiver upon discharge - to improve, our physical therapists will perform initial evaluatio n of pt's status upon admission and devise an individualized program for Caregiver Training New precaution - to improve, our physical therapists will perform initial evaluation of pt's status u shelbie admission and devise an individualized program for Patient precaution education Poor balance - to improve, our physical therapists will perform initial evaluation of pt's status upo n admission and devise an individualized program for Balance Training Poor endurance - to improve, our physical therapists will perform initial evaluation of pt's status u shelbie admission and devise an individualized program for Endurance Training Weakness - to improve, our physical therapists will perform initial evaluation of pt's status upon ad mission and devise an individualized program for Aquatic Therapy, Neuromuscular Reeducation, and Stre ngthening Achieving independence - to improve, our physical therapists will perform initial evaluation of pt's status upon admission and devise an individualized program for Community Reintegration Activities - Occupational Therapy ADL deficits - to improve, our occupation therapists will perform initial evaluation of pt's status u shelbie admission and devise an individualized program for Bathing, Bed mobility, Community Reintegration , Cooking, Dressing, Eating, Fine Motor Skills, Grooming, Homemaking, Kitchen Mobility, Laundry, Shannon ent Education, Safety Awareness, Splinting - Positioning, Transfers(Toilet, Tub, Shower), and Wheel C hair Management Cognitive deficits - to improve, our occupation therapists will perform initial evaluation of pt's st atus upon admission and devise an individualized program for Cognition - orientation Need for medicare biller - to improve, our occupation therapists will perform initial evaluation of pt's s tatus upon admission and devise an individualized program for Caregiver Training Weakness - to improve, our occupation therapists will perform initial evaluation of pt's status upon admission and devise an individualized program for Aquatic Therapy, Balance, Endurance, UE ROM, and U E strengthening MEDICAL PLAN: - Diet Type Start Regular - Diet - Liquid Texture Start Regular - Tube Feed Start N/A - Fall Precaution SAFTY AND FALL - Other See attached MAR (Medication Administration Record) - Diet - Solid Texture Regular - Shower shower DISCHARGE PLAN: - Estimated Length of Stay (days) 13. - Consensus on plan Discharge plan has been discussed with primary caregiver. Patient/Family is in agreement with the amisha n. Primary caregiver is in agreement with the plan. - Patient/Family Goals Return home independently. - Planned Living Setting Upon Discharge Home, to live with Family/Relatives. Transitional Living. SIGNATURE PANEL: (CDT)
--- NOTE | 2022-04-14 18:02 | PAPE ---
POST ADMISSION PHYSICIAN EVALUATION PATIENT: [facility] MR# [id number] REFERRING DOCTOR ANNA DRIVER MD EVALUATION DATE AND TIME 04/14/2022 17:59 (CDT) NAME JAXON REEVES DATE OF 1950 AGE 72 PHONE N# [id number] GENDER male EVALUATING PHYSICIAN Dr. Aubrey Kapadia M.D. 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 disturbance (F03.90) Essential (primary) hypertension (I10) Atherosclerotic heart disease of [place] coronary artery without angina pectoris (I25.10) Hyperlipidemia, unspecified (E78.5) Muscle weakness (generalized) (M62.81) POST-ADMISSION FUNCTIONAL/MEDICAL STATUS: - Bladder Same accident frequency: 7-Ind - No accidents in the past 7 days - Bowel Same accident frequency: 7-Ind - No accidents in the past 7 days - Walking Same score based on distance walked: 0(N/A) Same score based on distance walked: 2(50-149ft) - Wheelchair Same score based on distance traveled: 0(N/A) STATUS CHANGE EVALUATION: No change in Functional or Medical Status is identified compared with Pre-Admission screening. PATIENT NEEDS CLOSE MEDICAL SUPERVISION BY A REHABILITATION PHYSICIAN FOR: Coordination of Treatment Team Wound Care Medical and Co-Morbidity Management Pain Management DVT Management Bowel and Bladder Management PATIENT REQUIRES 24X7 REHAB NURSING FOR MEDICAL AND FUNCTIONAL MGT. OF THE FOLLOWING DEFICITS: Disease Management Medication Management Patient requires 24x7 Rehabilitation Nursing for: Pain Issues, Identifying and preventing risk factor s, Monitoring and reporting current medical conditions, Assisting with ambulation and transfer, Ernesto ting with all ADL-s, Teaching patients about disease process and medications, Family teaching, Provid ing safe environment, Bowel and Bladder Issues, Skin Integrity, and Medication Management Patient/Family Education Providing Safe Environment Skin Integrity PATIENT REQUIRES INTENSIVE, COORDINATED INTERDISCIPLINARY APPROACH TO REHAB: Arranging Home Equipment/Services Discharge Planning Family Intervention/Training Patient needs Dietary and Nutrition Services for: Adequate Nutrition, Nutritional Supplements, and Nu tritional Education Patient needs Sciences Dean and/or Case Management for: Discharge Planning, Arranging Home Equipmen t or Services, and Family Interventions Sciences Dean/Case Management LIST OF IDENTIFIED AND POTENTIAL PROBLEMS: Alteration in leisure activities Bladder, Incontinence Blood Pressure, Hypertension/hypotension Issues Bowel, Incontinence Infection, Actual or Potential Mobility Impaired Pain, Alteration in Comfort Self Care Deficit Skin Integrity, Actual or Potential Urinary Tract Infection (UTI), Actual or Potential RISK FOR COMPLICATIONS - Falls Patient will be evaluated for Fall Precautions and will be placed on Fall Precautions as indicated pe r protocol. - Weakness Nursing and therapy will help to get patient stronger. Strengthening exercises to be performed. - Skin Breakdown Nursing will assess skin daily using assessment tool and will place on Skin Breakdown Precautions as Indicated per protocol. - UTI Monitor for frequency, burning, discomfort, or incontinence. - Pain Clinical staff will assess patient's pain level every shift per protocol to monitor for pain manageme nt effectiveness. Educate patient on pain management strategies. - Cardiac monitoring heart rate/signs and symptoms for cardiac distress. Previous heart attack. medication radha gement by physician. - DVT Administer anti-coagulants as indicated by physician and monitor for effectiveness. Mobility training and regular exercise. INTERVENTIONS - Hypertension Blood pressure will be regularly assessed and medications administered as per physician recommendatio laz. - Weakness Daily therapy services to enhance patient's functional strength and abilities. - Hyperlipidemia Administer medications as per MD. - CAD Administer Medication as indicated by physician. Vitals will be regularly monitored and symptoms radha ged. - Dementia Medications administered as indicated by physician. Proper monitoring of patient to ensure safety. PATIENT COULD BE AT RISK FOR COMPLICATIONS FROM ADVERSE MEDICAL CONDITIONS DUE TO HIS/HER COMORBIDITI ES AND THE RIGORS OF THE INTENSIVE REHABILLITATION PROGRAM. METHODS OR INTERVENTIONS TO AVOID COMPLIC ATIONS INCLUDE: - Deep Vein Thrombosis (DVT) Prophylaxis therapy for prevention . Sequential Compression Device (SCD). TE D Hose. - Bleeding Assess lab values and manage abnormalities. Nursing to teach precautions for anti-coagulation therapy . Wound to be assessed every shift. - Infection Clinical staff to assess and manage the signs and symptoms of infection including fever, redness, war mth, etc. - Urinary Tract Infection - Falls Patient will be evaluated for Fall Precautions and will be placed on Fall Precautions as indicated pe r protocol. - Skin Breakdown Nursing will assess skin daily using assessment tool and will place on Skin Breakdown Precautions as indicated per protocol. - Pain Clinical staff may employ non-medication methods such as massage, distraction, decrease stimulus, etc . as needed. Clinical staff will assess patient's pain level every shift per protocol to assess and e nsure pain management effectiveness. Medications will be given and the pain level re-assessed. PRELIMINARY PLAN OF CARE: - Physical Therapy Patient needs Physical Therapy for a daily minimum of 1.5 hours at least 5 out of 7 days, to improve: Mobility, Strengthening, Transfers, Stretching, ROM, Endurance, Ability to manage stairs, Gait, and Balance. - Speech Therapy Patient needs Speech Therapy for a daily minimum of 0.5 hours at least 5 out of 7 days, to improve: S wallowing, Cognition, Language Skills, and Compensatory Strategies. - Rehabilitation Nursing Patient requires 24x7 Rehabilitation Nursing for: Pain Issues, Identifying and preventing risk factor s, Monitoring and reporting current medical conditions, Assisting with ambulation and transfer, Ernesto ting with all ADL-s, Teaching patients about disease process and medications, Family teaching, Provid ing safe environment, Bowel and Bladder Issues, Skin Integrity, and Medication Management. Patient needs Sciences Dean and/or Case Management for: Discharge Planning, Arranging Home Equipmen t or Services, and Family Interventions. - Dietary and Nutrition Services Patient needs Dietary and Nutrition Services for: Adequate Nutrition, Nutritional Supplements, and Nu tritional Education. - Occupational Therapy Patient needs Occupational Therapy for a daily minimum of 1.5 hours at least 5 out of 7 days, to impr ove Activities of Daily Living, including: Eating, Grooming, Bathing, Dressing, Toileting, Toilet Tra nsfers, Community Reintegration, Higher functional activities, Adaptive Equipment, Splinting, Househo ld Tasks, and Other activities as determined. QI SCORES: - Self-Care A. Eating 03-Partial/moderate assistance B. Oral hygiene 03-Partial/moderate assistance C. Toileting hygiene 03-Partial/moderate assistance E. Shower/bathe self 03-Partial/moderate assistance F. Upper body dressing 03-Partial/moderate assistance G. Lower body dressing 03-Partial/moderate assistance H. Putting on/taking off footwear 88-Not attempted due to medical condition or safety concerns - Mobility A. Roll left and right 06-Independent B. Sit to lying 03-Partial/moderate assistance C. Lying to sitting on side of bed 03-Partial/moderate assistance D. Sit to stand 03-Partial/moderate assistance E. Chair/upb-wt-svyim transfer 03-Partial/moderate assistance F. Toilet transfer 03-Partial/moderate assistance G. Car transfer 88-Not attempted due to medical condition or safety concerns I. Walk 10 feet 03-Partial/moderate assistance J. Walk 50 feet with two turns 03-Partial/moderate assistance K. Walk 150 feet 88-Not attempted due to medical condition or safety concerns L. Walking 10 feet on uneven surfaces 88-Not attempted due to medical condition or safety concerns M. 1 step (curb) 88-Not attempted due to medical condition or safety concerns N. 4 steps 88-Not attempted due to medical condition or safety concerns O. 12 steps 88-Not attempted due to medical condition or safety concerns P. Picking up object 88-Not attempted due to medical condition or safety concerns R. Wheel 50 feet with two turns 88-Not attempted due to medical condition or safety concerns S. Wheel 150 feet 88-Not attempted due to medical condition or safety concerns - Bladder and Bowel Bladder continence Bowel continence - Endurance Fair - Balance Fair - Safety Awareness Fair POTENTIAL FUNCTIONAL GOALS FOR PATIENT TO ACHIEVE BY DISCHARGE: - Safety Precaution Patient will remain free from falls or injury at time of discharge. - Bed Mobility Patient will perform bed mobility at 4-Lor level of assistance. - Transfers Patient will complete transfers from bed to chair at 4-Lor level of assistance. - Mobility Patient will ambulate 150 ft with 4-Lor level of assistance with RW. PATIENT REHAB POTENTIAL Jules REEVES is able and expected to receive 3 hours of individualized therapy daily on at least 5 of every 7 days Jules REEVES's prognosis for significant practical improvement within a reasonable period of time etre ears Good Expected level of measurable improvement will be of a practical value to Jules REEVES's functional ca pacity or adaptations to impairments Has a viable Discharge Plan Medically appropriate; condition is sufficiently stable to participate in intensive rehab program DISCHARGE PLAN: - Estimated Length of Stay (days) 13. - Consensus on plan Discharge plan has been discussed with primary caregiver. Patient/Family is in agreement with the amisha n. Primary caregiver is in agreement with the plan. - Patient/Family Goals Return home independently. - Planned Living Setting Upon Discharge Home, to live with Family/Relatives. Transitional Living. CONCLUSION ON REHABILITATION NECESSITY: I have evaluated patient's pre-admission functional status and, comparing it to the patient's post-ad mission functional status now, I conclude that the pre-admission assessment was accurate. Patient's c ondition on admission supports the medical necessity of admission to [facility]. It is safe to proceed with patient's therapy program. SIGNATURE PANEL: (CDT)
--- NOTE | 2022-04-14 18:15 | RAD REPORT ---
EXAM DESCRIPTION: RAD - Chest Single View - 04/14/2022 4:54 pm CLINICAL HISTORY: R/O fluid overload COMPARISON: CHEST SINGLE VIEW dated 01/12/2013 FINDINGS: Lines: Pacemaker/ICD. Sternotomy. Lungs: Vascular congestion but no sarah pulmonary edema. No consolidative airspace disease. Pleural: No significant pleural effusions or pneumothorax. Cardiac: Cardiomegaly. Bones: No acute fractures. Other: IMPRESSION: Vascular congestion without sarah pulmonary edema.
[2022-04-14] MEDS: INSULIN GLARGINE 100 UNIT/ML SQ SCH (20:56)
[2022-04-14] MEDS: CRANBERRY FRUIT EXTRACT 400 MG CAP PO SCH (20:56)
[2022-04-14] MEDS: ATORVASTATIN 10 MG TAB PO SCH (20:56)
[2022-04-15] MEDS: INSULIN -REGULAR HUMAN 50 UNIT/0.5 ML ML SQ SCH ×4 (07:30→19:30)
[2022-04-15] MEDS: carvediloL 6.25 MG TAB PO SCH ×2 (07:56→19:29)
[2022-04-15] MEDS: FUROSEMIDE 20 MG TABLET PO SCH ×2 (07:57→16:40)
[2022-04-15] MEDS: CLOPIDOGREL 75 MG TABLET PO SCH (07:57)
[2022-04-15] MEDS: EZETIMIBE 10 MG TAB PO SCH (07:58)
[2022-04-15] MEDS: CRANBERRY FRUIT EXTRACT 400 MG CAP PO SCH ×2 (07:58→19:29)
[2022-04-15] MEDS: levoFLOXacin 500 MG TAB PO SCH (07:58)
[2022-04-15] MEDS: DOCUSATE NA 100 MG CAP PO SCH ×2 (07:58→19:29)
[2022-04-15] MEDS: SPIRONOLACTONE 25 MG TABLET PO SCH (07:58)
[2022-04-15] MEDS: FERROUS SULFATE 325 MG TAB PO SCH (07:59)
[2022-04-15] MEDS: SACUBITRIL/VALSARTAN 24/26 MG TAB PO SCH ×2 (07:59→19:29)
[2022-04-15] MEDS: FLUOXETINE 20 MG CAP PO SCH ×2 (08:01→19:29)
[2022-04-15] MEDS: APIXABAN 5 MG TABLET PO SCH (08:01)
[2022-04-15] MEDS: ISOSORBIDE MONO SR 30 MG TAB PO SCH (10:03)
--- NOTE | 2022-04-15 17:33 | R.PN ---
PROGRESS NOTES ENCOUNTER DATE AND TIME: 04/15/2022 17:25 (CDT) NAME JAXON REEVES DATE OF : 1950 DATE OF ADMISSION: 04/13/2022 16:58 (CDT) FREQUENT FALLS AND WEAKNESSCHIEF COMPLAINT: Debility and diffuse weakness SUBJECTIVE: Pt denied any Shortness of Breath. Pt denied any depression. CBC with diff is essentially normal. Glucose 169 to 206, Molded Goods Spot Picker 1.37, prealbumin 13.5, calcium 8.4, covi d-19 is negative. VITAL SIGNS Temperature: 97.4 F SBP/DBP: 137/75 Pulse: 67 Resp: 16 MEDICATION ALLERGIES: No Known Drug Allergies (NKDA) ENVIRONMENTAL ALLERGIES: - Substance Allergies None Known - Other Allergies None Known NURSING: - Shower allowing shower PRECAUTIONS: - Fall Precaution SAFTY AND FALL ACTIVITIES OOB only with supervision THERAPIES: - Dietary and Nutrition Adequate Nutrition. Nutritional Education. Nutritional Supplements. Evaluate and Treat. - Occupational Therapy Cognitive Retraining. Patient needs Occupational Therapy for a daily minimum of 1.5 hours at least 5 out of 7 days, to improve Activities of Daily Living, including: Eating, Grooming, Bathing, Dressing, Toileting, Toilet Transfers, Community Reintegration, Higher functional activities, Adaptive Equipme nt, Splinting, Household Tasks, and Other activities as determined. Visual Perceptual Training. Evalu ate and Treat. Safety Awareness. Patient/Family Education. Household Tasks. ADL Training. - Speech Therapy Cognitive Training. Expressive Language Skills. Memory Strategies. Patient needs Speech Therapy for a daily minimum of 1.5 hours at least 5 out of 7 days, to improve: Swallowing, Cognition, Language Ski lls, and Compensatory Strategies. Receptive Language Skills. Speech Intelligibility Training. - Physical Therapy Patient needs Physical Therapy for a daily minimum of 1.5 hours at least 5 out of 7 days, to improve: Mobility, Strengthening, Transfers, Stretching, ROM, Endurance, Ability to manage stairs, Gait, and Balance. Balance Training. Gait Training. Safety Awareness. Transfer Training. Evaluate and Treat. Pa tient/Family Education. LE Strengthening. Mobility Training. PHYSICAL EXAM - Gen Alert and awake Lying in bed No apparent distress Oriented to: person, time, and place - Skin No skin breakdown. Normacephalic - Eyes No abnormalities - ENMT No abnormalities - Neck No abnormalities - CVS RRR - Chest No abnormalities - Resp Clear to auscultation - Abd Soft - GI + bowel sounds Deferred - No abnormalities - Ext Left femur surgical site has good hemostasis. - MSK 4+/5 weakness in left lower extremity - Neuro 4/5 strength left lower extremity. - Psych No abnormalities ASSESSMENT: Pt. is a 72 yo Right-handed male.On 04/09/2022 he was admitted to [facility] with diagnosis F REQUENT FALLS AND WEAKNESS.His impairment category is Debility 16 - Debility (16).Pre-morbidly, Pt. was independent/mod-I in Locomotion, Safety Awareness, Social Cognition, Balance, and Transfers Contr ol; and he had good Sphincter Control, Self-Care, Communication, and Endurance.Currently, he has defi cits of Locomotion, Safety Awareness, Social Cognition, Balance, Transfers Control, Sphincter Control , Self-Care, and Endurance.Pt. is now referred to [facility] for acute in-dedrick ent rehabilitation in order to maximize patient's functional independence in activities of daily jewels ng, strength, ROM, and mobility.- Rehab Goal Patient has realistic goal of being discharged at assistance level 7-Ind to reside at Home with Fami ly/Relatives. MDM/PLAN: - Physical Therapy Gait dysfunction - to improve, our physical therapists will perform initial evaluation of pt's statu s upon admission and devise an individualized program for Gait Training, and Wheel Chair mobility Inability to transfer - to improve, our physical therapists will perform initial evaluation of pt's status upon admission and devise an individualized program for Bed mobility Need for home safety evaluation - to improve, our physical therapists will perform initial evaluatio n of pt's status upon admission and devise an individualized program for Home Evaluation Need in caregiver upon discharge - to improve, our physical therapists will perform initial evaluati on of pt's status upon admission and devise an individualized program for Caregiver Training New precaution - to improve, our physical therapists will perform initial evaluation of pt's status upon admission and devise an individualized program for Patient precaution education Poor balance - to improve, our physical therapists will perform initial evaluation of pt's status up on admission and devise an individualized program for Balance Training Poor endurance - to improve, our physical therapists will perform initial evaluation of pt's status upon admission and devise an individualized program for Endurance Training Weakness - to improve, our physical therapists will perform initial evaluation of pt's status upon a dmission and devise an individualized program for Aquatic Therapy, Neuromuscular Reeducation, and Str engthening Achieving independence - to improve, our physical therapists will perform initial evaluation of pt's status upon admission and devise an individualized program for Community Reintegration Activities - Occupational Therapy ADL deficits - to improve, our occupation therapists will perform initial evaluation of pt's status upon admission and devise an individualized program for Bathing, Bed mobility, Community Reintegratio n, Cooking, Dressing, Eating, Fine Motor Skills, Grooming, Homemaking, Kitchen Mobility, Laundry, Pat ient Education, Safety Awareness, Splinting - Positioning, Transfers(Toilet, Tub, Shower), and Wheel Chair Management Cognitive deficits - to improve, our occupation therapists will perform initial evaluation of pt's s tatus upon admission and devise an individualized program for Cognition - orientation Need for health care consultant - to improve, our occupation therapists will perform initial evaluation of pt's status upon admission and devise an individualized program for Caregiver Training Weakness - to improve, our occupation therapists will perform initial evaluation of pt's status upon admission and devise an individualized program for Aquatic Therapy, Balance, Endurance, UE ROM, and UE strengthening - Other See attached MAR (Medication Administration Record) - Diet Type Continue Regular - Diet - Liquid Texture Continue Regular - Tube Feed Continue N/A - Fall Precaution SAFTY AND FALL - Diet - Solid Texture Continue Regular - Shower allowing shower FUNCTIONAL STATUS: UPDATED AT WEEKLY TEAM CONFERENCE - Bladder Same accident frequency: 7-Ind - No accidents in the past 7 days - Bowel Same accident frequency: 7-Ind - No accidents in the past 7 days - Walking Same score based on distance walked: 0(N/A) Same score based on distance walked: 2(50-149ft) - Wheelchair Same score based on distance traveled: 0(N/A) FUNCTIONAL STATUS: - Self-Care A. Eating Ind B. Grooming Rafaela C. Bathing sup D. Dressing - Upper sup E. Dressing - Lower Lor F. Toileting sup - Sphincter Control G. Bladder control Rafaela H. Bowel control Rafaela - Transfers Control I. Bed/Chair/Wheelchair Lor J. Toilet Lor K. Tub/Shower modA - Locomotion L. Walk/Wheelchair (B) modA M. Stairs maxA - Communication N. Comprehension (B) sup O. Expression (B) sup - Social Cognition P. Social Interaction Rafaela Q. Problem Solving sup R. Memory sup - Endurance Fair - Balance Fair - Safety Awareness Fair QI SCORES: - Self-Care A. Eating 03-Partial/moderate assistance B. Oral hygiene 03-Partial/moderate assistance C. Toileting hygiene 03-Partial/moderate assistance E. Shower/bathe self 03-Partial/moderate assistance F. Upper body dressing 03-Partial/moderate assistance G. Lower body dressing 03-Partial/moderate assistance H. Putting on/taking off footwear 88-Not attempted due to medical condition or safety concerns - Mobility A. Roll left and right 06-Independent B. Sit to lying 03-Partial/moderate assistance C. Lying to sitting on side of bed 03-Partial/moderate assistance D. Sit to stand 03-Partial/moderate assistance E. Chair/[id number] transfer 03-Partial/moderate assistance F. Toilet transfer 03-Partial/moderate assistance G. Car transfer 88-Not attempted due to medical condition or safety concerns I. Walk 10 feet 03-Partial/moderate assistance J. Walk 50 feet with two turns 03-Partial/moderate assistance K. Walk 150 feet 88-Not attempted due to medical condition or safety concerns L. Walking 10 feet on uneven surfaces 88-Not attempted due to medical condition or safety concerns M. 1 step (curb) 88-Not attempted due to medical condition or safety concerns N. 4 steps 88-Not attempted due to medical condition or safety concerns O. 12 steps 88-Not attempted due to medical condition or safety concerns P. Picking up object 88-Not attempted due to medical condition or safety concerns R. Wheel 50 feet with two turns 88-Not attempted due to medical condition or safety concerns S. Wheel 150 feet 88-Not attempted due to medical condition or safety concerns - Bladder and Bowel Bladder continence Bowel continence - Endurance Fair - Balance Fair - Safety Awareness Fair CURRENT FUNC. DEFICITS: Self-Care, Endurance, Balance, Safety Awareness, and Mobility SIGNATURE PANEL: (CDT)
[2022-04-15] MEDS: INSULIN GLARGINE 100 UNIT/ML SQ SCH (19:29)
[2022-04-15] MEDS: ATORVASTATIN 10 MG TAB PO SCH (19:29)
[2022-04-16 05:11] LABS: Potassium 4.6 mmol/L (3.5-5.1)
[2022-04-16] MEDS: INSULIN -REGULAR HUMAN 50 UNIT/0.5 ML ML SQ SCH ×4 (07:20→21:10)
--- NOTE | 2022-04-16 07:25 | EKG ---
Test Date: 2022-04-14 Test Time: 14:10:23 Preparer [employer]: ELVA MEASUREMENT RESULTS: Intervals: Rate: 66 ND: 168 QRSD: 168 QT: 544 QTc: 570 [place]: P: ND: 168 QRS: -53 T: 155 INTERPRETIVE STATEMENTS: Demand pacemaker, interpretation is based on intrinsic rhythm Sinus rhythm with premature ventricular complexes or fusion complexes Left axis deviation Left ventricular hypertrophy with QRS widening and repolarization abnormality Abnormal ECG Compared to ECG 01/12/2013 16:30:03 Fusion complex(es) now present Ventricular premature complex(es) now present Left-axis deviation now present Left ventricular hypertrophy now present Early repolarization now present Electronically Signed On 04-16-22 07:19:40 CDT by Adarsh Kyle
[2022-04-16] MEDS: APIXABAN 5 MG TABLET PO SCH (07:50)
[2022-04-16] MEDS: carvediloL 6.25 MG TAB PO SCH ×3 (08:00→17:10)
[2022-04-16] MEDS: CRANBERRY FRUIT EXTRACT 400 MG CAP PO SCH ×2 (08:25→21:11)
[2022-04-16] MEDS: SACUBITRIL/VALSARTAN 24/26 MG TAB PO SCH ×2 (08:25→21:11)
[2022-04-16] MEDS: EZETIMIBE 10 MG TAB PO SCH (08:26)
[2022-04-16] MEDS: DOCUSATE NA 100 MG CAP PO SCH ×2 (08:27→21:11)
[2022-04-16] MEDS: SPIRONOLACTONE 25 MG TABLET PO SCH (08:27)
[2022-04-16] MEDS: ISOSORBIDE MONO SR 30 MG TAB PO SCH (08:27)
[2022-04-16] MEDS: FLUOXETINE 20 MG CAP PO SCH ×2 (08:27→21:11)
[2022-04-16] MEDS: FERROUS SULFATE 325 MG TAB PO SCH (08:28)
[2022-04-16] MEDS: CLOPIDOGREL 75 MG TABLET PO SCH (08:28)
[2022-04-16] MEDS: levoFLOXacin 500 MG TAB PO SCH (08:28)
[2022-04-16] MEDS: FUROSEMIDE 20 MG TABLET PO SCH ×3 (09:00→16:59)
--- NOTE | 2022-04-16 17:20 | R.PN ---
PROGRESS NOTES ENCOUNTER DATE AND TIME: 04/16/2022 17:15 (CDT) NAME JAXON REEVES DATE OF : 1950 DATE OF ADMISSION: 04/13/2022 16:58 (CDT) FREQUENT FALLS AND WEAKNESSCHIEF COMPLAINT: Debility and diffuse weakness SUBJECTIVE: Pt denied any Shortness of Breath. Pt denied any depression. CBC with diff is essentially normal. Glucose 178 to 273, prealbumin 13.5, calcium 8.7, Na 135, Pattern Attendant 1. 54, covid-19 is negative. Ambulated 721' with standby assistance using a rolling walker. Self-propelled wheelchair 250' with SB A. VITAL SIGNS Temperature: 97.5 F SBP/DBP: 127/63 Pulse: 65 Resp: 16 MEDICATION ALLERGIES: No Known Drug Allergies (NKDA) ENVIRONMENTAL ALLERGIES: - Substance Allergies None Known - Other Allergies None Known NURSING: - Shower allowing shower PRECAUTIONS: - Fall Precaution SAFTY AND FALL ACTIVITIES OOB only with supervision THERAPIES: - Dietary and Nutrition Adequate Nutrition. Nutritional Education. Nutritional Supplements. Evaluate and Treat. - Occupational Therapy Cognitive Retraining. Patient needs Occupational Therapy for a daily minimum of 1.5 hours at least 5 out of 7 days, to improve Activities of Daily Living, including: Eating, Grooming, Bathing, Dressing, Toileting, Toilet Transfers, Community Reintegration, Higher functional activities, Adaptive Equipme nt, Splinting, Household Tasks, and Other activities as determined. Visual Perceptual Training. Evalu ate and Treat. Safety Awareness. Patient/Family Education. Household Tasks. ADL Training. - Speech Therapy Cognitive Training. Expressive Language Skills. Memory Strategies. Patient needs Speech Therapy for a daily minimum of 1.5 hours at least 5 out of 7 days, to improve: Swallowing, Cognition, Language Ski lls, and Compensatory Strategies. Receptive Language Skills. Speech Intelligibility Training. - Physical Therapy Patient needs Physical Therapy for a daily minimum of 1.5 hours at least 5 out of 7 days, to improve: Mobility, Strengthening, Transfers, Stretching, ROM, Endurance, Ability to manage stairs, Gait, and Balance. Balance Training. Gait Training. Safety Awareness. Transfer Training. Evaluate and Treat. Pa tient/Family Education. LE Strengthening. Mobility Training. PHYSICAL EXAM - Gen Alert and awake Lying in bed No apparent distress Oriented to: person, time, and place - Skin No skin breakdown. Normacephalic - Eyes No abnormalities - ENMT No abnormalities - Neck No abnormalities - CVS RRR - Chest No abnormalities - Resp Clear to auscultation - Abd Soft - GI + bowel sounds Deferred - No abnormalities - Ext Left femur surgical site has good hemostasis. - MSK 4+/5 weakness in left lower extremity - Neuro 4/5 strength left lower extremity. - Psych No abnormalities ASSESSMENT: Pt. is a 72 yo Right-handed male.On 04/09/2022 he was admitted to [facility] with diagnosis F REQUENT FALLS AND WEAKNESS.His impairment category is Debility 16 - Debility (16).Pre-morbidly, Pt. was independent/mod-I in Locomotion, Safety Awareness, Social Cognition, Balance, and Transfers Contr ol; and he had good Sphincter Control, Self-Care, Communication, and Endurance.Currently, he has defi cits of Locomotion, Safety Awareness, Social Cognition, Balance, Transfers Control, Sphincter Control , Self-Care, and Endurance.Pt. is now referred to [facility] for acute in-dedrick ent rehabilitation in order to maximize patient's functional independence in activities of daily jewels ng, strength, ROM, and mobility.- Rehab Goal Patient has realistic goal of being discharged at assistance level 7-Ind to reside at Home with Fami ly/Relatives. MDM/PLAN: - Physical Therapy Gait dysfunction - to improve, our physical therapists will perform initial evaluation of pt's statu s upon admission and devise an individualized program for Gait Training, and Wheel Chair mobility Inability to transfer - to improve, our physical therapists will perform initial evaluation of pt's status upon admission and devise an individualized program for Bed mobility Need for home safety evaluation - to improve, our physical therapists will perform initial evaluatio n of pt's status upon admission and devise an individualized program for Home Evaluation Need in caregiver upon discharge - to improve, our physical therapists will perform initial evaluati on of pt's status upon admission and devise an individualized program for Caregiver Training New precaution - to improve, our physical therapists will perform initial evaluation of pt's status upon admission and devise an individualized program for Patient precaution education Poor balance - to improve, our physical therapists will perform initial evaluation of pt's status up on admission and devise an individualized program for Balance Training Poor endurance - to improve, our physical therapists will perform initial evaluation of pt's status upon admission and devise an individualized program for Endurance Training Weakness - to improve, our physical therapists will perform initial evaluation of pt's status upon a dmission and devise an individualized program for Aquatic Therapy, Neuromuscular Reeducation, and Str engthening Achieving independence - to improve, our physical therapists will perform initial evaluation of pt's status upon admission and devise an individualized program for Community Reintegration Activities - Occupational Therapy ADL deficits - to improve, our occupation therapists will perform initial evaluation of pt's status upon admission and devise an individualized program for Bathing, Bed mobility, Community Reintegratio n, Cooking, Dressing, Eating, Fine Motor Skills, Grooming, Homemaking, Kitchen Mobility, Laundry, Pat ient Education, Safety Awareness, Splinting - Positioning, Transfers(Toilet, Tub, Shower), and Wheel Chair Management Cognitive deficits - to improve, our occupation therapists will perform initial evaluation of pt's s tatus upon admission and devise an individualized program for Cognition - orientation Need for companion caregiver - to improve, our occupation therapists will perform initial evaluation of pt's status upon admission and devise an individualized program for Caregiver Training Weakness - to improve, our occupation therapists will perform initial evaluation of pt's status upon admission and devise an individualized program for Aquatic Therapy, Balance, Endurance, UE ROM, and UE strengthening - Other See attached MAR (Medication Administration Record) - Diet Type Continue Regular - Diet - Liquid Texture Continue Regular - Tube Feed Continue N/A - Fall Precaution SAFTY AND FALL - Diet - Solid Texture Continue Regular - Shower allowing shower FUNCTIONAL STATUS: UPDATED AT WEEKLY TEAM CONFERENCE - Bladder Same accident frequency: 7-Ind - No accidents in the past 7 days - Bowel Same accident frequency: 7-Ind - No accidents in the past 7 days - Walking Same score based on distance walked: 0(N/A) Same score based on distance walked: 2(50-149ft) - Wheelchair Same score based on distance traveled: 0(N/A) FUNCTIONAL STATUS: - Self-Care A. Eating Ind B. Grooming Rafaela C. Bathing sup D. Dressing - Upper sup E. Dressing - Lower Lor F. Toileting sup - Sphincter Control G. Bladder control Rafaela H. Bowel control Rafaela - Transfers Control I. Bed/Chair/Wheelchair Lor J. Toilet Lor K. Tub/Shower modA - Locomotion L. Walk/Wheelchair (B) modA M. Stairs maxA - Communication N. Comprehension (B) sup O. Expression (B) sup - Social Cognition P. Social Interaction Rafaela Q. Problem Solving sup R. Memory sup - Endurance Fair - Balance Fair - Safety Awareness Fair QI SCORES: - Self-Care A. Eating 03-Partial/moderate assistance B. Oral hygiene 03-Partial/moderate assistance C. Toileting hygiene 03-Partial/moderate assistance E. Shower/bathe self 03-Partial/moderate assistance F. Upper body dressing 03-Partial/moderate assistance G. Lower body dressing 03-Partial/moderate assistance H. Putting on/taking off footwear 88-Not attempted due to medical condition or safety concerns - Mobility A. Roll left and right 06-Independent B. Sit to lying 03-Partial/moderate assistance C. Lying to sitting on side of bed 03-Partial/moderate assistance D. Sit to stand 03-Partial/moderate assistance E. Chair/[id number] transfer 03-Partial/moderate assistance F. Toilet transfer 03-Partial/moderate assistance G. Car transfer 88-Not attempted due to medical condition or safety concerns I. Walk 10 feet 03-Partial/moderate assistance J. Walk 50 feet with two turns 03-Partial/moderate assistance K. Walk 150 feet 88-Not attempted due to medical condition or safety concerns L. Walking 10 feet on uneven surfaces 88-Not attempted due to medical condition or safety concerns M. 1 step (curb) 88-Not attempted due to medical condition or safety concerns N. 4 steps 88-Not attempted due to medical condition or safety concerns O. 12 steps 88-Not attempted due to medical condition or safety concerns P. Picking up object 88-Not attempted due to medical condition or safety concerns R. Wheel 50 feet with two turns 88-Not attempted due to medical condition or safety concerns S. Wheel 150 feet 88-Not attempted due to medical condition or safety concerns - Bladder and Bowel Bladder continence Bowel continence - Endurance Fair - Balance Fair - Safety Awareness Fair CURRENT FUNC. DEFICITS: Self-Care, Endurance, Balance, Safety Awareness, and Mobility SIGNATURE PANEL: (CDT)
[2022-04-16] MEDS ORDERED: INSULIN GLARGINE 100 UNIT/ML SQ ONE (21:09)
[2022-04-16] MEDS: INSULIN GLARGINE 100 UNIT/ML SQ SCH (21:11)
[2022-04-16] MEDS: ATORVASTATIN 10 MG TAB PO SCH (21:11)
[2022-04-17] MEDS: carvediloL 6.25 MG TAB PO SCH ×2 (05:03→17:07)
[2022-04-17] MEDS: INSULIN -REGULAR HUMAN 50 UNIT/0.5 ML ML SQ SCH ×4 (07:30→20:11)
[2022-04-17 07:39] LABS: Absolute Lymphocytes (CBC) 1.1 K/uL (0.7-4.9); Hematocrit 40.9 % (39.6-49.0); Lymphocytes % 13.8 % (15.3-44.8); MPV 8.6 fL (7.6-11.3); RBC Red Blood Cell Count 4.93 M/uL (4.33-5.43)
[2022-04-17] MEDS: FUROSEMIDE 20 MG TABLET PO SCH (07:46)
[2022-04-17] MEDS: APIXABAN 5 MG TABLET PO SCH (07:46)
[2022-04-17] MEDS: CLOPIDOGREL 75 MG TABLET PO SCH (07:46)
[2022-04-17] MEDS: EZETIMIBE 10 MG TAB PO SCH (07:46)
[2022-04-17] MEDS: SACUBITRIL/VALSARTAN 24/26 MG TAB PO SCH ×2 (07:47→19:49)
[2022-04-17] MEDS: CRANBERRY FRUIT EXTRACT 400 MG CAP PO SCH ×2 (07:47→19:49)
[2022-04-17] MEDS: DOCUSATE NA 100 MG CAP PO SCH ×2 (07:47→19:49)
[2022-04-17] MEDS: FLUOXETINE 20 MG CAP PO SCH ×2 (07:47→19:49)
[2022-04-17 07:59] LABS: Albumin 2.8 g/dL (3.4-5.0); Magnesium 2.1 mg/dL (1.8-2.4); Potassium 4.4 mmol/L (3.5-5.1); Prealbumin 18.4 mg/dL (20-40)
[2022-04-17] MEDS: FERROUS SULFATE 325 MG TAB PO SCH (08:40)
[2022-04-17] MEDS: levoFLOXacin 500 MG TAB PO SCH (08:40)
[2022-04-17] MEDS: SPIRONOLACTONE 25 MG TABLET PO SCH (12:04)
[2022-04-17] MEDS: ISOSORBIDE MONO SR 30 MG TAB PO SCH (12:04)
--- NOTE | 2022-04-17 17:45 | R.PN ---
PROGRESS NOTES ENCOUNTER DATE AND TIME: 04/17/2022 17:40 (CDT) NAME JAXON REEVES DATE OF : 1950 DATE OF ADMISSION: 04/13/2022 16:58 (CDT) FREQUENT FALLS AND WEAKNESSCHIEF COMPLAINT: Debility and diffuse weakness SUBJECTIVE: Pt denied any Shortness of Breath. Pt denied any depression. CBC with diff is essentially normal. Glucose 169 to 227, prealbumin 18.4, calcium 8.7, Na 134, Loader 1. 48, covid-19 is negative. Ambulated 750' with standby assistance using a rolling walker. Self-propelled wheelchair 500' with mo dified independence. VITAL SIGNS Temperature: 97.4 F SBP/DBP: 121/64 Pulse: 68 Resp: 16 MEDICATION ALLERGIES: No Known Drug Allergies (NKDA) ENVIRONMENTAL ALLERGIES: - Substance Allergies None Known - Other Allergies None Known NURSING: - Shower allowing shower PRECAUTIONS: - Fall Precaution SAFTY AND FALL ACTIVITIES OOB only with supervision THERAPIES: - Dietary and Nutrition Adequate Nutrition. Nutritional Education. Nutritional Supplements. Evaluate and Treat. - Occupational Therapy Cognitive Retraining. Patient needs Occupational Therapy for a daily minimum of 1.5 hours at least 5 out of 7 days, to improve Activities of Daily Living, including: Eating, Grooming, Bathing, Dressing, Toileting, Toilet Transfers, Community Reintegration, Higher functional activities, Adaptive Equipme nt, Splinting, Household Tasks, and Other activities as determined. Visual Perceptual Training. Evalu ate and Treat. Safety Awareness. Patient/Family Education. Household Tasks. ADL Training. - Speech Therapy Cognitive Training. Expressive Language Skills. Memory Strategies. Patient needs Speech Therapy for a daily minimum of 1.5 hours at least 5 out of 7 days, to improve: Swallowing, Cognition, Language Ski lls, and Compensatory Strategies. Receptive Language Skills. Speech Intelligibility Training. - Physical Therapy Patient needs Physical Therapy for a daily minimum of 1.5 hours at least 5 out of 7 days, to improve: Mobility, Strengthening, Transfers, Stretching, ROM, Endurance, Ability to manage stairs, Gait, and Balance. Balance Training. Gait Training. Safety Awareness. Transfer Training. Evaluate and Treat. Pa tient/Family Education. LE Strengthening. Mobility Training. PHYSICAL EXAM - Gen Alert and awake Lying in bed No apparent distress Oriented to: person, time, and place - Skin No skin breakdown. Normacephalic - Eyes No abnormalities - ENMT No abnormalities - Neck No abnormalities - CVS RRR - Chest No abnormalities - Resp Clear to auscultation - Abd Soft - GI + bowel sounds Deferred - No abnormalities - Ext Left femur surgical site has good hemostasis. - MSK 4+/5 weakness in left lower extremity - Neuro 4/5 strength left lower extremity. - Psych No abnormalities ASSESSMENT: Pt. is a 72 yo Right-handed male.On 04/09/2022 he was admitted to [facility] with diagnosis F REQUENT FALLS AND WEAKNESS.His impairment category is Debility 16 - Debility (16).Pre-morbidly, Pt. was independent/mod-I in Locomotion, Safety Awareness, Social Cognition, Balance, and Transfers Contr ol; and he had good Sphincter Control, Self-Care, Communication, and Endurance.Currently, he has defi cits of Locomotion, Safety Awareness, Social Cognition, Balance, Transfers Control, Sphincter Control , Self-Care, and Endurance.Pt. is now referred to [facility] for acute in-dedrick ent rehabilitation in order to maximize patient's functional independence in activities of daily jewels ng, strength, ROM, and mobility.- Rehab Goal Patient has realistic goal of being discharged at assistance level 7-Ind to reside at Home with Fami ly/Relatives. MDM/PLAN: - Physical Therapy Gait dysfunction - to improve, our physical therapists will perform initial evaluation of pt's statu s upon admission and devise an individualized program for Gait Training, and Wheel Chair mobility Inability to transfer - to improve, our physical therapists will perform initial evaluation of pt's status upon admission and devise an individualized program for Bed mobility Need for home safety evaluation - to improve, our physical therapists will perform initial evaluatio n of pt's status upon admission and devise an individualized program for Home Evaluation Need in caregiver upon discharge - to improve, our physical therapists will perform initial evaluati on of pt's status upon admission and devise an individualized program for Caregiver Training New precaution - to improve, our physical therapists will perform initial evaluation of pt's status upon admission and devise an individualized program for Patient precaution education Poor balance - to improve, our physical therapists will perform initial evaluation of pt's status up on admission and devise an individualized program for Balance Training Poor endurance - to improve, our physical therapists will perform initial evaluation of pt's status upon admission and devise an individualized program for Endurance Training Weakness - to improve, our physical therapists will perform initial evaluation of pt's status upon a dmission and devise an individualized program for Aquatic Therapy, Neuromuscular Reeducation, and Str engthening Achieving independence - to improve, our physical therapists will perform initial evaluation of pt's status upon admission and devise an individualized program for Community Reintegration Activities - Occupational Therapy ADL deficits - to improve, our occupation therapists will perform initial evaluation of pt's status upon admission and devise an individualized program for Bathing, Bed mobility, Community Reintegratio n, Cooking, Dressing, Eating, Fine Motor Skills, Grooming, Homemaking, Kitchen Mobility, Laundry, Pat ient Education, Safety Awareness, Splinting - Positioning, Transfers(Toilet, Tub, Shower), and Wheel Chair Management Cognitive deficits - to improve, our occupation therapists will perform initial evaluation of pt's s tatus upon admission and devise an individualized program for Cognition - orientation Need for skin care technician - to improve, our occupation therapists will perform initial evaluation of pt's status upon admission and devise an individualized program for Caregiver Training Weakness - to improve, our occupation therapists will perform initial evaluation of pt's status upon admission and devise an individualized program for Aquatic Therapy, Balance, Endurance, UE ROM, and UE strengthening - Other See attached MAR (Medication Administration Record) - Diet Type Continue Regular - Diet - Liquid Texture Continue Regular - Tube Feed Continue N/A - Fall Precaution SAFTY AND FALL - Diet - Solid Texture Continue Regular - Shower allowing shower FUNCTIONAL STATUS: UPDATED AT WEEKLY TEAM CONFERENCE - Bladder Same accident frequency: 7-Ind - No accidents in the past 7 days - Bowel Same accident frequency: 7-Ind - No accidents in the past 7 days - Walking Same score based on distance walked: 0(N/A) Same score based on distance walked: 2(50-149ft) - Wheelchair Same score based on distance traveled: 0(N/A) FUNCTIONAL STATUS: - Self-Care A. Eating Ind B. Grooming Rafaela C. Bathing sup D. Dressing - Upper sup E. Dressing - Lower Lor F. Toileting sup - Sphincter Control G. Bladder control Rafaela H. Bowel control Rafaela - Transfers Control I. Bed/Chair/Wheelchair Lor J. Toilet Lor K. Tub/Shower modA - Locomotion L. Walk/Wheelchair (B) modA M. Stairs maxA - Communication N. Comprehension (B) sup O. Expression (B) sup - Social Cognition P. Social Interaction Rafaela Q. Problem Solving sup R. Memory sup - Endurance Fair - Balance Fair - Safety Awareness Fair QI SCORES: - Self-Care A. Eating 03-Partial/moderate assistance B. Oral hygiene 03-Partial/moderate assistance C. Toileting hygiene 03-Partial/moderate assistance E. Shower/bathe self 03-Partial/moderate assistance F. Upper body dressing 03-Partial/moderate assistance G. Lower body dressing 03-Partial/moderate assistance H. Putting on/taking off footwear 88-Not attempted due to medical condition or safety concerns - Mobility A. Roll left and right 06-Independent B. Sit to lying 03-Partial/moderate assistance C. Lying to sitting on side of bed 03-Partial/moderate assistance D. Sit to stand 03-Partial/moderate assistance E. Chair/zjq-qt-[id number] transfer 03-Partial/moderate assistance F. Toilet transfer 03-Partial/moderate assistance G. Car transfer 88-Not attempted due to medical condition or safety concerns I. Walk 10 feet 03-Partial/moderate assistance J. Walk 50 feet with two turns 03-Partial/moderate assistance K. Walk 150 feet 88-Not attempted due to medical condition or safety concerns L. Walking 10 feet on uneven surfaces 88-Not attempted due to medical condition or safety concerns M. 1 step (curb) 88-Not attempted due to medical condition or safety concerns N. 4 steps 88-Not attempted due to medical condition or safety concerns O. 12 steps 88-Not attempted due to medical condition or safety concerns P. Picking up object 88-Not attempted due to medical condition or safety concerns R. Wheel 50 feet with two turns 88-Not attempted due to medical condition or safety concerns S. Wheel 150 feet 88-Not attempted due to medical condition or safety concerns - Bladder and Bowel Bladder continence Bowel continence - Endurance Fair - Balance Fair - Safety Awareness Fair CURRENT FUNC. DEFICITS: Self-Care, Endurance, Balance, Safety Awareness, and Mobility SIGNATURE PANEL: (CDT)
[2022-04-17] MEDS: ATORVASTATIN 10 MG TAB PO SCH (19:49)
[2022-04-17] MEDS: INSULIN GLARGINE 100 UNIT/ML SQ SCH (20:11)
[2022-04-18] MEDS: carvediloL 6.25 MG TAB PO SCH ×2 (05:10→18:34)
[2022-04-18] MEDS: INSULIN -REGULAR HUMAN 50 UNIT/0.5 ML ML SQ SCH ×4 (07:30→20:15)
[2022-04-18] MEDS: DOCUSATE NA 100 MG CAP PO SCH ×2 (08:22→19:48)
[2022-04-18] MEDS: levoFLOXacin 500 MG TAB PO SCH (08:22)
[2022-04-18] MEDS: FUROSEMIDE 20 MG TABLET PO SCH (08:23)
[2022-04-18] MEDS: FERROUS SULFATE 325 MG TAB PO SCH (08:23)
[2022-04-18] MEDS: EZETIMIBE 10 MG TAB PO SCH (08:24)
[2022-04-18] MEDS: APIXABAN 5 MG TABLET PO SCH (08:24)
[2022-04-18] MEDS: CRANBERRY FRUIT EXTRACT 400 MG CAP PO SCH ×2 (08:24→19:48)
[2022-04-18] MEDS: SACUBITRIL/VALSARTAN 24/26 MG TAB PO SCH ×2 (08:24→19:48)
[2022-04-18] MEDS: CLOPIDOGREL 75 MG TABLET PO SCH (08:24)
[2022-04-18] MEDS: FLUOXETINE 20 MG CAP PO SCH ×2 (08:24→19:48)
--- NOTE | 2022-04-18 09:51 | P.RH.PN ---
Estimated Length of Stay: 11 Expected Discharge Date: 04/24/22 Discharge Disposition Plan: Home Family Support: Yes Penitentiary Goal: Mobility, Transfers, Self Care Vital Signs: Last Vital Signs Temp 97.2 F 04/17/22 21:23 Pulse 56 04/18/22 08:23 Resp 18 04/17/22 21:23 BP 117/59 L 04/18/22 08:23 Pulse Ox 94 04/17/22 21:23 Laboratory: Laboratory Last Values WBC 8.2 K/uL (4.3-10.9) 04/17/22 07:09 RBC 4.93 M/uL (4.33-5.43) 04/17/22 07:09 Hgb 13.4 g/dL (13.6-17.9) L 04/17/22 07:09 Hct 40.9 % (39.6-49.0) 04/17/22 07:09 MCV 83.0 fL (80-100) 04/17/22 07:09 MCH 27.3 pg (27.0-35.0) 04/17/22 07:09 MCHC 32.9 g/dL (32.0-36.0) 04/17/22 07:09 RDW 15.6 % (12.1-15.2) H 04/17/22 07:09 Plt Count 234 K/uL (152-406) 04/17/22 07:09 MPV 8.6 fL (7.6-11.3) 04/17/22 07:09 Neutrophils % 67.6 % (41.7-73.7) 04/17/22 07:09 Lymphocytes % 13.8 % (15.3-44.8) L 04/17/22 07:09 Monocytes % 9.6 % (3.3-12.3) 04/17/22 07:09 Eosinophils % 8.0 % (0-4.4) H 04/17/22 07:09 Basophils % 1.0 % (0-1.3) 04/17/22 07:09 Absolute Neutrophils 5.5 K/uL (1.8-8.0) 04/17/22 07:09 Absolute Lymphocytes 1.1 K/uL (0.7-4.9) 04/17/22 07:09 Absolute Monocytes 0.8 K/uL (0.1-1.3) 04/17/22 07:09 Absolute Eosinophils 0.7 K/uL (0-0.5) H 04/17/22 07:09 Absolute Basophils 0.1 K/uL (0-0.5) 04/17/22 07:09 Sodium 134 mmol/L (136-145) L 04/17/22 07:09 Potassium 4.4 mmol/L (3.5-5.1) 04/17/22 07:09 Chloride 103 mmol/L (98-107) 04/17/22 07:09 Carbon Dioxide 26 mmol/L (21-32) 04/17/22 07:09 Anion Gap 9.4 mEq/L (5.0-15.0) 04/17/22 07:09 BUN 35 mg/dL (7-18) H 04/17/22 07:09 Creatinine 1.48 mg/dL (0.55-1.3) H 04/17/22 07:09 Est GFR (CKD-EPI) 51 ml/min (=/>90) L 04/17/22 07:09 Glucose 176 mg/dL (74-106) H 04/17/22 07:09 POC Glucose 142 mg/dL (65-120) H 04/18/22 07:08 Calcium 8.7 mg/dL (8.5-10.1) 04/17/22 07:09 Magnesium 2.1 mg/dL (1.8-2.4) 04/17/22 07:09 NT-Pro-B Natriuret Pep 1152 pg/mL (<125) H 04/14/22 04:22 Albumin 2.8 g/dL (3.4-5.0) L 04/17/22 07:09 Prealbumin 18.4 mg/dL (20-40) L 04/17/22 07:09 Urine Color Yellow (Yellow) 04/13/22 17:52 Urine Appearance Clear (Clear) 04/13/22 17:52 Urine pH 5.5 (5.0-7.0) 04/13/22 17:52 Ur Specific [place] 1.020 (1.005-1.030) 04/13/22 17:52 Glucose (UA)(Auto) Trace (Negative) H 04/13/22 17:52 Urine Ketones Negative (Negative) 04/13/22 17:52 Urine Blood Negative (Negative) 04/13/22 17:52 Urine Nitrite Negative (Negative) 04/13/22 17:52 Urine Bilirubin Negative (Negative) 04/13/22 17:52 Urine Urobilinogen 0.2 mg/dL (0.2-1.0) 04/13/22 17:52 Ur Leukocyte Esterase Negative (Negative) 04/13/22 17:52 Urine RBC None seen /HPF (NONE SEEN) 04/13/22 17:52 Urine WBC <5 /HPF (<5) 04/13/22 17:52 Ur Squamous Epith Cells <5 /HPF (NONE SEEN) 04/13/22 17:52 Urine Bacteria <20 /HPF (NONE SEEN) 04/13/22 17:52 Urine Culture Reflexed Not needed 04/13/22 17:52 Urine Total Protein 2+ (Negative) H 04/13/22 17:52 SARS-CoV-2 Rap RNA(RT-PCR) Negative (NEGATIVE) 04/13/22 18:20 Weight: 196 lb 14.4 oz Wound Present: No Closed Surgical Incision Present: No Negative Pressure Wound Therapy Present: No Physician Update: Labs were reviewed and are stable. Supervision with bed mobility, sit to stand, walking 500'. Wheelchair mobility 250'. He has leg cramps. Comment: no skin breakdown noted. Functional Improvement: pt has continued to progress well towards meeting short term and longterm goals. pt has improved with transfers, gait training, and balance. Summary: Patient's care plan and intermodal dispatcher goals have been reviewed and revised as necessary. Please see the Rehabilitation Signature page for all necessary signatures.
[2022-04-18 10:17] VITALS: BMI 26.4
[2022-04-18] MEDS: SPIRONOLACTONE 25 MG TABLET PO SCH (13:58)
[2022-04-18] MEDS: ISOSORBIDE MONO SR 30 MG TAB PO SCH (13:58)
[2022-04-18] MEDS: MAGNESIUM OXIDE 400 MG TAB PO SCH (19:48)
[2022-04-18] MEDS: ATORVASTATIN 10 MG TAB PO SCH (19:48)
[2022-04-18] MEDS: INSULIN GLARGINE 100 UNIT/ML SQ SCH (20:14)
[2022-04-19] MEDS: carvediloL 6.25 MG TAB PO SCH ×3 (05:14→16:58)
[2022-04-19] MEDS: INSULIN -REGULAR HUMAN 50 UNIT/0.5 ML ML SQ SCH ×4 (07:30→20:04)
[2022-04-19] MEDS: FUROSEMIDE 20 MG TABLET PO SCH (07:59)
[2022-04-19] MEDS: SACUBITRIL/VALSARTAN 24/26 MG TAB PO SCH ×2 (08:00→20:05)
[2022-04-19] MEDS: FLUOXETINE 20 MG CAP PO SCH ×2 (08:00→20:05)
[2022-04-19] MEDS: FERROUS SULFATE 325 MG TAB PO SCH (08:00)
[2022-04-19] MEDS: APIXABAN 5 MG TABLET PO SCH (08:00)
[2022-04-19] MEDS: EZETIMIBE 10 MG TAB PO SCH (08:00)
[2022-04-19] MEDS: MAGNESIUM OXIDE 400 MG TAB PO SCH ×2 (08:01→20:04)
[2022-04-19] MEDS: CLOPIDOGREL 75 MG TABLET PO SCH (08:01)
[2022-04-19] MEDS: DOCUSATE NA 100 MG CAP PO SCH ×2 (08:01→20:05)
[2022-04-19] MEDS: CRANBERRY FRUIT EXTRACT 400 MG CAP PO SCH ×2 (08:01→20:05)
[2022-04-19] MEDS: ISOSORBIDE MONO SR 30 MG TAB PO SCH (11:48)
[2022-04-19] MEDS: SPIRONOLACTONE 25 MG TABLET PO SCH (11:53)
[2022-04-19] MEDS: INSULIN GLARGINE 100 UNIT/ML SQ SCH (20:04)
[2022-04-19] MEDS: ATORVASTATIN 10 MG TAB PO SCH (20:05)
[2022-04-20] MEDS: carvediloL 6.25 MG TAB PO SCH ×2 (05:04→17:14)
[2022-04-20] MEDS: INSULIN -REGULAR HUMAN 50 UNIT/0.5 ML ML SQ SCH ×4 (07:30→20:25)
[2022-04-20] MEDS: FLUOXETINE 20 MG CAP PO SCH ×2 (08:03→19:13)
[2022-04-20] MEDS: MAGNESIUM OXIDE 400 MG TAB PO SCH ×2 (08:03→19:13)
[2022-04-20] MEDS: SACUBITRIL/VALSARTAN 24/26 MG TAB PO SCH ×2 (08:03→19:13)
[2022-04-20] MEDS: EZETIMIBE 10 MG TAB PO SCH (08:03)
[2022-04-20] MEDS: DOCUSATE NA 100 MG CAP PO SCH ×2 (08:04→19:12)
[2022-04-20] MEDS: FERROUS SULFATE 325 MG TAB PO SCH (08:04)
[2022-04-20] MEDS: FUROSEMIDE 20 MG TABLET PO SCH (08:04)
[2022-04-20] MEDS: APIXABAN 5 MG TABLET PO SCH (08:04)
[2022-04-20] MEDS: CRANBERRY FRUIT EXTRACT 400 MG CAP PO SCH ×2 (08:04→19:12)
[2022-04-20] MEDS: CLOPIDOGREL 75 MG TABLET PO SCH (08:04)
[2022-04-20] MEDS: SPIRONOLACTONE 25 MG TABLET PO SCH (12:04)
[2022-04-20] MEDS: ISOSORBIDE MONO SR 30 MG TAB PO SCH (12:04)
[2022-04-20] MEDS ORDERED: DOCUSATE NA/SENNA CONC 1 TAB PO PRN (13:27)
[2022-04-20] MEDS: ATORVASTATIN 10 MG TAB PO SCH (19:13)
[2022-04-20] MEDS: INSULIN GLARGINE 100 UNIT/ML SQ SCH (20:24)
[2022-04-21] MEDS: carvediloL 6.25 MG TAB PO SCH ×2 (05:05→17:15)
[2022-04-21] MEDS: INSULIN -REGULAR HUMAN 50 UNIT/0.5 ML ML SQ SCH ×4 (07:30→20:25)
[2022-04-21] MEDS: DOCUSATE NA 100 MG CAP PO SCH ×2 (07:48→20:24)
[2022-04-21] MEDS: CLOPIDOGREL 75 MG TABLET PO SCH (07:48)
[2022-04-21] MEDS: SACUBITRIL/VALSARTAN 24/26 MG TAB PO SCH ×2 (07:49→20:24)
[2022-04-21] MEDS: APIXABAN 5 MG TABLET PO SCH (07:49)
[2022-04-21] MEDS: FLUOXETINE 20 MG CAP PO SCH ×2 (07:50→20:24)
[2022-04-21] MEDS: EZETIMIBE 10 MG TAB PO SCH (07:50)
[2022-04-21] MEDS: FUROSEMIDE 20 MG TABLET PO SCH (07:50)
[2022-04-21] MEDS: CRANBERRY FRUIT EXTRACT 400 MG CAP PO SCH ×2 (07:50→20:24)
[2022-04-21] MEDS: FERROUS SULFATE 325 MG TAB PO SCH (09:24)
[2022-04-21] MEDS: MAGNESIUM OXIDE 400 MG TAB PO SCH ×2 (09:26→20:24)
[2022-04-21] MEDS: SPIRONOLACTONE 25 MG TABLET PO SCH (12:23)
[2022-04-21] MEDS: ISOSORBIDE MONO SR 30 MG TAB PO SCH (12:24)
--- NOTE | 2022-04-21 17:23 | R.PN ---
PROGRESS NOTES ENCOUNTER DATE AND TIME: 04/21/2022 17:20 (CDT) NAME JAXON REEVES DATE OF : 1950 DATE OF ADMISSION: 04/13/2022 16:58 (CDT) FREQUENT FALLS AND WEAKNESSCHIEF COMPLAINT: Debility and diffuse weakness SUBJECTIVE: Pt denied any Shortness of Breath. Pt denied any depression. CBC with diff is essentially normal. Glucose 148 to 209, prealbumin 18.4, calcium 8.7, Na 134, Transmission And Coordination Engineer 1. 48, covid-19 is negative. Ambulated 500' with supervisione using a rolling walker. Self-propelled wheelchair 500' with modified independence. Up and down 15 steps with supervision. VITAL SIGNS Temperature: 98.5 F SBP/DBP: 96 to 138/54 to 62 Pulse: 64 to 69 Resp: 16 MEDICATION ALLERGIES: No Known Drug Allergies (NKDA) ENVIRONMENTAL ALLERGIES: - Substance Allergies None Known - Other Allergies None Known NURSING: - Shower allowing shower PRECAUTIONS: - Fall Precaution SAFTY AND FALL ACTIVITIES OOB only with supervision THERAPIES: - Dietary and Nutrition Adequate Nutrition. Nutritional Education. Nutritional Supplements. Evaluate and Treat. - Occupational Therapy Cognitive Retraining. Patient needs Occupational Therapy for a daily minimum of 1.5 hours at least 5 out of 7 days, to improve Activities of Daily Living, including: Eating, Grooming, Bathing, Dressing, Toileting, Toilet Transfers, Community Reintegration, Higher functional activities, Adaptive Equipme nt, Splinting, Household Tasks, and Other activities as determined. Visual Perceptual Training. Evalu ate and Treat. Safety Awareness. Patient/Family Education. Household Tasks. ADL Training. - Speech Therapy Cognitive Training. Expressive Language Skills. Memory Strategies. Patient needs Speech Therapy for a daily minimum of 1.5 hours at least 5 out of 7 days, to improve: Swallowing, Cognition, Language Ski lls, and Compensatory Strategies. Receptive Language Skills. Speech Intelligibility Training. - Physical Therapy Patient needs Physical Therapy for a daily minimum of 1.5 hours at least 5 out of 7 days, to improve: Mobility, Strengthening, Transfers, Stretching, ROM, Endurance, Ability to manage stairs, Gait, and Balance. Balance Training. Gait Training. Safety Awareness. Transfer Training. Evaluate and Treat. Pa tient/Family Education. LE Strengthening. Mobility Training. PHYSICAL EXAM - Gen Alert and awake Lying in bed No apparent distress Oriented to: person, time, and place - Skin No skin breakdown. Normacephalic - Eyes No abnormalities - ENMT No abnormalities - Neck No abnormalities - CVS RRR - Chest No abnormalities - Resp Clear to auscultation - Abd Soft - GI + bowel sounds Deferred - No abnormalities - Ext Left femur surgical site has good hemostasis. - MSK 4+/5 weakness in left lower extremity - Neuro 4/5 strength left lower extremity. - Psych No abnormalities ASSESSMENT: Pt. is a 72 yo Right-handed male.On 04/09/2022 he was admitted to [facility] with diagnosis F REQUENT FALLS AND WEAKNESS.His impairment category is Debility 16 - Debility (16).Pre-morbidly, Pt. was independent/mod-I in Locomotion, Safety Awareness, Social Cognition, Balance, and Transfers Contr ol; and he had good Sphincter Control, Self-Care, Communication, and Endurance.Currently, he has defi cits of Locomotion, Safety Awareness, Social Cognition, Balance, Transfers Control, Sphincter Control , Self-Care, and Endurance.Pt. is now referred to [facility] for acute in-dedrick ent rehabilitation in order to maximize patient's functional independence in activities of daily jewels ng, strength, ROM, and mobility.- Rehab Goal Patient has realistic goal of being discharged at assistance level 7-Ind to reside at Home with Fami ly/Relatives. MDM/PLAN: - Physical Therapy Gait dysfunction - to improve, our physical therapists will perform initial evaluation of pt's statu s upon admission and devise an individualized program for Gait Training, and Wheel Chair mobility Inability to transfer - to improve, our physical therapists will perform initial evaluation of pt's status upon admission and devise an individualized program for Bed mobility Need for home safety evaluation - to improve, our physical therapists will perform initial evaluatio n of pt's status upon admission and devise an individualized program for Home Evaluation Need in caregiver upon discharge - to improve, our physical therapists will perform initial evaluati on of pt's status upon admission and devise an individualized program for Caregiver Training New precaution - to improve, our physical therapists will perform initial evaluation of pt's status upon admission and devise an individualized program for Patient precaution education Poor balance - to improve, our physical therapists will perform initial evaluation of pt's status up on admission and devise an individualized program for Balance Training Poor endurance - to improve, our physical therapists will perform initial evaluation of pt's status upon admission and devise an individualized program for Endurance Training Weakness - to improve, our physical therapists will perform initial evaluation of pt's status upon a dmission and devise an individualized program for Aquatic Therapy, Neuromuscular Reeducation, and Str engthening Achieving independence - to improve, our physical therapists will perform initial evaluation of pt's status upon admission and devise an individualized program for Community Reintegration Activities - Occupational Therapy ADL deficits - to improve, our occupation therapists will perform initial evaluation of pt's status upon admission and devise an individualized program for Bathing, Bed mobility, Community Reintegratio n, Cooking, Dressing, Eating, Fine Motor Skills, Grooming, Homemaking, Kitchen Mobility, Laundry, Pat ient Education, Safety Awareness, Splinting - Positioning, Transfers(Toilet, Tub, Shower), and Wheel Chair Management Cognitive deficits - to improve, our occupation therapists will perform initial evaluation of pt's s tatus upon admission and devise an individualized program for Cognition - orientation Need for interior plant caretaker - to improve, our occupation therapists will perform initial evaluation of pt's status upon admission and devise an individualized program for Caregiver Training Weakness - to improve, our occupation therapists will perform initial evaluation of pt's status upon admission and devise an individualized program for Aquatic Therapy, Balance, Endurance, UE ROM, and UE strengthening - Other See attached MAR (Medication Administration Record) - Diet Type Continue Regular - Diet - Liquid Texture Continue Regular - Tube Feed Continue N/A - Fall Precaution SAFTY AND FALL - Diet - Solid Texture Continue Regular - Shower allowing shower FUNCTIONAL STATUS: UPDATED AT WEEKLY TEAM CONFERENCE - Bladder Same accident frequency: 7-Ind - No accidents in the past 7 days - Bowel Same accident frequency: 7-Ind - No accidents in the past 7 days - Walking Same score based on distance walked: 0(N/A) Same score based on distance walked: 2(50-149ft) - Wheelchair Same score based on distance traveled: 0(N/A) FUNCTIONAL STATUS: - Self-Care A. Eating Ind B. Grooming Rafaela C. Bathing sup D. Dressing - Upper sup E. Dressing - Lower Lor F. Toileting sup - Sphincter Control G. Bladder control Rafaela H. Bowel control Rafaela - Transfers Control I. Bed/Chair/Wheelchair Lor J. Toilet Lor K. Tub/Shower modA - Locomotion L. Walk/Wheelchair (B) modA M. Stairs maxA - Communication N. Comprehension (B) sup O. Expression (B) sup - Social Cognition P. Social Interaction Rafaela Q. Problem Solving sup R. Memory sup - Endurance Fair - Balance Fair - Safety Awareness Fair QI SCORES: - Self-Care A. Eating 03-Partial/moderate assistance B. Oral hygiene 03-Partial/moderate assistance C. Toileting hygiene 03-Partial/moderate assistance E. Shower/bathe self 03-Partial/moderate assistance F. Upper body dressing 03-Partial/moderate assistance G. Lower body dressing 03-Partial/moderate assistance H. Putting on/taking off footwear 88-Not attempted due to medical condition or safety concerns - Mobility A. Roll left and right 06-Independent B. Sit to lying 03-Partial/moderate assistance C. Lying to sitting on side of bed 03-Partial/moderate assistance D. Sit to stand 03-Partial/moderate assistance E. Chair/eeh-do-eeqkh transfer 03-Partial/moderate assistance F. Toilet transfer 03-Partial/moderate assistance G. Car transfer 88-Not attempted due to medical condition or safety concerns I. Walk 10 feet 03-Partial/moderate assistance J. Walk 50 feet with two turns 03-Partial/moderate assistance K. Walk 150 feet 88-Not attempted due to medical condition or safety concerns L. Walking 10 feet on uneven surfaces 88-Not attempted due to medical condition or safety concerns M. 1 step (curb) 88-Not attempted due to medical condition or safety concerns N. 4 steps 88-Not attempted due to medical condition or safety concerns O. 12 steps 88-Not attempted due to medical condition or safety concerns P. Picking up object 88-Not attempted due to medical condition or safety concerns R. Wheel 50 feet with two turns 88-Not attempted due to medical condition or safety concerns S. Wheel 150 feet 88-Not attempted due to medical condition or safety concerns - Bladder and Bowel Bladder continence Bowel continence - Endurance Fair - Balance Fair - Safety Awareness Fair CURRENT FUNC. DEFICITS: Self-Care, Endurance, Balance, Safety Awareness, and Mobility SIGNATURE PANEL: (CDT)
[2022-04-21] MEDS: INSULIN GLARGINE 100 UNIT/ML SQ SCH (20:24)
[2022-04-21] MEDS: ATORVASTATIN 10 MG TAB PO SCH (20:24)
[2022-04-22] MEDS: carvediloL 6.25 MG TAB PO SCH ×2 (05:06→17:53)
[2022-04-22 06:16] LABS: Potassium 4.8 mmol/L (3.5-5.1)
[2022-04-22] MEDS: INSULIN -REGULAR HUMAN 50 UNIT/0.5 ML ML SQ SCH ×4 (07:30→20:49)
[2022-04-22] MEDS: FLUOXETINE 20 MG CAP PO SCH ×2 (08:01→20:48)
[2022-04-22] MEDS: SACUBITRIL/VALSARTAN 24/26 MG TAB PO SCH ×2 (08:01→20:48)
[2022-04-22] MEDS: APIXABAN 5 MG TABLET PO SCH (08:01)
[2022-04-22] MEDS: FUROSEMIDE 20 MG TABLET PO SCH (08:01)
[2022-04-22] MEDS: EZETIMIBE 10 MG TAB PO SCH (08:02)
[2022-04-22] MEDS: CLOPIDOGREL 75 MG TABLET PO SCH (08:02)
[2022-04-22] MEDS: MAGNESIUM OXIDE 400 MG TAB PO SCH ×2 (09:00→20:49)
[2022-04-22] MEDS: FERROUS SULFATE 325 MG TAB PO SCH (09:00)
[2022-04-22] MEDS: CRANBERRY FRUIT EXTRACT 400 MG CAP PO SCH ×2 (09:00→20:48)
[2022-04-22] MEDS: DOCUSATE NA 100 MG CAP PO SCH ×2 (09:00→20:48)
[2022-04-22] MEDS: SPIRONOLACTONE 25 MG TABLET PO SCH (12:00)
[2022-04-22] MEDS: ISOSORBIDE MONO SR 30 MG TAB PO SCH (12:00)
--- NOTE | 2022-04-22 18:25 | R.PN ---
PROGRESS NOTES ENCOUNTER DATE AND TIME: 04/22/2022 18:19 (CDT) NAME JAXON REEVES DATE OF : 1950 DATE OF ADMISSION: 04/13/2022 16:58 (CDT) FREQUENT FALLS AND WEAKNESSCHIEF COMPLAINT: Debility and diffuse weakness SUBJECTIVE: Pt denied any Shortness of Breath. Pt denied any depression. CBC with diff is essentially normal. Glucose 128 to 241, prealbumin 18.4, calcium 8.7, Na 134, Marketing Engineer 1. 67, covid-19 is negative. Ambulated 250' with supervision using a single prong cane. Up and down the curb with supervision. VITAL SIGNS Temperature: 98.2 F SBP/DBP: 145/78 Pulse: 64 Resp: 16 MEDICATION ALLERGIES: No Known Drug Allergies (NKDA) ENVIRONMENTAL ALLERGIES: - Substance Allergies None Known - Other Allergies None Known NURSING: - Shower allowing shower PRECAUTIONS: - Fall Precaution SAFTY AND FALL ACTIVITIES OOB only with supervision THERAPIES: - Dietary and Nutrition Adequate Nutrition. Nutritional Education. Nutritional Supplements. Evaluate and Treat. - Occupational Therapy Cognitive Retraining. Patient needs Occupational Therapy for a daily minimum of 1.5 hours at least 5 out of 7 days, to improve Activities of Daily Living, including: Eating, Grooming, Bathing, Dressing, Toileting, Toilet Transfers, Community Reintegration, Higher functional activities, Adaptive Equipme nt, Splinting, Household Tasks, and Other activities as determined. Visual Perceptual Training. Evalu ate and Treat. Safety Awareness. Patient/Family Education. Household Tasks. ADL Training. - Speech Therapy Cognitive Training. Expressive Language Skills. Memory Strategies. Patient needs Speech Therapy for a daily minimum of 1.5 hours at least 5 out of 7 days, to improve: Swallowing, Cognition, Language Ski lls, and Compensatory Strategies. Receptive Language Skills. Speech Intelligibility Training. - Physical Therapy Patient needs Physical Therapy for a daily minimum of 1.5 hours at least 5 out of 7 days, to improve: Mobility, Strengthening, Transfers, Stretching, ROM, Endurance, Ability to manage stairs, Gait, and Balance. Balance Training. Gait Training. Safety Awareness. Transfer Training. Evaluate and Treat. Pa tient/Family Education. LE Strengthening. Mobility Training. PHYSICAL EXAM - Gen Alert and awake Lying in bed No apparent distress Oriented to: person, time, and place - Skin No skin breakdown. Normacephalic - Eyes No abnormalities - ENMT No abnormalities - Neck No abnormalities - CVS RRR - Chest No abnormalities - Resp Clear to auscultation - Abd Soft - GI + bowel sounds Deferred - No abnormalities - Ext Left femur surgical site has good hemostasis. - MSK 4+/5 weakness in left lower extremity - Neuro 4/5 strength left lower extremity. - Psych No abnormalities ASSESSMENT: Pt. is a 72 yo Right-handed male.On 04/09/2022 he was admitted to [facility] with diagnosis F REQUENT FALLS AND WEAKNESS.His impairment category is Debility 16 - Debility (16).Pre-morbidly, Pt. was independent/mod-I in Locomotion, Safety Awareness, Social Cognition, Balance, and Transfers Contr ol; and he had good Sphincter Control, Self-Care, Communication, and Endurance.Currently, he has defi cits of Locomotion, Safety Awareness, Social Cognition, Balance, Transfers Control, Sphincter Control , Self-Care, and Endurance.Pt. is now referred to [facility] for acute in-dedrick ent rehabilitation in order to maximize patient's functional independence in activities of daily jewels ng, strength, ROM, and mobility.- Rehab Goal Patient has realistic goal of being discharged at assistance level 7-Ind to reside at Home with Fami ly/Relatives. MDM/PLAN: - Physical Therapy Gait dysfunction - to improve, our physical therapists will perform initial evaluation of pt's statu s upon admission and devise an individualized program for Gait Training, and Wheel Chair mobility Inability to transfer - to improve, our physical therapists will perform initial evaluation of pt's status upon admission and devise an individualized program for Bed mobility Need for home safety evaluation - to improve, our physical therapists will perform initial evaluatio n of pt's status upon admission and devise an individualized program for Home Evaluation Need in caregiver upon discharge - to improve, our physical therapists will perform initial evaluati on of pt's status upon admission and devise an individualized program for Caregiver Training New precaution - to improve, our physical therapists will perform initial evaluation of pt's status upon admission and devise an individualized program for Patient precaution education Poor balance - to improve, our physical therapists will perform initial evaluation of pt's status up on admission and devise an individualized program for Balance Training Poor endurance - to improve, our physical therapists will perform initial evaluation of pt's status upon admission and devise an individualized program for Endurance Training Weakness - to improve, our physical therapists will perform initial evaluation of pt's status upon a dmission and devise an individualized program for Aquatic Therapy, Neuromuscular Reeducation, and Str engthening Achieving independence - to improve, our physical therapists will perform initial evaluation of pt's status upon admission and devise an individualized program for Community Reintegration Activities - Occupational Therapy ADL deficits - to improve, our occupation therapists will perform initial evaluation of pt's status upon admission and devise an individualized program for Bathing, Bed mobility, Community Reintegratio n, Cooking, Dressing, Eating, Fine Motor Skills, Grooming, Homemaking, Kitchen Mobility, Laundry, Pat ient Education, Safety Awareness, Splinting - Positioning, Transfers(Toilet, Tub, Shower), and Wheel Chair Management Cognitive deficits - to improve, our occupation therapists will perform initial evaluation of pt's s tatus upon admission and devise an individualized program for Cognition - orientation Need for nurse wound care - to improve, our occupation therapists will perform initial evaluation of pt's status upon admission and devise an individualized program for Caregiver Training Weakness - to improve, our occupation therapists will perform initial evaluation of pt's status upon admission and devise an individualized program for Aquatic Therapy, Balance, Endurance, UE ROM, and UE strengthening - Other See attached MAR (Medication Administration Record) - Diet Type Continue Regular - Diet - Liquid Texture Continue Regular - Tube Feed Continue N/A - Fall Precaution SAFTY AND FALL - Diet - Solid Texture Continue Regular - Shower allowing shower FUNCTIONAL STATUS: UPDATED AT WEEKLY TEAM CONFERENCE - Bladder Same accident frequency: 7-Ind - No accidents in the past 7 days - Bowel Same accident frequency: 7-Ind - No accidents in the past 7 days - Walking Same score based on distance walked: 0(N/A) Same score based on distance walked: 2(50-149ft) - Wheelchair Same score based on distance traveled: 0(N/A) FUNCTIONAL STATUS: - Self-Care A. Eating Ind B. Grooming Rafaela C. Bathing sup D. Dressing - Upper sup E. Dressing - Lower Lor F. Toileting sup - Sphincter Control G. Bladder control Rafaela H. Bowel control Rafaela - Transfers Control I. Bed/Chair/Wheelchair Lor J. Toilet Lro K. Tub/Shower modA - Locomotion L. Walk/Wheelchair (B) modA M. Stairs maxA - Communication N. Comprehension (B) sup O. Expression (B) sup - Social Cognition P. Social Interaction Rafaela Q. Problem Solving sup R. Memory sup - Endurance Fair - Balance Fair - Safety Awareness Fair QI SCORES: - Self-Care A. Eating 03-Partial/moderate assistance B. Oral hygiene 03-Partial/moderate assistance C. Toileting hygiene 03-Partial/moderate assistance E. Shower/bathe self 03-Partial/moderate assistance F. Upper body dressing 03-Partial/moderate assistance G. Lower body dressing 03-Partial/moderate assistance H. Putting on/taking off footwear 88-Not attempted due to medical condition or safety concerns - Mobility A. Roll left and right 06-Independent B. Sit to lying 03-Partial/moderate assistance C. Lying to sitting on side of bed 03-Partial/moderate assistance D. Sit to stand 03-Partial/moderate assistance E. Chair/[id number] transfer 03-Partial/moderate assistance F. Toilet transfer 03-Partial/moderate assistance G. Car transfer 88-Not attempted due to medical condition or safety concerns I. Walk 10 feet 03-Partial/moderate assistance J. Walk 50 feet with two turns 03-Partial/moderate assistance K. Walk 150 feet 88-Not attempted due to medical condition or safety concerns L. Walking 10 feet on uneven surfaces 88-Not attempted due to medical condition or safety concerns M. 1 step (curb) 88-Not attempted due to medical condition or safety concerns N. 4 steps 88-Not attempted due to medical condition or safety concerns O. 12 steps 88-Not attempted due to medical condition or safety concerns P. Picking up object 88-Not attempted due to medical condition or safety concerns R. Wheel 50 feet with two turns 88-Not attempted due to medical condition or safety concerns S. Wheel 150 feet 88-Not attempted due to medical condition or safety concerns - Bladder and Bowel Bladder continence Bowel continence - Endurance Fair - Balance Fair - Safety Awareness Fair CURRENT FUNC. DEFICITS: Self-Care, Endurance, Balance, Safety Awareness, and Mobility SIGNATURE PANEL: (CDT)
[2022-04-22] MEDS: INSULIN GLARGINE 100 UNIT/ML SQ SCH (20:48)
[2022-04-22] MEDS: ATORVASTATIN 10 MG TAB PO SCH (20:49)
[2022-04-23] MEDS: carvediloL 6.25 MG TAB PO SCH ×2 (05:04→16:41)
[2022-04-23] MEDS: FERROUS SULFATE 325 MG TAB PO SCH (07:27)
[2022-04-23] MEDS: CRANBERRY FRUIT EXTRACT 400 MG CAP PO SCH ×2 (07:27→21:28)
[2022-04-23] MEDS: MAGNESIUM OXIDE 400 MG TAB PO SCH ×2 (07:27→21:28)
[2022-04-23] MEDS: SACUBITRIL/VALSARTAN 24/26 MG TAB PO SCH ×2 (07:27→21:28)
[2022-04-23] MEDS: FUROSEMIDE 20 MG TABLET PO SCH (07:28)
[2022-04-23] MEDS: CLOPIDOGREL 75 MG TABLET PO SCH (07:28)
[2022-04-23] MEDS: DOCUSATE NA 100 MG CAP PO SCH ×2 (07:28→21:28)
[2022-04-23] MEDS: EZETIMIBE 10 MG TAB PO SCH (07:28)
[2022-04-23] MEDS: FLUOXETINE 20 MG CAP PO SCH ×2 (07:28→21:28)
[2022-04-23] MEDS: APIXABAN 5 MG TABLET PO SCH (07:28)
[2022-04-23] MEDS: INSULIN -REGULAR HUMAN 50 UNIT/0.5 ML ML SQ SCH ×4 (07:30→21:27)
[2022-04-23] MEDS: SPIRONOLACTONE 25 MG TABLET PO SCH (11:17)
[2022-04-23] MEDS: ISOSORBIDE MONO SR 30 MG TAB PO SCH (11:18)
--- NOTE | 2022-04-23 18:11 | R.PN ---
PROGRESS NOTES ENCOUNTER DATE AND TIME: 04/23/2022 18:07 (CDT) NAME JAXON REEVES DATE OF : 1950 DATE OF ADMISSION: 04/13/2022 16:58 (CDT) FREQUENT FALLS AND WEAKNESSCHIEF COMPLAINT: Debility and diffuse weakness SUBJECTIVE: Pt denied any Shortness of Breath. Pt denied any depression. CBC with diff is essentially normal. 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 Ambulated 1000' with supervision using a single prong cane. Self-propelled wheelchair 500' with super vision. VITAL SIGNS Temperature: 97.0 F SBP/DBP: 113/62 Pulse: 60 Resp: 16 MEDICATION ALLERGIES: No Known Drug Allergies (NKDA) ENVIRONMENTAL ALLERGIES: - Substance Allergies None Known - Other Allergies None Known NURSING: - Shower allowing shower PRECAUTIONS: - Fall Precaution SAFTY AND FALL ACTIVITIES OOB only with supervision THERAPIES: - Dietary and Nutrition Adequate Nutrition. Nutritional Education. Nutritional Supplements. Evaluate and Treat. - Occupational Therapy Cognitive Retraining. Patient needs Occupational Therapy for a daily minimum of 1.5 hours at least 5 out of 7 days, to improve Activities of Daily Living, including: Eating, Grooming, Bathing, Dressing, Toileting, Toilet Transfers, Community Reintegration, Higher functional activities, Adaptive Equipme nt, Splinting, Household Tasks, and Other activities as determined. Visual Perceptual Training. Evalu ate and Treat. Safety Awareness. Patient/Family Education. Household Tasks. ADL Training. - Speech Therapy Cognitive Training. Expressive Language Skills. Memory Strategies. Patient needs Speech Therapy for a daily minimum of 1.5 hours at least 5 out of 7 days, to improve: Swallowing, Cognition, Language Ski lls, and Compensatory Strategies. Receptive Language Skills. Speech Intelligibility Training. - Physical Therapy Patient needs Physical Therapy for a daily minimum of 1.5 hours at least 5 out of 7 days, to improve: Mobility, Strengthening, Transfers, Stretching, ROM, Endurance, Ability to manage stairs, Gait, and Balance. Balance Training. Gait Training. Safety Awareness. Transfer Training. Evaluate and Treat. Pa tient/Family Education. LE Strengthening. Mobility Training. PHYSICAL EXAM - Gen Alert and awake Lying in bed No apparent distress Oriented to: person, time, and place - Skin No skin breakdown. Normacephalic - Eyes No abnormalities - ENMT No abnormalities - Neck No abnormalities - CVS RRR - Chest No abnormalities - Resp Clear to auscultation - Abd Soft - GI + bowel sounds Deferred - No abnormalities - Ext Left femur surgical site has good hemostasis. - MSK 4+/5 weakness in left lower extremity - Neuro 4/5 strength left lower extremity. - Psych No abnormalities ASSESSMENT: Pt. is a 72 yo Right-handed male.On 04/09/2022 he was admitted to [facility] with diagnosis F REQUENT FALLS AND WEAKNESS.His impairment category is Debility 16 - Debility (16).Pre-morbidly, Pt. was independent/mod-I in Locomotion, Safety Awareness, Social Cognition, Balance, and Transfers Contr ol; and he had good Sphincter Control, Self-Care, Communication, and Endurance.Currently, he has defi cits of Locomotion, Safety Awareness, Social Cognition, Balance, Transfers Control, Sphincter Control , Self-Care, and Endurance.Pt. is now referred to [facility] for acute in-dedrick ent rehabilitation in order to maximize patient's functional independence in activities of daily jewels ng, strength, ROM, and mobility.- Rehab Goal Patient has realistic goal of being discharged at assistance level 7-Ind to reside at Home with Fami ly/Relatives. MDM/PLAN: - Physical Therapy Gait dysfunction - to improve, our physical therapists will perform initial evaluation of pt's statu s upon admission and devise an individualized program for Gait Training, and Wheel Chair mobility Inability to transfer - to improve, our physical therapists will perform initial evaluation of pt's status upon admission and devise an individualized program for Bed mobility Need for home safety evaluation - to improve, our physical therapists will perform initial evaluatio n of pt's status upon admission and devise an individualized program for Home Evaluation Need in caregiver upon discharge - to improve, our physical therapists will perform initial evaluati on of pt's status upon admission and devise an individualized program for Caregiver Training New precaution - to improve, our physical therapists will perform initial evaluation of pt's status upon admission and devise an individualized program for Patient precaution education Poor balance - to improve, our physical therapists will perform initial evaluation of pt's status up on admission and devise an individualized program for Balance Training Poor endurance - to improve, our physical therapists will perform initial evaluation of pt's status upon admission and devise an individualized program for Endurance Training Weakness - to improve, our physical therapists will perform initial evaluation of pt's status upon a dmission and devise an individualized program for Aquatic Therapy, Neuromuscular Reeducation, and Str engthening Achieving independence - to improve, our physical therapists will perform initial evaluation of pt's status upon admission and devise an individualized program for Community Reintegration Activities - Occupational Therapy ADL deficits - to improve, our occupation therapists will perform initial evaluation of pt's status upon admission and devise an individualized program for Bathing, Bed mobility, Community Reintegratio n, Cooking, Dressing, Eating, Fine Motor Skills, Grooming, Homemaking, Kitchen Mobility, Laundry, Pat ient Education, Safety Awareness, Splinting - Positioning, Transfers(Toilet, Tub, Shower), and Wheel Chair Management Cognitive deficits - to improve, our occupation therapists will perform initial evaluation of pt's s tatus upon admission and devise an individualized program for Cognition - orientation Need for wound care nurse - to improve, our occupation therapists will perform initial evaluation of pt's status upon admission and devise an individualized program for Caregiver Training Weakness - to improve, our occupation therapists will perform initial evaluation of pt's status upon admission and devise an individualized program for Aquatic Therapy, Balance, Endurance, UE ROM, and UE strengthening - Other See attached MAR (Medication Administration Record) - Diet Type Continue Regular - Diet - Liquid Texture Continue Regular - Tube Feed Continue N/A - Fall Precaution SAFTY AND FALL - Diet - Solid Texture Continue Regular - Shower allowing shower FUNCTIONAL STATUS: UPDATED AT WEEKLY TEAM CONFERENCE - Bladder Same accident frequency: 7-Ind - No accidents in the past 7 days - Bowel Same accident frequency: 7-Ind - No accidents in the past 7 days - Walking Same score based on distance walked: 0(N/A) Same score based on distance walked: 2(50-149ft) - Wheelchair Same score based on distance traveled: 0(N/A) FUNCTIONAL STATUS: - Self-Care A. Eating Ind B. Grooming Rafaela C. Bathing sup D. Dressing - Upper sup E. Dressing - Lower Lor F. Toileting sup - Sphincter Control G. Bladder control Rafaela H. Bowel control Rafaela - Transfers Control I. Bed/Chair/Wheelchair Lor J. Toilet Lor K. Tub/Shower modA - Locomotion L. Walk/Wheelchair (B) modA M. Stairs maxA - Communication N. Comprehension (B) sup O. Expression (B) sup - Social Cognition P. Social Interaction Rafaela Q. Problem Solving sup R. Memory sup - Endurance Fair - Balance Fair - Safety Awareness Fair QI SCORES: - Self-Care A. Eating 03-Partial/moderate assistance B. Oral hygiene 03-Partial/moderate assistance C. Toileting hygiene 03-Partial/moderate assistance E. Shower/bathe self 03-Partial/moderate assistance F. Upper body dressing 03-Partial/moderate assistance G. Lower body dressing 03-Partial/moderate assistance H. Putting on/taking off footwear 88-Not attempted due to medical condition or safety concerns - Mobility A. Roll left and right 06-Independent B. Sit to lying 03-Partial/moderate assistance C. Lying to sitting on side of bed 03-Partial/moderate assistance D. Sit to stand 03-Partial/moderate assistance E. Chair/[id number] transfer 03-Partial/moderate assistance F. Toilet transfer 03-Partial/moderate assistance G. Car transfer 88-Not attempted due to medical condition or safety concerns I. Walk 10 feet 03-Partial/moderate assistance J. Walk 50 feet with two turns 03-Partial/moderate assistance K. Walk 150 feet 88-Not attempted due to medical condition or safety concerns L. Walking 10 feet on uneven surfaces 88-Not attempted due to medical condition or safety concerns M. 1 step (curb) 88-Not attempted due to medical condition or safety concerns N. 4 steps 88-Not attempted due to medical condition or safety concerns O. 12 steps 88-Not attempted due to medical condition or safety concerns P. Picking up object 88-Not attempted due to medical condition or safety concerns R. Wheel 50 feet with two turns 88-Not attempted due to medical condition or safety concerns S. Wheel 150 feet 88-Not attempted due to medical condition or safety concerns - Bladder and Bowel Bladder continence Bowel continence - Endurance Fair - Balance Fair - Safety Awareness Fair CURRENT FUNC. DEFICITS: Self-Care, Endurance, Balance, Safety Awareness, and Mobility SIGNATURE PANEL: (CDT)
[2022-04-23] MEDS: INSULIN GLARGINE 100 UNIT/ML SQ SCH (21:26)
[2022-04-23] MEDS: ATORVASTATIN 10 MG TAB PO SCH (21:27)
[2022-04-24 05:03] LABS: Absolute Lymphocytes (CBC) 1.7 K/uL (0.7-4.9); Hematocrit 42.1 % (39.6-49.0); Lymphocytes % 22.2 % (15.3-44.8); MCV 81.4 fL (80-100); MPV 8.5 fL (7.6-11.3); RBC Red Blood Cell Count 5.18 M/uL (4.33-5.43)
[2022-04-24] MEDS: carvediloL 6.25 MG TAB PO SCH (05:07)
[2022-04-24 05:20] LABS: Magnesium 2.5 mg/dL (1.8-2.4); Potassium 4.8 mmol/L (3.5-5.1); Prealbumin 25.4 mg/dL (20-40)
[2022-04-24] MEDS: APIXABAN 5 MG TABLET PO SCH (07:21)
[2022-04-24] MEDS ORDERED: IPRATROPIUM BROM 0.5MG/2.5ML NEB PRN ×2 (07:27→15:00)
[2022-04-24] MEDS: INSULIN -REGULAR HUMAN 50 UNIT/0.5 ML ML SQ SCH ×2 (07:30→11:30)
[2022-04-24 08:00] VITALS: TEMP 97.1
[2022-04-24] MEDS: FLUOXETINE 20 MG CAP PO SCH (08:03)
[2022-04-24] MEDS: SACUBITRIL/VALSARTAN 24/26 MG TAB PO SCH (08:03)
[2022-04-24] MEDS: EZETIMIBE 10 MG TAB PO SCH (08:03)
[2022-04-24] MEDS: FUROSEMIDE 20 MG TABLET PO SCH (08:03)
[2022-04-24] MEDS: CLOPIDOGREL 75 MG TABLET PO SCH (08:03)
[2022-04-24] MEDS: DOCUSATE NA 100 MG CAP PO SCH (08:04)
[2022-04-24] MEDS: CRANBERRY FRUIT EXTRACT 400 MG CAP PO SCH (08:04)
[2022-04-24] MEDS: MAGNESIUM OXIDE 400 MG TAB PO SCH (08:05)
[2022-04-24] MEDS: FERROUS SULFATE 325 MG TAB PO SCH (08:05)
[2022-04-24] MEDS: ISOSORBIDE MONO SR 30 MG TAB PO SCH (12:00)
[2022-04-24] MEDS: SPIRONOLACTONE 25 MG TABLET PO SCH (12:00)
[2022-04-24 13:25] VITALS: BP 103/54
--- NOTE | 2022-04-25 17:47 | R.DS ---
DISCHARGE SUMMARY FACILITY [facility] MR# [id number] NAME JAXON REEVES ADDRESS [address] [facility] [address] PHONE DATE OF 1950 AGE 72 N# [id number] GENDER Male MARITAL STATUS ENCOUNTER PHYSICIAN Dr. Aubrey Kapadia M.D. REFERRING DOCTOR ANNA DRIVER MD REFERRING FACILITY [facility] DISCHARGE DIAGNOSIS: - Debility 16 - Debility (16) FREQUENT FALLS AND WEAKNESS. DISCHARGE COMORBIDITIES: - Non-Tiered Unspecified dementia without behavioral disturbance (F03.90) Essential (primary) hypertension (I10) Atherosclerotic heart disease of [place] coronary artery without angina pectoris (I25.10) Hyperlipidemia, unspecified (E78.5) Muscle weakness (generalized) (M62.81) DATE OF ADMISSION 04/13/2022 16:58 (CDT) MEDICATION ALLERGIES: No Known Drug Allergies (NKDA) ENVIRONMENTAL ALLERGIES: - Substance Allergies None Known - Other Allergies None Known DISCHARGE MEDICATIONS: Other- ContinueSee attached MAR (Medication Administration Record). NURSING: - Shower allowing shower PRECAUTIONS: - Fall Precaution SAFTY AND FALL ACTIVITIES OOB only with supervision THERAPIES: - Dietary and Nutrition Adequate Nutrition Nutritional Education Nutritional Supplements Evaluate and Treat - Occupational Therapy Cognitive Retraining Patient needs Occupational Therapy for a daily minimum of 1.5 hours at least 5 out of 7 days, to impr ove Activities of Daily Living, including: Eating, Grooming, Bathing, Dressing, Toileting, Toilet Tra nsfers, Community Reintegration, Higher functional activities, Adaptive Equipment, Splinting, Househo ld Tasks, and Other activities as determined Visual Perceptual Training Evaluate and Treat Safety Awareness Patient/Family Education Household Tasks ADL Training - Speech Therapy Cognitive Training Expressive Language Skills Memory Strategies Patient needs Speech Therapy for a daily minimum of 1.5 hours at least 5 out of 7 days, to improve: S wallowing, Cognition, Language Skills, and Compensatory Strategies Receptive Language Skills Speech Intelligibility Training - Physical Therapy Patient needs Physical Therapy for a daily minimum of 1.5 hours at least 5 out of 7 days, to improve: Mobility, Strengthening, Transfers, Stretching, ROM, Endurance, Ability to manage stairs, Gait, and Balance Balance Training Gait Training Safety Awareness Transfer Training Evaluate and Treat Patient/Family Education LE Strengthening Mobility Training HISTORY OF PRESENT ILLNESS: Pt. is a 72 yo Right-handed male.On 04/09/2022 he was admitted to [facility] with diagnosis F REQUENT FALLS AND WEAKNESS.His impairment category is Debility 16 - Debility (16).Pre-morbidly, Pt. was independent/mod-I in Locomotion, Safety Awareness, Social Cognition, Balance, and Transfers Contr ol; and he had good Sphincter Control, Self-Care, Communication, and Endurance.Currently, he has defi cits of Locomotion, Safety Awareness, Social Cognition, Balance, Transfers Control, Sphincter Control , Self-Care, and Endurance.Pt. is now referred to [facility] for acute in-dedrick ent rehabilitation in order to maximize patient's functional independence in activities of daily jewels ng, strength, ROM, and mobility.- Rehab Goal Patient has realistic goal of being discharged at assistance level 7-Ind to reside at Home with Fami ly/Relatives. DIET - LIQUID TEXTURE: On 04/11/2022 Pt was upgraded to Regular Diet - Liquid Texture. DIET - SOLID TEXTURE: On 04/11/2022 Pt was upgraded to Regular Diet - Solid Texture. DIET TYPE: On 04/11/2022 Pt was upgraded to Regular Diet Type. FALL PRECAUTION: On 04/11/2022 the following precautions were added for the patient: Fall Precaution - SAFTY AND FALL. On 04/14/2022 the following precautions were added for the patient: Fall Precaution - SAFTY AND FALL . On 04/15/2022 the following precautions were removed for the patient: Fall Precaution - SAFTY AND FA LL. On 04/16/2022 the following precautions were added for the patient: Fall Precaution - SAFTY AND FALL . The following precautions were removed for the patient: Fall Precaution - SAFTY AND FALL, and Fall Pr ecaution - SAFTY AND FALL. TUBE FEED: On 04/11/2022 Pt was changed to N/A Tube Feed. DISCHARGE PHYSICAL EXAM - Gen Alert and awake Lying in bed No apparent distress Oriented to: person, time, and place - Skin No skin breakdown. Normacephalic - Eyes No abnormalities - ENMT No abnormalities - Neck No abnormalities - CVS RRR - Chest No abnormalities - Resp Clear to auscultation - Abd Soft - GI + bowel sounds Deferred - No abnormalities - Ext Left femur surgical site has good hemostasis. - MSK 4+/5 weakness in left lower extremity - Neuro 4/5 strength left lower extremity. - Psych No abnormalities FUNCTIONAL STATUS: - Self-Care A. Eating 7-Ind B. Grooming 6-Rafaela C. Bathing 6-Rafaela D. Dressing - Upper 6-Rafaela E. Dressing - Lower 6-Rafaela F. Toileting 6-Rafaela - Sphincter Control G. Bladder control 6-Rafaela H. Bowel control 6-Rafaela - Transfers Control I. Bed/Chair/Wheelchair 6-Rafaela J. Toilet 6-Rafaela K. Tub/Shower 6-Rafaela - Locomotion L. Walk/Wheelchair (B) 6-Rafaela M. Stairs 6-Rafaela - Communication N. Comprehension (B) 6-Rafaela O. Expression (B) 6-Rafaela - Social Cognition P. Social Interaction 6-Rafaela Q. Problem Solving 5-sup R. Memory 5-sup - Endurance Good - Balance Good - Safety Awareness Good QI SCORES: - Self-Care A. Eating 03-Partial/moderate assistance B. Oral hygiene 03-Partial/moderate assistance C. Toileting hygiene 03-Partial/moderate assistance E. Shower/bathe self 03-Partial/moderate assistance F. Upper body dressing 03-Partial/moderate assistance G. Lower body dressing 03-Partial/moderate assistance H. Putting on/taking off footwear 88-Not attempted due to medical condition or safety concerns - Mobility A. Roll left and right 06-Independent B. Sit to lying 03-Partial/moderate assistance C. Lying to sitting on side of bed 03-Partial/moderate assistance D. Sit to stand 03-Partial/moderate assistance E. Chair/hkt-uw-opdvc transfer 03-Partial/moderate assistance F. Toilet transfer 03-Partial/moderate assistance G. Car transfer 88-Not attempted due to medical condition or safety concerns I. Walk 10 feet 03-Partial/moderate assistance J. Walk 50 feet with two turns 03-Partial/moderate assistance K. Walk 150 feet 88-Not attempted due to medical condition or safety concerns L. Walking 10 feet on uneven surfaces 88-Not attempted due to medical condition or safety concerns M. 1 step (curb) 88-Not attempted due to medical condition or safety concerns N. 4 steps 88-Not attempted due to medical condition or safety concerns O. 12 steps 88-Not attempted due to medical condition or safety concerns P. Picking up object 88-Not attempted due to medical condition or safety concerns R. Wheel 50 feet with two turns 88-Not attempted due to medical condition or safety concerns S. Wheel 150 feet 88-Not attempted due to medical condition or safety concerns - Bladder and Bowel Bladder continence Bowel continence - Endurance Fair - Balance Fair - Safety Awareness Fair DISCHARGE INSTRUCTIONS: - N/A Plavix 75 mg daily. DISCHARGE PLAN, FOLLOW UP CARE PROVISIONS: - Estimated Length of Stay (days) 13. - Consensus on plan Discharge plan has been discussed with primary caregiver. Patient/Family is in agreement with the amisha n. Primary caregiver is in agreement with the plan. - Patient/Family Goals Return home independently. - Planned Living Setting Upon Discharge Home, to live with Family/Relatives. Transitional Living. SIGNATURE PANEL: (CDT)
== END 2022-04-24 14:00 | disposition home health service (06) | DRG 948 ==
LOC: 5TH 16:58
PROVIDERS: ADMIT Psychiatry & Neurology Neurology with Special Qualifications in Child Neurology; ATTEND Psychiatry & Neurology Neurology with Special Qualifications in Child Neurology
DX: R53.81 Other malaise (principal); R53.1 Weakness; I25.10 Atherosclerotic heart disease of native coronary artery without angina pectoris; I10 Essential (primary) hypertension; F03.90 Unspecified dementia, unspecified severity, without behavioral disturbance, psychotic disturbance, mood disturbance, and anxiety; Z91.81 History of falling; E78.5 Hyperlipidemia, unspecified; I25.2 Old myocardial infarction; Z95.0 Presence of cardiac pacemaker; Z20.822 Contact with and (suspected) exposure to COVID-19
CPT/HCPCS: 36415; 71045; 80048; 81001; 82040; 82947; 83735; 83880; 84134; 85025; 87086; 87088; 92523; 93005; 97116; 97129; 97130; 97161; 97165; 97530; 97542; J1815; U0003

== ENCOUNTER 2024-03-24 09:05 | Inpatient (IN) | payer OTHER ==
[2024-03-24] MEDS: GABAPENTIN 100 MG CAP PO SCH (11:00)
[2024-03-24 13:09] LABS: Specific Gravity 1.014 (1.005-1.030); Sqamous Epithelial None Seen /HPF (None Seen); Urine Bacteria None Seen /HPF (<20); Urine Bilirubin NEGATIVE (Negative); Urine Blood Negative (Negative); Urine Clarity Clear (Clear); Urine Color Light-Yellow (Yellow); Urine Culture Reflex Order NOT NEEDED; Urine Glucose NEGATIVE (Negative); Urine Ketones NEGATIVE (Negative); Urine Micro Reflex YN NO BILL MICROSCOPIC; Urine Mucus Slight /HPF (None Seen); Urine Nitrite NEGATIVE (Negative); Urine Protein 1+ (Negative); Urine RBC <5 /HPF (None Seen); Urine Urobilinogen Normal (Normal); Urine WBC <5 /HPF (<5)
[2024-03-24] MEDS: carvediloL 3.125 MG TAB PO SCH (17:19)
[2024-03-24] MEDS: ATORVASTATIN 10 MG TAB PO SCH (20:09)
[2024-03-24] MEDS: APIXABAN 5 MG TABLET PO SCH (20:09)
[2024-03-24] MEDS: SACUBITRIL/VALSARTAN 24/26 MG TAB PO SCH (20:09)
[2024-03-24] MEDS: INSULIN REGULAR (HUMAN) 100 UNIT/ML SQ SCH (20:18)
[2024-03-24] MEDS: ACETAMINOPHEN 500 MG TAB PO PRN (20:35)
--- NOTE | 2024-03-25 05:58 | HP ---
Date of Admission: 03/24/2024 Time Of Service: 1:10 p.m. Chief Complaint: "I became very weak and had heart attack." History Of Present Illness: Mr. Leal is a 74-year-old patient with congestive heart failure, CO PD, hypertension, diabetes mellitus type 2, dyslipidemia, gastroesophageal reflux disease, coronary a rtery bypass grafting, pacemaker placement, and chronic wounds, who was at home and mostly homebound, and had issues of financial constraints making it difficult for him to go back and forth for physica l therapy and to Wound Care, which was needed. Prior to him becoming significantly impaired, he was independent with ADLs, ambulating about up to a week prior to his initial worsening and myocardial in farction. At that point, he became dizzy, lightheaded, and was nauseous. [facility], taken there by [facility] Medical Services and found to have non -ST-segment elevation myocardial infarction. He was transferred to [facility] for higher level of c are. There, he was admitted, evaluated, and worked up for myocardial infarction. He did receive med ical treatment. He was discharged home with medications, but was unable to get to pick the medicatio ns up because of cost constraints and could not again follow up with his Thursday, Thursday, Thursday wo [facility] [place] [facility] visits. He was receiving therapy and wound care by a nurse who came once a week. As his condition worsened, he was at risk for sepsis, gangrene in his wound, and potential amputation. Also, he had developed significant pain, making it difficult for him to ambulate due to neuropathy. He also required aggressive management of his comorbid conditions to prevent worsening myocardial re lated issues and COPD exacerbation. With therapy, he was only able to ambulate about 10 feet with co ntact guard assistance. Required contact guard assistance to manage his showers, ADLs, and donning a nd doffing of clothes, and was completely independent with going up and down steps. Due to his decli ne in functioning and comorbid conditions, he is now [facility] where he will receive physical, occupational and if need be speech therapy along 24-hour a day long term and daily physician evaluation. Also, Chief Wellness Officer evaluation fo r discharge planning, home equipment, and physician followup. Past Medical History: As noted above. Allergies: NO KNOWN DRUG ALLERGIES. Medications: Eliquis 5 mg twice daily, Lipitor 10 mg at bedtime, Coreg 3.125 mg twice daily, Medihon ey to his wounds applied topically daily, gabapentin 100 mg daily. He is on Novolin insulin sliding scale, lidocaine patch apply topically daily. Additional home medications do include atorvastatin 10 mg at night, Plavix 75 mg daily, Colace 100 mg twice daily, Zetia 10 mg daily, ferrous sulfate 325 m g daily, Lasix 20 mg daily, metformin 1000 mg at breakfast, isosorbide 30 mg daily, Silvadene apply t opically to wound daily, Aldactone 25 mg daily. Family History: Noncontributory. Social History: No alcohol, tobacco, or IV drug use. Review of Systems: He does report some mild chest discomfort, some myalgias and arthralgias in the legs, and some area o f skin breakdown in both legs. Otherwise, no genitourinary complaints or gastrointestinal complaints . Physical Examination: Vital Signs: Blood pressure 122/69, pulse 60, respiratory rate of 16, temperature 97.2, oxygen satur ation 98%. General: Mr. Leal is in between therapy sessions. Resting comfortably. He is in no acute dist ress. HEENT: He is normocephalic, atraumatic. Sclerae anicteric. Oropharynx pink and moist. Neck: Supple. Chest: Clear. Heart: Regular. Extremities: Show no edema, cyanosis. He has diffuse weakness of upper and lower extremities proxim ally and distally. Laboratory Studies: Glucose is 113. He is currently having blood draws done. Current Level Of Functioning: Setup assistance for eating, oral hygiene. Moderate assistance for to ileting. Independent for showering. Supervision for upper body dressing. Moderate assistance for l ower body dressing, and donning/doffing footwear. Maximal assistance for rolling right to left and l eft to right. Maximal assistance for sitting on a sliding on the side of bed and going from sit to s tand position. Maximum assistance for kld-kd-avthk transfer and toilet transfer. Maximum assistance for ambulation with a rolling walker covering 10 feet. He is independent covering 50 feet with a wh eelchair. Stairs dependent, covering 1 step. Rehabilitation And Medical Assessment: Mr. Leal is a 74-year-old patient in the rehabilitation unit with impairment category 14, which is cardiac. His impairment group code is 09, cardiac. The e tiologic diagnosis is owt-DR-exlptok myocardial infarction. Comorbid conditions are coronary artery bypass grafting, coronary artery disease, chronic obstructive pulmonary disease, decreased mobility, decrease in physical functioning, diabetes mellitus type 2, lower extremity with mild edema, gastroes ophageal reflux disease, dyslipidemia, hypertension, osteoporosis, and leg wounds. Plan: 1.He will have physical and occupational therapy 3 hours a day, 5/7 days. If need be speech therapy will be done for half an hour daily for 5 days. 2.He has multiple comorbidities, which are listed, including hypertension, managed with Coreg, that is also for heart rate; dyslipidemia, addressed with Lipitor; stroke risk, treated with Eliquis 5 mg twice daily; wounds are treated with Medihoney; gabapentin 100 mg daily for neuropathic pain. May re start depending on blood glucose Levemir 20 units subcutaneously at bedtime in addition to metformin 1000 mg with breakfast. He also used Silvadene and Medihoney to his lower extremity wounds. May add Zetia and ferrous sulfate along with Lasix for fluid management and Aldactone for fluid management a s well. Will have first weekly blood work, basic metabolic panel, liver function studies, and comple te blood count with differential. Comorbidities That Are Impacting Rehabilitation: His recent myocardial infarction will be monitored as appropriate with an EKG being done and if need be cardiac enzymes depending on the patient's pain reports. Will also have sublingual nitroglycerin available for relieving ischemic chest pain. He wi ll have 24 hours a day nursing evaluation to dress the wounds to help reduce them from worsening. In addition, blood sugars and oxygenation will be followed and the respiratory service will be involved as appropriate. He does have a risk of pneumonia, risk of deep vein thrombosis, and infection in fletcher th urine and systemic infection. Rehab Specific Plan: Mr. Leal will have physical, occupational, and if need be speech therapy f or 3.5 hours, 5/7 days to work on his ability to transfer from bed to chair to toilet to shower and t o perform toileting and showering in addition to ambulating 250 feet with a rolling walker towards mo dified independence, propelling wheelchair 250 feet with modified independence, up and down 10 steps with modified independence with bilateral hand rails in addition to performing his cognitive function ing with independence. If need be, the patient will have assistance from Infectious Disease Service, Pulmonary Service, and Cardiology Service. Given his risk of complications and need for his therapy to be done aggressively, rehabilitation cannot be safely or effectively performed at a lower level f acility such as long term. Mr. Leal has a good understanding of the process of admission to the rehabilitation unit and how he will benefit from physical, occupational, and speech therapy. Prior to discharge currently, he was discharged home very recently and was unable to thrive due to th e inability to access medical care likely because of lack of funds and transportation. That may pres ent an issue and at time of discharge is present. The patient will have to be well enough to be able to make visits to Wound Care, in addition the finances for him to receive his medications which may be expensive, so he may have to rely on additional services to be able to fulfill these needs. Length Of Stay: About 10 days. Disposition: Home with home health to continue. Prognosis: Good. Rehab Specific Goals: 1.Become independent with upper and lower body dressing, donning and doffing footwear. 2.Independently transfer to chair, toilet, shower and perform toileting and showering. 3.Independently ambulate 250 feet with a rolling walker. 4.Independently propel a wheelchair 250 feet. 5.Independently go up and down 10 steps with bilateral handrails. 6.Independently perform cognitive functioning. The above goals were reviewed, and Mr. Leal is in agreement. By signing this document, I acknowledge I have personally performed a full physical examination on Mr Jose Juan Leal no later than 24 hours after his admission to the inpatient rehabilitation facility and d etermined that he is able to tolerate the above course of treatment at an intensive level for a reaso nable period of time. A detailed individualized plan of care for him will be completed by hospital shagufta tellez 4 based on the preadmission screen, history and physical, and therapy evaluations. STEVENSON/RAMIREZ Voice ID: [id number]
[2024-03-25 07:25] LABS: Absolute Basophils 0.1 K/uL (0-0.5); Absolute Eosinophils 0.4 K/uL (0-0.5); Absolute Lymphocytes (CBC) 1.2 K/uL (0.7-4.9); Absolute Monocytes 0.6 K/uL (0.1-1.3); Absolute Neutrophil 3.7 K/uL (1.8-8.0); Basophils % 1.1 % (0-1.3); Eosinophils % 6.2 % (0-4.4); Hematocrit 36.5 % (39.6-49.0); Hemoglobin 11.8 g/dL (13.6-17.9); Lymphocytes % 20.1 % (15.3-44.8); MCH 27.4 pg (27.0-35.0); MCHC 32.3 g/dL (32.0-36.0); MCV 84.8 fL (80-100); MPV 8.6 fL (7.6-11.3); Monocytes % 9.8 % (3.3-12.3); Neutrophils % 62.8 % (41.7-73.7); Nucleated Red Blood Cells % 0.1 % (0-0); Platelets 159 thou/uL (152-406); RBC Red Blood Cell Count 4.31 M/uL (4.33-5.43); Red Cell Distribution Width 15.5 % (12.1-15.2)
[2024-03-25 07:33] LABS: Anion Gap 5.2 mEq/L (5.0-15.0); Magnesium 2.1 mg/dL (1.6-2.4); Potassium 4.2 mEq/L (3.5-5.1); Prealbumin 15.7 mg/dL (20-40)
[2024-03-25] MEDS: TRESIBA 20 UNIT SQ SCH (08:00)
[2024-03-25] MEDS: LIDOCAINE 4% PATCH TOP SCH (08:14)
[2024-03-25] MEDS: MEDIHONEY 44 ML TOPICAL TUBE TOP SCH (10:59)
--- NOTE | 2024-03-25 13:12 | P.RH.PN ---
Estimated Length of Stay: 11 Expected Discharge Date: 03/31/24 Discharge Disposition Plan: Home Family Support: Yes Skilled Nursing Goal: Mobility, Transfers, Self Care Vital Signs: Last Vital Signs Temp 97.9 F 03/25/24 06:38 Pulse 61 03/25/24 06:38 Resp 16 03/25/24 06:38 BP 139/76 03/25/24 06:38 Pulse Ox 99 03/25/24 06:38 Laboratory: Laboratory Last Values WBC 5.90 thou/uL (4.3-10.9) 03/25/24 07:07 RBC 4.31 M/uL (4.33-5.43) L 03/25/24 07:07 Hgb 11.8 g/dL (13.6-17.9) L 03/25/24 07:07 Hct 36.5 % (39.6-49.0) L 03/25/24 07:07 MCV 84.8 fL (80-100) 03/25/24 07:07 MCH 27.4 pg (27.0-35.0) 03/25/24 07:07 MCHC 32.3 g/dL (32.0-36.0) 03/25/24 07:07 RDW 15.5 % (12.1-15.2) H 03/25/24 07:07 Plt Count 159 thou/uL (152-406) 03/25/24 07:07 MPV 8.6 fL (7.6-11.3) 03/25/24 07:07 Neutrophils % 62.8 % (41.7-73.7) 03/25/24 07:07 Lymphocytes % 20.1 % (15.3-44.8) 03/25/24 07:07 Monocytes % 9.8 % (3.3-12.3) 03/25/24 07:07 Eosinophils % 6.2 % (0-4.4) H 03/25/24 07:07 Basophils % 1.1 % (0-1.3) 03/25/24 07:07 Absolute Neutrophils 3.7 K/uL (1.8-8.0) 03/25/24 07:07 Absolute Lymphocytes 1.2 K/uL (0.7-4.9) 03/25/24 07:07 Absolute Monocytes 0.6 K/uL (0.1-1.3) 03/25/24 07:07 Absolute Eosinophils 0.4 K/uL (0-0.5) 03/25/24 07:07 Absolute Basophils 0.1 K/uL (0-0.5) 03/25/24 07:07 Sodium 137 mEq/L (136-145) 03/25/24 07:07 Potassium 4.2 mEq/L (3.5-5.1) 03/25/24 07:07 Chloride 108 mEq/L (98-107) H 03/25/24 07:07 Carbon Dioxide 28 mEq/L (21-32) 03/25/24 07:07 Anion Gap 5.2 mEq/L (5.0-15.0) 03/25/24 07:07 BUN 30 mg/dL (7-18) H 03/25/24 07:07 Creatinine 1.37 mg/dL (0.70-1.30) H 03/25/24 07:07 Est GFR (CKD-EPI) 55 ml/min (=/>90) L 03/25/24 07:07 Glucose 145 mg/dL (74-106) H 03/25/24 07:07 POC Glucose 150 mg/dL (65-120) H 03/25/24 11:03 Calcium 8.9 mg/dL (8.5-10.1) 03/25/24 07:07 Magnesium 2.1 mg/dL (1.6-2.4) 03/25/24 07:07 Albumin 3.0 g/dL (3.4-5.0) L 03/25/24 07:07 Prealbumin 15.7 mg/dL (20-40) L 03/25/24 07:07 Urine Color Cancelled 03/24/24 12:35 Urine Clarity Cancelled 03/24/24 12:35 Urine pH Cancelled 03/24/24 12:35 Ur Specific [place] Cancelled 03/24/24 12:35 Glucose (UA)(Auto) Cancelled 03/24/24 12:35 Urine Ketones Cancelled 03/24/24 12:35 Urine Blood Cancelled 03/24/24 12:35 Urine Nitrite Cancelled 03/24/24 12:35 Urine Bilirubin Cancelled 03/24/24 12:35 Urine Urobilinogen Cancelled 03/24/24 12:35 Ur Leukocyte Esterase Cancelled 03/24/24 12:35 Urine RBC Cancelled 03/24/24 12:35 Urine Red Cell Clumps Cancelled 03/24/24 12:35 Urine WBC Cancelled 03/24/24 12:35 Urine WBC Clumps Cancelled 03/24/24 12:35 Ur Squamous Epith Cells Cancelled 03/24/24 12:35 U Non-Squamous Epi Cells Cancelled 03/24/24 12:35 Ur Transition Epith Cell Cancelled 03/24/24 12:35 Ur Renal Epithelial Cell Cancelled 03/24/24 12:35 Calcium Carbonate Cryst Cancelled 03/24/24 12:35 Calcium Oxalate Crystal Cancelled 03/24/24 12:35 Leucine Crystals Cancelled 03/24/24 12:35 Cystine Crystals Cancelled 03/24/24 12:35 Uric Acid Crystals Cancelled 03/24/24 12:35 Triple Phos Crystals Cancelled 03/24/24 12:35 Tyrosine Crystals Cancelled 03/24/24 12:35 Unidentified Crystals Cancelled 03/24/24 12:35 Amorphous Crystals Cancelled 03/24/24 12:35 Urine Bacteria Cancelled 03/24/24 12:35 Hyaline Casts Cancelled 03/24/24 12:35 Granular Casts Cancelled 03/24/24 12:35 Waxy Casts Cancelled 03/24/24 12:35 RBC Casts Cancelled 03/24/24 12:35 WBC Casts Cancelled 03/24/24 12:35 Urine Mucus Cancelled 03/24/24 12:35 Urine Trichomonas Cancelled 03/24/24 12:35 Ur Yeast w Hyphae Cancelled 03/24/24 12:35 Urine Yeast (Budding) Cancelled 03/24/24 12:35 Urine Sperm Cancelled 03/24/24 12:35 Ur Oval Fat Bodies Cancelled 03/24/24 12:35 Urine Culture Reflexed Cancelled 03/24/24 12:35 Urine Total Protein Cancelled 03/24/24 12:35 Urine Ascorbic Acid Cancelled 03/24/24 12:35 Urine Fat Cancelled 03/24/24 12:35 Weight: 196 lb 1.6 oz Within Defined Parameters: Yes Wound Present: Yes Negative Pressure Wound Therapy Present: No Physician Update: Labs reviewed and are stable. No significant chest pain. BIMS 9, SLUMS 21, poor short term memory. Doing well with physical therapy. Min assist with turning in bed. 100' without rest and 250' total. WC 500', up and down 15 steps. CGA with ADLs. Summary: Patient's care plan and intermediate manager goals have been reviewed and revised as necessary. Please see the Rehabilitation Signature page for all necessary signatures.
[2024-03-25] MEDS: GABAPENTIN 100 MG CAP PO SCH (20:02)
[2024-03-25] MEDS: GLUCERNA SHAKE 237 ML CAN PO SCH (20:03)
[2024-03-25] MEDS: INSULIN GLARGINE 100 UNIT/ML SQ SCH (21:00)
[2024-03-25] MEDS ORDERED: TRESIBA 20 UNIT SQ SCH (21:00)
[2024-03-26] MEDS ORDERED: DOCUSATE NA/SENNA CONC 1 TAB PO PRN (12:57)
[2024-03-26] MEDS: INSULIN GLARGINE 100 UNIT/ML SQ SCH (20:37)
[2024-03-28] MEDS: LOPERAMIDE HCL 2 MG CAPSULE PO PRN (16:59)
--- NOTE | 2024-03-28 20:14 | PN ---
Date of Progress Note: 03/28/2024 Time Of Service: 12:10 p.m. Subjective: Mr. Leal is in the hallway doing therapy. He is quite happy with his therapy so fa clare Does report some burning and tingling pain at the bottom of his right foot where there is an area of breakdown, that is most when he ambulates. He does have gabapentin 100 mg twice daily, that will be adjusted to 300 mg twice daily. Review of Systems: No fevers, chills, nausea, vomiting, myalgias, arthralgias, rash, headache, or weight change. No psy chiatric complaints. Physical Examination: Vital Signs: Blood pressure 143/80, pulse 65, respiratory rate is 18, temperature 97.3, O2 saturatio n 95%. General: Mr. Leal is resting in a chair while he is able to mobilize along the hallway. HEENT: He is normocephalic, atraumatic. Sclerae are anicteric. Oropharynx is moist. Neck: Supple. Chest: Clear. Heart: Regular. Extremities: No significant cyanosis. More mild edema in the right lower extremity. Laboratory Studies: White blood cell count 5.9, hemoglobin 11.8, platelets are 159. Blood sugars ra nged from 110 to 138. Urinalysis is unremarkable. X-ray/imaging: No new x-rays or imaging. Progress Made With Physical And Occupational Therapy: With his physical therapy, able to complete 85 feet 4 times with contact guard assistance with a rolling walker, up and down 15 steps with contact guard assistance. Bilateral handrails. Also mobilized the wheelchair 250 feet with supervision and completed another 250 feet with rest break with contact guard assist and rolling walker. With occupa tional therapy. He is up with wheelchair from room to shower supervision, supervision for bathing, u pper body dressing, lower body dressing, footwear, all with guard supervision and for toilet hygiene also supervision level. With speech, he recalled 2 out of 3 unrelated pictures after 3 minutes in fi rst attempt and 3 out of 3 after 3 minutes on the 2 subsequent attempts. Divergent naming skills use d to name 7 concrete category items and done with moderate assistance in the form of semantic cues. Mr. Leal is making great progress with physical, occupational, and speech therapy. Assessment: Mr. Leal is a 74-year-old patient, in rehabilitation with [id number] myocardial infarction. He has had coronary artery bypass grafting, chronic obstructive pulmonary disease, decr eased mobility, decreased physical functioning, diabetes mellitus type 2, lower extremity edema, and skin breakdown on the right foot with some pain, there are leg wounds, hypertension, osteoporosis, dy slipidemia, gastroesophageal reflux. Plan: 1.We will continue with physical, occupational, and speech therapy for 3.5 hours, 5 of 7 days. 2.We will continue with his multiple medications, which do include the Eliquis 5 mg twice daily for DVT and stroke risk reduction, Lipitor for dyslipidemia, Tylenol for pain, Coreg for heart rate and b lood pressure control. Has Medihoney, applies to his leg wounds. He has Glucerna shake 237 mL twice daily, gabapentin 300 mg twice daily for neuropathic pain, simply insulin 10 units at bedtime. The lidocaine patch applied to the right foot, 3 mg of melatonin at night, Zofran for nausea, Senokot-S f or constipation. Comorbidities That Are Impacting Rehabilitation: The pain in the bottom of the right foot, has way u p to 6 or 7, then again gabapentin has been adjusted today to help decrease pain, and otherwise, he i s making good progress and not negatively impacted by his comorbid conditions. STEVENSON/RAMIREZ Voice ID: [id number] Report ID: [id number]
[2024-03-28] MEDS: GABAPENTIN 300 MG CAP PO SCH (21:39)
[2024-03-29 06:06] LABS: Absolute Basophils 0.1 K/uL (0-0.5); Absolute Eosinophils 0.4 K/uL (0-0.5); Absolute Lymphocytes (CBC) 1.3 K/uL (0.7-4.9); Absolute Monocytes 0.7 K/uL (0.1-1.3); Absolute Neutrophil 3.8 K/uL (1.8-8.0); Basophils % 1.1 % (0-1.3); Eosinophils % 6.5 % (0-4.4); Hematocrit 33.8 % (39.6-49.0); Hemoglobin 11.5 g/dL (13.6-17.9); Lymphocytes % 21.1 % (15.3-44.8); MCH 28.6 pg (27.0-35.0); MCHC 33.9 g/dL (32.0-36.0); MCV 84.3 fL (80-100); MPV 8.8 fL (7.6-11.3); Monocytes % 10.5 % (3.3-12.3); Neutrophils % 60.8 % (41.7-73.7); Platelets 151 thou/uL (152-406); RBC Red Blood Cell Count 4.01 M/uL (4.33-5.43); Red Cell Distribution Width 15.6 % (12.1-15.2)
--- NOTE | 2024-03-29 12:35 | P.CNS ---
Date of Consult: 03/29/24 Reason for Consult: Wound right foot History of Present Illness: Wound right foot present for several months. Being treated by home health with [facility] Allergies No Known Allergies Allergy (Verified 03/24/24 09:54) Home Medications: Acetaminophen [Tylenol Extra Strength] 500 mg PO Q4H PRN 03/24/24 Apixaban [Eliquis] 5 mg PO BID 03/24/24 Atorvastatin Calcium [Lipitor*] 1 tab PO BEDTIME 03/24/24 Gabapentin [Neurontin*] 1 cap PO DAILY 03/24/24 Insulin Degludec [Tresiba Flextouch U-200] 20 units SQ DAILY 03/24/24 Sacubitril/Valsartan [Entresto 24 mg-26 mg Tablet] 0.5 tab PO BID 03/24/24 carvediloL [Carvedilol] 0.5 tab PO BID 03/24/24 - Past Medical/Surgical History Diabetic: Yes -: Dementia -: Chronic systolic CHF -: HTN -: HLD -: CAD -: CVA -: Mitral Valve Regurgitation -: UTI -: pulmonary congestion -: abnormal EKG -: hernia repair -: ICD Psychosocial/ Personal History: Patient is . - Family History Father Medical History: Heart disease, Diabetes - Social History Alcohol use: No CD- Drugs: No Caffeine use: No Place of Residence: Home Review of Systems 10-point ROS is otherwise unremarkable Physical Examination Temp Pulse Resp BP Pulse Ox 97.4 F 61 18 153/72 H 95 03/29/24 06:23 03/29/24 06:23 03/29/24 06:23 03/29/24 06:23 03/29/24 06:23 General: Alert, In no apparent distress, Oriented x3 Cardiovascular: No edema, Abnormal pulses (1/4 dp and pt pulses bilateral) Capillary refill: <2 Seconds Musculoskeletal: No clubbing, No swelling, No contractures, No erythema, No tenderness, No warmth Integumentary: Diabetic ulcer (ulceration plantar right 5th mpj with granular base measuring0.8cmX0.2cmX0.2cm) Neurological: Abnormal sensation Laboratory Data (last 24 hrs) 03/29/24 03/29/24 05:45 05:45 WBC 6.30 Hgb 11.5 L Hct 33.8 L Plt Count 151 L Sodium 138 Potassium 5.0 BUN 42 H Creatinine 1.41 H Glucose 112 H - Problems (1) Type 2 diabetes mellitus with foot ulcer Current Visit: Yes Status: Acute (2) Type 2 diabetes mellitus Current Visit: No Status: Chronic Qualifiers: Conclusions/Impression: Continue medihoney to right foot wound q48h Upon discharge patient to follow up with Dr. Cutler. Patient would benefit from diabetic offloading shoes Physician Review: Patient Assessed, Agree with Above Assessment and Plan
--- NOTE | 2024-03-30 01:14 | PN ---
Date of Progress Note: 03/29/2024 Time Of Service: 1 p.m. Subjective: Mr. Leal is doing very well, sitting in a chair in the hallway in between therapy s essions. He is denying any significant pain in his chest, his abdomen, or extremities. Has mild dis comfort above the right foot where there are neuropathy symptoms that is managed with gabapentin and the patient had increased dosage. Review of Systems: Had mild discomfort in the bottom of his right foot. No fevers or chills. No significant myalgias, arthralgias. No rash, headache, weight change. No psychiatric complaints. No gastrointestinal or g enitourinary complaints. Physical Examination: Vital Signs: Blood pressure 159/72, pulse 62, respiratory rate 17, temperature 97.3, oxygen saturati on 98%. General: Mr. Leal is resting comfortably in no significant distress. HEENT: He is normocephalic, atraumatic. Sclerae are anicteric. Oropharynx pink and moist. Neck: Supple. Chest: Clear. Heart: Regular rate and rhythm. Extremities: No significant clubbing, cyanosis, or edema. Medications: Medications have been reviewed and have been unchanged. He is on gabapentin 300 mg twi ce daily as noted, has Imodium for some loose stools, which is better. Also, Zofran for reflux. Laboratory Studies: His white blood cell count 6.4, hemoglobin 11.5, platelets 151. Sodium 138, pot assium 5.0, chloride 107, carbon dioxide 26, BUN 42, creatinine 1.41, glucose ranged from 106-141, ca lcium 9.1. His creatinine did go from 1.37 on the , on the it is 1.41, and he will be encour aged to drink more water. Progress Made With Physical, Occupational, And Speech Therapy: Today with physical therapy, he was a ble to mobilize independently in the bed, perform [id number] transfers independently, multiple sit -to-stand transfers independently, stand pivot transfers done independently. He uses a rolling walke r to ambulate 125 feet, 175 feet, and another 75 feet with contact guard assistance. He was able to go up and down 15 steps with bilateral handrails with standby assistance and he mobilized a wheelchai r 350 feet independently. With occupational therapy, self propelled from the room to the gym aleja jennings, did grab bar exercises, improve transfers with rest breaks also demonstrated. With his speec h, he was able to recall 3 of 3 words after given 1 verbal cue, able to hold 4 units of information a nd place them in in 4/10 opportunities. He did show improvement in organizational thinkin g as demonstrated by the scrambling sentences in 6/10 repetitions. Mr. Leal is making great progress with his physical and occupational therapy and is ready for [facility] this weekend. Assessment: Mr. Leal is a 74-year-old patient in the rehabilitation unit with [id number] my ocardial infarction. He is doing very well. He has coronary artery bypass grafting, chronic obstruc tive pulmonary disease, decreased physical function, decreased mobility, diabetes mellitus type 2, so me neuropathic pain, skin breakdown on the right foot where there is leg wound, hypertension, osteopo rosis, dyslipidemia, GE reflux. Plan: 1.Continue with physical, occupational, and speech therapy for 3.5 hours, 5 of 7 days. 2.He has multiple treatment options with Medihoney apply to the leg wounds. He has Eliqu is 5 mg twice daily for DVT prophylaxis and stroke risk reduction. Lipitor for dyslipidemia. His in sulin is 10 units at bedtime, long-term insulin and he is doing very well as long-acting insulin. He has lidocaine patch on the right foot, melatonin for insomnia, Zofran for nausea, Senokot for consti pation. Comorbidities That Are Impacting Rehabilitation: The right foot pain, which is now much better he ambulates, but still maybe 3 or so out of 10. LB/RAMIREZ Voice ID: [id number] Report ID: [id number]
[2024-03-30] MEDS: ONDANSETRON 4 MG (ODT) TAB PO PRN (14:20)
[2024-03-30] MEDS: MELATONIN 3 MG TABLET PO PRN (20:10)
[2024-03-31 07:41] VITALS: BP 133/64; TEMP 96.8
[2024-03-31 12:30] VITALS: BMI 26.4
== END 2024-03-31 13:40 | disposition home health service (06) | DRG 281 ==
LOC: 5TH 09:05
PROVIDERS: ADMIT Psychiatry & Neurology Neurology with Special Qualifications in Child Neurology; ATTEND Psychiatry & Neurology Neurology with Special Qualifications in Child Neurology
DX: I21.4 Non-ST elevation (NSTEMI) myocardial infarction (principal); I50.22 Chronic systolic (congestive) heart failure; L97.419 Non-pressure chronic ulcer of right heel and midfoot with unspecified severity; J44.9 Chronic obstructive pulmonary disease, unspecified; E11.9 Type 2 diabetes mellitus without complications; E78.5 Hyperlipidemia, unspecified; K21.9 Gastro-esophageal reflux disease without esophagitis; M81.0 Age-related osteoporosis without current pathological fracture; I11.0 Hypertensive heart disease with heart failure; E11.621 Type 2 diabetes mellitus with foot ulcer; Z95.1 Presence of aortocoronary bypass graft; Z95.0 Presence of cardiac pacemaker; Z86.73 Personal history of transient ischemic attack (TIA), and cerebral infarction without residual deficits
CPT/HCPCS: 36415; 80048; 81001; 82040; 82947; 83735; 84134; 85025; 87086; 87088; 92523; 97110; 97116; 97129; 97163; 97165; 97530; 97542; J2001; Q0162